=== PATIENT | female | born 1960 | race Caucasian/White ===

== ENCOUNTER 2018-03-30 15:39 | Emergency (ER) | payer OTHER ==
[2018-03-30 15:50] VITALS: RESP 16
[2018-03-30] MEDS ORDERED: OXYMETAZOLINE 0.05% NASL SPRAY 1 SPRAY BOTTLE ONE (15:58)
--- NOTE | 2018-03-30 16:08 | ED ---
General Adult HPI - General Chief complaint: ENT Stated complaint: Nosebleed Time Seen by Provider: 03/30/18 15:55 Source: patient, EMS, RN notes reviewed Mode of arrival: EMS Limitations: no limitations - History of Present Illness Initial comments: 57-year-old female no significant past medical history presents for evaluation of nosebleed. Patient has had nosebleeds over the past 4 days. These have resolved without treatment. Today she developed worsening right sided epistaxis with several large clots. Patient denies any trauma. She does have a chronic history of migraine headache and she takes aspirin-containing products for her chronic headaches. No other blood thinners noted. No rhinorrhea or URI symptoms. - Related Data Home Medications Medication Instructions Recorded Confirmed Baclofen [Lioresal] 20 mg PO HS 03/30/18 03/30/18 FLUoxetine HCL [PROzac] 20 mg PO DAILY 03/30/18 03/30/18 Levothyroxine Sodium [Synthroid] 125 mcg PO DAILY 03/30/18 03/30/18 Propranolol HCl [Inderal LA] 80 mg PO HS 03/30/18 03/30/18 Rizatriptan Benzoate [Maxalt [employer] E[employer]MENT REPAIRER] 10 mg PO DAILY PRN 03/30/18 03/30/18 Previous Rx's Medication Instructions Recorded Amoxic-Pot Clav 875-125Mg 1 tab PO Q12HR #10 tablet 03/30/18 [Augmentin 875-125] Allergies Allergy/AdvReac Type Severity Reaction Status Date / Time latex Allergy Rash/Hives Verified 03/30/18 16:19 Sulfa (Sulfonamide Allergy Unknown Verified 03/30/18 16:19 Antibiotics) Childhood Review of Systems ROS Statement: Those systems with pertinent positive or pertinent negative responses have been documented in the HPI. ROS Other: All systems not noted in ROS Statement are negative. Past Medical History Past Medical History: Thyroid Disorder History of Any Multi-Drug Resistant Organisms: None Reported Past Surgical History: Bariatric Surgery, Section, Cholecystectomy, Tonsillectomy Additional Past Surgical History / Comment(s): gastric bypass, sinus Past Psychological History: Depression Smoking Status: Current every day smoker Past Alcohol Use History: None Reported Past Drug Use History: None Reported General Exam Limitations: no limitations General appearance: alert, in no apparent distress Head exam: Present: atraumatic, normocephalic Eye exam: Present: normal appearance, PERRL ENT exam: Present: other (Epistaxis primarily from the right nare, she has some posterior oropharynx hemorrhage with no visualized clots.) Neck exam: Present: normal inspection. Absent: tenderness, meningismus Respiratory exam: Present: normal lung sounds bilaterally. Absent: respiratory distress, wheezes Cardiovascular Exam: Present: regular rate, normal rhythm GI/Abdominal exam: Present: soft. Absent: distended, tenderness Extremities exam: Present: normal inspection, normal capillary refill. Absent: pedal edema Neurological exam: Present: alert, oriented X3, CN II-XII intact. Absent: motor sensory deficit Psychiatric exam: Present: normal affect, normal mood Skin exam: Present: warm, dry, intact. Absent: cyanosis, diaphoretic, pallor Course Vital Signs 03/30/18 15:45 Temperature 98.7 F Pulse Rate 68 Respiratory 16 Rate Blood Pressure 156/97 O2 Sat by Pulse 97 Oximetry Medical Decision Making - Medical Decision Making Procedure note: Nasal packing: Nose is irrigated with Afrin nasal spray, nasal packing is applied with bacitracin ointment. Patient tolerates procedure well. Hemostasis is achieved. 57-year-old female presenting for nosebleed. She has had some nasal congestion. On exam her nasal turbinates are significantly swollen. No single bleeding vessel is seen on exam. Initial infiltration of Afrin nasal spray and nasal clamp is unsuccessful. Packing is applied. Hemostasis, she continues to bleed out of both nostrils. Rhino Rocket is placed on the right and Merocel packing is placed on the left. There is no posterior oropharyngeal bleeding on reevaluation. Patient will be prescribed antibiotics and will follow up with ENT. Disposition Clinical Impression: Epistaxis Disposition: HOME SELF-CARE Condition: Good Instructions: Nosebleed (ED) Prescriptions: Amoxic-Pot Clav 875-125Mg [Augmentin 875-125] 1 tab PO Q12HR #10 tablet Is patient prescribed a controlled substance at d/c from ED?: No Referrals: Clement Gomez DO [Primary Care Provider] - 1-2 days Greg Orellana MD [STAFF PHYSICIAN] - 1-2 days Time of Disposition: 16:30
[2018-03-30 17:33] VITALS: PULSE 64; TEMP 98.2
[2018-03-30 17:59] VITALS: BP 194/110
== END 2018-03-30 17:58 | disposition home or self-care (01) ==
LOC: EC 15:39
DX: R04.0 Epistaxis (principal); E07.9 Disorder of thyroid, unspecified; G89.29 Other chronic pain; F32.9 Major depressive disorder, single episode, unspecified; F17.200 Nicotine dependence, unspecified, uncomplicated; Z79.82 Long term (current) use of aspirin; Z79.899 Other long term (current) drug therapy; Z88.2 Allergy status to sulfonamides; Z91.040 Latex allergy status; Z98.890 Other specified postprocedural states
CPT/HCPCS: 30901; 99283

== ENCOUNTER → 2018-09-23 | Outpatient (CLI) | payer OTHER ==
--- NOTE | 2018-09-23 21:04 | MR ---
EXAMINATION TYPE: MR hip RT wo con DATE OF EXAM: 09/23/2018 COMPARISON: None HISTORY: Right hip pain with locking sensation for 6 months per patient. Standard multiplanar, multisequence MRI departmental protocol Multiplanar, multisequence images of the pelvis focus in right hip is acquired. FINDINGS: Bone marrow signal intensity about the pelvis including bilateral hips is felt maintained. No suspicious edema is seen. No linear T1 signal is noted. Femoral head spherical shape is maintained bilaterally. There are small to moderate size right slightly greater than left hip joint effusions. There is mild to moderate axial joint space loss in both hips. No significant spurring or subchondral cystic change s noted. No suspicious edema seen at level of the lesser greater trochanters bilaterally. Right labru m appears intact given limitations of nonarthrogram study. No suspicious groin adenopathy is seen. No suspicious groin hernia is present. Muscle bulk is symmetr ic and felt within normal limits. Uterus is felt slightly retroverted. Patient has very little intrapelvic fat making evaluation subopt imal. Bladder is felt within normal limits. No free fluid in pelvis is noted. No suspicious bowel dil atation is seen. Pubic symphysis is intact. IMPRESSION: Symmetric mild to moderate degenerative changes in both hips as detailed above. No evidence for avasc ular necrosis or radio occult fracture.
== END ==
LOC: RADMRIMAIN 13:26
PROVIDERS: ATTEND Family Medicine
DX: M16.0 Bilateral primary osteoarthritis of hip (principal)

== ENCOUNTER → 2018-10-25 | Outpatient (CLI) | payer OTHER ==
--- NOTE | 2018-10-25 22:50 | MR ---
EXAMINATION TYPE: MR lumbar spine wo con DATE OF EXAM: 10/25/2018 COMPARISON: NONE HISTORY: Low back pain into Right Leg Pain x6 months per patient. Low back pain per order. TECHNIQUE: Multiplanar, multisequence imaging of the lumbar spine is performed without IV contrast. FINDINGS: Sagittal images of the lumbar spine show vertebral body height to appear satisfactory. Ther e is grade 1 anterolisthesis of L4 on L5. Multilevel disc desiccation is present. There is mild disc space during L3-L4 and L4-L5 levels. Posterior disc herniation L3-L4 level effaces the anterior theca l sac on sagittal images. The conus medullaris ends inferior T12 level without abnormal signal. The bone marrow signal intensity is overall heterogeneous. Axial images show the T12-L1 and L1-L2 levels to appear within normal limits. Axial images at the L2-L3 level show mild facet degenerative changes and ligamentum flavum hypertroph y effacing posterior lateral thecal sac. There is mild broad disc bulge minimally effacing the anteri or thecal sac. Left-sided neural foramina shows mild inferior narrowing. Right sided neural foramen i s patent. Axial images at the L3-L4 level shows mild facet degenerative changes bilaterally. There is broad-bas ed right paracentral/foraminal disc protrusion effacing intrathecal sac as well as lateral recess and causing mild to moderate right-sided anterior inferior neural foraminal narrowing. Encroachment on c entral right L4 nerves suspected axial image 14. Left-sided neural foramen is patent. Axial images at L4-L5 level show spondylolisthesis with moderate facet degenerative changes bilateral ly. There is broad-based right foraminal disc protrusion causing asymmetric moderate right-sided infe rior neural foraminal narrowing encroaching on right L4 nerve sagittal image 12 and axial image 10. Axial images at the L5-S1 level shows moderate facet degenerative changes bilaterally. Spinal canal i s preserved. Bilateral neural foramina are patent. Slightly prominent fluid-filled bowel loops are seen in the visualized abdomen. IMPRESSION: Multilevel degenerative changes in lumbar spine as detailed above. Most prominent disc he rniation L3-L4 level appears to encroach on central right L4 nerve. Spondylolisthesis with eccentric disc herniation L4-L5 level encroaches on the exiting right L4 nerve also.
== END | disposition home or self-care (01) ==
LOC: RADMRIMAIN 18:45
PROVIDERS: ATTEND Family Medicine
DX: M51.26 Other intervertebral disc displacement, lumbar region (principal); M43.16 Spondylolisthesis, lumbar region; M47.816 Spondylosis without myelopathy or radiculopathy, lumbar region
CPT/HCPCS: 72148

== ENCOUNTER 2020-04-13 10:45 | Inpatient (IN) | payer OTHER ==
[2020-04-13] MEDS ORDERED: MORPHINE SULFATE 4 MG/ML SYRINGE IV STA (11:04)
[2020-04-13] MEDS ORDERED: PANTOPRAZOLE 40 MG/10 ML VIAL IVP STA (11:04)
[2020-04-13] MEDS ORDERED: SODIUM CHLORIDE 0.9% 500 ML 500 ML IV STA (11:04)
--- NOTE | 2020-04-13 11:09 | ED ---
General Adult HPI - General Chief complaint: Abdominal Pain Stated complaint: abd pain Time Seen by Provider: 04/13/20 10:56 Source: patient, RN notes reviewed, old records reviewed Mode of arrival: wheelchair Limitations: no limitations - History of Present Illness Initial comments: 59-year-old female presenting for evaluation of generalized abdominal pain. Pain began yesterday evening, crampy in nature. She's had nausea without significant vomiting. She states she did pass gas and had a small bowel movement this morning. Pain is generalized, severe. She reports abdominal distention. Chest previous history of cholecystectomy, hysterectomy. No fever or chills. No chest pain or dyspnea. - Related Data Home Medications Medication Instructions Recorded Confirmed Baclofen [Lioresal] 20 mg PO HS 03/30/18 03/30/18 FLUoxetine HCL [PROzac] 20 mg PO DAILY 03/30/18 03/30/18 Levothyroxine Sodium [Synthroid] 125 mcg PO DAILY 03/30/18 03/30/18 Propranolol HCl [Inderal LA] 80 mg PO HS 03/30/18 03/30/18 Rizatriptan Benzoate [Maxalt [employer]ACHINE [employer]TER] 10 mg PO DAILY PRN 03/30/18 03/30/18 Butalb/APAP/Caff 50-325-40Mg 1 tab PO Q4H PRN 04/13/20 04/13/20 [Fioricet 50-325-40] Chlorthalidone 50 mg PO DAILY 04/13/20 04/13/20 Cholecalciferol [Vitamin D3 (25 1,000 unit PO DAILY 04/13/20 04/13/20 Mcg = 1000 Iu)] Multivitamins, Thera [Multivitamin 1 tab PO DAILY 04/13/20 04/13/20 (formulary)] Allergies Allergy/AdvReac Type Severity Reaction Status Date / Time latex Allergy Rash/Hives Verified 04/13/20 12:08 Sulfa (Sulfonamide Allergy Unknown Verified 04/13/20 12:08 Antibiotics) Childhood Review of Systems ROS Statement: Those systems with pertinent positive or pertinent negative responses have been documented in the HPI. ROS Other: All systems not noted in ROS Statement are negative. Past Medical History Past Medical History: Thyroid Disorder History of Any Multi-Drug Resistant Organisms: None Reported Past Surgical History: Bariatric Surgery, Section, Cholecystectomy, Tonsillectomy Additional Past Surgical History / Comment(s): gastric bypass, sinus Past Psychological History: Depression Smoking Status: Current every day smoker Past Alcohol Use History: None Reported Past Drug Use History: None Reported General Exam Limitations: no limitations General appearance: alert, in distress Head exam: Present: atraumatic, normocephalic Eye exam: Present: normal appearance, PERRL ENT exam: Present: mucous membranes dry Neck exam: Present: normal inspection. Absent: tenderness, meningismus Respiratory exam: Present: normal lung sounds bilaterally. Absent: respiratory distress, wheezes Cardiovascular Exam: Present: regular rate, normal rhythm GI/Abdominal exam: Present: soft, distended, tenderness, guarding Extremities exam: Present: normal inspection, normal capillary refill Neurological exam: Present: alert, oriented X3, CN II-XII intact. Absent: motor sensory deficit Psychiatric exam: Present: normal affect, normal mood Skin exam: Present: warm, dry, intact. Absent: cyanosis, diaphoretic Course Vital Signs 04/13/20 10:50 Temperature 97.4 F L Pulse Rate 63 Respiratory 16 Rate Blood Pressure 100/75 O2 Sat by Pulse 99 Oximetry EKG Findings - EKG Comments: EKG Findings:: EKG: Normal sinus rhythm, no ST segment elevation inferior infarct, rate of 92, ND interval 152, QRS duration 94, QTC 487 Medical Decision Making - Medical Decision Making 59-year-old female with severe abdominal pain. Remote history of bariatric surgery, hysterectomy, cholecystectomy. Patient has a distended abdomen, diffusely tender to palpation, palpable mass in the right hemiabdomen. Vitals are stable. Laboratory testing performed, no leukocytosis, stable hemoglobin, normal lactic, normal electrolytes, CT performed showing intraperitoneal free air, thickened small bowel, case is discussed with general surgery on-call, Dr. Ojeda, patient will be taken to the operating room for urgent evaluation of intraperitoneal free air. - Lab Data Result diagrams: 04/13/20 11:00 04/13/20 11:00 Lab Results 04/13/20 04/13/20 04/13/20 Range/Units 11:00 11:00 11:00 WBC 6.3 (3.8-10.6) k/uL RBC 5.20 (3.80-5.40) m/uL Hgb 16.2 H (11.4-16.0) gm/dL Hct 50.4 H (34.0-46.0) % MCV 96.9 (80.0-100.0) fL MCH 31.1 (25.0-35.0) pg MCHC 32.0 (31.0-37.0) g/dL RDW 16.5 H (11.5-15.5) % Plt Count 289 (150-450) k/uL Neutrophils % 73 % Lymphocytes % 19 % Monocytes % 4 % Eosinophils % 3 % Basophils % 0 % Neutrophils # 4.6 (1.3-7.7) k/uL Lymphocytes # 1.2 (1.0-4.8) k/uL Monocytes # 0.3 (0-1.0) k/uL Eosinophils # 0.2 (0-0.7) k/uL Basophils # 0.0 (0-0.2) k/uL Anisocytosis Slight PT 10.0 (9.0-12.0) sec INR 1.0 (<1.2) APTT 21.2 L (22.0-30.0) sec Sodium 138 (137-145) mmol/L Potassium 3.6 (3.5-5.1) mmol/L Chloride 108 H (98-107) mmol/L Carbon Dioxide 25 (22-30) mmol/L Anion Gap 5 mmol/L BUN 17 (7-17) mg/dL Creatinine 0.53 (0.52-1.04) mg/dL Est GFR (CKD-EPI)AfAm >90 (>60 ml/min/1.73 sqM) Est GFR (CKD-EPI)NonAf >90 (>60 ml/min/1.73 sqM) Glucose 138 H (74-99) mg/dL Plasma Lactic Acid Jose Daniel (0.7-2.0) mmol/L Calcium 9.6 (8.4-10.2) mg/dL Total Bilirubin 0.3 (0.2-1.3) mg/dL AST 31 (14-36) U/L ALT 18 (4-34) U/L Alkaline Phosphatase 82 (38-126) U/L Total Protein 6.2 L (6.3-8.2) g/dL Albumin 3.8 (3.5-5.0) g/dL Amylase 45 (30-110) U/L Lipase 66 (23-300) U/L 04/13/20 Range/Units 11:00 WBC (3.8-10.6) k/uL RBC (3.80-5.40) m/uL Hgb (11.4-16.0) gm/dL Hct (34.0-46.0) % MCV (80.0-100.0) fL MCH (25.0-35.0) pg MCHC (31.0-37.0) g/dL RDW (11.5-15.5) % Plt Count (150-450) k/uL Neutrophils % % Lymphocytes % % Monocytes % % Eosinophils % % Basophils % % Neutrophils # (1.3-7.7) k/uL Lymphocytes # (1.0-4.8) k/uL Monocytes # (0-1.0) k/uL Eosinophils # (0-0.7) k/uL Basophils # (0-0.2) k/uL Anisocytosis PT (9.0-12.0) sec INR (<1.2) APTT (22.0-30.0) sec Sodium (137-145) mmol/L Potassium (3.5-5.1) mmol/L Chloride (98-107) mmol/L Carbon Dioxide (22-30) mmol/L Anion Gap mmol/L BUN (7-17) mg/dL Creatinine (0.52-1.04) mg/dL Est GFR (CKD-EPI)AfAm (>60 ml/min/1.73 sqM) Est GFR (CKD-EPI)NonAf (>60 ml/min/1.73 sqM) Glucose (74-99) mg/dL Plasma Lactic Acid Jose Daniel 1.1 (0.7-2.0) mmol/L Calcium (8.4-10.2) mg/dL Total Bilirubin (0.2-1.3) mg/dL AST (14-36) U/L ALT (4-34) U/L Alkaline Phosphatase (38-126) U/L Total Protein (6.3-8.2) g/dL Albumin (3.5-5.0) g/dL Amylase (30-110) U/L Lipase (23-300) U/L Critical Care Time Critical Care Time: Yes Total Critical Care Time: 35 Disposition Clinical Impression: Abdominal pain, Free intraperitoneal air Disposition: ADMITTED IP TO THIS HOSP Condition: Serious Is patient prescribed a controlled substance at d/c from ED?: No Referrals: Wyatt Lemus DO [Primary Care Provider] - 1-2 days Decision to Admit Reason: Admit from EC Decision Date: 04/13/20 Decision Time: 12:03
[2020-04-13 11:14] LABS: Anisocytosis Slight; Basophils % (A) 0 %; Eosinophils # (A) 0.2 k/uL (0-0.7); Eosinophils % (A) 3 %; HCT 50.4 % (34.0-46.0); HGB 16.2 gm/dL (11.4-16.0); Lymphocytes # (A) 1.2 k/uL (1.0-4.8); Lymphocytes % (A) 19 %; MCH 31.1 pg (25.0-35.0); MCV 96.9 fL (80.0-100.0); Mean Platelet Volume 7.4; Monocytes # (A) 0.3 k/uL (0-1.0); Monocytes % (A) 4 %; Neutrophils # (A) 4.6 k/uL (1.3-7.7); Neutrophils % (A) 73 %; Platelet Count 289 k/uL (150-450); RDW 16.5 % (11.5-15.5); WBC 6.3 k/uL (3.8-10.6)
[2020-04-13 11:22] LABS: ALT 18 U/L (4-34); AST 31 U/L (14-36); African American GFR (CKD) >90 (>60 ml/min/1.73 sqM); Albumin 3.8 g/dL (3.5-5.0); Alkaline Phosphatase 82 U/L (38-126); Amylase 45 U/L (30-110); Anion Gap 5 mmol/L; Blood Urea Nitrogen 17 mg/dL (7-17); Calcium 9.6 mg/dL (8.4-10.2); Carbon Dioxide 25 mmol/L (22-30); Chloride 108 mmol/L (98-107); Glucose 138 mg/dL (74-99); Non-African American GFR(CKD) >90 (>60 ml/min/1.73 sqM); Potassium 3.6 mmol/L (3.5-5.1); Sodium 138 mmol/L (137-145); Total Bilirubin 0.3 mg/dL (0.2-1.3); Total Protein 6.2 g/dL (6.3-8.2)
--- NOTE | 2020-04-13 11:27 | XR ---
EXAMINATION TYPE: XR KUB , 2 VIEWS DATE OF EXAM ORDERED: 04/13/2020 HISTORY: abdominal pain. COMPARISON: None. FINDINGS: The lung bases are clear. Within the abdomen, the abdominal gas pattern is normal. There is no evidence of obstruction or free air. Vascular calcifications are noted. IMPRESSION: NO ACUTE INTRA-ABDOMINAL ABNORMALITY.
[2020-04-13 11:34] LABS: Partial Thromboplastin Time 21.2 sec (22.0-30.0)
[2020-04-13] MEDS ORDERED: PIPERACILLIN-TAZOBACTAM 3.375 GM in SODIUM CHLORIDE 0.9% 100 ML IVPB STA (11:50)
[2020-04-13] MEDS ORDERED: MORPHINE SULFATE 4 MG/ML SYRINGE IVP STA (11:55)
[2020-04-13] MEDS ORDERED: NALOXONE 0.4 MG/ML 1 ML VIAL IV PRN (11:56)
[2020-04-13] MEDS ORDERED: MORPHINE SULFATE 4 MG/ML SYRINGE IVP PRN (11:57)
--- NOTE | 2020-04-13 11:58 | CT ---
EXAMINATION TYPE: CT abdomen pelvis w con DATE OF EXAM: 04/13/2020 REFERENCE: NONE HISTORY: ab pain/distention HISTORY: pain and distention REFERENCE: NONE CT DLP: 804.2 mGy Automated exposure control for dose reduction was used. TECHNIQUE: Helical acquisition through the abdomen and pelvis was obtained following the oral ingesti on of without Oral Contrast and following intravenous administration of 100 mL of Isovue 300. The leola a was reformatted in axial, coronal and sagittal projections. FINDINGS: There is mild dependent atelectasis in the dependent portions of the lungs. There is also small amount of airspace disease in the left lingula. There is no pleural or pericardial fluid. The heart is not enlarged. Within the abdomen, there is been previous gastric surgery. There are several droplets of free air wi thin the abdomen. There is a small amount of ascites. The gallbladder is been removed. The liver and spleen appear normal. Both adrenal glands appear unremarkable. Both kidneys demonstrate function and appear morphologically normal. There is dilatation of this common bile duct which measures up to 1.5 cm at the level of the head of the pancreas. The pancreas is otherwise unremarkable. There is no significant retroperitoneal, iliac or inguinal adenopathy. The bladder is unremarkable. The uterus and ovaries appear normal. There is no significant diverticulosis is no radiographic evidence of diverticulitis. I do not see co nvincing evidence of volvulus. The appendix is not visualized with certainty. There is diffuse thickening of the small bowel there is some mild dilatation of the small bowel. The the celiac and SMA arteries are patent. The CASSANDRA artery is not visualized with certainty. There is degenerative disc disease and mild hypertrophic spondylosis most marked at L3-4. There is fa cet arthropathy in the lower lumbar facets. IMPRESSION: 1. DIFFUSELY THICKENED SMALL BOWEL THROUGHOUT THE ABDOMEN. 2. SMALL DROPLETS OF FREE AIR WELL A SMALL AMOUNT OF ASCITES. 3. EVIDENCE OF MULTIPLE PREVIOUS SURGERIES INCLUDING SMALL BOWEL RESECTION AND GASTRIC SURGERY. 4. DEGENERATIVE CHANGES WITHIN THE LUMBAR SPINE AND DORSAL SPINE. THIS REPORT WAS PHONED TO DR. GARCIA IN THE ER AT THE TIME OF REPORTING.
[2020-04-13] MEDS ORDERED: SODIUM CHLORIDE 0.9% 1,000 ML IV ONE ×2 (15:06→19:00)
--- NOTE | 2020-04-13 15:40 | P.GSHP ---
History of Present Illness H&P Date: 04/13/20 CHIEF COMPLAINT: Abdominal pain HISTORY OF PRESENT ILLNESS: The patient is a 59-year-old female who presents acutely to the emergency room after developing acute onset abdominal pain 4 hours ago. She reports that she has a history of gastric bypass 15 years ago, 2004 and has not had any bariatric follow-up. She is an active tobacco abuser. She reports intermittent dysphagia to foods. She reports no passage of flatus today or bowel movement today. Her is at bedside giving additional history where she usually has a bowel movement daily however this is changed. He reports that she complained of abdominal pain during the car ride to the emergency room. At this time, patient reports severe abdominal pain where she is uncomfortable even with laying down. On further discussion, patient reports having several weeks of abdominal pain mostly epigastric for almost one month and had not sought any medical attention. PAST MEDICAL HISTORY: See list and reviewed PAST SURGICAL HISTORY: See list and reviewed. History of gastric bypass and cholecystectomy MEDICATIONS: See list and reviewed ALLERGIES: See list and reviewed SOCIAL HISTORY: See list and reviewed. Active tobacco abuse FAMILY HISTORY: See list and reviewed REVIEW OF ORGAN SYSTEMS: CONSTITUTIONAL: No fevers or chills. Intentional weight loss due to gastric bypass surgery over 15 years ago, 2004. EYES: Denies any trouble with vision. No glasses. HEENT: No difficulties with hearing. No nosebleeds. No difficulty swallowing. RESPIRATORY: Denies pneumonia. CARDIOVASCULAR: Denies any chest pain. GASTROINTESTINAL: Has food intolerance. Has change in bowel habits and gas bloat. GENITOURINARY: Denies any blood in urine or increased urinary frequency. NEUROLOGICAL: No seizure disorders or headaches. MUSCULOSKELETAL: Has back pain, stiffness or joint arthritis. SKIN: No current skin cancer. No rash. PSYCHIATRIC: Has depression. No suicidal ideation. ENDOCRINE: Has thyroid disorders. Denies any blood sugar glucose intolerance. HEME/LYMPHATIC: Denies any lumps and bumps around the neck. No recent deep venous thrombosis. ALLERGY/IMMUNOLOGY: No immunoglobulin therapy. No immune deficiencies. BREAST: Denies current breast lumps, pain or nipple discharge. PHYSICAL EXAM: VITALS: Reviewed CONSTITUTIONAL: Well developed and in acute distress. EYES: Conjuctivae without sclera icterus. Pupils are equally round and reactive to light. Extraocular movements grossly intact. HEAD, EARS, NOSE, THROAT: Dry buccal mucosa. Head is atraumatic, normocephalic. Hears conversational speech. No nasal drainage. NECK: Supple. No JV distention. No thyroidomegaly. RESPIRATORY: Non-labored respirations and equal bilateral excursions. No gross wheezes. CARDIOVASCULAR: Regular rate and rhythm. Extremities without moderate edema. Palpable 2+ radial pulses. ABDOMEN: Soft. Distended. Diffusely tender with peritonitis LYMPH: No neck lymphadenopathy. MUSCULOSKELETAL: No clubbing cyanosis or edema. Nail and fingers with good capillary refill. SKIN: Warm and well perfused and tanned. NEUROLOGIC: Cranial nerves II through XII grossly intact. Sensation upper and extremities intact. No focal or lateralizing signs. PSYCH: Appropriate affect. Alert and oriented to person, place and time. CLINCAL LABS: Reviewed. WBC normal 6300. Lactate normal 1.1 IMAGING: Independently reviewed demonstrating features of gastric bypass. Small bowel including the Angei limb with moderate edema. Moderate stool throughout the entire colon. RADIOLOGY: Report reviewed with intraperitoneal small foci of air and ascites. ASSESSMENT: 1. Abnormal computed tomography scan with intraperitoneal air 2. Abdominal pain with peritonitis, generalized 3. History of gastric bypass. PLAN: 1. Clinical exam consistent with peritonitis including with history of gastric bypass. Emergent exploratory laparotomy with small bowel resection and possible ostomy also prescribed for which patient is high risk secondary to her smoking. 2. Extensive tobacco cessation counseling performed over 3 minutes as smoking is contraindicated with history of gastric bypass for risk of ulcers or perforation 3. Recovery and intensive care unit including prolonged intubation also described. 4. All questions were addressed and answered to the patient and at bedside. 5. Inpatient hospitalization over 2 nights 6. Emergent critical and assessment performed with immediate communication with additional physicians including anesthesia, IV fluid boluses, EKG, surgical intervention described. CRITICAL CARE TIME: 33 minutes Past Medical History Past Medical History: Thyroid Disorder History of Any Multi-Drug Resistant Organisms: None Reported Past Surgical History: Bariatric Surgery, Section, Cholecystectomy, Tonsillectomy Additional Past Surgical History / Comment(s): gastric bypass, sinus Past Psychological History: Depression Smoking Status: Current every day smoker Past Alcohol Use History: None Reported Past Drug Use History: None Reported Medications and Allergies Home Medications Medication Instructions Recorded Confirmed Type Baclofen [Lioresal] 20 mg PO HS 03/30/18 04/13/20 History FLUoxetine HCL [PROzac] 20 mg PO DAILY 03/30/18 04/13/20 History Levothyroxine Sodium [Synthroid] 125 mcg PO DAILY 03/30/18 04/13/20 History Propranolol HCl [Inderal LA] 80 mg PO HS 03/30/18 04/13/20 History Rizatriptan Benzoate [Maxalt ENTRY LEVEL PROJECT COORDINATOR] 10 mg PO DAILY PRN 03/30/18 04/13/20 History Butalb/APAP/Caff 50-325-40Mg 1 tab PO Q4H PRN 04/13/20 04/13/20 History [Fioricet 50-325-40] Chlorthalidone 50 mg PO DAILY 04/13/20 04/13/20 History Cholecalciferol [Vitamin D3 (25 1,000 unit PO DAILY 04/13/20 04/13/20 History Mcg = 1000 Iu)] Multivitamins, Thera [Multivitamin 1 tab PO DAILY 04/13/20 04/13/20 History (formulary)] Allergies Allergy/AdvReac Type Severity Reaction Status Date / Time latex Allergy Rash/Hives Verified 04/13/20 12:08 Sulfa (Sulfonamide Allergy Unknown Verified 04/13/20 12:08 Antibiotics) Childhood Surgical - Exam Vital Signs Temp Pulse Resp BP Pulse Ox 97.4 F L 63 16 100/75 99 04/13/20 10:50 04/13/20 10:50 04/13/20 10:50 04/13/20 10:50 04/13/20 10:50 Results - Labs 04/13/20 11:00 04/13/20 11:00 Abnormal Lab Results - Last 24 Hours (Table) 04/13/20 04/13/20 04/13/20 Range/Units 11:00 11:00 11:00 Hgb 16.2 H (11.4-16.0) gm/dL Hct 50.4 H (34.0-46.0) % RDW 16.5 H (11.5-15.5) % APTT 21.2 L (22.0-30.0) sec Chloride 108 H (98-107) mmol/L Glucose 138 H (74-99) mg/dL Total Protein 6.2 L (6.3-8.2) g/dL Diabetes panel 04/13/20 Range/Units 11:00 Sodium 138 (137-145) mmol/L Potassium 3.6 (3.5-5.1) mmol/L Chloride 108 H (98-107) mmol/L Carbon Dioxide 25 (22-30) mmol/L BUN 17 (7-17) mg/dL Creatinine 0.53 (0.52-1.04) mg/dL Glucose 138 H (74-99) mg/dL Calcium 9.6 (8.4-10.2) mg/dL AST 31 (14-36) U/L ALT 18 (4-34) U/L Alkaline Phosphatase 82 (38-126) U/L Total Protein 6.2 L (6.3-8.2) g/dL Albumin 3.8 (3.5-5.0) g/dL Calcium panel 04/13/20 Range/Units 11:00 Calcium 9.6 (8.4-10.2) mg/dL Albumin 3.8 (3.5-5.0) g/dL Pituitary panel 04/13/20 Range/Units 11:00 Sodium 138 (137-145) mmol/L Potassium 3.6 (3.5-5.1) mmol/L Chloride 108 H (98-107) mmol/L Carbon Dioxide 25 (22-30) mmol/L BUN 17 (7-17) mg/dL Creatinine 0.53 (0.52-1.04) mg/dL Glucose 138 H (74-99) mg/dL Calcium 9.6 (8.4-10.2) mg/dL Adrenal panel 04/13/20 Range/Units 11:00 Sodium 138 (137-145) mmol/L Potassium 3.6 (3.5-5.1) mmol/L Chloride 108 H (98-107) mmol/L Carbon Dioxide 25 (22-30) mmol/L BUN 17 (7-17) mg/dL Creatinine 0.53 (0.52-1.04) mg/dL Glucose 138 H (74-99) mg/dL Calcium 9.6 (8.4-10.2) mg/dL Total Bilirubin 0.3 (0.2-1.3) mg/dL AST 31 (14-36) U/L ALT 18 (4-34) U/L Alkaline Phosphatase 82 (38-126) U/L Total Protein 6.2 L (6.3-8.2) g/dL Albumin 3.8 (3.5-5.0) g/dL Assessment and Plan (1) Peritonitis (acute) generalized Current Visit: Yes Status: Acute Code(s): K65.0 - GENERALIZED (ACUTE) PERITONITIS SNOMED Code(s): 93421180 (2) History of gastric bypass Current Visit: Yes Status: Acute Code(s): Z98.84 - BARIATRIC SURGERY STATUS SNOMED Code(s): 647461014 (3) Medical non-compliance Current Visit: Yes Status: Acute Code(s): Z91.19 - PATIENT'S NONCOMPLIANCE W OT MEDICAL TREATMENT AND REGIMEN SNOMED Code(s): 785762227 (4) Tobacco abuse Current Visit: Yes Status: Acute Code(s): Z72.0 - TOBACCO USE SNOMED Code( s): 946902879 (5) Tobacco abuse counseling Current Visit: Yes Status: Acute Code(s): Z71.6 - TOBACCO ABUSE COUNSELING SNOMED Code(s): 883484030 (6) Depressive disorder Current Visit: Yes Status: Acute Code(s): F32.9 - MAJOR DEPRESSIVE DISORDER, SINGLE EPISODE, UNSPECIFIED SNOMED Code(s): 84739063 (7) Hypothyroidism Current Visit: Yes Status: Acute Code(s): E03.9 - HYPOTHYROIDISM, UNSPECIFIED SNOMED Code(s): 45015728 (8) Abdominal pain Current Visit: Yes Status: Acute Code(s): R10.9 - UNSPECIFIED ABDOMINAL PAIN SNOMED Code(s): 09919099 (9) Free intraperitoneal air Current Visit: Yes Status: Acute Code(s): K66.8 - OTHER SPECIFIED DISORDERS OF PERITONEUM SNOMED Code(s): 46541285 (10) Dehydration Current Visit: Yes Status: Acute Code(s): E86.0 - DEHYDRATION SNOMED Code(s): 96124415
[2020-04-13] MEDS ORDERED: HEPARIN SODIUM,PORCINE 5,000 UNIT/ML 1 ML VIAL SQ STA (16:24)
[2020-04-13] MEDS: SODIUM CHLORIDE 0.9% 1,000 ML IV SCH (17:35)
[2020-04-13] MEDS ORDERED: ROCURONIUM BROMIDE 10 MG/ML 5 ML VIAL IV ONE (20:31)
[2020-04-13] MEDS ORDERED: SUCCINYLCHOLINE CHLORIDE 100 MG/5 ML SYR IV ONE (20:31)
[2020-04-13] MEDS ORDERED: SODIUM CHLORIDE 0.9% 50 ML with ceFAZolin 2,000 MG IV ONE ×2 (20:31)
[2020-04-13] MEDS ORDERED: fentaNYL (PF) 50 MCG/ML 2 ML AMP ONE (20:31)
[2020-04-13] MEDS ORDERED: PROPOFOL 10 MG/ML 20 ML VIAL IV ONE (20:31)
[2020-04-13] MEDS ORDERED: HYDROmorphone (PF) 1 MG/ML ONE (20:31)
[2020-04-13] MEDS ORDERED: PHENYLEPHRINE-0.9% NACL SYG 1 MG/10 ML SYRINGE ONE (20:31)
[2020-04-13] MEDS ORDERED: metroNIDAZOLE-NS PMX 500 MG in SALINE 1 100ML.BAG IVPB STA (21:42)
[2020-04-13] MEDS ORDERED: LACTATED RINGERS 500 ML IV ONE (21:55)
[2020-04-13] MEDS ORDERED: LACTATED RINGERS 1,000 ML IV ONE ×3 (21:56→22:37)
--- NOTE | 2020-04-13 22:06 | P.ANPRN ---
Procedure Note - Anesthesia - Invasive Line Right Central Line Time Out Performed: Yes (presurgical, emergent procedure) Date of Procedure: 04/13/20 Time of Procedure: 21:30 Location of Patient: PreOp Preparation: Sterile Prep, Sterile Dressing Ultrasound Used: Yes Purpose - Visualization and Identification of Vasculature: Yes Needle Guage: 18g angio Image Stored and Saved: Yes Narrative: Central line placement per sterile protocol utilized. Right IJ prepped. +local +angio +jwire +uneventful dilation and introduction right IJ TLC. Secured at 15cm. dressed.
[2020-04-13 23:43] LABS: Glucose,Whole Blood 130 mg/dL (75-99)
[2020-04-13] MEDS ORDERED: PROPOFOL 100 ML IV ONE (23:43)
--- NOTE | 2020-04-14 00:01 | P.OP ---
Date of Procedure: 04/13/20 Description of Procedure: SURGEON: NEVILLE CHAHAL MD PREOPERATIVE DIAGNOSES: 1. Pneumoperitoneum with peritonitis 2. Chronic constipation 3. History of gastric bypass 4. Chronic tobacco abuse 5. Hypertensive heart disease 6. Lack of general medical care, intentional 7. Medical noncompliance to bariatric care 8. Hypothyroidism 9. Depressive disorder 10. Hypotension present prior to surgery 11. Severe dehydration present prior to surgery POSTOPERATIVE DIAGNOSES: 1. Pneumoperitoneum with fecal peritonitis 2. Chronic constipation 3. History of gastric bypass 4. Chronic tobacco abuse 5. Hypertensive heart disease 6. Lack of general medical care, intentional 7. Medical noncompliance to bariatric care 8. Hypothyroidism 9. Depressive disorder 10. Perforated sigmoid colon due to ulceration from hard stool 11. Fecal peritonitis 12. Descending and sigmoid colon stool impaction 13. Appendicolith with impaction in appendix 14. Hypotension present prior to surgery 15. Severe dehydration present prior to surgery Procedure(s) Performed: 1. Exploratory laparotomy with sigmoid colectomy for perforated sigmoid colon due to stool ulceration 2. Descending colostomy creation for Flannery's procedure 3. Disimpaction of descending colon and sigmoid colon of concretions of large stool 4. Open appendectomy for appendicolith 5. Abdominal washout 6 L normal saline for fecal peritonitis 6. Placement of right lower pelvis round #19 MARIA EUGENIA drain 7. Application of incisional wound VAC system, 20 cm, PREVENA COMPLICATIONS: None. Anesthesia: GETA Estimated Blood Loss (ml): 75 Pathology: other (1. Sigmoid colon 2. Disimpacted colon contents 3. Aerobic anaerobic culture peritoneal fluid 4. Appendix with appendicolith) Condition: critical Disposition: ICU Operative Findings: 1. Full-thickness rupture along distal sigmoid colon with over 2 cm rupture along the right anterior lateral sigmoid colon/mesentery 2. Fecal peritonitis, 500 mL drained from the abdomen 3. Impacted descending colon sigmoid colon with over 5 cm large concrete stool, disimpaction of 1.5 feet of colon performed 4. No internal hernias from gastric bypass 5. Entire small bowel viable 6. Abdomen irrigated with 6 L normal saline until irrigant completely clear 7. Wound #19 MARIA EUGENIA drain in pelvis at the rectal stump tacked with 2-0 Prolene 8. Descending colostomy creation via left lower abdominal wall 9. Redundant descending and sigmoid colon identified 10. 1 cm appendicolith impacted along appendix with appendectomy performed INDICATIONS: The patient is a 59-year-old female who presented to the emergency room with acute onset abdominal pain. Additional history includes history of gastric bypass including change in bowel habits ongoing for over 1 month with constipation. Patient reports not seeking any general medical care for gastric bypass or current problems. Additional diagnostic studies were consistent with perforated viscus. Patient also had peritonitis exam. Emergent surgical intervention with exploratory laparotomy, possible ostomy, including benefits risks but not limited to bleeding, infection, need for further surgery, postoperative recovery in the intensive care unit, prolonged ventilation were described in detail to the patient and her significant other at bedside. All questions were answered and risks were reviewed with the patient. Informed consent was obtained. DESCRIPTION: Patient was brought into the operating room where she presented with pre-existing hypotension including tachycardia. After general induction, additional lines per anesthesia were placed. The abdomen had been prepped and draped in the standard sterile fashion. Kraus catheter was placed and nasogastric tube was avoided with history of gastric bypass. Ioban draping was also placed to minimize any contamination to the skin. After timeout protocol was performed, the abdomen was entered using #10 blade whereby an incision was made from the xiphoid to the pubis. The abdomen was inspected whereby the small bowel was unremarkable. Her gastric bypass was inspected without evidence of internal hernias along Brar's defect or jejunojejunostomy mesentery. The small bowel was viable. The entire colon was filled with firm stool. Moderate hard very large concretions of stool greater than 4 cm were palpated along the distal transverse, descending, and sigmoid colon. Separately, the liver surface was palpated and unremarkable. No peritoneal studding was identified. No diverticular disease was found along the colon. Next, self-retaining [place] retractor was placed with a bladder blade. The descending colon and sigmoid colon were mobilized along the medial and lateral attachments with care to avoid any injury to the ureters along the usual anatomical landmarks. Carefully the sigmoid colon was identified and mobilized. The descending and sigmoid colon was moderately redundant. Emphysematous changes were identified along the sigmoid colon consistent with nearby perforation. Localized 500 mL of gross fecal peritonitis was found with a large over 2 cm ulceration along the right anterior lateral mesenteric portion of the mid sigmoid colon consistent with rupture from persistent stool ulceration. A large 2.5 cm stool was found near the perforation site. Next with the severity of impaction involving the descending colon and sigmoid colon, the colon was dis-impacted of hard concrete stool some over 4-5 cm in size and milked through the perforation site. Aerobic and anaerobic cultures were obtained for specimen. Next, the abdomen was irrigated with 6 L normal saline until the irrigant was completely clear. The sigmoid colon was mobilized along the mesentery using Enseal where a window was made along the mesentery and the colon was divided such that the descending colon was prepared for maturation of a colostomy. Next, the rest of the colon was mobilized down to the rectum. The colon was divided proximally and distally along the sigmoid colon encompassing the perforation site using CovSvbtle en Endo JIM 60-mm purple anderson. The retained rectal stump was tacked using 2- 0 Prolene. The rest of the colon was inspected where a palpable 1 cm appendicolith was impacted along the appendix. An appendectomy was performed using after controlling the mesentery and divided on the base using 60 mm purple staple load. A round #19 Gage-Quintana drain was positioned at the rectal stump. Next, attention was brought to the delivering and creating of the descending colostomy. A point along the abdominal wall and rectus muscle was selected for the colostomy. Diomedes was used to elevate the skin and a #10 blade was taken across in tangential manner to create the skin defect of approximately quarter-size. The fat of the skin was mobilized using a small rich. The rectus muscle was identified and scored in cruciate fashion using electro- Bovie cautery. Next, using a muscle-splitting technique with a hemostat, the peritoneum was entered. The peritoneum was widened such that 2 fingerbreadths could easily pass for delivering and evaginating the descending portion of the colon through the skin. The abdominal cavity was copiously irrigated as described until completely clear. Round number #19 [place] drain was entered along the right lower abdomen and exited through the skin. The drain was placed along the pelvis as all irrigation fluid was accounted for. Next, the MARIA EUGENIA drain was tacked along the skin using a 2-0 nylon. The midline incision was closed using double-stranded 0 PDS. Next, the subcutaneous tissue was copiously irrigated with normal saline and hydrogen peroxide. About the umbilicus interrupted 3-0 Vicryl dermal sutures were placed as to avoid any anderson around the umbilicus. For the rest of the incision, stainless steel skin anderson were applied. The midline incision was covered using PREVENA wound VAC and attention was brought to maturation of the colostomy. The staple edge was divided and removed. Next quadrant sutures at 12 o'clock, 3 o'clock, 6 o'clock, and 9 o'clock position was made using serosa, mucosal and dermal bites using 2-0 Vicryl. Interrupted 3-0 Vicryl was placed in between all quadrants sutures to completely mature the ostomy. Hemostasis was checked. A Coloplast was then placed. At the end of the procedure, needle, sponge, and instrument count had been verified correct by registered nurse surgical services. The patient's family was updated on level of care. The patient was transferred to intensive care unit in critical condition
[2020-04-14 00:09] LABS: Allen Test Performed? Yes
[2020-04-14 00:16] LABS: ABG Base Excess -8.6 mmol/L; ABG HCO3 22 mmol/L (21-25); ABG PCO2 63 mmHg (35-45); ABG PH 7.17 (7.35-7.45); ABG PO2 130 mmHg (83-108)
[2020-04-14] MEDS: SODIUM CHLORIDE 0.9% 1,000 ML IV SCH ×3 (00:45→11:50)
[2020-04-14] MEDS: HEPARIN SODIUM,PORCINE 5,000 UNIT/ML 1 ML VIAL SQ SCH ×3 (00:46→19:59)
--- NOTE | 2020-04-14 00:46 | XR ---
EXAMINATION TYPE: XR chest 1V DATE OF EXAM: 04/14/2020 COMPARISON: NONE HISTORY: Short of breath. Intubated Respiratory failure TECHNIQUE: FINDINGS: The endotracheal tube is 4 cm from the lori. Right jugular catheter has tip in the superi or vena cava. There is some linear density at the left lung base. There is no heart failure. Heart si ze is normal. Bony thorax is intact. IMPRESSION: There is some mild infiltrate and atelectasis left lung base. No heart failure seen.
[2020-04-14] MEDS: PIPERACILLIN-TAZOBACTAM 3.375 GM in SODIUM CHLORIDE 0.9% 100 ML IVPB SCH ×4 (00:48→19:59)
[2020-04-14] MEDS ORDERED: SODIUM CHLORIDE 0.9% 1,000 ML IV ONE ×3 (01:16→04:33)
[2020-04-14 02:12] LABS: Appearance,Urine Cloudy (Clear); Bacteria,Urine Rare /hpf; Bilirubin,Urine Negative (Negative); Blood,Urine Moderate (Negative); Cellular Casts,Urine 8 /lpf (0); Color,Urine Dark Brown; Glucose,Urine (UA) Negative (Negative); Hyaline Casts,Urine 13 /lpf (0-2); Hyphae Yeast, Urine Rare /hpf; Ketones,Urine Trace (Negative); Leukocyte Esterase,Urine Negative (Negative); Mucus,Urine Occasional /hpf; Nitrite,Urine Negative (Negative); PH, Urine 5.5 (5.0-8.0); Protein,Urine 1+ (Negative); RBC,Urine >182 /hpf (0-5); Specific Gravity,Urine 1.045 (1.001-1.035); Squamous Epithelial Cell,Urine 1 /hpf (0-4); WBC,Urine 13 /hpf (0-5)
[2020-04-14] MEDS: NOREPINEPHRINE 32 MG in SODIUM CHLORIDE 0.9% 218 ML IV SCH (03:31)
[2020-04-14 04:51] LABS: Anisocytosis Slight; HGB 17.6 gm/dL (11.4-16.0); Hypochromasia Slight; MCH 31.1 pg (25.0-35.0); MCHC 31.6 g/dL (31.0-37.0); MCV 98.4 fL (80.0-100.0); Macrocytosis Slight; Mean Platelet Volume 7.6; Platelet Count 341 k/uL (150-450); RBC 5.65 m/uL (3.80-5.40); RDW 16.7 % (11.5-15.5); WBC 6.8 k/uL (3.8-10.6)
[2020-04-14 04:55] LABS: HCT 55.5 % (34.0-46.0)
[2020-04-14 05:01] LABS: Albumin 2.1 g/dL (3.5-5.0); Calcium 7.4 mg/dL (8.4-10.2); Magnesium 2.5 mg/dL (1.6-2.3); Total Bilirubin 0.3 mg/dL (0.2-1.3); Total Protein 4.1 g/dL (6.3-8.2)
[2020-04-14 05:09] LABS: ABG Base Excess -8.8 mmol/L; ABG HCO3 18 mmol/L (21-25); ABG Oxygen Saturation 96.4 % (94-97); ABG PCO2 36 mmHg (35-45); ABG PO2 93 mmHg (83-108); ABG TCO2 19 mmol/L (19-24); Allen Test Performed? Yes
[2020-04-14 05:14] LABS: Band Neutrophils % 78 %; Lymphocytes # (M) 0.68 k/uL (1.0-4.8); Neutrophils % (M) 12 %; Nucleated Red Blood Cells 0 /100 WBC (0-0); Total Cells Counted 200
[2020-04-14] MEDS: fentaNYL (PF) 1,000 MCG in SODIUM CHLORIDE 0.9% 80 ML IV SCH ×2 (05:14→12:43)
[2020-04-14 05:17] LABS: Anisocytosis (M) Present; Poikilocytosis (M) Present
[2020-04-14] MEDS: PROPOFOL 1,000 MG in EMPTY BAG 1 BAG IV SCH ×6 (05:26→21:53)
[2020-04-14] MEDS: metroNIDAZOLE-NS PMX 500 MG in SALINE 1 100ML.BAG IVPB SCH ×4 (05:46→23:42)
[2020-04-14 05:55] LABS: Glucose,Whole Blood 126 mg/dL (75-99)
[2020-04-14] MEDS ORDERED: LACTATED RINGERS 1,000 ML IV ONE (07:30)
--- NOTE | 2020-04-14 07:39 | XR ---
EXAMINATION TYPE: XR chest 1V portable DATE OF EXAM: 04/14/2020 CLINICAL HISTORY: Difficulty breathing progress study. TECHNIQUE: Single AP portable supine view of the chest is obtained. COMPARISON: Chest x-ray from earlier today. FINDINGS: Stable endotracheal tube and right internal jugular central venous catheter. Persistent le ft basilar opacity. Right lung remains clear. Cardiac silhouette size is stable and within normal jane its. Osseous structures are intact. IMPRESSION: Overall stable findings, persistent left basilar acute infiltrate and/or atelectasis an d probable small left pleural effusion.
[2020-04-14 08:43] LABS: ABG HCO3 18 mmol/L (21-25); ABG PCO2 39 mmHg (35-45); ABG PH 7.27 (7.35-7.45); ABG PO2 103 mmHg (83-108); ABG TCO2 19 mmol/L (19-24)
[2020-04-14] MEDS: PANTOPRAZOLE 40 MG/10 ML VIAL IV SCH (09:45)
[2020-04-14] MEDS: CHLORHEXIDINE GLUCONATE 15 ML CUP MUCOUS MEM SCH ×2 (09:46→19:59)
[2020-04-14] MEDS: IPRATROPIUM-ALBUTEROL 3 ML NEB INHALATION SCH ×3 (11:25→20:16)
[2020-04-14 11:39] LABS: Glucose,Whole Blood 101 mg/dL (75-99)
[2020-04-14] MEDS ORDERED: FUROSEMIDE 10 MG/ML 10 ML VIAL IV STA (11:46)
--- NOTE | 2020-04-14 13:35 | P.PN ---
<Daniela Cowart Chilango - Last Filed: 04/14/20 13:16> Subjective Progress Note Date: 04/14/20 CHIEF COMPLAINT: Abdominal pain HISTORY OF PRESENT ILLNESS: 59-year-old female who underwent exploratory laparotomy with sigmoid colectomy, descending colostomy creation, and appendectomy with Dr. Ojeda on April 13. Patient examined at the bedside with Dr. Ojeda. Patient remains in intensive care unit. She is on mechanical ventilation. Fio2 60%. Patient remains hypotensive at the time of examination. She is on levophed at 0.3 mcg/kg/min. She has received 6L in IV fluid bolus. She is tachycardic with a heart rate in the 120s. Temperature 101.2. Nursing reports minimal urine output. Creatinine increased from 0.53 to 0.85 PHYSICAL EXAM: VITAL SIGNS: Reviewed GENERAL: Well-developed in no acute distress-sedated on mechanical ventilation. HEENT: No sclera icterus. Extraocular movements grossly intact. Moist buccal mucosa. Head is atraumatic, normocephalic. No nasal drainage. NECK: Supple without lymphadenopathy. CHEST: Non-labored respirations and equal bilateral excursions-remains on ventilator. CARDIOVASCULAR: Tachycardic. Regular rate with regular rhythm. Palpable 2+ radial pulses. ABDOMEN: Soft. Nondistended. PREVENA wound vac noted. Ostomy to left side of abdomen. No stool or gas noted. Stoma pink. MARIA EUGENIA drain with serosanguineous drainage. MUSCULOSKELETAL: No clubbing or cyanosis. NEUROLOGIC: Sedated on mechanical ventilation PSYCH: Unable to assess secondary to mechanical ventilation SKIN: Well perfused. Good skin turgor. ASSESSMENT: 1. Abdominal pain secondary to ruptured sigmoid colon, fecal peritonitis, descending and sigmoid colon impaction, appendicolith with appendicitis PLAN: Dr. Ojeda examined patient at the bedside. Continue IV fluids as ordered. C ontinue levophed. Wean as tolerated to maintain MAP greater than 65. Check cortisol level. Consult cardiology for evaluation. Check troponin levels. Consult nephrology secondary to oliguria. NO NG/OG tube secondary to history of gastric bypass. Will consider TPN if patient unable to be extubated within the day or two. Continue antibiotics. Monitor labs. Further ICU and ventilator management per Dr. Villaseñor. Nurse practitioner note has been reviewed by physician. Signing provider agrees with the documented findings, assessment, and plan of care. Objective - Vital Signs Vital signs: Vital Signs Temp 101.2 F H 04/14/20 12:00 Pulse 125 H 04/14/20 13:00 Resp 21 04/14/20 13:00 BP 104/79 04/14/20 13:00 Pulse Ox 88 L 04/14/20 12:00 Intake & Output 04/13/20 04/14/20 04/14/20 18:59 06:59 18:59 Intake Total 7177.619 1907.296 Output Total 665 185 Balance 6512.619 1722.296 Weight 68.039 kg 67 kg Intake: IV 7050 1700 LR Bolus 1000 Sodium Chloride 0.9% 1, 400 700 000 ml @ 100 mls/hr IV . Q10H R[facility] Rx#:[id number] Sodium Chloride 0.9% 1, 3000 000 ml @ 999 mls/hr IV . Q1H1M ONE Rx#:[id number] Intake, IV Titration 127.619 207.296 Amount Norepinephrine 32 mg In 27.067 58.008 Sodium Chloride 0.9% 218 ml @ 0.05 MCG/KG/MIN 1. 595 mls/hr IV .Q24H REE Rx#:[id number] Propofol 1,000 mg In 100.552 58.893 Empty Bag 1 bag @ Titrate IV .Q0M REE Rx#: [id number] fentaNYL (PF) 1,000 mcg 90.395 In Sodium Chloride 0.9% 80 ml @ Per Protocol IV . Q0M REE Rx#:[id number] Output: Drainage 45 100 Right Lower Abdomen 45 100 Urine 545 85 Estimated Blood Loss 75 Other: Voiding Method Indwelling Catheter ABP, PAP, CO, CI - Last Documented Arterial Blood Pressure 106/75 - Labs CBC & Chem 7: 04/14/20 04:40 04/14/20 04:40 Labs: Abnormal Lab Results - Last 24 Hours (Table) 04/13/20 04/14/20 04/14/20 Range/Units 23:42 00:03 01:49 RBC (3.80-5.40) m/uL Hgb (11.4-16.0) gm/dL Hct (34.0-46.0) % RDW (11.5-15.5) % Lymphocytes # (Manual) (1.0-4.8) k/uL ABG pH 7.17 L* (7.35-7.45) ABG pCO2 63 H (35-45) mmHg ABG pO2 130 H (83-108) mmHg ABG HCO3 (21-25) mmol/L Chloride (98-107) mmol/L Carbon Dioxide (22-30) mmol/L BUN (7-17) mg/dL Glucose (74-99) mg/dL POC Glucose (mg/dL) 130 H (75-99) mg/dL Calcium (8.4-10.2) mg/dL Phosphorus (2.5-4.5) mg/dL Magnesium (1.6-2.3) mg/dL Troponin I (0.000-0.034) ng/mL Total Protein (6.3-8.2) g/dL Albumin (3.5-5.0) g/dL Urine Appearance Cloudy H (Clear) Ur Specific [place] 1.045 H (1.001-1.035) Urine Protein 1+ H (Negative) Urine Ketones Trace H (Negative) Urine Blood Moderate H (Negative) Urine RBC >182 H (0-5) /hpf Urine WBC 13 H (0-5) /hpf Urine Bacteria Rare H (None) /hpf Hyaline Casts 13 H (0-2) /lpf Urine Mucus Occasional H (None) /hpf 04/14/20 04/14/20 04/14/20 Range/Units 04:40 04:40 05:02 RBC 5.65 H (3.80-5.40) m/uL Hgb 17.6 H (11.4-16.0) gm/dL Hct 55.5 H (34.0-46.0) % RDW 16.7 H (11.5-15.5) % Lymphocytes # (Manual) 0.68 L (1.0-4.8) k/uL ABG pH 7.30 L (7.35-7.45) ABG pCO2 (35-45) mmHg ABG pO2 (83-108) mmHg ABG HCO3 18 L (21-25) mmol/L Chloride 117 H (98-107) mmol/L Carbon Dioxide 18 L (22-30) mmol/L BUN 21 H (7-17) mg/dL Glucose 137 H (74-99) mg/dL POC Glucose (mg/dL) (75-99) mg/dL Calcium 7.4 L (8.4-10.2) mg/dL Phosphorus 5.0 H (2.5-4.5) mg/dL Magnesium 2.5 H (1.6-2.3) mg/dL Troponin I (0.000-0.034) ng/mL Total Protein 4.1 L (6.3-8.2) g/dL Albumin 2.1 L (3.5-5.0) g/dL Urine Appearance (Clear) Ur Specific [place] (1.001-1.035) Urine Protein (Negative) Urine Ketones (Negative) Urine Blood (Negative) Urine RBC (0-5) /hpf Urine WBC (0-5) /hpf Urine Bacteria (None) /hpf Hyaline Casts (0-2) /lpf Urine Mucus (None) /hpf 04/14/20 04/14/20 04/14/20 Range/Units 05:54 08:41 10:17 RBC (3.80-5.40) m/uL Hgb (11.4-16.0) gm/dL Hct (34.0-46.0) % RDW (11.5-15.5) % Lymphocytes # (Manual) (1.0-4.8) k/uL ABG pH 7.27 L (7.35-7.45) ABG pCO2 (35-45) mmHg ABG pO2 (83-108) mmHg ABG HCO3 18 L (21-25) mmol/L Chloride (98-107) mmol/L Carbon Dioxide (22-30) mmol/L BUN (7-17) mg/dL Glucose (74-99) mg/dL POC Glucose (mg/dL) 126 H (75-99) mg/dL Calcium (8.4-10.2) mg/dL Phosphorus (2.5-4.5) mg/dL Magnesium (1.6-2.3) mg/dL Troponin I 0.108 H* (0.000-0.034) ng/mL Total Protein (6.3-8.2) g/dL Albumin (3.5-5.0) g/dL Urine Appearance (Clear) Ur Specific [place] (1.001-1.035) Urine Protein (Negative) Urine Ketones (Negative) Urine Blood (Negative) Urine RBC (0-5) /hpf Urine WBC (0-5) /hpf Urine Bacteria (None) /hpf Hyaline Casts (0-2) /lpf Urine Mucus (None) /hpf 04/14/20 Range/Units 11:37 RBC (3.80-5.40) m/uL Hgb (11.4-16.0) gm/dL Hct (34.0-46.0) % RDW (11.5-15.5) % Lymphocytes # (Manual) (1.0-4.8) k/uL ABG pH (7.35-7.45) ABG pCO2 (35-45) mmHg ABG pO2 (83-108) mmHg ABG HCO3 (21-25) mmol/L Chloride (98-107) mmol/L Carbon Dioxide (22-30) mmol/L BUN (7-17) mg/dL Glucose (74-99) mg/dL POC Glucose (mg/dL) 101 H (75-99) mg/dL Calcium (8.4-10.2) mg/dL Phosphorus (2.5-4.5) mg/dL Magnesium (1.6-2.3) mg/dL Troponin I (0.000-0.034) ng/mL Total Protein (6.3-8.2) g/dL Albumin (3.5-5.0) g/dL Urine Appearance (Clear) Ur Specific [place] (1.001-1.035) Urine Protein (Negative) Urine Ketones (Negative) Urine Blood (Negative) Urine RBC (0-5) /hpf Urine WBC (0-5) /hpf Urine Bacteria (None) /hpf Hyaline Casts (0-2) /lpf Urine Mucus (None) /hpf Microbiology - Last 24 Hours (Table) 04/13/20 23:00 Gram Stain - Preliminary Abdomen Wound Culture - Preliminary 04/13/20 23:00 Gram Stain - Preliminary Abdomen Wound Culture - Preliminary 04/13/20 23:54 Gram Stain - Preliminary Sputum Sputum Culture - Preliminary 04/13/20 23:00 Anaerobic Culture - Preliminary Abdomen 04/13/20 23:00 Anaerobic Culture - Preliminary Abdomen 04/14/20 01:49 Urine Culture - Preliminary Urine,Voided <Padmaja Ojeda - Last Filed: 06/26/20 02:55> Subjective Patient seen and evaluated with nurse practitioner. Additional findings include new oliguria as well as fevers. Hemoglobin continues to increase. Patient has history of moderate long-standing chronic tobacco abuse. Patient preoperatively had been hypotensive including tachycardic consistent with severe dehydration. Recommend consultation to nephrology for oliguria. Additionally, patient is profoundly tachycardic. Recommend check troponin levels for risk of myocardial event. Patient may have pre-existing history of cardiac disease secondary to her lack of general medical care. Additionally, patient has history of gastric bypass with iatrogenic malnutrition. We'll consider parenteral nutrition pending ventilatory status. Objective - Vital Signs Vital signs: Vital Signs Temp 98.1 F 04/25/20 00:00 Pulse 79 04/25/20 02:00 Resp 22 04/25/20 02:00 BP 95/74 04/24/20 20:00 Pulse Ox 96 04/25/20 02:00 Intake & Output 04/24/20 04/24/20 04/25/20 06:59 18:59 06:59 Intake Total 1300 2538.2 876 Output Total 1815 2300 1300 Balance -515 238.2 -424 Weight 79 kg Intake: IV 1300 1226 876 Ampicillin-Sulbactam 3 gm 200 100 100 In Sodium Chloride 0.9% 100 ml @ 200 mls/hr IVPB Q6HR REE Rx#:[id number] Fat Emulsion 20% 250 mL@ 126 126 20.833mls/hr Mvi, Adult No.4 with Vit 660 660 K 10 ml Trace (Conc-1Ml/ Dose) 1 ml Potassium Chloride 60 meq Potassium Phosphate 30 mmol Magnesium Sulfate gm 0.6 gm Calcium Gluconate 1 gm In Amino Acid 5%-D15w 1, 000 ml @ 55 mls/hr IV . [id number] REE Rx#:[id number] Mvi, Adult No.4 with Vit 385 K 10 ml Trace (Conc-1Ml/ Dose) 1 ml Potassium Chloride 60 meq Potassium Phosphate 30 mmol Magnesium Sulfate gm 0.6 gm Calcium Gluconate 1 gm In Amino Acid 5%-D15w 1, 000 ml @ 55 mls/hr IV . [id number] REE Rx#:[id number] Sodium Chloride 0.45% 1, 240 240 160 000 ml @ 20 mls/hr IV . Q24H REE Rx#:[id number] Sodium Chloride 0.9% 1,00 5 mL [id number] PMX 500 200 100 100 mg Intake, IV Titration 1062.2 Amount Mvi, Adult No.4 with Vit 1062.2 K 10 ml Trace (Conc-1Ml/ Dose) 1 ml Potassium Chloride 60 meq Potassium Phosphate 30 mmol Magnesium Sulfate gm 0.6 gm Calcium Gluconate 1 gm In Amino Acid 5%-D15w 1, 000 ml @ 55 mls/hr IV . [id number] [facility] Rx#:[id number] Oral 250 Output: Drainage 40 Right Lower Abdomen 40 Urine 1575 1450 1200 Stool 200 850 100 Other: Voiding Method Indwelling Catheter Indwelling Catheter Indwelling Catheter ABP, PAP, CO, CI - Last Documented Arterial Blood Pressure 89/47 - Labs CBC & Chem 7: 04/24/20 05:25 04/24/20 05:25 Labs: Abnormal Lab Results - Last 24 Hours (Table) 04/24/20 04/24/20 04/24/20 Range/Units 05:25 05:25 17:33 WBC 13.7 H (3.8-10.6) k/uL RBC 3.79 L (3.80-5.40) m/uL RDW 17.0 H (11.5-15.5) % Neutrophils # 11.6 H (1.3-7.7) k/uL Sodium 133 L (137-145) mmol/L Creatinine 0.34 L (0.52-1.04) mg/dL Glucose 114 H (74-99) mg/dL POC Glucose (mg/dL) 101 H (75-99) mg/dL Calcium 8.1 L (8.4-10.2) mg/dL Microbiology - Last 24 Hours (Table) 04/23/20 13:50 Blood Culture - Preliminary Blood No Growth after 24 hours 04/18/20 05:10 Blood Culture - Final Blood No Growth after 144 hours Assessment and Plan (1) Peritonitis (acute) generalized Current Visit: Yes Status: Acute Code(s): K65.0 - GENERALIZED (ACUTE) PERITONITIS SNOMED Code(s): 10455265 (2) History of gastric bypass Current Visit: Yes Status: Acute Code(s): Z98.84 - BARIATRIC SURGERY STATUS SNOMED Code(s): 724137715 (3) Medical non-compliance Current Visit: Yes Status: Acute Code(s): Z91.19 - PATIENT'S NONCOMPLIANCE W OTH MEDICAL TREATMENT AND REGIMEN SNOMED Code(s): 495271574 (4) Tobacco abuse Current Visit: Yes Status: Acute Code(s): Z72.0 - TOBACCO USE SNOMED Code(s): 822949030 (5) Tobacco abuse counseling Current Visit: Yes Status: Acute Code(s): Z71.6 - TOBACCO ABUSE COUNSELING SNOMED Code(s): 725110221 (6) Depressive disorder Current Visit: Yes Status: Acute Code(s): F32.9 - MAJOR DEPRESSIVE DISORDER, SINGLE EPISODE, UNSPECIFIED SNOMED Code(s): 25850991 (7) Hypothyroidism Current Visit: Yes Status: Acute Code(s): E03.9 - HYPOTHYROIDISM, UNSPECIFIED SNOMED Code(s): 22753637 (8) Abdominal pain Current Visit: Yes Status: Acute Code(s): R10.9 - UNSPECIFIED ABDOMINAL PAIN SNOMED Code(s): 68177424 (9) Free intraperitoneal air Current Visit: Yes Status: Acute Code(s): K66.8 - OTHER SPECIFIED DISORDERS OF PERITONEUM SNOMED Code(s): 20804777 (10) Dehydration Current Visit: Yes Status: Acute Code(s): E86.0 - DEHYDRATION SNOMED Code(s): 17654219
--- NOTE | 2020-04-14 13:49 | US ---
EXAMINATION TYPE: US renals and bladder DATE OF EXAM: 04/14/2020 COMPARISON: CT from yesterday CLINICAL HISTORY: anuric. EXAM MEASUREMENTS: Right Kidney: 9.6 x 5.2 x 5.4 cm Left Kidney: not visualized Limited exam due to patient being in ICU and not being able to cooperate for exam. Right Kidney: limited visualization of lower pole due to overlying bowel gas Left Kidney: not visualized due to bowel gas Bladder: not visualized. Markedly suboptimal study. Only upper to mid pole of right kidney visualized without gross hydronephr osis. Left kidney not identified on images saved appeared normal in size and CT one day earlier. Note is made of 2 to 3 mm nonobstructing calculus upper to midpole left kidney coronal image 62. Bladder is collapsed and thus suboptimally evaluated IMPRESSION: Suboptimal study. No gross right-sided hydronephrosis.
[2020-04-14] MEDS: FUROSEMIDE 100 MG in SODIUM CHLORIDE 0.9% 90 ML IV SCH ×2 (15:58→23:42)
[2020-04-14] MEDS: ACETAMINOPHEN IV (For NPO) 1,000 MG in EMPTY BAG 1 BAG IVPB PRN ×2 (16:02→22:25)
--- NOTE | 2020-04-14 17:57 | CONS ---
CONSULTATION CRITICAL CARE CONSULTATION: April 14, 2020 59-year-old female who apparently came to the emergency room on April 13 at 11:56. She is a 59-year-old female because of abdominal pain, that had been going on for about a day or so prior to admission. The pain was apparently crampy initially in nature. It was more generalized when she was in the emergency room. She did have nausea without vomiting. She apparently also had a small bowel movement the morning of her evaluation in the ER. She described her pain as being severe. She also had abdominal distention. She had no fever or chills. There was no chest pain or chest discomfort. Likewise, there was no shortness of breath or difficulty breathing. The patient was thought to have a large bowel obstruction. She underwent exploratory laparotomy, appendectomy, colectomy with colostomy. That surgery was done by Dr. Ojeda on the . Her postoperative diagnosis was ruptured sigmoid colon, fecal peritonitis, descending and sigmoid colon impaction, appendicolith with appendicitis. The procedures that she documented in her medical record include exploratory laparotomy with sigmoid colectomy, descending colostomy with Nelson's procedure, disimpaction of descending colon and sigmoid colon, open appendectomy, abdominal washout with 6 L of saline, placement of a right lower pelvic brown #19 Gage-Quintana drain and application of an incisional wound VAC system. Currently, the patient is on the mechanical ventilator. Today is postop day #1. She is on the volume assist-control mode rate of 26, tidal volume 350, FiO2 80%, PEEP of 5. Gases showed a pO2 of 93, pCO2 of 36 and a pH of 7.3. She is currently on Diprivan at 60 mcg/kg per minute, norepinephrine at 22 mcg/minute and fentanyl at 2.5 mcg/kg per hour. She has also had in saline at 100 mL an hour. She apparently has had no urine output all night. The PEEP was increased from 5 to 10 this morning by myself. We will repeat a blood gas in 1 hour. We are going to give her another L of LR. Also, her abdomen is distended. Her urine output is poor and her blood pressure is low so we were concerned about the abdominal compartment syndrome. In addition, with hypoxemia, there is certainly concern about early acute lung injury and developing ARDS. HOME MEDICATIONS: Include baclofen, Prozac, Synthroid, Inderal, Maxalt MSLT, Fioricet, chlorthalidone, cholecalciferol, multivitamins. ALLERGIES: Include LATEX AND SULFA ANTIBIOTICS. PAST MEDICAL HISTORY: Apparently positive for hypothyroidism. No other medical problems are listed. SURGICAL HISTORY: Includes bariatric surgery, , cholecystectomy, and tonsillectomy. SOCIAL HISTORY: Positive for ongoing tobacco use on a daily basis. Apparently no alcohol or illicit drug use. The rest of the history is not known. FAMILY HISTORY: Not documented. She is currently on the ventilator, so no family history could be obtained. REVIEW OF SYSTEMS: Could not be obtained. She is currently on the ventilator. From yesterday when she came into the emergency room, it appears that she had one day of abdominal discomfort which apparently progressed as well as nausea without vomiting. PHYSICAL EXAMINATION: VITAL SIGNS: Current vital signs are reviewed. Temperature is 100.1, heart rate 110, respiratory rate 26, blood pressure 100/76, mean 84 and saturations are in the mid to high 90s. Appears in no acute distress, currently sedated both on propofol and fentanyl. HEENT: Examination is grossly unremarkable. There is an orally placed endotracheal tube. NECK: Supple. Neck veins are flat. No adenopathy. CARDIOVASCULAR: Examination reveals tachycardia. Heart rate 110, S1, S2 normal. Heart sounds are distant. No distinct murmur. LUNGS: Scattered coarse rhonchi. No crackles. No wheezes. Breath sounds equal. ABDOMEN is distended. No bowel sounds are noted. EXTREMITIES are intact. No significant edema. SKIN: Without rash. NEUROLOGIC: Examination could not be adequately completed given the amount of sedation that she is currently on. LABS: Reviewed. White count 6.8, hemoglobin 17.6, hematocrit 55.5, platelet count 341,000. Blood gases have already been noted. The repeat blood gases on 10 of PEEP show pO2 of 103, pCO2 of 39, and pH is 7.27. The FiO2 was going to be dropped from 80-70 percent. Sodium 138, potassium 4, chloride 117, carbon dioxide 18, chloride 117, anion gap is 3, BUN and creatinine were 21 and 0.85. Calcium 7.4, phosphorus 5, magnesium 2.5, albumin 2.1. Urine is cloudy. Specific gravity 1.045, 1+ protein, trace ketones, moderate blood, greater than 182 RBCs, 13 WBCs, rare bacteria. Microbiology is currently pending or negative. The patient had a chest x-ray early this morning which showed a mild infiltrate and atelectasis at the left lung base. Her repeat chest x-ray this morning shows again some atelectasis or infiltrate at the left lung base. There also may be a small effusion on the left side. Medications are reviewed. Currently, she is on chlorhexidine, fentanyl, heparin, updrafts, metronidazole, morphine p.r.n., Narcan, norepinephrine, Protonix, Zosyn, propofol and saline IV. ASSESSMENT: 1. Postoperative day #1 status post exploratory laparotomy with sigmoid colectomy for perforated sigmoid colon, Nelson's procedure, disimpaction of descending colon, open appendectomy, abdominal washout for fecal peritonitis, placement of a Gage- Quintana drain, and application of an incisional wound VAC system. 2. History of hypothyroidism. 3. History of ongoing tobacco use with nicotine addiction. PLAN: Currently, the patient is maintained on the ventilator. The PEEP was increased from 5- 10 and FiO2 dropped down to 70%. We will check a urinary bladder pressure to see if the patient might have an abdominal compartment syndrome. We will scan the bladder for any residual urine. She does have a Kraus in place. We will give her another L of LR. Repeat an ABG. Additional recommendations and suggestions are forthcoming. Obviously we are concerned about early acute lung injury and/or ARDS given the fecal peritonitis. Additional recommendations and suggestions are forthcoming. Prognosis is guarded. MMODL / IJN: [id number] /
[2020-04-14 18:28] LABS: Glucose,Whole Blood 97 mg/dL (75-99)
--- NOTE | 2020-04-14 18:57 | CONS ---
CONSULTATION Mrs. Fernandez is a 59-year-old female with no prior documented history of coronary artery disease according to the records who presented yesterday to the emergency room with severe abdominal pain, was found to have free air and underwent surgery by Dr. Ojeda and was found to have a ruptured sigmoid colon and had a descending colostomy with creation of Nelson procedure and disimpaction of the descending colon. Cardiology consultation was requested for hypertension. No history could be obtained except the records. The patient had no recent admission, there is no documented history of coronary artery disease. Looking at her medication as an outpatient. She was on propranolol, chlorthalidone, which is suggestive that she has a history of hypertension. There is no indication that she is diabetic. No review of systems could be obtained. She has been maintained on norepinephrine, although the dose is down. She is in sinus tachycardia but no evidence of atrial fibrillation or ventricular tachycardia. PHYSICAL EXAMINATION: 59-year-old female, intubated, sedated. Blood pressure 105/80 with a heart rate in the 1 teens. T-max of a 100.1. HEAD: Normocephalic. EYES sclerae anicteric. NECK no bruit. LUNGS: Clear to auscultation anteriorly. HEART tachycardic, S1, S2. No S3. No rub or gallop appreciated. ABDOMEN dressing in place. Colostomy noted. EXTREMITIES: No edema. LAB DATA: Revealed hemoglobin of 17.6, white blood cells 6.8. Her BUN and creatinine 21 and 0.85. Potassium 4.0. Her pH 7.27 with pCO2 39, PO2 103. Her chest x-ray shows a questionable infiltrate on the left base versus small pleural effusion. Her EKG on presentation revealed a sinus mechanism, rate of 92, normal axis with evidence suggestive of an old inferior wall myocardial infarction with possible lateral extension. IMPRESSION: 1. Ruptured sigmoid. Status post surgery. 2. Postoperative hypotension. 3. Questionable prior myocardial infarction per EKG. 4. History of hypertension for medication. RECOMMENDATION: From the cardiac standpoint, the patient will continue on the present regimen with fluid resuscitation and the norepinephrine. I will obtain echocardiogram with Doppler and depending on those testing, further recommendations will be made. Once the blood pressure stabilizes, then I would recommend to re-initiate the beta dwight because of the fact that she was on a beta dwight in the past. Thank you for this consult. We will follow with you. LYNNODL / IJN: [id number] /
[2020-04-14 23:35] LABS: Glucose,Whole Blood 110 mg/dL (75-99)
[2020-04-15] MEDS: IPRATROPIUM-ALBUTEROL 3 ML NEB INHALATION SCH ×7 (00:03→23:15)
[2020-04-15] MEDS: PROPOFOL 1,000 MG in EMPTY BAG 1 BAG IV SCH ×5 (02:39→23:25)
[2020-04-15] MEDS: fentaNYL (PF) 1,000 MCG in SODIUM CHLORIDE 0.9% 80 ML IV SCH (02:39)
[2020-04-15] MEDS: NOREPINEPHRINE 32 MG in SODIUM CHLORIDE 0.9% 218 ML IV SCH (03:04)
[2020-04-15] MEDS: SODIUM CHLORIDE 0.9% 1,000 ML IV SCH (03:05)
[2020-04-15] MEDS: PIPERACILLIN-TAZOBACTAM 3.375 GM in SODIUM CHLORIDE 0.9% 100 ML IVPB SCH ×3 (03:07→19:24)
[2020-04-15 04:52] LABS: Calcium 6.9 mg/dL (8.4-10.2)
[2020-04-15 04:53] LABS: Anisocytosis Slight; HCT 49.1 % (34.0-46.0); HGB 15.3 gm/dL (11.4-16.0); Hypochromasia Slight; MCH 30.6 pg (25.0-35.0); MCHC 31.1 g/dL (31.0-37.0); MCV 98.2 fL (80.0-100.0); Macrocytosis Slight; Mean Platelet Volume 7.9; Platelet Count 266 k/uL (150-450); RDW 17.2 % (11.5-15.5)
[2020-04-15] MEDS: metroNIDAZOLE-NS PMX 500 MG in SALINE 1 100ML.BAG IVPB SCH ×4 (05:08→23:25)
[2020-04-15 05:24] LABS: ABG Base Excess -9.5 mmol/L; ABG HCO3 18 mmol/L (21-25); ABG PCO2 42 mmHg (35-45); ABG PH 7.24 (7.35-7.45); ABG PO2 98 mmHg (83-108); ABG TCO2 19 mmol/L (19-24); Allen Test Performed? Yes
[2020-04-15 06:26] LABS: Band Neutrophils % 61 %; Lymphocytes # (M) 0.52 k/uL (1.0-4.8); Metamyelocytes # (M) 0.39 k/uL (0); Metamyelocytes % 3 %; Monocytes # (M) 0.13 k/uL (0-1.0); Neutrophils % (M) 32 %; Nucleated Red Blood Cells 0 /100 WBC (0-0); Tear Drop Cells Present; Total Cells Counted 200
[2020-04-15 06:27] LABS: Large Platelets Present; Polychromasia Present
[2020-04-15 06:29] LABS: Toxic Vacuolation Present
[2020-04-15] MEDS: HEPARIN SODIUM,PORCINE 5,000 UNIT/ML 1 ML VIAL SQ SCH ×2 (08:07→19:24)
[2020-04-15] MEDS: PANTOPRAZOLE 40 MG/10 ML VIAL IV SCH (08:07)
[2020-04-15] MEDS: CHLORHEXIDINE GLUCONATE 15 ML CUP MUCOUS MEM SCH ×2 (08:07→19:24)
[2020-04-15] MEDS: FUROSEMIDE 100 MG in SODIUM CHLORIDE 0.9% 90 ML IV SCH ×2 (08:07→19:24)
--- NOTE | 2020-04-15 08:47 | XR ---
EXAMINATION TYPE: XR chest 1V portable DATE OF EXAM: 04/15/2020 COMPARISON: 04/14/2020 INDICATION: ICU management, difficulty breathing TECHNIQUE: Single frontal view of the chest is obtained. FINDINGS: The heart size is normal. The pulmonary vasculature is normal. Left lower lobe infiltrate is present. This may be worsening over the interval. Right central venous catheter is present with the tip in the distal superior vena cava region, unchan ged in position. Endotracheal tube tip is above the lori. IMPRESSION: 1. Left lower lobe infiltrate may be worsening. 2. Lines and catheters discussed above.
--- NOTE | 2020-04-15 09:33 | PN ---
PROGRESS NOTE Mrs. Fernandez is a 59-year-old female who presented with ruptured viscus, underwent surgical intervention by Dr. Ojeda. She remains intubated and sedated at this time. Hemodynamically, she is doing better. She is in sinus tachycardia. She is on a lower dose of norepinephrine. She underwent a sigmoid colectomy with descending colostomy and Nelson's procedure. She has no output from the colostomy but there is drainage from the MARIA EUGENIA drain. She has been maintained on IV Lasix drip. PHYSICAL EXAMINATION: Blood pressure 102/70 with a heart rate in the 110s to 120s, sinus.. LUNGS: Clear to auscultation anteriorly. HEART: Regular rate and rhythm, S1, S2. No S3 with systolic ejection murmur, heard at the base, no diastolic murmur. ABDOMEN: Soft. The dressing in place. Colostomy noted. EXTREMITIES: No edema. The renal ultrasound revealed no evidence of hydronephrosis. Her chest x-ray this morning revealed a small effusion on the left side. LAB DATA: Revealed a white blood cell of 13,000, hemoglobin 15.3, BUN and creatinine 35 and 1.5, potassium 4.0. IMPRESSION: 1. Ruptured viscus, status post surgical intervention will be Nelson's procedure. 2. Hypotension post surgery. 3. Acute tubular necrosis with acute kidney injury. 4. Sinus tachycardia related to the tachycardia to the hemodynamically status and the infectious process. RECOMMENDATION: From the cardiac standpoint, will review the results for echocardiogram. Consider medical regimen, continue supportive care. Depending on her progress, further recommendation will be made/ MMODL / IJN: [id number] /
[2020-04-15] MEDS: SODIUM CHLORIDE 0.45% 1,000 ML IV SCH ×2 (09:41→17:41)
--- NOTE | 2020-04-15 10:00 | ECHOF ---
Referral Reason:hypotension MEASUREMENTS -------- HEIGHT: 170.2 cm WEIGHT: 66.7 kg BP: 106/75 RVIDd: 2.7 cm (< 3.3) IVSd: 1.1 cm (0.6 - 1.1) LVIDd: 3.5 cm (3.9 - 5.3) LVPWd: 1.1 cm (0.6 - 1.1) IVSs: 1.5 cm LVIDs: 2.4 cm LVPWs: 1.5 cm LA Diam: 3.4 cm (2.7 - 3.8) Ao Diam: 2.8 cm (2.0 - 3.7) AV Cusp: 2.0 cm (1.5 - 2.6) MV EXCURSION: 14.924 mm (> 18.000) MV EF SLOPE: 129 mm/s (70 - 150) EPSS: 1.6 cm RAP: 5.00 mmHg RVSP: 27.07 mmHg FINDINGS -------- This was a technically difficult study with suboptimal views. The left ventricular size is normal. There is borderline concentric left ventricular hypertrophy. Overall left ventricular systolic function is normal with, an EF between 60 - 65 %. The right ventricle is normal in size. The left atrial size is normal. The right atrium was not well visualized. 5.0mg of Lumason was utilized for enhancement of images Interatrial and interventricular septum intact. The aortic valve was not well visualized. Mild mitral regurgitation is present. Mild tricuspid regurgitation present. Right ventricular systolic pressure is normal at < 35 mmHg. The pulmonic valve was not well visualized. The aortic root size is normal. IVC Not well visulized. There is no pericardial effusion. CONCLUSIONS -------- 1. This was a technically difficult study with suboptimal views. 2. The left ventricular size is normal. 3. There is borderline concentric left ventricular hypertrophy. 4. Overall left ventricular systolic function is normal with, an EF between 60 - 65 %. 5. The right ventricle is normal in size. 6. The left atrial size is normal. 7. The right atrium was not well visualized. 8. 5.0mg of Lumason was utilized for enhancement of images 9. Interatrial and interventricular septum intact. 10. The aortic valve was not well visualized. 11. Mild mitral regurgitation is present. 12. Mild tricuspid regurgitation present. 13. Right ventricular systolic pressure is normal at < 35 mmHg. 14. The pulmonic valve was not well visualized. 15. The aortic root size is normal. 16. IVC Not well visulized. 17. There is no pericardial effusion. ADVANCED REGISTERED NURSE: Gita Limon RDCS
--- NOTE | 2020-04-15 10:24 | PN ---
PROGRESS NOTE PULMONARY/CRITICAL CARE PROGRESS NOTE: DATE OF SERVICE: 04/15/2020 This is a 59-year-old female who was seen yesterday in consultation. She apparently came into the emergency room on April 13, 2020 at 11:56. She is a 59-year-old female who presented with abdominal pain. She is status postop day #2, status post exploratory laparotomy, sigmoid colectomy, descending colostomy with Nelson's procedure, disimpaction of the descending colon, and sigmoid colon, open appendectomy, abdominal washout with 6 L of saline, placement of a right lower pelvic #19 Gage- Quintana drain, and application of an incisional wound VAC system. Currently, the patient remains on the mechanical ventilator. She is on the volume assist-control mode rate of 26, tidal volume 350, FiO2 of 50%, PEEP of 10. Blood gases show pO2 of 98, pCO2 of 42 and a pH of 7.24. These blood gases are consistent with mild to moderate metabolic acidosis. She is getting Levophed at 3.3 mcg/minute, Lasix drip a 10 mg an hour, fentanyl at 1 mcg/kg per hour, Diprivan at 50 mcg/kg per minute and 0.45 at 100 mL an hour. She was on saline, is being converted to 0.45. Today, we are going to do a daily interruption of sedation and a potential spontaneous breathing trial Other than that, she has had an uneventful night. Current vital signs are reviewed, temperature is 99.8, heart rate 26, blood pressure 107/72 mean 83, saturations 97% on 50% 10 of PEEP. Appears in no acute distress. Currently sedated with fentanyl and Diprivan. HEENT: Examination is grossly unremarkable. There is an orally placed endotracheal tube. NECK: Supple, full range of motion. No adenopathy. Neck veins are flat. CARDIOVASCULAR: Examination reveals regular rhythm and rate. S1, S2 normal. Heart rate about 115. LUNGS: Reveal coarse bilateral rhonchi. Breath sounds equal. No crackles. No wheezes. ABDOMEN: Soft. No bowel sounds. EXTREMITIES: Intact. No cyanosis, clubbing, or edema. SKIN: Without rash. NEUROLOGIC: Examination could not be adequately assessed given her current level of sedation. LABS: Reviewed. White count 13,000, hemoglobin 15.3, hematocrit 49.1, platelet count 266,000. Blood gases are noted, PO2 of 98, pCO2 of 42, pH of 7.24. Consistent with metabolic acidosis. Sodium 140, potassium 4, chloride 116, CO2 is 17, anion gap 7. BUN and creatinine were 35 and 1.50. Putting everything together, she has hyperchloremic non-anion gap metabolic acidosis. Calcium is 6.9. Microbiology is reviewed. Everything thus far is negative. Chest x-ray shows primarily a left-sided infiltrate. The right lung was relatively clear. Central line looks fine, endotracheal tube is above the tracheal lori. There is either fluid or infiltrate or atelectasis in the left base. MEDICATIONS: Reviewed. She is on IV Tylenol, chlorhexidine, fentanyl, Lasix drip, subcu heparin, updrafts, Flagyl, morphine, Narcan, norepinephrine, Protonix, Zosyn, propofol and saline IV to be converted to 0.45 IV. ASSESSMENT: 1. Postoperative day #2, status post exploratory laparotomy with sigmoid colectomy for perforated sigmoid colon, Nelson's procedure, disimpaction of descending colon, open appendectomy, abdominal washout for fecal peritonitis, placement of a Gage- Quintana drain, and application of an incisional wound VAC system. 2. History of hypothyroidism. 3. History of ongoing tobacco use with nicotine addiction. PLAN: Currently, the patient is on the volume assist-control mode rate of 26. She is on 50%, 10 of PEEP. That is improvement from yesterday. She does have a mild metabolic acidosis. The patient remains on norepinephrine at 3.3 mcg/ minute. She is also getting fentanyl and Diprivan. We will do a daily interruption of sedation. Will change her saline IV to 0.45. The patient does have a non-anion gap hyperchloremic metabolic acidosis. Will hopefully do a spontaneous breathing trial depending on how she wakes up. Additional recommendations and suggestions are forthcoming. Prognosis is guarded. Critical care time 33 minutes. MMODL / IJN: [id number] /
--- NOTE | 2020-04-15 11:04 | P.PN ---
<Daniela Cowart Chilango - Last Filed: 04/15/20 10:58> Subjective Progress Note Date: 04/15/20 CHIEF COMPLAINT: Abdominal pain HISTORY OF PRESENT ILLNESS: 59-year-old female who underwent exploratory laparotomy with sigmoid colectomy, descending colostomy creation, and appendectomy with Dr. Ojeda on April 13, 2020. Patient examined at the bedside with Dr. Ojeda. Patient remains in intensive care unit. She is on mechanical ventilation. Fio2 50%. PEEP 10. She remains on Levophed. She has been started on a lasix drip with improvement in urine output. WBC 13.0. Hemoglobin 1 5.3. HR 120s. Temperature 99.8 PHYSICAL EXAM: VITAL SIGNS: Reviewed GENERAL: Well-developed in no acute distress-sedated on mechanical ventilation. HEENT: No sclera icterus. Extraocular movements grossly intact. Moist buccal mucosa. Head is atraumatic, normocephalic. No nasal drainage. NECK: Supple without lymphadenopathy. CHEST: Non-labored respirations and equal bilateral excursions-remains on ventilator. CARDIOVASCULAR: Tachycardic. Regular rate with regular rhythm. Palpable 2+ radial pulses. ABDOMEN: Soft. Nondistended. PREVENA wound vac noted. Ostomy to left side of abdomen. No stool or gas noted. Stoma pink. MARIA EUGENIA drain with serosanguineous drainage. MUSCULOSKELETAL: No clubbing or cyanosis. NEUROLOGIC: Sedated on mechanical ventilation PSYCH: Unable to assess secondary to mechanical ventilation SKIN: Well perfused. Good skin turgor. ASSESSMENT: 1. Abdominal pain secondary to ruptured sigmoid colon, fecal peritonitis, d escending and sigmoid colon impaction, appendicolith with appendicitis PLAN: Continue to wean pressors as tolerated NO NG/OG tube secondary to history of gastric bypass. Will consider TPN if patient unable to be extubated within a day or two. Continue antibiotics. Monitor labs. Further ICU and ventilator management per Dr. Villaseñor. Nurse practitioner note has been reviewed by physician. Signing provider agrees with the documented findings, assessment, and plan of care. Objective - Vital Signs Vital signs: Vital Signs Temp 99.8 F H 04/15/20 08:00 Pulse 128 H 04/15/20 10:00 Resp 23 04/15/20 10:00 BP 102/73 04/15/20 10:00 Pulse Ox 99 04/15/20 10:00 Intake & Output 04/14/20 04/15/20 04/15/20 18:59 06:59 18:59 Intake Total 2926.084 1947.753 538.391 Output Total 530 1880 775 Balance 2396.084 67.753 -236.609 Weight 66.2 kg Intake: IV 2500 1600 100 Acetaminophen 1000mg 100 100 LR Bolus 1000 Pipercillin/ Tazobactam 3 100 100 .375 g Sodium Chloride 0.9% 1, 1200 1300 100 000 ml @ 100 mls/hr IV . Q10H [facility] Rx#:[id number] metroNIDAZOLE-NS PMX 500 100 100 mg Intake, IV Titration 426.084 347.753 438.391 Amount Furosemide 100 mg In 77.333 84.167 Sodium Chloride 0.9% 90 ml @ 5 MG/HR 5 mls/hr IV .Q20H [facility] Rx#:[id number] Norepinephrine 32 mg In 75.763 64.593 6.449 Sodium Chloride 0.9% 218 ml @ 0.05 MCG/KG/MIN 1. 595 mls/hr IV .Q24H [facility] Rx#:[id number] Propofol 1,000 mg In 206.829 158.924 147.775 Empty Bag 1 bag @ Titrate IV .Q0M [facility] Rx#: [id number] Sodium Chloride 0.45% 1, 200 000 ml @ 100 mls/hr IV . Q10H [facility] Rx#:[id number] fentaNYL (PF) 1,000 mcg 143.492 46.903 In Sodium Chloride 0.9% 80 ml @ Per Protocol IV . Q0M [facility] Rx#:[id number] Output: Drainage 270 245 Right Lower Abdomen 270 245 Urine 260 1635 775 Other: Voiding Method Indwelling Catheter Indwelling Catheter Indwelling Catheter ABP, PAP, CO, CI - Last Documented Arterial Blood Pressure 118/75 - Labs CBC & Chem 7: 04/15/20 04:15 04/15/20 04:15 Labs: Abnormal Lab Results - Last 24 Hours (Table) 04/14/20 04/14/20 04/14/20 Range/Units 10:17 11:37 23:34 WBC (3.8-10.6) k/uL Hct (34.0-46.0) % RDW (11.5-15.5) % Neutrophils # (Manual) (1.3-7.7) k/uL Lymphocytes # (Manual) (1.0-4.8) k/uL Metamyelocytes # (Man) (0) k/uL ABG pH (7.35-7.45) ABG HCO3 (21-25) mmol/L Chloride (98-107) mmol/L Carbon Dioxide (22-30) mmol/L BUN (7-17) mg/dL Creatinine (0.52-1.04) mg/dL Glucose (74-99) mg/dL POC Glucose (mg/dL) 101 H 110 H (75-99) mg/dL Calcium (8.4-10.2) mg/dL Troponin I 0.108 H* (0.000-0.034) ng/mL 04/15/20 04/15/20 04/15/20 Range/Units 04:15 04:15 05:20 WBC 13.0 H (3.8-10.6) k/uL Hct 49.1 H (34.0-46.0) % RDW 17.2 H (11.5-15.5) % Neutrophils # (Manual) 12.00 H (1.3-7.7) k/uL Lymphocytes # (Manual) 0.52 L (1.0-4.8) k/uL Metamyelocytes # (Man) 0.39 H (0) k/uL ABG pH 7.24 L (7.35-7.45) ABG HCO3 18 L (21-25) mmol/L Chloride 116 H (98-107) mmol/L Carbon Dioxide 17 L (22-30) mmol/L BUN 35 H (7-17) mg/dL Creatinine 1.50 H (0.52-1.04) mg/dL Glucose 101 H (74-99) mg/dL POC Glucose (mg/dL) (75-99) mg/dL Calcium 6.9 L (8.4-10.2) mg/dL Troponin I (0.000-0.034) ng/mL Microbiology - Last 24 Hours (Table) 04/13/20 23:00 Gram Stain - Preliminary Abdomen Wound Culture - Preliminary 04/13/20 23:00 Gram Stain - Preliminary Abdomen Wound Culture - Preliminary 04/13/20 23:54 Gram Stain - Preliminary Sputum Sputum Culture - Preliminary 04/13/20 23:00 Anaerobic Culture - Preliminary Abdomen 04/13/20 23:00 Anaerobic Culture - Preliminary Abdomen 04/14/20 01:49 Urine Culture - Preliminary Urine,Voided <Padmaja Ojeda - Last Filed: 04/25/20 02:58> Subjective Patient seen and evaluated with nurse practitioner. Additional findings include persistent ventilatory status exacerbated by pre-existing history of chronic tobacco abuse. Nephrology including cardiology consultation requested for ol iguria including likely pre-existing cardiac disease. Ostomy viable however without stool or flatus as to be expected. Patient with leukocytosis consistent with peritonitis and sepsis from perforated colon. Will need antibiotic management from infectious disease team. Cultures of abscess obtained intraoperatively and pending. Objective - Vital Signs Vital signs: Vital Signs Temp 98.1 F 04/25/20 00:00 Pulse 79 04/25/20 02:00 Resp 22 04/25/20 02:00 BP 95/74 04/24/20 20:00 Pulse Ox 96 04/25/20 02:00 Intake & Output 04/24/20 04/24/20 04/25/20 06:59 18:59 06:59 Intake Total 1300 2538.2 876 Output Total 1815 2300 1300 Balance -515 238.2 -424 Weight 79 kg Intake: IV 1300 1226 876 Ampicillin-Sulbactam 3 gm 200 100 100 In Sodium Chloride 0.9% 100 ml @ 200 mls/hr IVPB Q6HR [facility] Rx#:[id number] Fat Emulsion 20% 250 mL@ 126 126 20.833mls/hr Mvi, Adult No.4 with Vit 660 660 K 10 ml Trace (Conc-1Ml/ Dose) 1 ml Potassium Chloride 60 meq Potassium Phosphate 30 mmol Magnesium Sulfate gm 0.6 gm Calcium Gluconate 1 gm In Amino Acid 5%-D15w 1, 000 ml @ 55 mls/hr IV . [id number] [facility] Rx#:[id number] Mvi, Adult No.4 with Vit 385 K 10 ml Trace (Conc-1Ml/ Dose) 1 ml Potassium Chloride 60 meq Potassium Phosphate 30 mmol Magnesium Sulfate gm 0.6 gm Calcium Gluconate 1 gm In Amino Acid 5%-D15w 1, 000 ml @ 55 mls/hr IV . [id number] [facility] Rx#:[id number] Sodium Chloride 0.45% 1, 240 240 160 000 ml @ 20 mls/hr IV . Q24H [facility] Rx#:[id number] Sodium Chloride 0.9% 1,00 5 mL metroNIDAZOLE-NS PMX 500 200 100 100 mg Intake, IV Titration 1062.2 Amount Mvi, Adult No.4 with Vit 1062.2 K 10 ml Trace (Conc-1Ml/ Dose) 1 ml Potassium Chloride 60 meq Potassium Phosphate 30 mmol Magnesium Sulfate gm 0.6 gm Calcium Gluconate 1 gm In Amino Acid 5%-D15w 1, 000 ml @ 55 mls/hr IV . [id number] [facility] Rx#:[id number] Oral 250 Output: Drainage 40 Right Lower Abdomen 40 Urine 1575 1450 1200 Stool 200 850 100 Other: Voiding Method Indwelling Catheter Indwelling Catheter Indwelling Catheter ABP, PAP, CO, CI - Last Documented Arterial Blood Pressure 89/47 - Labs CBC & Chem 7: 04/24/20 05:25 04/24/20 05:25 Labs: Abnormal Lab Results - Last 24 Hours (Table) 04/24/20 04/24/20 04/24/20 Range/Units 05:25 05:25 17:33 WBC 13.7 H (3.8-10.6) k/uL RBC 3.79 L (3.80-5.40) m/uL RDW 17.0 H (11.5-15.5) % Neutrophils # 11.6 H (1.3-7.7) k/uL Sodium 133 L (137-145) mmol/L Creatinine 0.34 L (0.52-1.04) mg/dL Glucose 114 H (74-99) mg/dL POC Glucose (mg/dL) 101 H (75-99) mg/dL Calcium 8.1 L (8.4-10.2) mg/dL Microbiology - Last 24 Hours (Table) 04/23/20 13:50 Blood Culture - Preliminary Blood No Growth after 24 hours 04/18/20 05:10 Blood Culture - Final Blood No Growth after 144 hours Assessment and Plan (1) Peritonitis (acute) generalized Current Visit: Yes Status: Acute Code(s): K65.0 - GENERALIZED (ACUTE) PERITONITIS SNOMED Code(s): 85351022 (2) History of gastric bypass Current Visit: Yes Status: Acute Code(s): Z98.84 - BARIATRIC SURGERY STATUS SNOMED Code(s): 818433067 (3) Medical non-compliance Current Visit: Yes Status: Acute Code(s): Z91.19 - PATIENT'S NONCOMPLIANCE W OTH MEDICAL TREATMENT AND REGIMEN SNOMED Code(s): 050449630 (4) Tobacco abuse Current Visit: Yes Status: Acute Code(s): Z72.0 - TOBACCO USE SNOMED Code(s): 499952122 (5) Tobacco abuse counseling Current Visit: Yes Status: Acute Code(s): Z71.6 - TOBACCO ABUSE COUNSELING SNOMED Code(s): 867976305 (6) Depressive disorder Current Visit: Yes Status: Acute Code(s): F32.9 - MAJOR DEPRESSIVE DISORDER, SINGLE EPISODE, UNSPECIFIED SNOMED Code(s): 55545931 (7) Hypothyroidism Current Visit: Yes Status: Acute Code(s): E03.9 - HYPOTHYROIDISM, UNSPECIFIED SNOMED Code(s): 84409850 (8) Abdominal pain Current Visit: Yes Status: Acute Code(s): R10.9 - UNSPECIFIED ABDOMINAL PAIN SNOMED Code(s): 79083726 (9) Free intraperitoneal air Current Visit: Yes Status: Acute Code(s): K66.8 - OTHER SPECIFIED DISORDERS OF PERITONEUM SNOMED Code(s): 73372523 (10) Dehydration Current Visit: Yes Status: Acute Code(s): E86.0 - DEHYDRATION SNOMED Code(s): 23705492
[2020-04-15 12:08] LABS: Glucose,Whole Blood 95 mg/dL (75-99)
[2020-04-15] MEDS: HYDROmorphone 1 MG/ML 1 ML SYRINGE IVP PRN (13:58)
--- NOTE | 2020-04-15 16:04 | CDI ---
Documentation Clarification Form Date: 04/15/2020 03:51:15 PM From: Stacie Carr RN, CCDS Admit Date: 04/13/2020 11:56:00 AM Patient Name: Brittney Fernandez Visit Number: [id number] ATTENTION: The Clinical Documentation Specialists (CDI) and [facility] Coding Staff appreciate your assistance in clarifying documentation. Please respond to the clarification below the line at the bottom and electronically sign. The CDI & [facility] Coding staff will review the response and follow-up if needed. Please note: Queries are made part of the Legal Health Record. If you have any questions, please contact the author of this message via ITS. Dr. Padmaja Ojeda Post-operative Hypotension is documented in the cardiology notes and surgical progress notes and requires further clarification. History/Risk Factors: Ruptured sigmoid colon, fecal peritonitis, descending and sigmoid colon impaction, appendicolith with appendicitis Clinical Indicators: 04/14 Surgery: "Patient remains hypotensive at the time of examination." 04/14 Cardiology Consult: "postoperative hypotension" 04/15 Cardiology progress note: "Hypotension post surgery." 04/14 [id number] Patients ABP: 91/62, 79/58, 89/51, 87/60 Treatment: 04/14 Levophed Gtt titrate for B/P 04/14 3L 0.9% NS IIVF Bolus In your professional opinion, can you please specify the etiology of the hypotension if known? Hypovolemic shock Septic Shock Drug Induced Hypotension (please identify drug) Postoperative Hypotension (please specify if this is expected or unexpected in the post-operative period) Other Condition, please specify Unable to determine (Last Revision: July 2017) Septic Shock due to peritonitis, the patient comorbidity not as a result of surgery KM 14:54 04/21/2020 [place]
--- NOTE | 2020-04-15 16:46 | CONS ---
CONSULTATION REASON FOR CONSULT: Acute kidney injury and low urine output. HISTORY OF PRESENT ILLNESS: The patient is a 59-year-old female who was admitted to the hospital on 04/13/2020 with complaints of abdominal pain. She was found to have free air in the abdomen with perforated viscus and was taken to OR on 04/13/2020 where patient had explorative laparotomy with sigmoid colectomy for perforated sigmoid colon and colostomy. She also had open appendectomy and abdominal washout. Patient has been on the vent. She had low urine output yesterday, which was her first postop day. Blood pressure had been low, patient is on Levophed. This morning it is actually being decreased. The patient was started on Lasix drip yesterday and her urine output picked up to about 3-400 mL/hour. Currently, she is on FiO2 at 50%. The patient remains on Levophed. She is also on IV antibiotics. Serum creatinine is 1.5 mg/dL today and yesterday it was 0.85 and on admission it was 0.53. PAST MEDICAL HISTORY: Hypertension, hypothyroidism, vitamin D deficiency. PAST SURGICAL HISTORY: Previous , cholecystectomy, gastric bypass surgery, tonsillectomy. SOCIAL HISTORY: Patient is a current daily smoker. No history of drug abuse or alcohol abuse. MEDICATIONS: At home prior to admission included Prozac, baclofen, Synthroid, Inderal, chlorthalidone, Fioricet, vitamin D, multivitamins. ALLERGIES: Include SULFA and LATEX. REVIEW OF SYSTEMS: As per HPI. Other systems negative. PHYSICAL EXAMINATION: Patient is currently sedated, she is on the vent. Blood pressure this morning was 107/73, heart rate 125 per minute, she is afebrile. Examination of the heart S1, S2. Rapid heart rate noted. Examination of the lungs, bilateral breath sounds are heard. Abdomen is soft. Examination of the lower extremities shows no significant edema. [employer] exam cannot be assessed. LABS: Show sodium of 140, potassium 4.0, chloride 116. CO2 is 17, BUN 35, serum creatinine 1.5, hemoglobin of 15.3 g/dL. UA shows WBCs 13, 1+ protein, trace moderate blood. ASSESSMENT: 1. Acute kidney injury secondary to hypotension initially oliguric ATN currently nonoliguric with improved urine output on Lasix drip. Chest x-ray does not show increased pulmonary vasculature and patient's urine output is currently at about 200-300 mL an hour. I will decrease the Lasix drip to 5 mg an hour and eventually discontinue it later on today and switch to IV push Lasix. Repeat chest x-ray in a.m. Continue to avoid nephrotoxic agents. 2. Acute abdomen, status post explorative laparotomy for perforated bowel with sigmoid colectomy and colostomy. 3. Hypoxic respiratory failure currently on the vent. Patient's sedation is being weaned down. 4. Hypotension secondary to sepsis from intraabdominal source, improving. Levophed is being weaned down. 5. Metabolic acidosis associated with renal failure, hypotension, and GI fluid loss. I will add IV bicarb if the acidosis worsens. Expect improvement in the metabolic acidosis with improving renal function. PLAN: Continue IV fluids and decrease Lasix drip to 5 mg an hour and discontinue the Lasix drip later on today. Repeat chest x-ray in a.m. Avoid nephrotoxic medications and wean down Levophed. Continue antibiotics. Thank you for this consultation. Will continue to follow the patient with you during her hospitalization. MMODL / IJN: [id number] /
[2020-04-15 18:33] LABS: Glucose,Whole Blood 100 mg/dL (75-99)
[2020-04-15] MEDS: ACETAMINOPHEN IV (For NPO) 1,000 MG in EMPTY BAG 1 BAG IVPB PRN (23:49)
[2020-04-16 00:11] LABS: Glucose,Whole Blood 102 mg/dL (75-99)
[2020-04-16] MEDS: IPRATROPIUM-ALBUTEROL 3 ML NEB INHALATION SCH ×6 (03:10→23:17)
[2020-04-16] MEDS: NOREPINEPHRINE 32 MG in SODIUM CHLORIDE 0.9% 218 ML IV SCH (04:36)
[2020-04-16] MEDS: PIPERACILLIN-TAZOBACTAM 3.375 GM in SODIUM CHLORIDE 0.9% 100 ML IVPB SCH ×3 (04:46→20:34)
[2020-04-16] MEDS: SODIUM CHLORIDE 0.45% 1,000 ML IV SCH ×2 (04:46→15:36)
[2020-04-16] MEDS: PROPOFOL 1,000 MG in EMPTY BAG 1 BAG IV SCH (04:46)
[2020-04-16 04:47] LABS: Anisocytosis Slight; HCT 39.8 % (34.0-46.0); Hypochromasia Slight; MCHC 35.1 g/dL (31.0-37.0); Macrocytosis Slight; Mean Platelet Volume 8.1; Platelet Count 201 k/uL (150-450); RDW 17.5 % (11.5-15.5)
[2020-04-16 05:09] LABS: Glucose,Whole Blood 109 mg/dL (75-99)
[2020-04-16] MEDS: metroNIDAZOLE-NS PMX 500 MG in SALINE 1 100ML.BAG IVPB SCH ×3 (05:10→17:38)
[2020-04-16 05:17] LABS: ABG Base Excess -3.9 mmol/L; ABG HCO3 22 mmol/L (21-25); ABG Oxygen Saturation 98.4 % (94-97); ABG PCO2 43 mmHg (35-45); ABG PH 7.32 (7.35-7.45); ABG PO2 137 mmHg (83-108); ABG TCO2 24 mmol/L (19-24); Allen Test Performed? Yes
[2020-04-16 05:17] LABS: Potassium 2.8 mmol/L (3.5-5.1)
[2020-04-16] MEDS ORDERED: Potassium Replacement Protocol 1 EACH MISC MISCELLANE PRN (05:37)
[2020-04-16] MEDS: POTASSIUM CHLORIDE 20 MEQ in WATER FOR INJECTION 1 100ML.BAG IVPB SCH ×8 (05:41→20:34)
[2020-04-16 06:26] LABS: WBC 12.3 k/uL (3.8-10.6)
[2020-04-16 06:29] LABS: Band Neutrophils % 9 %; Lymphocytes # (M) 0.98 k/uL (1.0-4.8); Metamyelocytes # (M) 0.12 k/uL (0); Metamyelocytes % 1 %; Monocytes # (M) 0.62 k/uL (0-1.0); Neutrophils % (M) 77 %; Nucleated Red Blood Cells 0 /100 WBC (0-0); Total Cells Counted 100
--- NOTE | 2020-04-16 07:50 | XR ---
EXAMINATION TYPE: XR chest 1V portable DATE OF EXAM: 04/16/2020 CLINICAL HISTORY: Difficulty breathing progress study. TECHNIQUE: Single AP portable semiupright view of the chest is obtained. COMPARISON: Chest x-ray from one day earlier and older studies FINDINGS: Stable endotracheal tube and right internal jugular central venous catheter. Improved left basilar opacity. Right lung remains clear. Cardiac silhouette size is stable and within normal limit s. Osseous structures are intact. IMPRESSION: Improving left basilar acute infiltrate and/or atelectasis.
[2020-04-16] MEDS: METOPROLOL TARTRATE 5 MG/5 ML VIAL IVP SCH ×2 (08:44→20:34)
[2020-04-16] MEDS: CHLORHEXIDINE GLUCONATE 15 ML CUP MUCOUS MEM SCH (08:49)
[2020-04-16] MEDS: ACETAMINOPHEN IV (For NPO) 1,000 MG in EMPTY BAG 1 BAG IVPB PRN ×2 (08:51→17:18)
[2020-04-16] MEDS: PANTOPRAZOLE 40 MG/10 ML VIAL IV SCH (09:06)
[2020-04-16] MEDS: HEPARIN SODIUM,PORCINE 5,000 UNIT/ML 1 ML VIAL SQ SCH ×2 (09:08→20:34)
--- NOTE | 2020-04-16 09:22 | PN ---
PROGRESS NOTE PULMONARY/CRITICAL CARE PROGRESS NOTE: DATE OF SERVICE: 04/16/2020 Critical care time 33 minutes. This is a 59-year-old female seen 2 days ago in consultation. She came to the emergency room on April 13, 2020 for abdominal pain. She is postop day #3, status post exploratory laparotomy, sigmoid colectomy, descending colostomy with Nelson's procedure, disimpaction of the descending colon, and sigmoid colon, open appendectomy, abdominal washout with 6 L of saline, placement of a right lower abdominal #19 Gage Quintana drain, and application of incisional wound VAC system. Currently, the patient remains on the mechanical ventilator. Her vent settings are the volume assist-control mode rate of 26, tidal volume 350, FiO2 of 50%, PEEP of 10. I have asked the nurses to drop the PEEP down from 10 to 5. Gases this morning show pO2 of 137, pCO2 of 43, pH of 7.32. She is getting 0.45 at 100, Diprivan is currently off for daily interruption of sedation. She is on a Lasix drip of 5 mg an hour. Today I am going to trial her on a spontaneous breathing trial at PSV 5, CPAP of 5. She should do well. Her chest x-ray looks stable. May be a small left-sided pleural effusion or atelectasis. Current vital signs are stable. Temperature is 99.9, heart rate of 100, respiratory rate is 26, blood pressure 125/86 mean 99, saturations are 99%. Appears in no acute distress. Looks comfortable. HEENT: Examination is grossly unremarkable. She has got an orally placed endotracheal tube and NG tube. NECK: Supple. Full range of motion. No adenopathy. Neck veins are flat. CARDIOVASCULAR: Examination reveals regular rhythm and rate. S1, S2 normal. No S3, S4, or murmur. LUNGS: Reveal mostly clear breath sounds. No wheezes, rhonchi, or crackles. ABDOMEN: Soft, bowel sounds are heard. EXTREMITIES: Intact. No cyanosis, clubbing, or edema. SKIN: Without rash. NEUROLOGIC: Examination could not be adequately assessed. LABS: Reviewed. White count 12.3, hemoglobin 14, hematocrit 39.8, platelet count 201,000. Sodium 140, potassium 2.8, chloride 111, CO2 is 21, anion gap is 8. BUN and creatinine were 30 and 1.42. Calcium 7. Microbiology is currently all negative. Chest x-ray has been done. Again, the chest x-ray looks relatively stable except for some minimal atelectasis or effusion at the left base. CURRENT MEDICATIONS: Reviewed. She is currently on Tylenol, chlorhexidine, Lasix drip, subcu heparin, Dilaudid IV, DuoNeb, Flagyl, Narcan, Zosyn, Protonix, potassium replacement, propofol and her 0.45 IV. ASSESSMENT: 1. Postoperative day #3, status post exploratory laparotomy with sigmoid colectomy for perforated sigmoid colon, Nelson's procedure, disimpaction of descending colon, open appendectomy, abdominal washout for fecal peritonitis, placement of a Gage- Quintana drain, and application of an incisional wound VAC system. 2. History of hypothyroidism. 3. History of ongoing tobacco use and nicotine addiction. 4. Failure to wean from mechanical ventilation. PLAN: The patient will get a daily interruption of sedation and spontaneous breathing trial today. Additional recommendations and suggestions are forthcoming. Prognosis is guarded. Diprivan is off. She is on a Lasix drip. Will start off at PSV 5, CPAP of 5. Additional recommendations and suggestions are forthcoming. MMODL / IJN: [id number] /
--- NOTE | 2020-04-16 09:23 | PN ---
PROGRESS NOTE Mrs. Fernandez is a 59-year-old female who presented with ruptured viscus and underwent sigmoid colectomy and descending colostomy with Nelson's procedure. She remains intubated. She is on sedation holiday and she is in sinus tachycardia. Her blood pressure is on the higher side. She is not following commands. She had not had any episode of hypotension. Her urine output has been stable. Her echocardiogram reveals preserved ventricular size and systolic function. There is no evidence of significant valvular disease. She continues to be at this time on heparin subcu, IV Lasix drip, in addition to her antibiotics. PHYSICAL EXAMINATION: Blood pressure running in the 120s to 150s with a heart rate in the 110s to 130s with a the T-max of 99.9. LUNGS: Clear to auscultation anteriorly. HEART: Tachycardic, S1, S2. No S3. No rub. ABDOMEN: Soft. Dressing in place. Colostomy bag noted. No output. EXTREMITIES: No edema. LAB DATA: Revealed a BUN and creatinine 38 and 1.42, potassium 2.8, hemoglobin of 14, white blood cell of 12.3. His pH 7.32, PO2 of 137. Chest x-ray shows no acute infiltrate. IMPRESSION: 1. Status post ruptured sigmoid and surgical intervention with colostomy and Nelson's procedure. 2. Sinus tachycardia, part of it is related to the surgery and the presenting event, but it could be some withdrawal from beta dwight. 3. Prior history of smoking. 4. Hypothyroidism. RECOMMENDATION: I will start the patient on IV metoprolol. Continue rest of medical regimen. Hopefully, she can be weaned and extubated and depending on her progress, further recommendation will be made. MMODL / IJN: [id number] /
[2020-04-16] MEDS: FUROSEMIDE 10 MG/ML 4 ML VIAL IV SCH (10:31)
--- NOTE | 2020-04-16 10:32 | P.PN ---
<SupaDaniela Chilango - Last Filed: 04/16/20 10:25> Subjective Progress Note Date: 04/16/20 CHIEF COMPLAINT: Abdominal pain HISTORY OF PRESENT ILLNESS: 59-year-old female who underwent exploratory laparotomy with sigmoid colectomy, descending colostomy creation, and appendectomy with Dr. Ojeda on April 13, 2020. Patient examined this morning in the ICU. She has been extubated. She is currently restless and appears confused. Not able to have a conversation with provider. Lasix drip has been discontinued. Urine output remains good. Levophed drip has also been weaned off. Ostomy with no stool output. WBC 12.3. Hemoglobin 14.0 PHYSICAL EXAM: VITAL SIGNS: Reviewed GENERAL: Well-developed in no acute distress HEENT: No sclera icterus. Extraocular movements grossly intact. Moist buccal mucosa. Head is atraumatic, normocephalic. No nasal drainage. NECK: Supple without lymphadenopathy. CHEST: Non-labored respirations and equal bilateral excursions CARDIOVASCULAR: Tachycardic. Regular rate with regular rhythm. Palpable 2+ radial pulses. ABDOMEN: Soft. Nondistended. PREVENA wound vac noted. Ostomy to left side of abdomen. No stool or gas noted. Stoma pink. MARIA EUGENIA drain with serosanguineous drainage. MUSCULOSKELETAL: No clubbing or cyanosis. NEUROLOGIC: Awake and alert. Restless. PSYCH: Unable to assess secondary to altered mental status SKIN: Well perfused. Good skin turgor. ASSESSMENT: 1. Abdominal pain secondary to ruptured sigmoid colon, fecal peritonitis, descending and sigmoid colon impaction, appendicolith with appendicitis PLAN: Orders placed to begin TPN today Monitor MARIA EUGENIA drain Await ostomy function Continue antibiotics. Monitor labs. Further ICU and ventilator management per Dr. Villaseñor. Nurse practitioner note has been reviewed by physician. Signing provider agrees with the documented findings, assessment, and plan of care. Objective - Vital Signs Vital signs: Vital Signs Temp 99.9 F H 04/16/20 06:00 Pulse 104 H 04/16/20 10:00 Resp 24 04/16/20 10:00 BP 131/89 04/16/20 10:00 Pulse Ox 100 04/16/20 10:00 Intake & Output 04/15/20 04/16/20 04/16/20 18:59 06:59 18:59 Intake Total 1255.180 9308.346 550 Output Total 2380 2435 1375 Balance -536.196 -497.654 -825 Weight 66.2 kg Intake: IV 400 1400 550 Pipercillin/ Tazobactam 3 100 100 150 .375 g Sodium Chloride 0.45% 1, 1200 400 000 ml @ 100 mls/hr IV . Q10H REE Rx#:[id number] Sodium Chloride 0.9% 1, 100 000 ml @ 100 mls/hr IV . Q10H REE Rx#:[id number] metroNIDAZOLE-NS PMX 500 200 100 mg Intake, IV Titration 1443.804 537.346 Amount Furosemide 100 mg In 184.167 Sodium Chloride 0.9% 90 ml @ 5 MG/HR 5 mls/hr IV .Q20H REE Rx#:[id number] Norepinephrine 32 mg In 7.794 Sodium Chloride 0.9% 218 ml @ 0.05 MCG/KG/MIN 1. 595 mls/hr IV .Q24H REE Rx#:[id number] Potassium Chloride 20 meq 50 In Water For Injection 1 100ml.bag @ 50 mls/hr IVPB Q2H REE Rx#: [id number] Propofol 1,000 mg In 183.391 287.346 Empty Bag 1 bag @ Titrate IV .Q0M REE Rx#: [id number] Sodium Chloride 0.45% 1, 1000 200 000 ml @ 100 mls/hr IV . Q10H REE Rx#:[id number] fentaNYL (PF) 1,000 mcg 68.452 In Sodium Chloride 0.9% 80 ml @ Per Protocol IV . Q0M REE Rx#:[id number] Output: Drainage 50 50 Right Lower Abdomen 50 50 Urine 2330 2385 1375 Other: Voiding Method Indwelling Catheter Indwelling Catheter ABP, PAP, CO, CI - Last Documented Arterial Blood Pressure 137/78 - Labs CBC & Chem 7: 04/16/20 04:30 04/16/20 04:30 Labs: Abnormal Lab Results - Last 24 Hours (Table) 04/15/20 04/16/20 04/16/20 Range/Units 18:31 00:10 04:30 WBC 12.3 H (3.8-10.6) k/uL RDW 17.5 H (11.5-15.5) % Neutrophils # (Manual) 10.50 H (1.3-7.7) k/uL Lymphocytes # (Manual) 0.98 L (1.0-4.8) k/uL Metamyelocytes # (Man) 0.12 H (0) k/uL ABG pH (7.35-7.45) ABG pO2 (83-108) mmHg ABG O2 Saturation (94-97) % Potassium (3.5-5.1) mmol/L Chloride (98-107) mmol/L Carbon Dioxide (22-30) mmol/L BUN (7-17) mg/dL Creatinine (0.52-1.04) mg/dL Glucose (74-99) mg/dL POC Glucose (mg/dL) 100 H 102 H (75-99) mg/dL Calcium (8.4-10.2) mg/dL Magnesium (1.6-2.3) mg/dL 04/16/20 04/16/20 04/16/20 Range/Units 04:30 04:30 05:08 WBC (3.8-10.6) k/uL RDW (11.5-15.5) % Neutrophils # (Manual) (1.3-7.7) k/uL Lymphocytes # (Manual) (1.0-4.8) k/uL Metamyelocytes # (Man) (0) k/uL ABG pH (7.35-7.45) ABG pO2 (83-108) mmHg ABG O2 Saturation (94-97) % Potassium 2.8 L (3.5-5.1) mmol/L Chloride 111 H (98-107) mmol/L Carbon Dioxide 21 L (22-30) mmol/L BUN 38 H (7-17) mg/dL Creatinine 1.42 H (0.52-1.04) mg/dL Glucose 107 H (74-99) mg/dL POC Glucose (mg/dL) 109 H (75-99) mg/dL Calcium 7.0 L (8.4-10.2) mg/dL Magnesium 2.5 H (1.6-2.3) mg/dL 04/16/20 Range/Units 05:14 WBC (3.8-10.6) k/uL RDW (11.5-15.5) % Neutrophils # (Manual) (1.3-7.7) k/uL Lymphocytes # (Manual) (1.0-4.8) k/uL Metamyelocytes # (Man) (0) k/uL ABG pH 7.32 L (7.35-7.45) ABG pO2 137 H (83-108) mmHg ABG O2 Saturation 98.4 H (94-97) % Potassium (3.5-5.1) mmol/L Chloride (98-107) mmol/L Carbon Dioxide (22-30) mmol/L BUN (7-17) mg/dL Creatinine (0.52-1.04) mg/dL Glucose (74-99) mg/dL POC Glucose (mg/dL) (75-99) mg/dL Calcium (8.4-10.2) mg/dL Magnesium (1.6-2.3) mg/dL Microbiology - Last 24 Hours (Table) 04/13/20 23:54 Gram Stain - Final Sputum Sputum Culture - Final 04/14/20 16:30 Blood Culture - Preliminary Blood No Growth after 24 hours 04/14/20 16:25 Blood Culture - Preliminary Blood No Growth after 24 hours 04/14/20 01:49 Urine Culture - Final Urine,Voided 04/13/20 23:00 Gram Stain - Preliminary Abdomen Wound Culture - Preliminary <Padmaja Ojeda N - Last Filed: 04/25/20 03:00> Subjective Patient seen and evaluated with nurse practitioner. Additional findings include neurological changes with altered mental status. May need neurology consultation for altered mental status. Otherwise, she has pre-existing history of iatrogenic malnutrition from gastric bypass, recommend obtaining full bariatric metabolic panel. Severe nutritional deficiencies including thiamine deficiency may increase risk for metabolic encephalopathy. In the interim, start parenteral nutrition. Monitor phosphate for risk of refeeding syndrome. Objective - Vital Signs Vital signs: Vital Signs Temp 98.1 F 04/25/20 00:00 Pulse 79 04/25/20 02:00 Resp 22 04/25/20 02:00 BP 95/74 04/24/20 20:00 Pulse Ox 96 04/25/20 02:00 Intake & Output 04/24/20 04/24/20 04/25/20 06:59 18:59 06:59 Intake Total 1300 2538.2 876 Output Total 1815 2300 1300 Balance -515 238.2 -424 Weight 79 kg Intake: IV 1300 1226 876 Ampicillin-Sulbactam 3 gm 200 100 100 In Sodium Chloride 0.9% 100 ml @ 200 mls/hr IVPB Q6HR REE Rx#:[id number] Fat Emulsion 20% 250 mL@ 126 126 20.833mls/hr Mvi, Adult No.4 with Vit 660 660 K 10 ml Trace (Conc-1Ml/ Dose) 1 ml Potassium Chloride 60 meq Potassium Phosphate 30 mmol Magnesium Sulfate gm 0.6 gm Calcium Gluconate 1 gm In Amino Acid 5%-D15w 1, 000 ml @ 55 mls/hr IV . [id number] REE Rx#:[id number] Mvi, Adult No.4 with Vit 385 K 10 ml Trace (Conc-1Ml/ Dose) 1 ml Potassium Chloride 60 meq Potassium Phosphate 30 mmol Magnesium Sulfate gm 0.6 gm Calcium Gluconate 1 gm In Amino Acid 5%-D15w 1, 000 ml @ 55 mls/hr IV . [id number] REE Rx#:[id number] Sodium Chloride 0.45% 1, 240 240 160 000 ml @ 20 mls/hr IV . Q24H REE Rx#:[id number] Sodium Chloride 0.9% 1,00 5 mL metroNIDAZOLE-NS PMX 500 200 100 100 mg Intake, IV Titration 1062.2 Amount Mvi, Adult No.4 with Vit 1062.2 K 10 ml Trace (Conc-1Ml/ Dose) 1 ml Potassium Chloride 60 meq Potassium Phosphate 30 mmol Magnesium Sulfate gm 0.6 gm Calcium Gluconate 1 gm In Amino Acid 5%-D15w 1, 000 ml @ 55 mls/hr IV . [id number] [facility] Rx#:[id number] Oral 250 Output: Drainage 40 Right Lower Abdomen 40 Urine 1575 1450 1200 Stool 200 850 100 Other: Voiding Method Indwelling Catheter Indwelling Catheter Indwelling Catheter ABP, PAP, CO, CI - Last Documented Arterial Blood Pressure 89/47 - Labs CBC & Chem 7: 04/24/20 05:25 04/24/20 05:25 Labs: Abnormal Lab Results - Last 24 Hours (Table) 04/24/20 04/24/20 04/24/20 Range/Units 05:25 05:25 17:33 WBC 13.7 H (3.8-10.6) k/uL RBC 3.79 L (3.80-5.40) m/uL RDW 17.0 H (11.5-15.5) % Neutrophils # 11.6 H (1.3-7.7) k/uL Sodium 133 L (137-145) mmol/L Creatinine 0.34 L (0.52-1.04) mg/dL Glucose 114 H (74-99) mg/dL POC Glucose (mg/dL) 101 H (75-99) mg/dL Calcium 8.1 L (8.4-10.2) mg/dL Microbiology - Last 24 Hours (Table) 04/23/20 13:50 Blood Culture - Preliminary Blood No Growth after 24 hours 04/18/20 05:10 Blood Culture - Final Blood No Growth after 144 hours Assessment and Plan (1) Peritonitis (acute) generalized Current Visit: Yes Status: Acute Code(s): K65.0 - GENERALIZED (ACUTE) PERITONITIS SNOMED Code(s): 12094835 (2) History of gastric bypass Current Visit: Yes Status: Acute Code(s): Z98.84 - BARIATRIC SURGERY STATUS SNOMED Code(s): 823115293 (3) Medical non-compliance Current Visit: Yes Status: Acute Code(s): Z91.19 - PATIENT'S NONCOMPLIANCE W OTH MEDICAL TREATMENT AND REGIMEN SNOMED Code(s): 858744976 (4) Tobacco abuse Current Visit: Yes Status: Acute Code(s): Z72.0 - TOBACCO USE SNOMED Code(s): 750258851 (5) Tobacco abuse counseling Current Visit: Yes Status: Acute Code(s): Z71.6 - TOBACCO ABUSE COUNSELING SNOMED Code(s): 857228457 (6) Depressive disorder Current Visit: Yes Status: Acute Code(s): F32.9 - MAJOR DEPRESSIVE DISORDER, SINGLE EPISODE, UNSPECIFIED SNOMED Code(s): 97364542 (7) Hypothyroidism Current Visit: Yes Status: Acute Code(s): E03.9 - HYPOTHYROIDISM, UNSPECIFIED SNOMED Code(s): 36238677 (8) Abdominal pain Current Visit: Yes Status: Acute Code(s): R10.9 - UNSPECIFIED ABDOMINAL PAIN SNOMED Code(s): 02112096 (9) Free intraperitoneal air Current Visit: Yes Status: Acute Code(s): K66.8 - OTHER SPECIFIED DISORDERS OF PERITONEUM SNOMED Code(s): 98076999 (10) Dehydration Current Visit: Yes Status: Acute Code(s): E86.0 - DEHYDRATION SNOMED Code(s): 00152796
[2020-04-16 10:41] LABS: Albumin 2.1 g/dL (3.5-5.0); Calcium 6.9 mg/dL (8.4-10.2); Phosphorus 3.2 mg/dL (2.5-4.5); Potassium 3.4 mmol/L (3.5-5.1); Total Bilirubin 0.3 mg/dL (0.2-1.3); Total Protein 4.3 g/dL (6.3-8.2)
[2020-04-16 11:16] LABS: Glucose,Whole Blood 141 mg/dL (75-99)
[2020-04-16 11:36] LABS: Ionized Calcium 4.4 mg/dL (4.5-5.3)
[2020-04-16 11:55] LABS: Potassium 3.1 mmol/L (3.5-5.1)
[2020-04-16] MEDS: FAT EMULSION 20% 250 ML IV SCH (11:56)
[2020-04-16] MEDS ORDERED: POTASSIUM ACETATE IV ONE ×7 (12:00)
[2020-04-16] MEDS ORDERED: [UNRECOGNIZED DRUG - OTHER] IV ONE ×7 (12:00)
[2020-04-16] MEDS ORDERED: POTASSIUM CHLORIDE IV ONE ×7 (12:00)
[2020-04-16] MEDS ORDERED: SODIUM ACETATE IV ONE ×7 (12:00)
--- NOTE | 2020-04-16 13:08 | PN ---
PROGRESS NOTE Patient is seen for followup for acute kidney injury. Patient was started on Lasix drip yesterday for oliguria. Her urine output picked up and she started to have urine output of 300-400 mL an hour. Patient did get extubated. However, she is confused. She was noted to be quite hypokalemic and the Lasix drip has been discontinued appropriately. Chest x-ray did not show increased pulmonary vasculature. This morning patient is comfortable. She is confused. She is off of Levophed. Blood pressure was 124/92, heart rate 103 per minute, she is afebrile. Examination of the heart S1, S2. Examination of the lungs, decreased breath sounds at bases, abdomen is soft, nontender. Examination of the lower extremities shows no significant edema. SAW OPERATOR exam shows patient is moving all 4 extremities, but she is confused. LABS: Show sodium 140, potassium 3.4, chloride 112, CO2 is 23. BUN 34, serum creatinine 1.39. ASSESSMENT: 1. Acute kidney injury secondary to hypotension, currently improving. 2. Oliguria associated with acute kidney injury, now resolved. 3. Hypokalemia secondary to diuretics, status post replacement. 4. Acute abdomen with perforated bowel, status post explorative laparotomy, sigmoid colectomy and colostomy. 5. Hypoxic acute respiratory failure, status post extubation. 6. Sepsis related to intraabdominal source and bowel perforation with fecal peritonitis. 7. Metabolic acidosis, now resolved. PLAN: Hold off on IV Lasix as urine output is maintained at 400 to 500 mL an hour. Continue to replace potassium aggressively. Repeat labs in a.m. and continue to avoid nephrotoxic medications. MMODL / IJN: [id number] /
--- NOTE | 2020-04-16 16:27 | P.CONS ---
History of Present Illness - Reason for Consult Consult date: 04/16/20 Perforated diverticulitis and antibiotic recommendation Requesting physician: Padmaja Ojeda - Chief Complaint Abdominal pain few days - History of Present Illness Patient is a 59 year female who presented to the ER at [facility] on 04/13/2020 with the chief complaint generalized abdominal pain and apparently the patient will be started the day before specific the hospital patient describing the pain to be more of a crampy in nature she did have nausea but no vomiting the patient has been passing gas and did have small bowel movement this morning with worsening symptoms the patient did present to the hospital, on route via the patient was afebrile subsequent to spike a fever of 101F and did spike a fever for the last 2 days, patient did have a normal white count initially however the white count was up to 13,000 yesterday and is down 12.3 today, patient did have severe abdominal pelvis completed on admission which was diffusely thickened small bowel throughout the abdomen small droplets of free air as well as small amount of ascites, patient was by surgery she was taken to the one she was noticed to have a rectosigmoid colon with fecal peritonitis, descending and sigmoid colon infection appendicolith with appendicitis the patient is status post excisional debridement sigmoid colectomy and descending colostomy creation this infection was sigmoid colon open appendectomy, patient has been in the ICU since surgery patient has been treated with the TPN and Zosyn, infectious disease was consulted last night for further management of antibiotic therapy, most information has been obtained from review the chart as the patient currently in restraints is pleasantly confused and is unable to provide reliable history Review of Systems Positive points has been mentioned in HPI complete review could not be obtained because of his underlying mental status Past Medical History Past Medical History: Thyroid Disorder History of Any Multi-Drug Resistant Organisms: None Reported Past Surgical History: Bariatric Surgery, Section, Cholecystectomy, Tonsillectomy Additional Past Surgical History / Comment(s): gastric bypass, sinus Past Psychological History: Depression Smoking Status: Current every day smoker Past Alcohol Use History: None Reported Past Drug Use History: None Reported Medications and Allergies Home Medications Medication Instructions Recorded Confirmed Type Baclofen [Lioresal] 20 mg PO HS 03/30/18 04/13/20 History FLUoxetine HCL [PROzac] 20 mg PO DAILY 03/30/18 04/13/20 History Levothyroxine Sodium [Synthroid] 125 mcg PO DAILY 03/30/18 04/13/20 History Propranolol HCl [Inderal LA] 80 mg PO HS 03/30/18 04/13/20 History Rizatriptan Benzoate [Maxalt [employer]GER] 10 mg PO DAILY PRN 03/30/18 04/13/20 History Butalb/APAP/Caff 50-325-40Mg 1 tab PO Q4H PRN 04/13/20 04/13/20 History [Fioricet 50-325-40] Chlorthalidone 50 mg PO DAILY 04/13/20 04/13/20 History Cholecalciferol [Vitamin D3 (25 1,000 unit PO DAILY 04/13/20 04/13/20 History Mcg = 1000 Iu)] Multivitamins, Thera [Multivitamin 1 tab PO DAILY 04/13/20 04/13/20 History (formulary)] Allergies Allergy/AdvReac Type Severity Reaction Status Date / Time latex Allergy Rash/Hives Verified 04/13/20 12:08 Sulfa (Sulfonamide Allergy Unknown Verified 04/13/20 12:08 Antibiotics) Childhood Physical Exam Vitals: Vital Signs Temp Pulse Resp BP Pulse Ox 04/16/20 12:00 102 H 25 H 100 04/16/20 11:44 103 H 04/16/20 11:35 106 H 04/16/20 11:00 103 H 25 H 124/92 100 04/16/20 10:00 104 H 24 131/89 100 04/16/20 09:00 98 24 04/16/20 08:15 124 H 04/16/20 08:00 120 H 24 96 04/16/20 07:54 123 H 04/16/20 07:00 117 H 18 98 04/16/20 06:00 99.9 F H 116 H 29 H 125/86 99 04/16/20 05:00 117 H 13 117/83 98 04/16/20 04:00 97.2 F L 117 H 25 H 120/81 98 04/16/20 03:26 117 H 04/16/20 03:10 118 H 04/16/20 03:00 118 H 11 L 120/81 98 04/16/20 02:00 121 H 14 111/81 98 04/16/20 01:00 123 H 28 H 99 04/16/20 00:06 126 H 27 H 115/80 98 04/16/20 00:00 100.4 F H 126 H 26 H 119/80 99 04/15/20 23:29 126 H 04/15/20 23:15 128 H 04/15/20 23:00 128 H 26 H 120/83 99 04/15/20 22:00 128 H 21 115/83 98 04/15/20 21:00 128 H 20 110/80 98 04/15/20 20:00 99 F 128 H 21 114/79 96 04/15/20 19:39 125 H 04/15/20 19:23 128 H 04/15/20 19:00 128 H 27 H 107/78 99 04/15/20 18:00 129 H 15 109/75 98 04/15/20 17:00 128 H 23 109/75 98 04/15/20 16:00 98.8 F 125 H 26 H 105/73 98 04/15/20 15:50 125 H 04/15/20 15:16 126 H 04/15/20 15:00 126 H 26 H 107/75 98 04/15/20 14:00 131 H 23 118/87 97 04/15/20 13:00 131 H 23 118/80 98 Intake and Output 04/15/20 04/16/20 04/16/20 22:59 06:59 14:59 Intake Total 8880.577 4057.680 855 Output Total 1625 1585 1825 Balance -195.910 -442.320 -970 Intake: IV 600 900 705 Pipercillin/ Tazobactam 3 100 25 .375 g Sodium Chloride 0.45% 1, 400 800 580 000 ml @ 100 mls/hr IV . Q10H [facility] Rx#:[id number] metroNIDAZOLE-NS PMX 500 100 100 100 mg Intake, IV Titration 829.090 242.680 150 Amount Furosemide 100 mg In 100 Sodium Chloride 0.9% 90 ml @ 5 MG/HR 5 mls/hr IV .Q20H [facility] Rx#:[id number] Potassium Chloride 20 meq 50 In Water For Injection 1 100ml.bag @ 50 mls/hr IVPB Q2H [facility] Rx#: [id number] Potassium Chloride 20 meq 150 In Water For Injection 1 100ml.bag @ 50 mls/hr IVPB Q2H [facility] Rx#: [id number] Propofol 1,000 mg In 129.090 192.680 Empty Bag 1 bag @ Titrate IV .Q0M [facility] Rx#: [id number] Sodium Chloride 0.45% 1, 600 000 ml @ 100 mls/hr IV . Q10H [facility] Rx#:[id number] Output: Drainage 50 Right Lower Abdomen 50 Urine 1625 1535 1825 Other: Voiding Method Indwelling Catheter Indwelling Catheter Indwelling Catheter Weight 66.2 kg ABP, PAP, CO, CI - Last 8 Hours Arterial Blood Pressure 129/87 Arterial Blood Pressure 146/77 Arterial Blood Pressure 137/78 Arterial Blood Pressure 138/85 Arterial Blood Pressure 137/86 Arterial Blood Pressure 155/88 Arterial Blood Pressure 130/82 Arterial Blood Pressure 131/83 GENERAL DESCRIPTION: An elderly female male lying in bed, no distress. No tachypnea or accessory muscle of respiration use. HEENT: Shows Pallor , no scleral icterus. Oral mucous membrane is dry. No pharyngeal erythema or thrush NECK: Trachea central, no thyromegaly. LUNGS: Unlabored breathing. Clear to auscultation anteriorly. No wheeze or crackle. HEART: S1, S2, regular rate and rhythm. No loud murmur ABDOMEN: Soft, mild epigastric tenderness , no guarding or rigidity, no organomegaly EXTREMITIES: No edema of feet. SKIN: No rash, no masses palpable. NEUROLOGICAL: The patient is awake, but pleasantly confused and unable to complete neuro-Exam Results CBC & Chem 7: 04/16/20 04:30 04/16/20 11:15 Labs: Abnormal Lab Results - Last 24 Hours (Table) 04/15/20 04/16/20 04/16/20 Range/Units 18:31 00:10 04:30 WBC 12.3 H (3.8-10.6) k/uL RDW 17.5 H (11.5-15.5) % Neutrophils # (Manual) 10.50 H (1.3-7.7) k/uL Lymphocytes # (Manual) 0.98 L (1.0-4.8) k/uL Metamyelocytes # (Man) 0.12 H (0) k/uL ABG pH (7.35-7.45) ABG pO2 (83-108) mmHg ABG O2 Saturation (94-97) % Potassium (3.5-5.1) mmol/L Chloride (98-107) mmol/L Carbon Dioxide (22-30) mmol/L BUN (7-17) mg/dL Creatinine (0.52-1.04) mg/dL Glucose (74-99) mg/dL POC Glucose (mg/dL) 100 H 102 H (75-99) mg/dL Calcium (8.4-10.2) mg/dL Ionized Calcium Margy (4.5-5.3) mg/dL Magnesium (1.6-2.3) mg/dL AST (14-36) U/L Total Protein (6.3-8.2) g/dL Albumin (3.5-5.0) g/dL 04/16/20 04/16/20 04/16/20 Range/Units 04:30 04:30 05:08 WBC (3.8-10.6) k/uL RDW (11.5-15.5) % Neutrophils # (Manual) (1.3-7.7) k/uL Lymphocytes # (Manual) (1.0-4.8) k/uL Metamyelocytes # (Man) (0) k/uL ABG pH (7.35-7.45) ABG pO2 (83-108) mmHg ABG O2 Saturation (94-97) % Potassium 2.8 L (3.5-5.1) mmol/L Chloride 111 H (98-107) mmol/L Carbon Dioxide 21 L (22-30) mmol/L BUN 38 H (7-17) mg/dL Creatinine 1.42 H (0.52-1.04) mg/dL Glucose 107 H (74-99) mg/dL POC Glucose (mg/dL) 109 H (75-99) mg/dL Calcium 7.0 L (8.4-10.2) mg/dL Ionized Calcium Margy (4.5-5.3) mg/dL Magnesium 2.5 H (1.6-2.3) mg/dL AST (14-36) U/L Total Protein (6.3-8.2) g/dL Albumin (3.5-5.0) g/dL 04/16/20 04/16/20 04/16/20 Range/Units 05:14 10:18 11:13 WBC (3.8-10.6) k/uL RDW (11.5-15.5) % Neutrophils # (Manual) (1.3-7.7) k/uL Lymphocytes # (Manual) (1.0-4.8) k/uL Metamyelocytes # (Man) (0) k/uL ABG pH 7.32 L (7.35-7.45) ABG pO2 137 H (83-108) mmHg ABG O2 Saturation 98.4 H (94-97) % Potassium 3.4 L (3.5-5.1) mmol/L Chloride 112 H (98-107) mmol/L Carbon Dioxide (22-30) mmol/L BUN 34 H (7-17) mg/dL Creatinine 1.39 H (0.52-1.04) mg/dL Glucose 134 H (74-99) mg/dL POC Glucose (mg/dL) 141 H (75-99) mg/dL Calcium 6.9 L (8.4-10.2) mg/dL Ionized Calcium Margy (4.5-5.3) mg/dL Magnesium (1.6-2.3) mg/dL AST 48 H (14-36) U/L Total Protein 4.3 L (6.3-8.2) g/dL Albumin 2.1 L (3.5-5.0) g/dL 04/16/20 Range/Units 11:15 WBC (3.8-10.6) k/uL RDW (11.5-15.5) % Neutrophils # (Manual) (1.3-7.7) k/uL Lymphocytes # (Manual) (1.0-4.8) k/uL Metamyelocytes # (Man) (0) k/uL ABG pH (7.35-7.45) ABG pO2 (83-108) mmHg ABG O2 Saturation (94-97) % Potassium 3.1 L (3.5-5.1) mmol/L Chloride (98-107) mmol/L Carbon Dioxide (22-30) mmol/L BUN (7-17) mg/dL Creatinine (0.52-1.04) mg/dL Glucose (74-99) mg/dL POC Glucose (mg/dL) (75-99) mg/dL Calcium (8.4-10.2) mg/dL Ionized Calcium Margy 4.4 L (4.5-5.3) mg/dL Magnesium (1.6-2.3) mg/dL AST (14-36) U/L Total Protein (6.3-8.2) g/dL Albumin (3.5-5.0) g/dL Microbiology - Last 24 Hours (Table) 04/13/20 23:54 Gram Stain - Final Sputum Sputum Culture - Final 04/14/20 16:30 Blood Culture - Preliminary Blood No Growth after 24 hours 04/14/20 16:25 Blood Culture - Preliminary Blood No Growth after 24 hours 04/14/20 01:49 Urine Culture - Final Urine,Voided 04/13/20 23:00 Gram Stain - Preliminary Abdomen Wound Culture - Preliminary Assessment and Plan Assessment: 1-patient presented to hospital with sepsis in this patient who did her abdominal pain and fever tachycardia and elevated white count source is abdominal and has been noticed to have a sigmoid perforation status post sigmoid colectomy as well as appendectomy, her abdominal cultures has been negative, will need to cover for enteric gram-negative both aerobes and anaerobes (1) Sepsis Current Visit: Yes Status: Acute Code(s): A41.9 - SEPSIS, UNSPECIFIED ORGANISM SNOMED Code(s): 71258990 (2) Perforated sigmoid colon Current Visit: Yes Status: Acute Code(s): K63.1 - PERFORATION OF INTESTINE (NONTRAUMATIC) SNOMED Code(s): 613713796 Plan: 1- patient with continued on Zosyn 3.375 g every 8 hours while waiting for condition stabilized 2- Gentle IV fluid and supportive care We will follow on clinical condition and cultures to further adjust medication if needed Thank you for this consultation will follow this patient with you Time with Patient: Greater than 30
--- NOTE | 2020-04-16 17:01 | P.CNNES ---
History of Present Illness Consult date: 04/16/20 Requesting physician: Padmaja Ojeda Reason for Consult: Mental status change History of Present Illness: Patient is a 59-year-old female, who came to the ER on 04/13/2020 with generalized abdominal pain. Patient was diagnosed with perforated bowel, with fecal peritonitis. He underwent laparotomy on the same day. Patient was placed on mechanical ventilation. Patient was on sedation since then, and was not foll owing 2 months. This morning patient was extubated. Patient was still noted not to follow commands. This prompted neurology consultation. According to the nursing report, patient does move extremities well. Only one time when she called by her name, patient said "Haan". One time she said "what". Patient took a nap short while ago and now she just woke up and is much improved as per examination below. Patient's diagnosis is in the hospital included acute kidney injury secondary to hypotension. Patient also had acute abdomen with perforated bowel, status post explorative laparotomy, sigmoid colectomy and colostomy. Hypoxic acute respiratory failure, status post extubation. Also had sepsis related to intra- abdominal source and bowel perforation with fecal peritonitis. Her most recent chest x-ray showed improving left basilar acute infiltrate and/or atelectasis. 2-D echo showed EF 60-65%. Borderline concentric LVH. Right ventricle is normal in size. Left atrial size is normal. Interatrial and interventricular septum intact. Mild mitral regurgitation. CT of abdomen and pelvis from 04/13/2020 showed diffusely thickened small bowel throughout the abdomen. Small droplets of free air as well as small amount of ascites. Evidence of multiple previous surgeries including small bowel resection and gastric surgery. Degenerative changes within the lumbar spine and dorsal spine. Patient's blood test shows normal CBC with mildly elevated WBCs 12.3. Sodium is normal 140, potassium 3.1, BUN 34, creatinine 1.39. [place] virus PCR negative. Review of Systems ROS unobtainable: due to mental status Past Medical History Past Medical History: Thyroid Disorder History of Any Multi-Drug Resistant Organisms: None Reported Past Surgical History: Bariatric Surgery, Section, Cholecystectomy, Tonsillectomy Additional Past Surgical History / Comment(s): gastric bypass, sinus Past Psychological History: Depression Smoking Status: Current every day smoker Past Alcohol Use History: None Reported Past Drug Use History: None Reported Medications and Allergies Home Medications Medication Instructions Recorded Confirmed Type Baclofen [Lioresal] 20 mg PO HS 03/30/18 04/13/20 History FLUoxetine HCL [PROzac] 20 mg PO DAILY 03/30/18 04/13/20 History Levothyroxine Sodium [Synthroid] 125 mcg PO DAILY 03/30/18 04/13/20 History Propranolol HCl [Inderal LA] 80 mg PO HS 03/30/18 04/13/20 History Rizatriptan Benzoate [Maxalt [employer]] 10 mg PO DAILY PRN 03/30/18 04/13/20 History Butalb/APAP/Caff 50-325-40Mg 1 tab PO Q4H PRN 04/13/20 04/13/20 History [Fioricet 50-325-40] Chlorthalidone 50 mg PO DAILY 04/13/20 04/13/20 History Cholecalciferol [Vitamin D3 (25 1,000 unit PO DAILY 04/13/20 04/13/20 History Mcg = 1000 Iu)] Multivitamins, Thera [Multivitamin 1 tab PO DAILY 04/13/20 04/13/20 History (formulary)] Allergies Allergy/AdvReac Type Severity Reaction Status Date / Time latex Allergy Rash/Hives Verified 04/13/20 12:08 Sulfa (Sulfonamide Allergy Unknown Verified 04/13/20 12:08 Antibiotics) Childhood Physical Examination - Vital Signs Vital Signs: Vital Signs Temp Pulse Resp BP Pulse Ox 04/16/20 15:00 92 14 98 04/16/20 14:00 103 H 25 H 99 04/16/20 13:00 100 15 97 04/16/20 12:00 97.6 F 102 H 15 100 04/16/20 11:44 103 H 04/16/20 11:35 106 H 04/16/20 11:00 103 H 25 H 124/92 100 04/16/20 10:00 104 H 24 131/89 100 04/16/20 09:00 98 24 04/16/20 08:15 124 H 04/16/20 08:00 120 H 24 96 04/16/20 07:54 123 H 04/16/20 07:00 117 H 18 98 04/16/20 06:00 99.9 F H 116 H 29 H 125/86 99 04/16/20 05:00 117 H 13 117/83 98 04/16/20 04:00 97.2 F L 117 H 25 H 120/81 98 04/16/20 03:26 117 H 04/16/20 03:10 118 H 04/16/20 03:00 118 H 11 L 120/81 98 04/16/20 02:00 121 H 14 111/81 98 04/16/20 01:00 123 H 28 H 99 04/16/20 00:06 126 H 27 H 115/80 98 04/16/20 00:00 100.4 F H 126 H 26 H 119/80 99 04/15/20 23:29 126 H 04/15/20 23:15 128 H 04/15/20 23:00 128 H 26 H 120/83 99 04/15/20 22:00 128 H 21 115/83 98 04/15/20 21:00 128 H 20 110/80 98 04/15/20 20:00 99 F 128 H 21 114/79 96 04/15/20 19:39 125 H 04/15/20 19:23 128 H 04/15/20 19:00 128 H 27 H 107/78 99 04/15/20 18:00 129 H 15 109/75 98 04/15/20 17:00 128 H 23 109/75 98 04/15/20 16:00 98.8 F 125 H 26 H 105/73 98 04/15/20 15:50 125 H Intake and Output 04/16/20 04/16/20 04/16/20 06:59 14:59 22:59 Intake Total 4757.923 2391 176 Output Total 1585 2175 125 Balance -442.125 -018 51 Intake: IV 900 955 125 Pipercillin/ Tazobactam 3 75 25 .375 g Sodium Chloride 0.45% 1, 800 780 100 000 ml @ 100 mls/hr IV . Q10H [facility] Rx#:[id number] metroNIDAZOLE-NS PMX 500 100 100 mg Intake, IV Titration 242.680 352 51 Amount Fat Emulsion 20% 250 ml @ 42 21 20.833 mls/hr IV DAILY@ 1200 R[facility] Rx#:[id number] Potassium Chloride 20 meq 50 In Water For Injection 1 100ml.bag @ 50 mls/hr IVPB Q2H [facility] Rx#: [id number] Potassium Chloride 20 meq 250 In Water For Injection 1 100ml.bag @ 50 mls/hr IVPB Q2H [facility] Rx#: [id number] Propofol 1,000 mg In 192.680 Empty Bag 1 bag @ Titrate IV .Q0M [facility] Rx#: [id number] Sodium Acetate 30 meq 60 30 Potassium Chloride 20 meq Potassium Acetate 20 meq Calcium Gluconate 1 gm Mvi, Adult No.4 with Vit K 10 ml Trace (Conc-1Ml/ Dose) 1 ml In Amino Acid 5%-D15w 1,000 ml @ 30 mls /hr IV .Q24H [facility] Rx#: [id number] Output: Drainage 50 Right Lower Abdomen 50 Urine 1535 2175 125 Other: Voiding Method Indwelling Catheter Indwelling Catheter Weight 66.2 kg ABP, PAP, CO, CI - Last 8 Hours Arterial Blood Pressure 113/62 Arterial Blood Pressure 136/73 Arterial Blood Pressure 123/73 Arterial Blood Pressure 129/87 Arterial Blood Pressure 146/77 Arterial Blood Pressure 137/78 Arterial Blood Pressure 138/85 Arterial Blood Pressure 137/86 On examination patient is an elderly female, who appears encephalopathic. Patient is off sedation. Patient while being examined, started to respond much better. Patient was able to follow some commands, speak some words. Her pupils are round and reacting. Visual carlson could not be tested. Face appears symmetric. Oculocephalics appears present. Patient did not protrude her tongue. Palate and shoulder shrug could not be tested. Hearing could not be tested. Patient does follow some commands. Patient moves her arms and legs equally to noxious stimuli. Patient wiggle her toes and feet on command. Sensations appears equal to painful stimuli. Cerebellar functions could not be tested. Tone is equal bilaterally. Reflexes are 1+ and plantars are upgoing bilaterally. No obvious bruit, S1 and S2 audible. No peripheral edema. Results - Laboratory Findings CBC and BMP: 04/16/20 04:30 04/16/20 11:15 Abnormal Lab Findings: Abnormal Labs 04/13/20 04/13/20 04/13/20 11:00 11:00 11:00 WBC RBC Hgb 16.2 H Hct 50.4 H RDW 16.5 H Neutrophils # (Manual) Lymphocytes # (Manual) Metamyelocytes # (Man) APTT 21.2 L ABG pH ABG pCO2 ABG pO2 ABG HCO3 ABG O2 Saturation Potassium Chloride 108 H Carbon Dioxide BUN Creatinine Glucose 138 H POC Glucose (mg/dL) Calcium Ionized Calcium Margy Phosphorus Magnesium AST Troponin I Total Protein 6.2 L Albumin Triglycerides Urine Appearance Ur Specific [place] Urine Protein Urine Ketones Urine Blood Urine RBC Urine WBC Urine Bacteria Hyaline Casts Urine Mucus 04/13/20 04/14/20 04/14/20 23:42 00:03 01:49 WBC RBC Hgb Hct RDW Neutrophils # (Manual) Lymphocytes # (Manual) Metamyelocytes # (Man) APTT ABG pH 7.17 L* ABG pCO2 63 H ABG pO2 130 H ABG HCO3 ABG O2 Saturation Potassium Chloride Carbon Dioxide BUN Creatinine Glucose POC Glucose (mg/dL) 130 H Calcium Ionized Calcium Margy Phosphorus Magnesium AST Troponin I Total Protein Albumin Triglycerides Urine Appearance Cloudy H Ur Specific [place] 1.045 H Urine Protein 1+ H Urine Ketones Trace H Urine Blood Moderate H Urine RBC >182 H Urine WBC 13 H Urine Bacteria Rare H Hyaline Casts 13 H Urine Mucus Occasional H 04/14/20 04/14/20 04/14/20 04:40 04:40 05:02 WBC RBC 5.65 H Hgb 17.6 H Hct 55.5 H RDW 16.7 H Neutrophils # (Manual) Lymphocytes # (Manual) 0.68 L Metamyelocytes # (Man) APTT ABG pH 7.30 L ABG pCO2 ABG pO2 ABG HCO3 18 L ABG O2 Saturation Potassium Chloride 117 H Carbon Dioxide 18 L BUN 21 H Creatinine Glucose 137 H POC Glucose (mg/dL) Calcium 7.4 L Ionized Calcium Margy Phosphorus 5.0 H Magnesium 2.5 H AST Troponin I Total Protein 4.1 L Albumin 2.1 L Triglycerides Urine Appearance Ur Specific [place] Urine Protein Urine Ketones Urine Blood Urine RBC Urine WBC Urine Bacteria Hyaline Casts Urine Mucus 04/14/20 04/14/20 04/14/20 05:54 08:41 10:17 WBC RBC Hgb Hct RDW Neutrophils # (Manual) Lymphocytes # (Manual) Metamyelocytes # (Man) APTT ABG pH 7.27 L ABG pCO2 ABG pO2 ABG HCO3 18 L ABG O2 Saturation Potassium Chloride Carbon Dioxide BUN Creatinine Glucose POC Glucose (mg/dL) 126 H Calcium Ionized Calcium Margy Phosphorus Magnesium AST Troponin I 0.108 H* Total Protein Albumin Triglycerides Urine Appearance Ur Specific [place] Urine Protein Urine Ketones Urine Blood Urine RBC Urine WBC Urine Bacteria Hyaline Casts Urine Mucus 04/14/20 04/14/20 04/15/20 11:37 23:34 04:15 WBC 13.0 H RBC Hgb Hct 49.1 H RDW 17.2 H Neutrophils # (Manual) 12.00 H Lymphocytes # (Manual) 0.52 L Metamyelocytes # (Man) 0.39 H APTT ABG pH ABG pCO2 ABG pO2 ABG HCO3 ABG O2 Saturation Potassium Chloride Carbon Dioxide BUN Creatinine Glucose POC Glucose (mg/dL) 101 H 110 H Calcium Ionized Calcium Margy Phosphorus Magnesium AST Troponin I Total Protein Albumin Triglycerides Urine Appearance Ur Specific [place] Urine Protein Urine Ketones Urine Blood Urine RBC Urine WBC Urine Bacteria Hyaline Casts Urine Mucus 04/15/20 04/15/20 04/15/20 04:15 05:20 18:31 WBC RBC Hgb Hct RDW Neutrophils # (Manual) Lymphocytes # (Manual) Metamyelocytes # (Man) APTT ABG pH 7.24 L ABG pCO2 ABG pO2 ABG HCO3 18 L ABG O2 Saturation Potassium Chloride 116 H Carbon Dioxide 17 L BUN 35 H Creatinine 1.50 H Glucose 101 H POC Glucose (mg/dL) 100 H Calcium 6.9 L Ionized Calcium Margy Phosphorus Magnesium AST Troponin I Total Protein Albumin Triglycerides Urine Appearance Ur Specific [place] Urine Protein Urine Ketones Urine Blood Urine RBC Urine WBC Urine Bacteria Hyaline Casts Urine Mucus 04/16/20 04/16/20 04/16/20 00:10 04:30 04:30 WBC 12.3 H RBC Hgb Hct RDW 17.5 H Neutrophils # (Manual) 10.50 H Lymphocytes # (Manual) 0.98 L Metamyelocytes # (Man) 0.12 H APTT ABG pH ABG pCO2 ABG pO2 ABG HCO3 ABG O2 Saturation Potassium 2.8 L Chloride 111 H Carbon Dioxide 21 L BUN 38 H Creatinine 1.42 H Glucose 107 H POC Glucose (mg/dL) 102 H Calcium 7.0 L Ionized Calcium Margy Phosphorus Magnesium AST Troponin I Total Protein Albumin Triglycerides Urine Appearance Ur Specific [place] Urine Protein Urine Ketones Urine Blood Urine RBC Urine WBC Urine Bacteria Hyaline Casts Urine Mucus 04/16/20 04/16/20 04/16/20 04:30 05:08 05:14 WBC RBC Hgb Hct RDW Neutrophils # (Manual) Lymphocytes # (Manual) Metamyelocytes # (Man) APTT ABG pH 7.32 L ABG pCO2 ABG pO2 137 H ABG HCO3 ABG O2 Saturation 98.4 H Potassium Chloride Carbon Dioxide BUN Creatinine Glucose POC Glucose (mg/dL) 109 H Calcium Ionized Calcium Margy Phosphorus Magnesium 2.5 H AST Troponin I Total Protein Albumin Triglycerides Urine Appearance Ur Specific [place] Urine Protein Urine Ketones Urine Blood Urine RBC Urine WBC Urine Bacteria Hyaline Casts Urine Mucus 04/16/20 04/16/20 04/16/20 10:18 11:13 11:15 WBC RBC Hgb Hct RDW Neutrophils # (Manual) Lymphocytes # (Manual) Metamyelocytes # (Man) APTT ABG pH ABG pCO2 ABG pO2 ABG HCO3 ABG O2 Saturation Potassium 3.4 L 3.1 L Chloride 112 H Carbon Dioxide BUN 34 H Creatinine 1.39 H Glucose 134 H POC Glucose (mg/dL) 141 H Calcium 6.9 L Ionized Calcium Margy 4.4 L Phosphorus Magnesium AST 48 H Troponin I Total Protein 4.3 L Albumin 2.1 L Triglycerides 740 H Urine Appearance Ur Specific [place] Urine Protein Urine Ketones Urine Blood Urine RBC Urine WBC Urine Bacteria Hyaline Casts Urine Mucus Assessment and Plan Assessment: * Altered mental status, likely related to toxic metabolic encephalopathy. Etiology multifactorial, as mentioned below. Patient has started to show clinical response and clinical improvement. * Acute kidney injury, secondary to hypotension, improving. * Acute abdomen with perforated bowel, status post exploratory laparotomy, sigmoid colectomy and colostomy. * Status post hypoxic acute respiratory failure, status post extubation. * Sepsis related to intra-abdominal source and bowel perforation with fecal peritonitis. Plan: * Patient is showing signs of definite clinical improvement. * Hopefully her mentation will further improve hour by hour, day by day. * We will follow clinically. * Your medical management.
[2020-04-16 18:15] LABS: Glucose,Whole Blood 133 mg/dL (75-99)
[2020-04-16] MEDS: HYDROmorphone 1 MG/ML 1 ML SYRINGE IVP PRN (20:34)
[2020-04-16] MEDS ORDERED: POTASSIUM CHLORIDE 20 MEQ in WATER FOR INJECTION 1 100ML.BAG IVPB ONE (23:30)
[2020-04-16 23:54] LABS: Glucose,Whole Blood 130 mg/dL (75-99)
[2020-04-17] MEDS ORDERED: POTASSIUM CHLORIDE 20 MEQ in WATER FOR INJECTION 1 100ML.BAG IVPB ONE ×3 (00:30→12:00)
[2020-04-17] MEDS: metroNIDAZOLE-NS PMX 500 MG in SALINE 1 100ML.BAG IVPB SCH ×5 (00:56→23:46)
[2020-04-17] MEDS: IPRATROPIUM-ALBUTEROL 3 ML NEB INHALATION SCH ×2 (03:27→07:31)
[2020-04-17] MEDS: PIPERACILLIN-TAZOBACTAM 3.375 GM in SODIUM CHLORIDE 0.9% 100 ML IVPB SCH ×3 (03:37→19:57)
[2020-04-17] MEDS: HYDROmorphone 1 MG/ML 1 ML SYRINGE IVP PRN ×4 (03:37→23:43)
[2020-04-17] MEDS: SODIUM CHLORIDE 0.45% 1,000 ML IV SCH ×2 (03:45→13:39)
[2020-04-17 05:06] LABS: African American GFR (CKD) >90 (>60 ml/min/1.73 sqM); Anion Gap 1 mmol/L; Blood Urea Nitrogen 22 mg/dL (7-17); Calcium 7.5 mg/dL (8.4-10.2); Carbon Dioxide 27 mmol/L (22-30); Chloride 112 mmol/L (98-107); Glucose 116 mg/dL (74-99); Magnesium 2.4 mg/dL (1.6-2.3); Non-African American GFR(CKD) >90 (>60 ml/min/1.73 sqM); Sodium 140 mmol/L (137-145)
[2020-04-17 05:16] LABS: Potassium 2.4 mmol/L (3.5-5.1)
[2020-04-17 05:17] LABS: Phosphorus 0.7 mg/dL (2.5-4.5)
[2020-04-17] MEDS ORDERED: Phosphorus Replacement Protoco 1 EACH MISC MISCELLANE PRN (05:20)
[2020-04-17] MEDS: POTASSIUM CHLORIDE 20 MEQ in WATER FOR INJECTION 1 100ML.BAG IVPB SCH ×6 (05:26→22:46)
[2020-04-17 05:30] LABS: Glucose,Whole Blood 117 mg/dL (75-99)
[2020-04-17] MEDS: POTASSIUM PHOSPHATE 10 MMOL in SODIUM CHLORIDE 0.9% 100 ML IV SCH ×4 (06:03→23:47)
--- NOTE | 2020-04-17 08:17 | XR ---
EXAMINATION TYPE: XR chest 1V portable DATE OF EXAM: 04/17/2020 Comparison: 04/16/2020 Clinical History: 59 year-old female line placement Findings: Right IJ CVC tip at the cavoatrial junction. ET tube removed in the interval. Heart border line in si ze. New interstitial densities bilaterally. Continued patchy retrocardiac and left basilar opacity. N ew curvilinear edges projecting along the periphery of the bilateral upper lungs, suspect some type o f summation artifact. Close follow-up recommended. Impression: 1. New curvilinear edge projecting along the periphery of the bilateral upper lungs. Suspect some typ e of summation artifact. Short interval follow-up and close clinical surveillance recommended to excl ude the less likely possibility of small bilateral pneumothoraces. 2. New interstitial densities. Correlate for fluid overload state and Bj pulmonary vascular congest ion. 3. Continued retrocardiac and left basilar airspace disease.
[2020-04-17] MEDS: FUROSEMIDE 10 MG/ML 4 ML VIAL IV SCH (08:22)
[2020-04-17] MEDS ORDERED: HALOPERIDOL LACTATE 5 MG/ML 1 ML VIAL IVP PRN ×2 (08:46→08:47)
[2020-04-17] MEDS ORDERED: SPIRONOLACTONE 25 MG TAB PO SCH (09:00)
[2020-04-17] MEDS: METOPROLOL TARTRATE 5 MG/5 ML VIAL IVP SCH ×2 (09:27→20:04)
[2020-04-17] MEDS: PANTOPRAZOLE 40 MG/10 ML VIAL IV SCH (09:29)
[2020-04-17] MEDS: HEPARIN SODIUM,PORCINE 5,000 UNIT/ML 1 ML VIAL SQ SCH ×2 (09:30→20:04)
[2020-04-17 09:36] LABS: Anisocytosis Slight; Basophils % (A) 0 %; Eosinophils # (A) 0.1 k/uL (0-0.7); Eosinophils % (A) 1 %; HCT 34.3 % (34.0-46.0); HGB 11.2 gm/dL (11.4-16.0); Lymphocytes # (A) 0.7 k/uL (1.0-4.8); Lymphocytes % (A) 9 %; MCH 31.2 pg (25.0-35.0); MCHC 32.8 g/dL (31.0-37.0); MCV 95.1 fL (80.0-100.0); Mean Platelet Volume 8.1; Monocytes # (A) 0.2 k/uL (0-1.0); Monocytes % (A) 2 %; Neutrophils # (A) 6.8 k/uL (1.3-7.7); Neutrophils % (A) 87 %; Platelet Count 178 k/uL (150-450); WBC 7.8 k/uL (3.8-10.6)
[2020-04-17] MEDS: SPIRONOLACTONE 25 MG TAB PO SCH (09:36)
--- NOTE | 2020-04-17 09:52 | PN ---
PROGRESS NOTE Mrs. Fernandez is a 59-year-old female who presents with a ruptured viscus, underwent surgery by Dr. Ojeda. She has respiratory failure, extubated yesterday. She is awake, but confused. Hemodynamically, she is on no vasopressor. Her heart rate is stable. She has continued to be in sinus mechanism. She underwent an echocardiogram that showed a preserved systolic function with mild mitral and tricuspid regurgitation. She continues to be at this time on Lasix 40 mg IV daily, potassium and spironolactone 25 mg daily. PHYSICAL EXAMINATION: Blood pressure 126/80 with a heart rate in the 80s to low 100s. LUNGS: Clear to auscultation anteriorly. HEART: Regular rate and rhythm. S1, S2. No S3. No rub. ABDOMEN: Soft. Dressing in place. No output from the colostomy. EXTREMITIES: No edema. She is awake, but confused. LAB DATA: Revealed potassium 2.4. BUN and creatinine 22 and 0.6. IMPRESSION: 1. Status post abdominal surgery with Nelson's procedure for ruptured viscus. 2. Metabolic encephalopathy. 3. Sinus tachycardia, improving. 4. Prior history of smoking. 5. Hypothyroidism. RECOMMENDATION: Will continue the patient on the IV metoprolol at this time. When she is able to take oral, that will be switched to oral. Otherwise, will see her on as-needed basis. Please feel free to call us for any question. MMODL / IJN: [id number] /
[2020-04-17 09:58] LABS: Ionized Calcium 4.9 mg/dL (4.5-5.3)
[2020-04-17 10:17] LABS: ALT 31 U/L (4-34); AST 81 U/L (14-36); African American GFR (CKD) >90 (>60 ml/min/1.73 sqM); Alkaline Phosphatase 64 U/L (38-126); Anion Gap 2 mmol/L; Blood Urea Nitrogen 20 mg/dL (7-17); Calcium 7.5 mg/dL (8.4-10.2); Carbon Dioxide 28 mmol/L (22-30); Chloride 113 mmol/L (98-107); Glucose 106 mg/dL (74-99); Non-African American GFR(CKD) >90 (>60 ml/min/1.73 sqM); Potassium 3.2 mmol/L (3.5-5.1); Sodium 143 mmol/L (137-145); Total Bilirubin 0.5 mg/dL (0.2-1.3); Total Protein 4.1 g/dL (6.3-8.2)
--- NOTE | 2020-04-17 10:46 | PN ---
PROGRESS NOTE PULMONARY/CRITICAL CARE PROGRESS NOTE: DATE OF SERVICE: 04/17/2020 This is a 59-year-old female seen 3 days ago in consultation. She came to the emergency room on April 13, 2020 for abdominal pain. She is postop day #4, status post exploratory laparotomy, sigmoid colectomy, descending colostomy with Nelson's procedure, disimpaction of the descending colon, open appendectomy, abdominal washout, and placement of a right lower abdominal Gage-Quintana drain and incisional wound VAC system. Overall, the patient is doing reasonably well. She still is a bit confused and disoriented. Her mental status since she was extubated yesterday has improved a bit. She was seen by Neurology yesterday. Currently, she is on 3 L. She is getting half-normal saline at 100 mL an hour. She is getting TPN at 30 mL an hour and lipids. I told the nurse she could try a bit of Haldol on her. She did get some Dilaudid yesterday and fell asleep after the Dilaudid. Again, she is only oriented to person. The nurse who has her commonality says that overall, her mental status has improved since yesterday. Current vital signs are reviewed, temperature is 97.5, heart rate 97, respiratory rate 22, blood pressure 115/80 mean 91, saturations are 95% on 3 L. Appears in no acute distress. HEENT: Examination is grossly unremarkable. Nasal O2 is in place. NECK: Supple, full range of motion. No adenopathy or thyromegaly. Neck veins are flat. CARDIOVASCULAR: Examination reveals regular rhythm and rate. Heart rate 85 beats per minute. S1, S2 normal. LUNGS: Relatively clear. A few scattered rhonchi. No wheezes. ABDOMEN: Soft. No bowel sounds. EXTREMITIES are intact. No edema. SKIN: Without rash. NEUROLOGIC: Neurologic examination it is interesting and that she does move all 4 extremities. She is a bit confused and disoriented. She does answer some basic questions like to we know what her name is and she is sort of knows what year it is. Could not really answer me as regards to where she was or who the president was. Debby, her nurse states that her overall mental status still has improved. LABS: Reviewed. White count 148, lab set of labs are reviewed. Sodium 140, potassium 2.4, chloride is 112, CO2 is 27, anion gap is 1. BUN and creatinine were 22 and 0.6. Her phosphorus is 0.7, albumin is 2.0. Microbiology is all negative including wound Gram stain and culture. Urine and blood cultures. Chest x-ray is reviewed. Neurology consult appreciated. Current medications are reviewed. ASSESSMENT: 1. Postoperative day #4, status post exploratory laparotomy with sigmoid colectomy for perforated sigmoid colon, Nelson's procedure, disimpaction of descending colon, open appendectomy, abdominal washout for fecal peritonitis, placement of a Gage- Quintana drain, and application of incisional wound VAC system. 2. History of hypothyroidism. 3. History of ongoing tobacco use and nicotine addiction. 4. Status post extubation. 5. Mental status changes, likely related to encephalopathy. PLAN: I did tell the nurse to go careful on the Dilaudid. We do not want her to end up back on the mechanical ventilator. If we can help it. In addition, we did use some Haldol 2 to 4 mg IV push. Additional recommendations and suggestions are forthcoming. Labs, medications, and other data is all reviewed. No additional recommendations are made. Prognosis is guarded. . MMODL / IJN: [id number] /
--- NOTE | 2020-04-17 11:25 | P.PN ---
<SupaSusyDaniela A - Last Filed: 04/17/20 11:14> Subjective Progress Note Date: 04/17/20 CHIEF COMPLAINT: Abdominal pain HISTORY OF PRESENT ILLNESS: 59-year-old female who underwent exploratory laparotomy with sigmoid colectomy, descending colostomy creation, and appendectomy with Dr. Ojeda on April 13, 2020. Patient examined this morning in the ICU. Patients mental status appears to be slightly improved from yesterday. TPN infusing. Ostomy without stool output. Kraus with good urine output. WBC 7.8. Hemoglobin 11.2. Potassium 3.2. PHYSICAL EXAM: VITAL SIGNS: Reviewed GENERAL: Well-developed in no acute distress HEENT: No sclera icterus. Extraocular movements grossly intact. Moist buccal mucosa. Head is atraumatic, normocephalic. No nasal drainage. NECK: Supple without lymphadenopathy. CHEST: Non-labored respirations and equal bilateral excursions CARDIOVASCULAR: Tachycardic. Regular rate with regular rhythm. Palpable 2+ radial pulses. ABDOMEN: Soft. Nondistended. PREVENA wound vac noted. Ostomy to left side of abdomen. No stool or gas noted. Stoma pink. MARIA EUGENIA drain with serous drainage. MUSCULOSKELETAL: No clubbing or cyanosis. NEUROLOGIC: Awake and alert. Restless. PSYCH: Unable to assess secondary to altered mental status SKIN: Well perfused. Good skin turgor. ASSESSMENT: 1. Abdominal pain secondary to ruptured sigmoid colon, fecal peritonitis, descending and sigmoid colon impaction, appendicolith with appendicitis PLAN: Continue TPN RN to perform swallow study. If patient passes, may begin clear liquid diet. Bariatric dietitian on consult Monitor MARIA EUGENIA drain Await ostomy function Continue antibiotics. Monitor labs Neurology on consult. Appreciate recommendations. Obtain full set of bariatric labs to rule out nutritional deficiency as etiology of altered mental status Further ICU management per Dr. Villaseñor. Nurse practitioner note has been reviewed by physician. Signing provider agrees with the documented findings, assessment, and plan of care. Objective - Vital Signs Vital signs: Vital Signs Temp 97.9 F 04/17/20 09:00 Pulse 99 04/17/20 09:00 Resp 24 04/17/20 09:00 BP 115/80 04/17/20 08:00 Pulse Ox 94 L 04/17/20 09:00 Intake & Output 04/16/20 04/17/20 04/17/20 18:59 06:59 18:59 Intake Total 2135 1501 610 Output Total 2750 1290 550 Balance -615 211 60 Weight 66.2 kg Intake: IV 1580 1400 400 Acetaminophen 1000mg 100 Pipercillin/ Tazobactam 3 100 100 .375 g Sodium Chloride 0.45% 1, 1180 1200 400 000 ml @ 100 mls/hr IV . Q10H [facility] Rx#:[id number] metroNIDAZOLE-NS PMX 500 200 100 mg Intake, IV Titration 555 101 210 Amount Fat Emulsion 20% 250 ml @ 105 21 20.833 mls/hr IV DAILY@ 1200 [facility] Rx#:[id number] Potassium Chloride 20 meq 150 In Water For Injection 1 100ml.bag @ 50 mls/hr IVPB ONCE ONE Rx#: [id number] Potassium Chloride 20 meq 300 50 In Water For Injection 1 100ml.bag @ 50 mls/hr IVPB Q2H [facility] Rx#: [id number] Sodium Acetate 30 meq 150 30 60 Potassium Chloride 20 meq Potassium Acetate 20 meq Calcium Gluconate 1 gm Mvi, Adult No.4 with Vit K 10 ml Trace (Conc-1Ml/ Dose) 1 ml In Amino Acid 5%-D15w 1,000 ml @ 30 mls /hr IV .Q24H ONE Rx#: [id number] Output: Drainage 30 25 Right Lower Abdomen 30 25 Urine 2750 1260 525 Other: Voiding Method Indwelling Catheter Indwelling Catheter ABP, PAP, CO, CI - Last Documented Arterial Blood Pressure 125/119 - Labs CBC & Chem 7: 04/17/20 09:10 04/17/20 09:10 Labs: Abnormal Lab Results - Last 24 Hours (Table) 04/16/20 04/16/20 04/16/20 Range/Units 10:18 11:13 11:15 RBC (3.80-5.40) m/uL Hgb (11.4-16.0) gm/dL RDW (11.5-15.5) % Lymphocytes # (1.0-4.8) k/uL Potassium 3.1 L (3.5-5.1) mmol/L Chloride (98-107) mmol/L BUN (7-17) mg/dL Creatinine (0.52-1.04) mg/dL Glucose (74-99) mg/dL POC Glucose (mg/dL) 141 H (75-99) mg/dL Calcium (8.4-10.2) mg/dL Ionized Calcium Margy 4.4 L (4.5-5.3) mg/dL Phosphorus (2.5-4.5) mg/dL Magnesium (1.6-2.3) mg/dL AST (14-36) U/L Total Protein (6.3-8.2) g/dL Albumin (3.5-5.0) g/dL Triglycerides 740 H (<150) mg/dL 04/16/20 04/16/20 04/16/20 Range/Units 16:43 18:13 23:52 RBC (3.80-5.40) m/uL Hgb (11.4-16.0) gm/dL RDW (11.5-15.5) % Lymphocytes # (1.0-4.8) k/uL Potassium 2.9 L (3.5-5.1) mmol/L Chloride (98-107) mmol/L BUN (7-17) mg/dL Creatinine (0.52-1.04) mg/dL Glucose (74-99) mg/dL POC Glucose (mg/dL) 133 H 130 H (75-99) mg/dL Calcium (8.4-10.2) mg/dL Ionized Calcium Margy (4.5-5.3) mg/dL Phosphorus (2.5-4.5) mg/dL Magnesium (1.6-2.3) mg/dL AST (14-36) U/L Total Protein (6.3-8.2) g/dL Albumin (3.5-5.0) g/dL Triglycerides (<150) mg/dL 04/17/20 04/17/20 04/17/20 Range/Units 04:40 05:29 09:10 RBC (3.80-5.40) m/uL Hgb (11.4-16.0) gm/dL RDW (11.5-15.5) % Lymphocytes # (1.0-4.8) k/uL Potassium 2.4 L* 3.2 L (3.5-5.1) mmol/L Chloride 112 H 113 H (98-107) mmol/L BUN 22 H 20 H (7-17) mg/dL Creatinine 0.51 L (0.52-1.04) mg/dL Glucose 116 H 106 H (74-99) mg/dL POC Glucose (mg/dL) 117 H (75-99) mg/dL Calcium 7.5 L 7.5 L (8.4-10.2) mg/dL Ionized Calcium Margy (4.5-5.3) mg/dL Phosphorus 0.7 L* (2.5-4.5) mg/dL Magnesium 2.4 H (1.6-2.3) mg/dL AST 81 H (14-36) U/L Total Protein 4.1 L (6.3-8.2) g/dL Albumin 2.0 L 2.0 L (3.5-5.0) g/dL Triglycerides (<150) mg/dL 04/17/20 Range/Units 09:10 RBC 3.60 L (3.80-5.40) m/uL Hgb 11.2 L (11.4-16.0) gm/dL RDW 17.0 H (11.5-15.5) % Lymphocytes # 0.7 L (1.0-4.8) k/uL Potassium (3.5-5.1) mmol/L Chloride (98-107) mmol/L BUN (7-17) mg/dL Creatinine (0.52-1.04) mg/dL Glucose (74-99) mg/dL POC Glucose (mg/dL) (75-99) mg/dL Calcium (8.4-10.2) mg/dL Ionized Calcium Margy (4.5-5.3) mg/dL Phosphorus (2.5-4.5) mg/dL Magnesium (1.6-2.3) mg/dL AST (14-36) U/L Total Protein (6.3-8.2) g/dL Albumin (3.5-5.0) g/dL Triglycerides (<150) mg/dL Microbiology - Last 24 Hours (Table) 04/14/20 16:30 Blood Culture - Preliminary Blood No Growth after 48 hours 04/14/20 16:25 Blood Culture - Preliminary Blood No Growth after 48 hours 04/13/20 23:00 Gram Stain - Final Abdomen Wound Culture - Final 04/13/20 23:00 Gram Stain - Final Abdomen Wound Culture - Final 04/13/20 23:54 Gram Stain - Final Sputum Sputum Culture - Final <Rusty,Padmaja N - Last Filed: 04/25/20 03:03> Subjective Patient seen and evaluated with nurse practitioner. Additional findings include need for enteral nutrition. Agree with swallow study with direction of nutrition with bariatric dietitian consult. Objective - Vital Signs Vital signs: Vital Signs Temp 98.1 F 04/25/20 00:00 Pulse 79 04/25/20 02:00 Resp 22 04/25/20 02:00 BP 95/74 04/24/20 20:00 Pulse Ox 96 04/25/20 02:00 Intake & Output 04/24/20 04/24/20 04/25/20 06:59 18:59 06:59 Intake Total 1300 2538.2 876 Output Total 1815 2300 1300 Balance -515 238.2 -424 Weight 79 kg Intake: IV 1300 1226 876 Ampicillin-Sulbactam 3 gm 200 100 100 In Sodium Chloride 0.9% 100 ml @ 200 mls/hr IVPB Q6HR [facility] Rx#:[id number] Fat Emulsion 20% 250 mL@ 126 126 20.833mls/hr Mvi, Adult No.4 with Vit 660 660 K 10 ml Trace (Conc-1Ml/ Dose) 1 ml Potassium Chloride 60 meq Potassium Phosphate 30 mmol Magnesium Sulfate gm 0.6 gm Calcium Gluconate 1 gm In Amino Acid 5%-D15w 1, 000 ml @ 55 mls/hr IV . [id number] [facility] Rx#:[id number] Mvi, Adult No.4 with Vit 385 K 10 ml Trace (Conc-1Ml/ Dose) 1 ml Potassium Chloride 60 meq Potassium Phosphate 30 mmol Magnesium Sulfate gm 0.6 gm Calcium Gluconate 1 gm In Amino Acid 5%-D15w 1, 000 ml @ 55 mls/hr IV . [id number] [facility] Rx#:[id number] Sodium Chloride 0.45% 1, 240 240 160 000 ml @ 20 mls/hr IV . Q24H [facility] Rx#:[id number] Sodium Chloride 0.9% 1,00 5 mL metroNIDAZOLE-NS PMX 500 200 100 100 mg Intake, IV Titration 1062.2 Amount Mvi, Adult No.4 with Vit 1062.2 K 10 ml Trace (Conc-1Ml/ Dose) 1 ml Potassium Chloride 60 meq Potassium Phosphate 30 mmol Magnesium Sulfate gm 0.6 gm Calcium Gluconate 1 gm In Amino Acid 5%-D15w 1, 000 ml @ 55 mls/hr IV . [id number] [facility] Rx#:[id number] Oral 250 Output: Drainage 40 Right Lower Abdomen 40 Urine 1575 1450 1200 Stool 200 850 100 Other: Voiding Method Indwelling Catheter Indwelling Catheter Indwelling Catheter ABP, PAP, CO, CI - Last Documented Arterial Blood Pressure 89/47 - Labs CBC & Chem 7: 04/24/20 05:25 04/24/20 05:25 Labs: Abnormal Lab Results - Last 24 Hours (Table) 04/24/20 04/24/20 04/24/20 Range/Units 05:25 05:25 17:33 WBC 13.7 H (3.8-10.6) k/uL RBC 3.79 L (3.80-5.40) m/uL RDW 17.0 H (11.5-15.5) % Neutrophils # 11.6 H (1.3-7.7) k/uL Sodium 133 L (137-145) mmol/L Creatinine 0.34 L (0.52-1.04) mg/dL Glucose 114 H (74-99) mg/dL POC Glucose (mg/dL) 101 H (75-99) mg/dL Calcium 8.1 L (8.4-10.2) mg/dL Microbiology - Last 24 Hours (Table) 04/23/20 13:50 Blood Culture - Preliminary Blood No Growth after 24 hours 04/18/20 05:10 Blood Culture - Final Blood No Growth after 144 hours Assessment and Plan (1) Peritonitis (acute) generalized Current Visit: Yes Status: Acute Code(s): K65.0 - GENERALIZED (ACUTE) PERITONITIS SNOMED Code(s): 70137105 (2) History of gastric bypass Current Visit: Yes Status: Acute Code(s): Z98.84 - BARIATRIC SURGERY STATUS SNOMED Code(s): 837438170 (3) Medical non-compliance Current Visit: Yes Status: Acute Code(s): Z91.19 - PATIENT'S NONCOMPLIANCE W OTH MEDICAL TREATMENT AND REGIMEN SNOMED Code(s): 948372968 (4) Tobacco abuse Current Visit: Yes Status: Acute Code(s): Z72.0 - TOBACCO USE SNOMED Code(s): 206308822 (5) Tobacco abuse counseling Current Visit: Yes Status: Acute Code(s): Z71.6 - TOBACCO ABUSE COUNSELING SNOMED Code(s): 670667876 (6) Depressive disorder Current Visit: Yes Status: Acute Code(s): F32.9 - MAJOR DEPRESSIVE DISORDER, SINGLE EPISODE, UNSPECIFIED SNOMED Code(s): 87986736 (7) Hypothyroidism Current Visit: Yes Status: Acute Code(s): E03.9 - HYPOTHYROIDISM, UNSPECIFIED SNOMED Code(s): 02955279 (8) Abdominal pain Current Visit: Yes Status: Acute Code(s): R10.9 - UNSPECIFIED ABDOMINAL PAIN SNOMED Code(s): 39537707 (9) Free intraperitoneal air Current Visit: Yes Status: Acute Code(s): K66.8 - OTHER SPECIFIED DISORDERS OF PERITONEUM SNOMED Code(s): 90050353 (10) Dehydration Current Visit: Yes Status: Acute Code(s): E86.0 - DEHYDRATION SNOMED Code(s): 35198968
[2020-04-17 11:53] LABS: Glucose,Whole Blood 121 mg/dL (75-99)
[2020-04-17] MEDS ORDERED: 1: MVI, ADULT NO.4 WITH VIT K 10 ML, TRACE (CONC-1ML/DOSE) 1 ML, SODIUM ACETATE 30 MEQ, IV SCH ×15 (12:00)
--- NOTE | 2020-04-17 12:17 | P.PN ---
Progress Note - Text Progress Note Date: 04/17/20 Spoke to Jeremy, significant other. Son to come in to see mother. Rehab and home healthcare described. Family wants [facility] in [place]. Recommend bariatric assessment with bariatric labs and dietitian.
--- NOTE | 2020-04-17 12:18 | PN ---
PROGRESS NOTE Patient is seen for followup for acute kidney injury. Renal function has improved. The patient was on Lasix drip which was discontinued. Her creatinine is 0.5 mg/dL. She remains severely hypokalemic. Phosphorus was low as well at 0.7, which is being replaced. Patient remains confused, although mentation is somewhat improved. PHYSICAL EXAMINATION: On examination today, blood pressure was 115/80, heart rate 97 per minute, she is afebrile. Examination of the heart S1, S2. Examination of the lungs, decreased breath sounds at bases. Abdomen is soft, nontender. Examination of the lower extremities shows no significant edema. BUSINESS MANAGEMENT MANAGER exam shows patient is moving all 4 extremities, although she is confused. LABS: Show sodium 143, potassium 3.2, chloride 113, BUN 20, creatinine 0.5, phosphorus was 0.7. ASSESSMENT: 1. Acute kidney injury, ATN currently resolved. 2. Hypokalemia secondary to diuresis, being replaced. Magnesium is not low. Continue to replace aggressively. 3. Hypophosphatemia being replaced. 4. Status post explorative laparotomy for acute abdomen and perforated bowel, status post sigmoid colectomy and colostomy. PLAN: Hold off on the Lasix. Continue IV fluids. Replace potassium and phosphorus. MMODL / IJN: [id number] /
[2020-04-17 13:16] LABS: T4, Free (Free Thyroxine) 0.57 ng/dL (0.78-2.19)
[2020-04-17] MEDS: MVI, ADULT NO.4 WITH VIT K 10 ML, TRACE (CONC-1ML/DOSE) 1 ML, SODIUM ACETATE 30 MEQ, PO... IV SCH ×8 (17:23)
[2020-04-17 17:56] LABS: Glucose,Whole Blood 124 mg/dL (75-99)
[2020-04-17 20:08] LABS: Ferritin 180.3 ng/mL (10.0-291.0)
[2020-04-17 20:14] LABS: % Iron Saturation 2.99 (12.00-45.00)
--- NOTE | 2020-04-17 20:17 | P.PN ---
Subjective Progress Note Date: 04/17/20 Patient was seen for a follow-up. Patient apparently was showing clinical improvement this morning, with some response in talking few words. Patient however was in pain. She was given 0.5 mg Dilaudid at 8:30 PM last night, then there are 0.5 mg Dilaudid at 3:30 AM and then 11 AM this morning also. She also received 4 mg of Haldol for restlessness and/any agitation at 9:45 AM. Patient subsequently became more groggy, less responsive. At present patient is just moaning, speaks "OK", or "all right". Patient continues to be encephalopathic. Objective - Vital Signs Vital signs: Vital Signs Temp 99.7 F H 04/17/20 18:00 Pulse 107 H 04/17/20 18:00 Resp 25 H 04/17/20 18:00 BP 145/90 04/17/20 18:00 Pulse Ox 95 04/17/20 18:00 Intake & Output 04/17/20 04/17/20 04/18/20 06:59 18:59 06:59 Intake Total 1501 2430 Output Total 1290 1870 Balance 211 560 Weight 66.2 kg Intake: IV 1400 1400 Pipercillin/ Tazobactam 3 100 100 .375 g Sodium Chloride 0.45% 1, 1200 1200 000 ml @ 100 mls/hr IV . Q10H [facility] Rx#:[id number] metroNIDAZOLE-NS PMX 500 100 100 mg Intake, IV Titration 101 1030 Amount Fat Emulsion 20% 250 ml @ 21 20.833 mls/hr IV DAILY@ 1200 [facility] Rx#:[id number] Potassium Chloride 20 meq 500 In Water For Injection 1 100ml.bag @ 50 mls/hr IVPB ONCE ONE Rx#: [id number] Potassium Chloride 20 meq 50 In Water For Injection 1 100ml.bag @ 50 mls/hr IVPB Q2H [facility] Rx#: [id number] Potassium Phosphate 10 200 mmol In Sodium Chloride 0 .9% 100 ml @ 50 mls/hr IV Q2H [facility] Rx#:[id number] Sodium Acetate 30 meq 30 330 Potassium Chloride 20 meq Potassium Acetate 20 meq Calcium Gluconate 1 gm Mvi, Adult No.4 with Vit K 10 ml Trace (Conc-1Ml/ Dose) 1 ml In Amino Acid 5%-D15w 1,000 ml @ 30 mls /hr IV .Q24H [facility] Rx#: [id number] Output: Drainage 30 125 Right Lower Abdomen 30 125 Urine 1260 1745 Other: Voiding Method Indwelling Catheter Indwelling Catheter ABP, PAP, CO, CI - Last Documented Arterial Blood Pressure 147/93 - Exam Patient is encephalopathic, moaning and groaning, sometimes is okay. Exam limited. Not on any constant sedation. - Labs CBC & Chem 7: 04/17/20 09:10 04/17/20 15:01 Labs: Abnormal Lab Results - Last 24 Hours (Table) 04/16/20 04/17/20 04/17/20 Range/Units 23:52 04:40 05:29 RBC (3.80-5.40) m/uL Hgb (11.4-16.0) gm/dL RDW (11.5-15.5) % Lymphocytes # (1.0-4.8) k/uL Potassium 2.4 L* (3.5-5.1) mmol/L Chloride 112 H (98-107) mmol/L BUN 22 H (7-17) mg/dL Creatinine (0.52-1.04) mg/dL Glucose 116 H (74-99) mg/dL POC Glucose (mg/dL) 130 H 117 H (75-99) mg/dL Calcium 7.5 L (8.4-10.2) mg/dL Phosphorus 0.7 L* (2.5-4.5) mg/dL Magnesium 2.4 H (1.6-2.3) mg/dL AST (14-36) U/L Total Protein (6.3-8.2) g/dL Albumin 2.0 L (3.5-5.0) g/dL Vitamin D 25-Hydroxy (30.0-100.0) ng/mL TSH (0.465-4.680) mIU/L Free T4 (0.78-2.19) ng/dL 04/17/20 04/17/20 04/17/20 Range/Units 09:10 09:10 11:39 RBC 3.60 L (3.80-5.40) m/uL Hgb 11.2 L (11.4-16.0) gm/dL RDW 17.0 H (11.5-15.5) % Lymphocytes # 0.7 L (1.0-4.8) k/uL Potassium 3.2 L (3.5-5.1) mmol/L Chloride 113 H (98-107) mmol/L BUN 20 H (7-17) mg/dL Creatinine 0.51 L (0.52-1.04) mg/dL Glucose 106 H (74-99) mg/dL POC Glucose (mg/dL) (75-99) mg/dL Calcium 7.5 L (8.4-10.2) mg/dL Phosphorus (2.5-4.5) mg/dL Magnesium (1.6-2.3) mg/dL AST 81 H (14-36) U/L Total Protein 4.1 L (6.3-8.2) g/dL Albumin 2.0 L (3.5-5.0) g/dL Vitamin D 25-Hydroxy 24.6 L (30.0-100.0) ng/mL TSH 6.860 H (0.465-4.680) mIU/L Free T4 0.57 L (0.78-2.19) ng/dL 04/17/20 04/17/20 04/17/20 Range/Units 11:51 15:01 17:55 RBC (3.80-5.40) m/uL Hgb (11.4-16.0) gm/dL RDW (11.5-15.5) % Lymphocytes # (1.0-4.8) k/uL Potassium 3.3 L (3.5-5.1) mmol/L Chloride (98-107) mmol/L BUN (7-17) mg/dL Creatinine (0.52-1.04) mg/dL Glucose (74-99) mg/dL POC Glucose (mg/dL) 121 H 124 H (75-99) mg/dL Calcium (8.4-10.2) mg/dL Phosphorus (2.5-4.5) mg/dL Magnesium (1.6-2.3) mg/dL AST (14-36) U/L Total Protein (6.3-8.2) g/dL Albumin (3.5-5.0) g/dL Vitamin D 25-Hydroxy (30.0-100.0) ng/mL TSH (0.465-4.680) mIU/L Free T4 (0.78-2.19) ng/dL Microbiology - Last 24 Hours (Table) 04/14/20 16:30 Blood Culture - Preliminary Blood No Growth after 72 hours 04/14/20 16:25 Blood Culture - Preliminary Blood No Growth after 72 hours 04/13/20 23:00 Anaerobic Culture - Preliminary Abdomen Anaerobic Gm Negative Bacilli Anaerobic Gm Negative Bacilli#2 Clostridium species 04/13/20 23:00 Anaerobic Culture - Preliminary Abdomen Anaerobic Gm Negative Bacilli Clostridium species Assessment and Plan Assessment: * Altered mental status, likely related to toxic metabolic encephalopathy. Etiology multifactorial, as mentioned below. Patient still receiving Dilaudid, and Haldol, which may be contributing to persistent encephalopathy. * Acute kidney injury, secondary to hypotension, improving. * Acute abdomen with perforated bowel, status post exploratory laparotomy, sigmoid colectomy and colostomy. * Status post hypoxic acute respiratory failure, status post extubation. * Sepsis related to intra-abdominal source and bowel perforation with fecal peritonitis. Plan: * Avoid sedatives, hypnotics. * We will follow clinically. * B12 is normal 1457, folate 9.0, TSH is elevated 6.86, with low free T4 0.57. Patient may have to be started on thyroid replacement. * Your medical management.
[2020-04-17 20:19] LABS: Hemoglobin A1C 6.7 % (4.0-6.0)
[2020-04-17 22:09] LABS: Phosphorus 1.2 mg/dL (2.5-4.5); Potassium 3.3 mmol/L (3.5-5.1)
[2020-04-17] MEDS: ACETAMINOPHEN IV (For NPO) 1,000 MG in EMPTY BAG 1 BAG IVPB PRN (22:54)
--- NOTE | 2020-04-17 23:20 | PN ---
PROGRESS NOTE DATE OF SERVICE: 04/17/2020 REASON FOR FOLLOWUP: Secondary peritonitis from perforated sigmoid diverticulitis. INTERVAL HISTORY: The patient did have a low-grade fever of 99.7 this evening. The patient has been afebrile since then. The patient remains pleasantly confused, though slightly more awake per the RN this afternoon. The patient is unable to provide any history. No vomiting or any diarrhea has been reported. PHYSICAL EXAMINATION: Blood pressure 135/94 with a pulse of 107, temperature 98.8. She is 97% on 4 L nasal cannula. General description is a middle-aged female lying in bed in no distress. RESPIRATORY SYSTEM: Unlabored breathing. Clear to auscultation anteriorly. HEART: S1, S2. Regular rate and rhythm. ABDOMEN: Soft. Mildly distended. No guarding or rigidity. LABS: Hemoglobin is 11.2, white count 7.8. BUN is 20, creatinine 0.51. Abdominal culture has been positive for anaerobe Gram-negative bacilli and clostridium species. DIAGNOSTIC IMPRESSION AND PLAN: Patient with secondary peritonitis from perforated sigmoid diverticulitis. Abdominal culture positive for anaerobes and clostridium species. She is currently covered with Zosyn. White count has normalized. To continue while waiting for the culture to finalize and monitor her clinical course closely. MMODL / IJN: [id number] /
[2020-04-18] LABS: Glucose,Whole Blood 135 mg/dL (75-99)
[2020-04-18] MEDS: POTASSIUM CHLORIDE 20 MEQ in WATER FOR INJECTION 1 100ML.BAG IVPB SCH ×3 (00:53→20:11)
[2020-04-18] MEDS: SODIUM CHLORIDE 0.45% 1,000 ML IV SCH ×3 (00:55→18:26)
[2020-04-18] MEDS: POTASSIUM PHOSPHATE 10 MMOL in SODIUM CHLORIDE 0.9% 100 ML IV SCH ×2 (02:33→04:34)
[2020-04-18] MEDS: PIPERACILLIN-TAZOBACTAM 3.375 GM in SODIUM CHLORIDE 0.9% 100 ML IVPB SCH ×3 (04:32→20:10)
[2020-04-18] MEDS: metroNIDAZOLE-NS PMX 500 MG in SALINE 1 100ML.BAG IVPB SCH ×3 (05:22→17:44)
[2020-04-18 05:37] LABS: Anisocytosis Slight; Basophils % (A) 0 %; Eosinophils # (A) 0.1 k/uL (0-0.7); Eosinophils % (A) 1 %; HCT 40.1 % (34.0-46.0); HGB 12.9 gm/dL (11.4-16.0); Lymphocytes % (A) 10 %; MCHC 32.1 g/dL (31.0-37.0); MCV 96.6 fL (80.0-100.0); Macrocytosis Slight; Mean Platelet Volume 8.2; Monocytes # (A) 0.3 k/uL (0-1.0); Monocytes % (A) 3 %; Neutrophils # (A) 7.9 k/uL (1.3-7.7); Neutrophils % (A) 82 %; Platelet Count 205 k/uL (150-450); RBC 4.15 m/uL (3.80-5.40); WBC 9.6 k/uL (3.8-10.6)
[2020-04-18 05:42] LABS: Ionized Calcium 4.9 mg/dL (4.5-5.3)
[2020-04-18 05:56] LABS: Magnesium 2.1 mg/dL (1.6-2.3)
[2020-04-18 06:24] LABS: ALT 30 U/L (4-34); AST 62 U/L (14-36); African American GFR (CKD) >90 (>60 ml/min/1.73 sqM); Albumin 2.4 g/dL (3.5-5.0); Alkaline Phosphatase 102 U/L (38-126); Anion Gap 4 mmol/L; Blood Urea Nitrogen 16 mg/dL (7-17); Calcium 7.9 mg/dL (8.4-10.2); Carbon Dioxide 25 mmol/L (22-30); Chloride 113 mmol/L (98-107); Glucose 164 mg/dL (74-99); Non-African American GFR(CKD) >90 (>60 ml/min/1.73 sqM); Potassium 3.9 mmol/L (3.5-5.1); Sodium 142 mmol/L (137-145); Total Bilirubin 0.7 mg/dL (0.2-1.3); Total Protein 4.8 g/dL (6.3-8.2); Triglycerides 279 mg/dL (<150)
[2020-04-18 06:35] LABS: Glucose,Whole Blood 184 mg/dL (75-99)
[2020-04-18 06:37] LABS: ABG Base Excess 2.4 mmol/L; ABG HCO3 25 mmol/L (21-25); ABG Oxygen Saturation 88.6 % (94-97); ABG PCO2 32 mmHg (35-45); ABG PH 7.51 (7.35-7.45); ABG TCO2 26 mmol/L (19-24); Allen Test Performed? Yes
[2020-04-18] MEDS: FUROSEMIDE 10 MG/ML 4 ML VIAL IV SCH (07:52)
[2020-04-18] MEDS ORDERED: POTASSIUM CHLORIDE 10 MEQ in WATER FOR INJECTION 1 100ML.BAG IVPB SCH (08:15)
[2020-04-18] MEDS: SPIRONOLACTONE 25 MG TAB PO SCH (08:18)
--- NOTE | 2020-04-18 08:21 | XR ---
EXAMINATION TYPE: XR chest 1V portable DATE OF EXAM: 04/18/2020 HISTORY: Line placement COMPARISON: 04/17/2020 TECHNIQUE: Single view of the chest is submitted. FINDINGS: Demonstrated are scattered senescent parenchymal change. Increasing perihilar and basilar infiltrates with pulmonary venous congestion. Bilateral peripheral e dge lines persist and may reflect artifact or summation. Central venous line IJ approach is unchanged . The heart is stable. Hilar and mediastinal structures are within normal limits. Degenerative changes are seen of the dorsal spine. IMPRESSION: 1. Increasing perihilar and basilar infiltrates with pulmonary venous congestion. Bilateral peripher al edge lines persist and may reflect artifact or summation. Central venous line IJ approach is uncha nged.
[2020-04-18] MEDS: HEPARIN SODIUM,PORCINE 5,000 UNIT/ML 1 ML VIAL SQ SCH ×2 (08:24→20:11)
[2020-04-18] MEDS: LEVOTHYROXINE IVP 100 MCG/5 ML VIAL IV SCH (08:24)
[2020-04-18] MEDS: PANTOPRAZOLE 40 MG/10 ML VIAL IV SCH (08:24)
[2020-04-18] MEDS: METOPROLOL TARTRATE 5 MG/5 ML VIAL IVP SCH ×2 (08:24→20:11)
[2020-04-18] MEDS ORDERED: POTASSIUM CHLORIDE 20 MEQ in WATER FOR INJECTION 1 100ML.BAG IVPB STA (08:27)
[2020-04-18] MEDS: HYDROmorphone 1 MG/ML 1 ML SYRINGE IVP PRN ×2 (08:33→13:43)
[2020-04-18] MEDS: SODIUM FERRIC GLUCONAT-SUCROSE 125 MG in SODIUM CHLORIDE 0.9% 100 ML IVPB SCH (08:46)
[2020-04-18] MEDS ORDERED: LEVOTHYROXINE IVP 100 MCG/5 ML VIAL IV SCH (09:00)
--- NOTE | 2020-04-18 10:24 | PN ---
PROGRESS NOTE PULMONARY/CRITICAL CARE PROGRESS NOTE: DATE OF SERVICE: 04/18/2020 Critical care time 31 minutes. This is a 59-year-old female seen 4 days ago in consultation. She came to the emergency room on April 13, 2020 for abdominal pain. She is postop day #5, status post exploratory laparotomy with sigmoid colectomy for perforated sigmoid colon, Nelson's procedure, disimpaction of the descending colon, open appendectomy, abdominal washout for fecal peritonitis, placement of a Gage-Quintana drain, and application of an incisional wound VAC system. All in all, the patient was doing relatively well until sometime early this morning were her saturations started to drop and she appeared to develop some respiratory difficulty. She had blood gases done on 15 L high flow. PO2 of 52, pCO2 of 32, pH of 7.51. These blood gases are consistent with a combined respiratory and metabolic alkalosis. She was placed on BiPAP 10, 5 and 100%. Saturations are now 100% and the FiO2 could be titrated. She is getting half-normal saline at 100 mL an hour. I asked the nurses to pivel that. She is also getting TPN at 30 mL an hour. She is on Zosyn and Flagyl with antibiotics. The plan is to give her some additional diuretic. Will give her Lasix 40 IV push. Will turn down the IV fluids. Will titrate down the FiO2. In addition, the chest x- ray shows diffuse chest x-ray infiltrates which could be consistent with acute lung injury/early ARDS, cardiogenic pulmonary edema and/or pneumonia. She is on antibiotics as mentioned. Current vital signs are reviewed, temperature is 97.1 heart rate 124, respiratory rate 25, blood pressure 143/105 mean 117, central venous pressure is 21, and saturations are 92%. Currently on BiPAP 10, 5 and 100%. Appears in no acute distress. Seems to be tolerating the BiPAP relatively well. HEENT: Examination is grossly unremarkable. BiPAP mask in place. NECK: Supple, full range of motion. No adenopathy or thyromegaly. Neck veins are flat. CARDIOVASCULAR: Examination reveals tachycardia. S1, S2 normal. Heart rate about 115 beats per minute. LUNGS: Reveal diffuse coarse rhonchi. There are some crackles. Breath sounds equal. ABDOMEN: Soft. No bowel sounds. EXTREMITIES: Intact. No significant edema. SKIN: Without rash. NEUROLOGIC: Examination is brief but nonfocal. LABS: Reviewed. White count 9.6, hemoglobin 12.9, hematocrit 40.1, platelet count 205,000. Blood gases as mentioned. PO2 is 52, pCO2 is 32, pH of 7.51. Sodium 142, potassium 3.9 chloride is 113, CO2 is 25, anion gap is 4. BUN and creatinine were 16 and 0.34. Calcium 7.9, triglycerides 279. Albumin 2.4. Microbiology is showing abdominal cultures showing anaerobic gram-negative bacilli, 2 different species, and Clostridium species and also on 04/13, abdominal culture showing anaerobic gram-negative bacilli and Clostridium species. Blood and urine are both negative. Her chest x-ray from this morning compared to yesterday's chest x-ray shows increasing pulmonary venous congestion consistent probably with CHF. MEDICATIONS: Reviewed. She is currently on Tylenol, TPN, lipids, Haldol p.r.n., subcu heparin, Dilaudid, insulin, levothyroxine, metoprolol, Flagyl, Narcan, Protonix, phosphorus replacement, Zosyn, potassium replacement, and Aldactone. ASSESSMENT: 1. Postoperative day #5, status post exploratory laparotomy with sigmoid colectomy for perforated sigmoid colon, Enlson's procedure, disimpaction of descending colon, open appendectomy, abdominal washout for fecal peritonitis, placement of a Gage- Quintana drain, and application of an incisional wound VAC system. 2. Worsening oxygenation, which may be multifactorial in part related to bibasilar pneumonia, early acute lung injury/ARDS and just plain fluid overload (cardiogenic pulmonary edema). 3. History of hypothyroidism. 4. History of ongoing tobacco use and nicotine addiction. 5. Status post successful extubation. 6. Mental status changes, likely related to septic encephalopathy. 7. Successful extubation on April 16. PLAN: Currently, the patient's oxygenation is obviously of concern. Based on her Is and Os, it appears that she is way ahead on fluid maybe 8 L or so. We will give her some additional diuretic. The IV fluids were turned off. The patient's CVP was elevated. Will titrate the FiO2. The patient remains on TPN. She is on Zosyn and Flagyl with antibiotics. Culture data is reviewed. Infectious Disease is on the case. Overall prognosis remains very guarded. Will continue to follow. MMODL / IJN: [id number] /
[2020-04-18] MEDS ORDERED: THIAMINE 100 MG in SODIUM CHLORIDE 0.9% 50 ML IVPB SCH (10:30)
[2020-04-18] MEDS: THIAMINE 100 MG/ML 2 ML VIAL IVP SCH ×2 (11:18→20:11)
[2020-04-18 12:12] LABS: Glucose,Whole Blood 151 mg/dL (75-99)
--- NOTE | 2020-04-18 12:13 | P.PN ---
Subjective Progress Note Date: 04/18/20 04/18/2020: Patient continues to be encephalopathic, moaning, groaning. However she is following commands as per examination. Patient has received 4 mg of Haldol last night, as she became agitated, was pulling of lines, restless tachypneic. She has received 0.5 mg of Dilaudid at 8:30 AM today. Patient's oxygen saturation has been dropping, and on ABG, her saturation was 52%, pH 7.51 and pCO2 32. Patient also started on BiPAP. 04/17/2020: Patient was seen for a follow-up. Patient apparently was showing clinical improvement this morning, with some response in talking few words. Patient however was in pain. She was given 0.5 mg Dilaudid at 8:30 PM last night, then there are 0.5 mg Dilaudid at 3:30 AM and then 11 AM this morning also. She also received 4 mg of Haldol for restlessness and/any agitation at 9:45 AM. Patient subsequently became more groggy, less responsive. At present patient is just moaning, speaks "OK", or "all right". Patient continues to be encephalopathic. Objective - Vital Signs Vital signs: Vital Signs Temp 97.4 F L 04/18/20 08:00 Pulse 87 04/18/20 10:00 Resp 16 04/18/20 10:00 BP 98/82 04/18/20 10:00 Pulse Ox 100 04/18/20 10:00 Intake & Output 04/17/20 04/18/20 04/18/20 18:59 06:59 18:59 Intake Total 2430 1300 340 Output Total 1870 1485 520 Balance 560 -185 -180 Weight 66.2 kg Intake: IV 1400 1300 340 Acetaminophen 1000mg 100 Pipercillin/ Tazobactam 3 100 100 .375 g Potassium Chloride 20 meq 100 In Water For Injection 1 100ml.bag @ 50 mls/hr IVPB Q2H REE Rx#: [id number] Sodium Chloride 0.45% 1, 1200 1100 140 000 ml @ 20 mls/hr IV . Q24H REE Rx#:[id number] Sodium Ferric Gluconat- 100 Sucrose 125 mg In Sodium Chloride 0.9% 100 ml @ 100 mls/hr IVPB DAILY REE Rx#:[id number] metroNIDAZOLE-NS PMX 500 100 mg Intake, IV Titration 1030 Amount Potassium Chloride 20 meq 500 In Water For Injection 1 100ml.bag @ 50 mls/hr IVPB ONCE ONE Rx#: [id number] Potassium Phosphate 10 200 mmol In Sodium Chloride 0 .9% 100 ml @ 50 mls/hr IV Q2H REE Rx#:[id number] Sodium Acetate 30 meq 330 Potassium Chloride 20 meq Potassium Acetate 20 meq Calcium Gluconate 1 gm Mvi, Adult No.4 with Vit K 10 ml Trace (Conc-1Ml/ Dose) 1 ml In Amino Acid 5%-D15w 1,000 ml @ 30 mls /hr IV .Q24H ONE Rx#: [id number] Output: Drainage 125 50 50 Right Lower Abdomen 125 50 50 Urine 1745 1435 470 Other: Voiding Method Indwelling Catheter Indwelling Catheter Indwelling Catheter ABP, PAP, CO, CI - Last Documented Arterial Blood Pressure 124/102 - Exam Patient is encephalopathic, moaning and groaning, sometimes is okay. 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 Patient wiggles her feet and toes very normally. No focality. Patient has BiPAP on. - Labs CBC & Chem 7: 04/18/20 05:10 04/18/20 05:10 Labs: Abnormal Lab Results - Last 24 Hours (Table) 04/17/20 04/17/20 04/17/20 Range/Units 11:39 11:39 15:01 RDW (11.5-15.5) % Neutrophils # (1.3-7.7) k/uL ABG pH (7.35-7.45) ABG pCO2 (35-45) mmHg ABG pO2 (83-108) mmHg ABG Total CO2 (19-24) mmol/L ABG O2 Saturation (94-97) % Potassium 3.3 L (3.5-5.1) mmol/L Chloride (98-107) mmol/L Creatinine (0.52-1.04) mg/dL Glucose (74-99) mg/dL POC Glucose (mg/dL) (75-99) mg/dL Hemoglobin A1c 6.7 H (4.0-6.0) % Calcium (8.4-10.2) mg/dL Phosphorus (2.5-4.5) mg/dL Iron 7 L (50-170) ug/dL % Saturation 2.99 L (12.00-45.00) AST (14-36) U/L Total Protein (6.3-8.2) g/dL Albumin (3.5-5.0) g/dL Triglycerides (<150) mg/dL Vitamin B12 1457.0 H (200.0-944.0) pg/mL Vitamin D 25-Hydroxy 24.6 L (30.0-100.0) ng/mL TSH 6.860 H (0.465-4.680) mIU/L Free T4 0.57 L (0.78-2.19) ng/dL 04/17/20 04/17/20 04/17/20 Range/Units 17:55 21:38 23:58 RDW (11.5-15.5) % Neutrophils # (1.3-7.7) k/uL ABG pH (7.35-7.45) ABG pCO2 (35-45) mmHg ABG pO2 (83-108) mmHg ABG Total CO2 (19-24) mmol/L ABG O2 Saturation (94-97) % Potassium 3.3 L (3.5-5.1) mmol/L Chloride (98-107) mmol/L Creatinine (0.52-1.04) mg/dL Glucose (74-99) mg/dL POC Glucose (mg/dL) 124 H 135 H (75-99) mg/dL Hemoglobin A1c (4.0-6.0) % Calcium (8.4-10.2) mg/dL Phosphorus 1.2 L (2.5-4.5) mg/dL Iron (50-170) ug/dL % Saturation (12.00-45.00) AST (14-36) U/L Total Protein (6.3-8.2) g/dL Albumin (3.5-5.0) g/dL Triglycerides (<150) mg/dL Vitamin B12 (200.0-944.0) pg/mL Vitamin D 25-Hydroxy (30.0-100.0) ng/mL TSH (0.465-4.680) mIU/L Free T4 (0.78-2.19) ng/dL 04/18/20 04/18/20 04/18/20 Range/Units 05:10 05:10 06:34 RDW 17.0 H (11.5-15.5) % Neutrophils # 7.9 H (1.3-7.7) k/uL ABG pH (7.35-7.45) ABG pCO2 (35-45) mmHg ABG pO2 (83-108) mmHg ABG Total CO2 (19-24) mmol/L ABG O2 Saturation (94-97) % Potassium (3.5-5.1) mmol/L Chloride 113 H (98-107) mmol/L Creatinine 0.34 L (0.52-1.04) mg/dL Glucose 164 H (74-99) mg/dL POC Glucose (mg/dL) 184 H (75-99) mg/dL Hemoglobin A1c (4.0-6.0) % Calcium 7.9 L (8.4-10.2) mg/dL Phosphorus (2.5-4.5) mg/dL Iron (50-170) ug/dL % Saturation (12.00-45.00) AST 62 H (14-36) U/L Total Protein 4.8 L (6.3-8.2) g/dL Albumin 2.4 L (3.5-5.0) g/dL Triglycerides 279 H (<150) mg/dL Vitamin B12 (200.0-944.0) pg/mL Vitamin D 25-Hydroxy (30.0-100.0) ng/mL TSH (0.465-4.680) mIU/L Free T4 (0.78-2.19) ng/dL 04/18/20 Range/Units 06:35 RDW (11.5-15.5) % Neutrophils # (1.3-7.7) k/uL ABG pH 7.51 H (7.35-7.45) ABG pCO2 32 L (35-45) mmHg ABG pO2 52 L* (83-108) mmHg ABG Total CO2 26 H (19-24) mmol/L ABG O2 Saturation 88.6 L (94-97) % Potassium (3.5-5.1) mmol/L Chloride (98-107) mmol/L Creatinine (0.52-1.04) mg/dL Glucose (74-99) mg/dL POC Glucose (mg/dL) (75-99) mg/dL Hemoglobin A1c (4.0-6.0) % Calcium (8.4-10.2) mg/dL Phosphorus (2.5-4.5) mg/dL Iron (50-170) ug/dL % Saturation (12.00-45.00) AST (14-36) U/L Total Protein (6.3-8.2) g/dL Albumin (3.5-5.0) g/dL Triglycerides (<150) mg/dL Vitamin B12 (200.0-944.0) pg/mL Vitamin D 25-Hydroxy (30.0-100.0) ng/mL TSH (0.465-4.680) mIU/L Free T4 (0.78-2.19) ng/dL Microbiology - Last 24 Hours (Table) 04/14/20 16:30 Blood Culture - Preliminary Blood No Growth after 72 hours 04/14/20 16:25 Blood Culture - Preliminary Blood No Growth after 72 hours 04/13/20 23:00 Anaerobic Culture - Preliminary Abdomen Anaerobic Gm Negative Bacilli Anaerobic Gm Negative Bacilli#2 Clostridium species 04/13/20 23:00 Anaerobic Culture - Preliminary Abdomen Anaerobic Gm Negative Bacilli Clostridium species Assessment and Plan Assessment: * Altered mental status, likely related to toxic metabolic encephalopathy. Etiology multifactorial, as mentioned below. Patient still receiving Dilaudid, and Haldol, which may be contributing to persistent encephalopathy. * Acute kidney injury, secondary to hypotension, improving. * Acute abdomen with perforated bowel, status post exploratory laparotomy, sigmoid colectomy and colostomy. * Status post hypoxic acute respiratory failure, status post extubation. Patient still hypoxic at times, with O2 saturation 52% on ABG. * Sepsis related to intra-abdominal source and bowel perforation with fecal peritonitis. Plan: * Avoid sedatives, hypnotics. * B12 is normal 1457, folate 9.0, TSH is elevated 6.86, with low free T4 0.57. Patient started on Synthroid. * Patient's mentation appears intact, as she follows commands very normally. * Your medical management. * Neurology coverage not available on the weekend.
[2020-04-18 13:05] LABS: Zinc, Serum 29 ug/dL (60-130)
[2020-04-18] MEDS: INSULIN ASPART (NovoLOG) 100 UNIT/ML VIAL SQ SCH ×2 (13:24→18:03)
--- NOTE | 2020-04-18 13:58 | P.PN ---
<SupaDaniela Chilango - Last Filed: 04/18/20 13:48> Subjective Progress Note Date: 04/18/20 CHIEF COMPLAINT: Abdominal pain HISTORY OF PRESENT ILLNESS: 59-year-old female who underwent exploratory laparotomy with sigmoid colectomy, descending colostomy creation, and appendectomy with Dr. Ojeda on April 13, 2020. Patient examined this morning in the ICU. Patient with increased oxygen demands overnight. She is currently on Bipap with Fio2 of 100%. WBC 9.6. Hemoglobin 12.9 PHYSICAL EXAM: VITAL SIGNS: Reviewed GENERAL: Well-developed in no acute distress HEENT: No sclera icterus. Extraocular movements grossly intact. Moist buccal mucosa. Head is atraumatic, normocephalic. No nasal drainage. NECK: Supple without lymphadenopathy. CHEST: Non-labored respirations and equal bilateral excursions CARDIOVASCULAR: Tachycardic. Regular rate with regular rhythm. Palpable 2+ radial pulses. ABDOMEN: Soft. Nondistended. PREVENA wound vac noted. Ostomy to left side of abdomen. No stool or gas noted. Stoma pink. MARIA EUGENIA drain with serous drainage. MUSCULOSKELETAL: No clubbing or cyanosis. NEUROLOGIC: Slightly more lethargic compared to yesterday. PSYCH: Unable to assess secondary to altered mental status SKIN: Well perfused. Good skin turgor. ASSESSMENT: 1. Abdominal pain secondary to ruptured sigmoid colon, fecal peritonitis, descending and sigmoid colon impaction, appendicolith with appendicitis PLAN: Continue TPN Monitor MARIA EUGENIA drain Continue antibiotics. Monitor labs Neurology on consult. Appreciate recommendations. Thiamine level pending. Dr. Ojeda recommends beginning thiamine supplemen tation now to see if mental status improves Patient started on IV synthroid Further ICU management per Dr. Villaseñor. Nurse practitioner note has been reviewed by physician. Signing provider agrees with the documented findings, assessment, and plan of care. Objective - Vital Signs Vital signs: Vital Signs Temp 97.4 F L 04/18/20 08:00 Pulse 121 H 04/18/20 13:00 Resp 41 H 04/18/20 13:00 BP 119/95 04/18/20 13:00 Pulse Ox 96 04/18/20 13:00 Intake & Output 04/17/20 04/18/20 04/18/20 18:59 06:59 18:59 Intake Total 2430 1300 380 Output Total 1870 1485 1420 Balance 560 -185 -1040 Weight 66.2 kg Intake: IV 1400 1300 380 Acetaminophen 1000mg 100 Pipercillin/ Tazobactam 3 100 100 .375 g Potassium Chloride 20 meq 100 In Water For Injection 1 100ml.bag @ 50 mls/hr IVPB Q2H [facility] Rx#: [id number] Sodium Chloride 0.45% 1, 1200 1100 180 000 ml @ 20 mls/hr IV . Q24H [facility] Rx#:[id number] Sodium Ferric Gluconat- 100 Sucrose 125 mg In Sodium Chloride 0.9% 100 ml @ 100 mls/hr IVPB DAILY [facility] Rx#:[id number] metroNIDAZOLE-NS PMX 500 100 mg Intake, IV Titration 1030 Amount Potassium Chloride 20 meq 500 In Water For Injection 1 100ml.bag @ 50 mls/hr IVPB ONCE [facility] Rx#: [id number] Potassium Phosphate 10 200 mmol In Sodium Chloride 0 .9% 100 ml @ 50 mls/hr IV Q2H [facility] Rx#:[id number] Sodium Acetate 30 meq 330 Potassium Chloride 20 meq Potassium Acetate 20 meq Calcium Gluconate 1 gm Mvi, Adult No.4 with Vit K 10 ml Trace (Conc-1Ml/ Dose) 1 ml In Amino Acid 5%-D15w 1,000 ml @ 30 mls /hr IV .Q24H [facility] Rx#: [id number] Output: Drainage 125 50 50 Right Lower Abdomen 125 50 50 Urine 1745 1435 1370 Other: Voiding Method Indwelling Catheter Indwelling Catheter Indwelling Catheter ABP, PAP, CO, CI - Last Documented Arterial Blood Pressure 124/102 - Labs CBC & Chem 7: 04/18/20 05:10 04/18/20 05:10 Labs: Abnormal Lab Results - Last 24 Hours (Table) 04/17/20 04/17/20 04/17/20 Range/Units 11:39 11:39 11:39 RDW (11.5-15.5) % Neutrophils # (1.3-7.7) k/uL ABG pH (7.35-7.45) ABG pCO2 (35-45) mmHg ABG pO2 (83-108) mmHg ABG Total CO2 (19-24) mmol/L ABG O2 Saturation (94-97) % Potassium (3.5-5.1) mmol/L Chloride (98-107) mmol/L Creatinine (0.52-1.04) mg/dL Glucose (74-99) mg/dL POC Glucose (mg/dL) (75-99) mg/dL Hemoglobin A1c 6.7 H (4.0-6.0) % Calcium (8.4-10.2) mg/dL Phosphorus (2.5-4.5) mg/dL Iron 7 L (50-170) ug/dL % Saturation 2.99 L (12.00-45.00) AST (14-36) U/L Total Protein (6.3-8.2) g/dL Albumin (3.5-5.0) g/dL Triglycerides (<150) mg/dL Vitamin B12 1457.0 H (200.0-944.0) pg/mL Vitamin D 25-Hydroxy 24.6 L (30.0-100.0) ng/mL Zinc 29 L (60-130) ug/dL 04/17/20 04/17/20 04/17/20 Range/Units 15:01 17:55 21:38 RDW (11.5-15.5) % Neutrophils # (1.3-7.7) k/uL ABG pH (7.35-7.45) ABG pCO2 (35-45) mmHg ABG pO2 (83-108) mmHg ABG Total CO2 (19-24) mmol/L ABG O2 Saturation (94-97) % Potassium 3.3 L 3.3 L (3.5-5.1) mmol/L Chloride (98-107) mmol/L Creatinine (0.52-1.04) mg/dL Glucose (74-99) mg/dL POC Glucose (mg/dL) 124 H (75-99) mg/dL Hemoglobin A1c (4.0-6.0) % Calcium (8.4-10.2) mg/dL Phosphorus 1.2 L (2.5-4.5) mg/dL Iron (50-170) ug/dL % Saturation (12.00-45.00) AST (14-36) U/L Total Protein (6.3-8.2) g/dL Albumin (3.5-5.0) g/dL Triglycerides (<150) mg/dL Vitamin B12 (200.0-944.0) pg/mL Vitamin D 25-Hydroxy (30.0-100.0) ng/mL Zinc (60-130) ug/dL 04/17/20 04/18/20 04/18/20 Range/Units 23:58 05:10 05:10 RDW 17.0 H (11.5-15.5) % Neutrophils # 7.9 H (1.3-7.7) k/uL ABG pH (7.35-7.45) ABG pCO2 (35-45) mmHg ABG pO2 (83-108) mmHg ABG Total CO2 (19-24) mmol/L ABG O2 Saturation (94-97) % Potassium (3.5-5.1) mmol/L Chloride 113 H (98-107) mmol/L Creatinine 0.34 L (0.52-1.04) mg/dL Glucose 164 H (74-99) mg/dL POC Glucose (mg/dL) 135 H (75-99) mg/dL Hemoglobin A1c (4.0-6.0) % Calcium 7.9 L (8.4-10.2) mg/dL Phosphorus (2.5-4.5) mg/dL Iron (50-170) ug/dL % Saturation (12.00-45.00) AST 62 H (14-36) U/L Total Protein 4.8 L (6.3-8.2) g/dL Albumin 2.4 L (3.5-5.0) g/dL Triglycerides 279 H (<150) mg/dL Vitamin B12 (200.0-944.0) pg/mL Vitamin D 25-Hydroxy (30.0-100.0) ng/mL Zinc (60-130) ug/dL 04/18/20 04/18/20 04/18/20 Range/Units 06:34 06:35 12:10 RDW (11.5-15.5) % Neutrophils # (1.3-7.7) k/uL ABG pH 7.51 H (7.35-7.45) ABG pCO2 32 L (35-45) mmHg ABG pO2 52 L* (83-108) mmHg ABG Total CO2 26 H (19-24) mmol/L ABG O2 Saturation 88.6 L (94-97) % Potassium (3.5-5.1) mmol/L Chloride (98-107) mmol/L Creatinine (0.52-1.04) mg/dL Glucose (74-99) mg/dL POC Glucose (mg/dL) 184 H 151 H (75-99) mg/dL Hemoglobin A1c (4.0-6.0) % Calcium (8.4-10.2) mg/dL Phosphorus (2.5-4.5) mg/dL Iron (50-170) ug/dL % Saturation (12.00-45.00) AST (14-36) U/L Total Protein (6.3-8.2) g/dL Albumin (3.5-5.0) g/dL Triglycerides (<150) mg/dL Vitamin B12 (200.0-944.0) pg/mL Vitamin D 25-Hydroxy (30.0-100.0) ng/mL Zinc (60-130) ug/dL Microbiology - Last 24 Hours (Table) 04/14/20 16:30 Blood Culture - Preliminary Blood No Growth after 72 hours 04/14/20 16:25 Blood Culture - Preliminary Blood No Growth after 72 hours 04/13/20 23:00 Anaerobic Culture - Preliminary Abdomen Anaerobic Gm Negative Bacilli Anaerobic Gm Negative Bacilli#2 Clostridium species 04/13/20 23:00 Anaerobic Culture - Preliminary Abdomen Anaerobic Gm Negative Bacilli Clostridium species <Padmaja Ojeda - Last Filed: 04/25/20 03:05> Subjective Patient seen and evaluated with above. Additional recommendations include I have started patient on IV Synthroid as TSH level moderately elevated. Additionally, thiamine supplementation advised due to history of iatrogenic malnutrition with risk of thiamine deficiency. Neurology consultation appreciated for guidance of encephalopathy. Otherwise, patient still critical with face mask for BiPAP and oxygenation. Continue ICU care. Objective - Vital Signs Vital signs: Vital Signs Temp 98.1 F 04/25/20 00:00 Pulse 79 04/25/20 02:00 Resp 22 04/25/20 02:00 BP 95/74 04/24/20 20:00 Pulse Ox 96 04/25/20 02:00 Intake & Output 04/24/20 04/24/20 04/25/20 06:59 18:59 06:59 Intake Total 1300 2538.2 876 Output Total 1815 2300 1300 Balance -515 238.2 -424 Weight 79 kg Intake: IV 1300 1226 876 Ampicillin-Sulbactam 3 gm 200 100 100 In Sodium Chloride 0.9% 100 ml @ 200 mls/hr IVPB Q6HR [facility] Rx#:[id number] Fat Emulsion 20% 250 mL@ 126 126 20.833mls/hr Mvi, Adult No.4 with Vit 660 660 K 10 ml Trace (Conc-1Ml/ Dose) 1 ml Potassium Chloride 60 meq Potassium Phosphate 30 mmol Magnesium Sulfate gm 0.6 gm Calcium Gluconate 1 gm In Amino Acid 5%-D15w 1, 000 ml @ 55 mls/hr IV . [id number] [facility] Rx#:[id number] Mvi, Adult No.4 with Vit 385 K 10 ml Trace (Conc-1Ml/ Dose) 1 ml Potassium Chloride 60 meq Potassium Phosphate 30 mmol Magnesium Sulfate gm 0.6 gm Calcium Gluconate 1 gm In Amino Acid 5%-D15w 1, 000 ml @ 55 mls/hr IV . [id number] [facility] Rx#:[id number] Sodium Chloride 0.45% 1, 240 240 160 000 ml @ 20 mls/hr IV . Q24H [facility] Rx#:[id number] Sodium Chloride 0.9% 1,00 5 mL metroNIDAZOLE-NS PMX 500 200 100 100 mg Intake, IV Titration 1062.2 Amount Mvi, Adult No.4 with Vit 1062.2 K 10 ml Trace (Conc-1Ml/ Dose) 1 ml Potassium Chloride 60 meq Potassium Phosphate 30 mmol Magnesium Sulfate gm 0.6 gm Calcium Gluconate 1 gm In Amino Acid 5%-D15w 1, 000 ml @ 55 mls/hr IV . [id number] [facility] Rx#:[id number] Oral 250 Output: Drainage 40 Right Lower Abdomen 40 Urine 1575 1450 1200 Stool 200 850 100 Other: Voiding Method Indwelling Catheter Indwelling Catheter Indwelling Catheter ABP, PAP, CO, CI - Last Documented Arterial Blood Pressure 89/47 - Labs CBC & Chem 7: 04/24/20 05:25 04/24/20 05:25 Labs: Abnormal Lab Results - Last 24 Hours (Table) 04/24/20 04/24/20 04/24/20 Range/Units 05:25 05:25 17:33 WBC 13.7 H (3.8-10.6) k/uL RBC 3.79 L (3.80-5.40) m/uL RDW 17.0 H (11.5-15.5) % Neutrophils # 11.6 H (1.3-7.7) k/uL Sodium 133 L (137-145) mmol/L Creatinine 0.34 L (0.52-1.04) mg/dL Glucose 114 H (74-99) mg/dL POC Glucose (mg/dL) 101 H (75-99) mg/dL Calcium 8.1 L (8.4-10.2) mg/dL Microbiology - Last 24 Hours (Table) 04/23/20 13:50 Blood Culture - Preliminary Blood No Growth after 24 hours 04/18/20 05:10 Blood Culture - Final Blood No Growth after 144 hours Assessment and Plan (1) Peritonitis (acute) generalized Current Visit: Yes Status: Acute Code(s): K65.0 - GENERALIZED (ACUTE) PERITONITIS SNOMED Code(s): 07033653 (2) History of gastric bypass Current Visit: Yes Status: Acute Code(s): Z98.84 - BARIATRIC SURGERY STATUS SNOMED Code(s): 185127367 (3) Medical non-compliance Current Visit: Yes Status: Acute Code(s): Z91.19 - PATIENT'S NONCOMPLIANCE W OTH MEDICAL TREATMENT AND REGIMEN SNOMED Code(s): 033355204 (4) Tobacco abuse Current Visit: Yes Status: Acute Code(s): Z72.0 - TOBACCO USE SNOMED Code(s): 789920895 (5) Tobacco abuse counseling Current Visit: Yes Status: Acute Code(s): Z71.6 - TOBACCO ABUSE COUNSELING SNOMED Code(s): 290408683 (6) Depressive disorder Current Visit: Yes Status: Acute Code(s): F32.9 - MAJOR DEPRESSIVE DISORDER, SINGLE EPISODE, UNSPECIFIED SNOMED Code(s): 39826042 (7) Hypothyroidism Current Visit: Yes Status: Acute Code(s): E03.9 - HYPOTHYROIDISM, UNSPECIFIED SNOMED Code(s): 36534262 (8) Abdominal pain Current Visit: Yes Status: Acute Code(s): R10.9 - UNSPECIFIED ABDOMINAL PAIN SNOMED Code(s): 51479855 (9) Free intraperitoneal air Current Visit: Yes Status: Acute Code(s): K66.8 - OTHER SPECIFIED DISORDERS OF PERITONEUM SNOMED Code(s): 71999085 (10) Dehydration Current Visit: Yes Status: Acute Code(s): E86.0 - DEHYDRATION SNOMED Code(s): 52770889
[2020-04-18] MEDS: FAT EMULSION 20% 250 ML IV SCH (14:47)
[2020-04-18] MEDS ORDERED: FUROSEMIDE 10 MG/ML 4 ML VIAL IV SCH (16:00)
[2020-04-18 16:44] LABS: ABG Base Excess 7.3 mmol/L; ABG HCO3 29 mmol/L (21-25); ABG PCO2 32 mmHg (35-45); ABG TCO2 30 mmol/L (19-24); Allen Test Performed? Yes
[2020-04-18 16:47] LABS: ABG PH 7.57 (7.35-7.45); ABG PO2 53 mmHg (83-108)
--- NOTE | 2020-04-18 16:47 | PN ---
PROGRESS NOTE Patient is seen for followup for acute kidney injury and hypokalemia. Patient's potassium has improved and staying at 3.9. However, she developed worsening shortness of breath and received a dose of IV Lasix this morning. She has good urine output at about 50 to 150 mL/hour. The patient was placed on BiPAP this morning. PHYSICAL EXAMINATION: On examination, blood pressure is 142/110, heart rate 120 per minute. She is afebrile. EXAMINATION OF THE HEART: S1 and S2. EXAMINATION OF LUNGS: Bilateral breath sounds are heard. Decreased breath sounds at the bases. ABDOMEN: Soft. Examination of lower extremities shows no significant edema. 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 LABS: Labs show sodium of 142, potassium 3.9, chloride 113. CO2 is 25, BUN 16, creatinine 0.34. ASSESSMENT: 1. Acute kidney injury associated with hypotension, hypoperfusion, currently resolved. 2. Hypokalemia from diuretics, now resolved. 3. Acute abdomen, status post explorative laparotomy, bowel resection, sigmoid colectomy and colostomy. 4. Altered mentation, not significantly improved. 5. Volume overload, with chest x-ray from today showing increased pulmonary vascular congestion. PLAN: Maintain IV Lasix at 40 mg q.12 hours. I will give the second dose in 8 hours, as patient is currently on BiPAP and hypoxic. Monitor potassium closely and repeat labs in a.m. MMADÁN / ANGELA: [id number] /
[2020-04-18 17:03] LABS: Glucose,Whole Blood 169 mg/dL (75-99)
[2020-04-18] MEDS ORDERED: PROPOFOL 100 ML IV ONE (17:14)
[2020-04-18] MEDS ORDERED: PROPOFOL 10 MG/ML 20 ML VIAL IV ONE (17:20)
[2020-04-18] MEDS ORDERED: SUCCINYLCHOLINE CHLORIDE VIAL 200 MG/10 ML VIAL IV ONE (17:20)
[2020-04-18] MEDS: PROPOFOL 1,000 MG in EMPTY BAG 1 BAG IV SCH ×2 (17:45→20:52)
--- NOTE | 2020-04-18 17:46 | XR ---
EXAMINATION TYPE: XR chest 1V portable DATE OF EXAM: 04/18/2020 Comparison: 04/18/2020 Clinical History: 59-year-old female intubation/tube placement Findings: ET tube is satisfactory. NG tube tip just below the GE junction level. The tube can be further advanc ed so that the sidehole into the stomach. Advancement by approximately 8 cm and reassessed at follow- up. Partially visualized skin anderson along the epigastrium. Right IJ CVC tip lower SVC. Heart upper limits of normal in size. Perihilar and confluent airspace opacity greatest in the mid and lower lung s, slightly increased from prior. Small left effusion difficult to exclude. Impression: 1. Satisfactory ET tube. 2. Advance the NG tube further by approximately 8 cm so that the side hole enters the stomach. 3. Increasing perihilar and confluent airspace disease greatest in the mid and lower lungs.
[2020-04-18] MEDS ORDERED: SODIUM CHLORIDE 0.9% 1,000 ML IV ONE (17:50)
[2020-04-18] MEDS: MVI, ADULT NO.4 WITH VIT K 10 ML, TRACE (CONC-1ML/DOSE) 1 ML, SODIUM ACETATE 30 MEQ, PO... IV SCH ×8 (18:02)
[2020-04-18] MEDS: MVI, ADULT NO.4 WITH VIT K 10 ML, TRACE (CONC-1ML/DOSE) 1 ML, POTASSIUM CHLORIDE 60 MEQ... IV SCH ×5 (18:26)
[2020-04-18 18:37] LABS: ABG Base Excess 6.2 mmol/L; ABG HCO3 29 mmol/L (21-25); ABG Oxygen Saturation 98.6 % (94-97); ABG PCO2 37 mmHg (35-45); ABG PH 7.51 (7.35-7.45); ABG PO2 131 mmHg (83-108); ABG TCO2 30 mmol/L (19-24); Allen Test Performed? Yes
[2020-04-18] MEDS ORDERED: CHLORHEXIDINE GLUCONATE 15 ML CUP MUCOUS MEM ONE (18:40)
[2020-04-18] MEDS ORDERED: CISATRACURIUM 2 MG/ML 5 ML VIAL IV ONE (18:51)
[2020-04-18] MEDS ORDERED: CISATRACURIUM 200 MG in SODIUM CHLORIDE 0.9% 180 ML IV SCH (19:00)
[2020-04-18] MEDS: ARTIFICIAL TEARS-HYPROMELLOSE DROPS 15 ML BTL BOTH EYES SCH ×2 (21:35→23:50)
[2020-04-18] MEDS: CHLORHEXIDINE GLUCONATE 15 ML CUP MUCOUS MEM SCH (22:17)
--- NOTE | 2020-04-18 22:50 | PN ---
PROGRESS NOTE DATE OF SERVICE: 04/18/2020 REASON FOR FOLLOWUP: Ruptured sigmoid diverticulitis and abdominal abscess. INTERVAL HISTORY: Patient was seen on rounds early this afternoon. The patient has been afebrile. The patient is still moaning, hemodynamically stable. No vomiting or any diarrhea or any other changes reported by the nursing staff. PHYSICAL EXAMINATION: Blood pressure is 119/77 with a pulse of 93, temperature of 98.4. She is 95% on ventilator. General description is a middle-aged female lying in bed in no distress. RESPIRATORY SYSTEM: Unlabored breathing with decreased breath sounds at the base. No wheeze. HEART: S1, S2. Regular rate and rhythm. ABDOMEN: Soft. Mild tenderness. No guarding or rigidity. LABS: Hemoglobin is 12.9, white count 9.6, BUN of 16, creatinine 0.34. DIAGNOSTIC IMPRESSION AND PLAN: Patient with abdominal abscess from ruptured sigmoid diverticulitis in this patient who did have significant abdominal surgery. Abdominal culture has been Clostridium in addition to multiple other anaerobes. Patient is covered with Zosyn, to which the patient has clinically responded. Her white count normalized and fever responded. We will continue Zosyn and monitor her clinical course closely. Continue with supportive care. MMODL / IJN: [id number] /
[2020-04-19 00:23] LABS: Glucose,Whole Blood 172 mg/dL (75-99)
[2020-04-19] MEDS: INSULIN ASPART (NovoLOG) 100 UNIT/ML VIAL SQ SCH ×4 (00:25→17:17)
[2020-04-19] MEDS: metroNIDAZOLE-NS PMX 500 MG in SALINE 1 100ML.BAG IVPB SCH ×4 (00:27→17:17)
[2020-04-19] MEDS ORDERED: PROPOFOL 100 ML IV ONE (01:59)
[2020-04-19] MEDS: PROPOFOL 1,000 MG in EMPTY BAG 1 BAG IV SCH ×6 (02:17→23:52)
[2020-04-19] MEDS: PIPERACILLIN-TAZOBACTAM 3.375 GM in SODIUM CHLORIDE 0.9% 100 ML IVPB SCH ×3 (03:55→20:05)
[2020-04-19] MEDS: ARTIFICIAL TEARS-HYPROMELLOSE DROPS 15 ML BTL BOTH EYES SCH ×4 (03:59→15:58)
[2020-04-19 04:20] LABS: Anisocytosis Slight; HCT 36.7 % (34.0-46.0); HGB 11.5 gm/dL (11.4-16.0); Hypochromasia Slight; MCH 30.5 pg (25.0-35.0); MCHC 31.4 g/dL (31.0-37.0); Macrocytosis Slight; Mean Platelet Volume 8.5; Platelet Count 174 k/uL (150-450); RBC 3.79 m/uL (3.80-5.40); RDW 16.9 % (11.5-15.5); WBC 8.5 k/uL (3.8-10.6)
[2020-04-19 04:28] LABS: Magnesium 2.1 mg/dL (1.6-2.3); Phosphorus 2.9 mg/dL (2.5-4.5)
[2020-04-19 04:44] LABS: ABG Base Excess 7.3 mmol/L; ABG HCO3 32 mmol/L (21-25); ABG Oxygen Saturation 95.9 % (94-97); ABG PCO2 49 mmHg (35-45); ABG PH 7.42 (7.35-7.45); ABG PO2 84 mmHg (83-108); ABG TCO2 33 mmol/L (19-24)
[2020-04-19 04:59] LABS: Band Neutrophils % 2 %; Lymphocytes # (M) 2.38 k/uL (1.0-4.8); Neutrophils % (M) 63 %; Nucleated Red Blood Cells 0 /100 WBC (0-0); Total Cells Counted 100
[2020-04-19 05:01] LABS: Large Platelets Present; Reactive Lymphocytes Present
[2020-04-19 05:02] LABS: Polychromasia Present; Target Cells Present
[2020-04-19 05:08] LABS: Allen Test Performed? no
--- NOTE | 2020-04-19 05:51 | XR ---
EXAMINATION TYPE: XR chest 1V portable DATE OF EXAM: 04/19/2020 HISTORY: Tube placement. REFERENCE: Previous study dated 04/18/2020. FINDINGS: The patient is ET tube and right internal jugular catheter remain in place, unchanged in ap pearance. The patient is NG tube is been advanced and its tip is well within the stomach. There is continuing bibasilar lateral airspace disease. Overall aeration has improved bilaterally. He art size is upper limits of normal. There is blunting of both CP angles. I could not exclude small ef fusions. IMPRESSION: IMPROVED AERATION, BOTH LUNGS.
[2020-04-19 06:18] LABS: Glucose,Whole Blood 120 mg/dL (75-99)
[2020-04-19 06:50] LABS: ALT 27 U/L (4-34); AST 39 U/L (14-36); African American GFR (CKD) >90 (>60 ml/min/1.73 sqM); Albumin 2.1 g/dL (3.5-5.0); Alkaline Phosphatase 82 U/L (38-126); Anion Gap 2 mmol/L; Blood Urea Nitrogen 23 mg/dL (7-17); Calcium 7.6 mg/dL (8.4-10.2); Carbon Dioxide 29 mmol/L (22-30); Chloride 113 mmol/L (98-107); Glucose 127 mg/dL (74-99); Non-African American GFR(CKD) >90 (>60 ml/min/1.73 sqM); Potassium 3.9 mmol/L (3.5-5.1); Sodium 144 mmol/L (137-145); Total Bilirubin 0.2 mg/dL (0.2-1.3); Total Protein 4.4 g/dL (6.3-8.2)
[2020-04-19] MEDS ORDERED: POTASSIUM CHLORIDE 20 MEQ in WATER FOR INJECTION 1 100ML.BAG IVPB STA ×2 (07:24→18:02)
[2020-04-19] MEDS: NOREPINEPHRINE 8 MG in SODIUM CHLORIDE 0.9% 250 ML IV SCH ×2 (07:52→20:21)
[2020-04-19] MEDS: LEVOTHYROXINE IVP 100 MCG/5 ML VIAL IV SCH (07:57)
[2020-04-19] MEDS: FUROSEMIDE 10 MG/ML 4 ML VIAL IV SCH ×3 (07:57→23:16)
[2020-04-19] MEDS: CHLORHEXIDINE GLUCONATE 15 ML CUP MUCOUS MEM SCH ×2 (07:57→20:05)
[2020-04-19] MEDS: METOPROLOL TARTRATE 5 MG/5 ML VIAL IVP SCH (07:58)
[2020-04-19] MEDS: HEPARIN SODIUM,PORCINE 5,000 UNIT/ML 1 ML VIAL SQ SCH ×2 (07:58→20:05)
[2020-04-19] MEDS: SPIRONOLACTONE 25 MG TAB PO SCH (07:59)
[2020-04-19] MEDS: PANTOPRAZOLE 40 MG/10 ML VIAL IV SCH (07:59)
[2020-04-19] MEDS: THIAMINE 100 MG/ML 2 ML VIAL IVP SCH ×2 (07:59→20:05)
[2020-04-19] MEDS: SODIUM FERRIC GLUCONAT-SUCROSE 125 MG in SODIUM CHLORIDE 0.9% 100 ML IVPB SCH (08:20)
--- NOTE | 2020-04-19 10:09 | CT ---
EXAMINATION TYPE: CT brain wo con DATE OF EXAM: 04/19/2020 COMPARISON: NONE HISTORY: neuro deficit CT DLP: 1040.4 mGycm Automated exposure control for dose reduction was used. FINDINGS: Central structures are midline. There is no evidence hydrocephalus. No acute focal lesion, mass effec t or midline shift is seen. I do not see evidence of intracranial blood. Visualized portions of the paranasal sinuses and mastoids are clear. The bony calvarium is intact. IMPRESSION: NO ACUTE INTRACRANIAL ABNORMALITY.
[2020-04-19 11:06] LABS: Creatine Kinase MB 9.9 ng/mL (0.0-2.4)
[2020-04-19 11:17] LABS: Troponin I 0.28 ng/mL (0.000-0.034)
[2020-04-19] MEDS: FAT EMULSION 20% 250 ML IV SCH (11:31)
[2020-04-19 11:40] LABS: Glucose,Whole Blood 127 mg/dL (75-99)
--- NOTE | 2020-04-19 11:44 | PN ---
PROGRESS NOTE PULMONARY/CRITICAL PROGRESS NOTE: DATE OF SERVICE: April 19, 2020 Critical care time: 34 minutes. INTERVAL HISTORY: This is a 59-year-old female seen 5 days ago in consultation. She is postop day 6, status post exploratory laparotomy with sigmoid colectomy for perforated sigmoid colon, Nelson's procedure, disimpaction of descending colon, open appendectomy, abdominal washout for fecal peritonitis with 6 L of saline, placement of a Gage-Quintana drain, and application of incisional wound VAC system. The patient was initially intubated. She was extubated on April 16. Unfortunately, yesterday, because of increasing respiratory rate and respiratory insufficiency and demise, she needed to be reintubated on the . Currently, she is on the volume assist-control mode rate of 20, tidal volume 350, FiO2 70% to be dropped to 60%, PEEP of 5 to be increased to 10. Blood gases show pO2 of 84, pCO2 of 49, and pH 7.42. She is getting half-normal saline at 20 mL an hour. TPN at 30 mL an hour, propofol 40 mcg/kg per minute and Nimbex at 2 mcg/kg per minute. I told the nurses to turn the Nimbex off. We are going to do an EEG and CT scan of the head. It will be done without contrast. We are going to discontinue the Nimbex as mentioned. After the initial extubation, on the , the patient's mental status was poor and we had Neurology evaluate the patient. At that time they did not recommend any EEG or CT scan. We are going to go ahead and do one now. PHYSICAL EXAMINATION: VITAL SIGNS: Current vital signs are reviewed. Temperature is 98.9. Heart rate 98, respiratory rate 20. Blood pressure 96/60, saturations 99%. GENERAL: Appears in no acute distress HEENT: Examination is grossly unremarkable. There is an orally placed NG tube and endotracheal tube. NECK: Supple full range of motion. No adenopathy. Neck veins are flat. CARDIOVASCULAR: Examination reveals regular rhythm rate. Heart rate 90 beats per minute. S1, S2 normal. LUNGS: Reveal diffuse coarse rhonchi. Breath sounds equal. No crackles or wheezes. ABDOMEN: Soft. No bowel sounds. EXTREMITIES are intact. Minimal to no edema. SKIN: Without rash. NEUROLOGIC: Examination could not be adequately assessed given the fact she is on propofol and Nimbex. LABS: Reviewed. White count 8.5, hemoglobin 11.5, hematocrit 36.7, platelet count 174,000, blood gases have been noted thus far. Sodium 144, potassium 3.9, chloride 113, CO2 29, anion gap 2, BUN and creatinine were 23 and 0.41. Phosphorus is 2.9, calcium 7.6, albumin 2.1. Microbiology is reviewed. Everything on the was from the abdominal cultures. She had clostridium perfringens as well as 2 different anaerobic gram-negative bacilli. A chest x-ray today shows improved aeration of both lungs. She has bibasilar airspace disease. This could represent fluid, atelectasis or pneumonia. A brain CT was done but the results are currently pending. MEDICATIONS: Reviewed. They all seem appropriate. ID is on and managing the patient's antibiotics. ASSESSMENT: 1. Postoperative day #6, status post exploratory laparotomy with sigmoid colectomy for perforated sigmoid colon, Nelson's procedure, disimpaction of descending colon, open appendectomy, abdominal washout for fecal peritonitis, placement of a Gage- Quintana drain, and application of an incisional wound VAC system. 2. Worsening oxygenation, which may be multifactorial in part related to bibasilar pneumonia, early acute lung injury/ARDS and just plain fluid overload (cardiogenic pulmonary edema). 3. Successful extubation on April 16 with need for re-intubation because of impending respiratory failure, on April 18. 4. History of hypothyroidism. 5. History of ongoing tobacco use and nicotine addiction. 6. Mental status changes, likely related to septic encephalopathy. PLAN: The patient will go ahead and have a CT scan of the brain and EEG today. We will get her off the Nimbex. Additional recommendations and suggestions forthcoming. Overall prognosis remains very guarded. Critical care time: 34 minutes. MMODL / IJN: [id number] /
--- NOTE | 2020-04-19 14:06 | P.PN ---
Subjective Progress Note Date: 04/19/20 Principal diagnosis: Colonic perforation Patient was intubated because of tachypnea and hypoxia. Remains on ventilator. Some EKG changes and changes on her echo as well. White blood cell count 8.5, hemoglobin 11.5. TPN was increased further. Small amount of liquid stool thr ough ostomy. Objective - Vital Signs Vital signs: Vital Signs Temp 97.8 F 04/19/20 08:00 Pulse 101 H 04/19/20 11:00 Resp 26 H 04/19/20 11:00 BP 78/55 04/18/20 18:00 Pulse Ox 96 04/19/20 11:00 Intake & Output 04/18/20 04/19/20 04/19/20 18:59 06:59 18:59 Intake Total 1998.937 977.785 836.022 Output Total 3440 800 985 Balance -1441.063 177.785 -148.978 Weight 66.2 kg Intake: IV 1989 800 550 Mvi, Adult No.4 with Vit 270 360 150 K 10 ml Trace (Conc-1Ml/ Dose) 1 ml Potassium Chloride 60 meq Potassium Phosphate 20 mmol In Amino Acid 5%-D15w+Lytes* E* 1,000 ml @ 30 mls/hr IV .Q24H [facility] Rx#: [id number] Pipercillin/ Tazobactam 3 100 .375 g Potassium Chloride 20 meq 200 100 In Water For Injection 1 100ml.bag @ 50 mls/hr IVPB Q2H [facility] Rx#: [id number] Potassium Chloride 20 meq 100 In Water For Injection 1 100ml.bag @ 50 mls/hr IVPB Q2H [facility] Rx#: [id number] Sodium Chloride 0.45% 1, 320 240 100 000 ml @ 20 mls/hr IV . Q24H [facility] Rx#:[id number] Sodium Chloride 0.9% 1, 1000 000 ml @ 999 mls/hr IV . Q1H1M ONE Rx#:[id number] Sodium Ferric Gluconat- 100 100 Sucrose 125 mg In Sodium Chloride 0.9% 100 ml @ 100 mls/hr IVPB DAILY [facility] Rx#:[id number] metroNIDAZOLE-NS PMX 500 100 100 mg Intake, IV Titration 8.937 177.785 286.022 Amount Cisatracurium 200 mg In 121.676 Sodium Chloride 0.9% 180 ml @ 2 MCG/KG/MIN 7.944 mls/hr IV .Q24H [facility] Rx#: [id number] Propofol 1,000 mg In 8.937 177.785 164.346 Empty Bag 1 bag @ Titrate IV .Q0M [facility] Rx#: [id number] Output: Drainage 120 60 Right Lower Abdomen 120 60 Urine 3320 740 985 Other: Voiding Method Indwelling Catheter Indwelling Catheter ABP, PAP, CO, CI - Last Documented Arterial Blood Pressure 107/73 - Exam Abdomen: Soft, nondistended, dressing intact, ostomy pink with small amount of liquid stool - Labs CBC & Chem 7: 04/19/20 04:05 04/19/20 04:05 Labs: Abnormal Lab Results - Last 24 Hours (Table) 04/18/20 04/18/20 04/18/20 Range/Units 16:42 17:01 18:32 RBC (3.80-5.40) m/uL RDW (11.5-15.5) % ABG pH 7.57 H* 7.51 H (7.35-7.45) ABG pCO2 32 L (35-45) mmHg ABG pO2 53 L* 131 H (83-108) mmHg ABG HCO3 29 H 29 H (21-25) mmol/L ABG Total CO2 30 H 30 H (19-24) mmol/L ABG O2 Saturation 90.0 L 98.6 H (94-97) % Chloride (98-107) mmol/L BUN (7-17) mg/dL Creatinine (0.52-1.04) mg/dL Glucose (74-99) mg/dL POC Glucose (mg/dL) 169 H (75-99) mg/dL Calcium (8.4-10.2) mg/dL AST (14-36) U/L CK-MB (CK-2) (0.0-2.4) ng/mL Troponin I (0.000-0.034) ng/mL Total Protein (6.3-8.2) g/dL Albumin (3.5-5.0) g/dL 04/19/20 04/19/20 04/19/20 Range/Units 00:21 04:05 04:05 RBC 3.79 L (3.80-5.40) m/uL RDW 16.9 H (11.5-15.5) % ABG pH (7.35-7.45) ABG pCO2 (35-45) mmHg ABG pO2 (83-108) mmHg ABG HCO3 (21-25) mmol/L ABG Total CO2 (19-24) mmol/L ABG O2 Saturation (94-97) % Chloride 113 H (98-107) mmol/L BUN 23 H (7-17) mg/dL Creatinine 0.41 L (0.52-1.04) mg/dL Glucose 127 H (74-99) mg/dL POC Glucose (mg/dL) 172 H (75-99) mg/dL Calcium 7.6 L (8.4-10.2) mg/dL AST 39 H (14-36) U/L CK-MB (CK-2) (0.0-2.4) ng/mL Troponin I (0.000-0.034) ng/mL Total Protein 4.4 L (6.3-8.2) g/dL Albumin 2.1 L (3.5-5.0) g/dL 04/19/20 04/19/20 04/19/20 Range/Units 04:40 06:16 10:23 RBC (3.80-5.40) m/uL RDW (11.5-15.5) % ABG pH (7.35-7.45) ABG pCO2 49 H (35-45) mmHg ABG pO2 (83-108) mmHg ABG HCO3 32 H (21-25) mmol/L ABG Total CO2 33 H (19-24) mmol/L ABG O2 Saturation (94-97) % Chloride (98-107) mmol/L BUN (7-17) mg/dL Creatinine (0.52-1.04) mg/dL Glucose (74-99) mg/dL POC Glucose (mg/dL) 120 H (75-99) mg/dL Calcium (8.4-10.2) mg/dL AST (14-36) U/L CK-MB (CK-2) 9.9 H (0.0-2.4) ng/mL Troponin I 0.280 H* (0.000-0.034) ng/mL Total Protein (6.3-8.2) g/dL Albumin (3.5-5.0) g/dL 04/19/20 Range/Units 11:38 RBC (3.80-5.40) m/uL RDW (11.5-15.5) % ABG pH (7.35-7.45) ABG pCO2 (35-45) mmHg ABG pO2 (83-108) mmHg ABG HCO3 (21-25) mmol/L ABG Total CO2 (19-24) mmol/L ABG O2 Saturation (94-97) % Chloride (98-107) mmol/L BUN (7-17) mg/dL Creatinine (0.52-1.04) mg/dL Glucose (74-99) mg/dL POC Glucose (mg/dL) 127 H (75-99) mg/dL Calcium (8.4-10.2) mg/dL AST (14-36) U/L CK-MB (CK-2) (0.0-2.4) ng/mL Troponin I (0.000-0.034) ng/mL Total Protein (6.3-8.2) g/dL Albumin (3.5-5.0) g/dL Microbiology - Last 24 Hours (Table) 04/18/20 18:00 Gram Stain - Preliminary Sputum Sputum Culture - Preliminary 04/18/20 05:10 Blood Culture - Preliminary Blood No Growth after 24 hours 04/14/20 16:30 Blood Culture - Preliminary Blood No Growth after 96 hours 04/14/20 16:25 Blood Culture - Preliminary Blood No Growth after 96 hours 04/13/20 23:00 Anaerobic Culture - Final Abdomen Anaerobic Gm Negative Bacilli Clostridium perfringens 04/13/20 23:00 Anaerobic Culture - Final Abdomen Anaerobic Gm Negative Bacilli Anaerobic Gm Negative Bacilli#2 Clostridium perfringens Assessment and Plan (1) Perforated sigmoid colon Narrative/Plan: Patient with respiratory failure requiring ventilatory support. Small amount of pressors currently. Continue weaning pressors as able. Continue cardiac workup. Continue TPN. Monitor bowel function. Hopefully we'll be able to initiate some tube feeds shortly. Current Visit: Yes Status: Acute Code(s): K63.1 - PERFORATION OF INTESTINE (NONTRAUMATIC) SNOMED Code(s): 354026906
--- NOTE | 2020-04-19 14:34 | PN ---
PROGRESS NOTE Patient is seen for followup for acute kidney injury. She was Reintubated yesterday for worsening fluid overload. Patient did get about 2 doses of IV Lasix and diuresed quite a bit. However, she continued to remain hypoxic and mentation was declining. Therefore, patient was intubated. She is currently sedated. She is on the vent. She has had good urine output. PHYSICAL EXAMINATION: Blood pressure was 107/70, heart rate 84 per minute, she is afebrile. Examination of the heart S1, S2. Examination of the lungs, bilateral breath sounds are heard. Abdomen is soft, nontender. Examination of lower extremities shows trace edema bilaterally. SALESPERSON SHOES exam cannot be performed. LAB: Show sodium of 144, potassium 3.9, chloride 113, BUN 23, serum creatinine 0.41. ASSESSMENT: 1. Acute kidney injury, acute tubular necrosis, secondary to hypotension/hypoperfusion, currently improved. 2. Acute abdomen on admission status post explorative laparotomy, bowel resection and colostomy. 3. Volume overload, currently maintained on IV Lasix which we will continue. 4. Hypoxic respiratory failure. Chest x-ray showing pulmonary vascular congestion and small pleural effusions at the time of intubation yesterday. Chest x-ray from today is improved. 5. Iron deficiency, maintained on IV iron. 6. Altered mentation status, status post brain CT with no acute findings. PLAN: Continue with IV Lasix. Monitor potassium closely and replace aggressively. The patient is about positive 8 L since admission. MMODL / IJN: [id number] /
--- NOTE | 2020-04-19 15:00 | ECHOF ---
Referral Reason:ekg changes/troponin leak MEASUREMENTS -------- HEIGHT: 165.1 cm WEIGHT: 68.0 kg BP: IVSd: 1.1 cm (0.6 - 1.1) LVIDd: 3.2 cm (3.9 - 5.3) LVPWd: 1.1 cm (0.6 - 1.1) IVSs: 0.9 cm LVIDs: 2.8 cm LVPWs: 1.1 cm LAESV Index (A-L): 19.08 ml/m Ao Diam: 3.1 cm (2.0 - 3.7) AV Cusp: 2.2 cm (1.5 - 2.6) LA Diam: 2.0 cm (2.7 - 3.8) MV EXCURSION: 17.701 mm (> 18.000) MV EF SLOPE: 183 mm/s (70 - 150) EPSS: 0.5 cm MV E Reji: 0.63 m/s MV DecT: 207 ms MV A Reji: 0.57 m/s MV E/A Ratio: 1.09 RAP: 5.00 mmHg RVSP: 39.77 mmHg FINDINGS -------- Sinus rhythm. This was a technically good study. The left ventricular size is normal. Left ventricular wall thickness is normal. Overall left vent ricular systolic function is moderate-severely impaired with, an EF between 30 - 35 %. Apical anter ior LV wall motion is hypokinetic. Apical lateral LV wall motion is hypokinetic. Apical inferio r LV wall motion is hypokinetic. Apical septum LV wall motion is hypokinetic. . The findings a re consistent with apical ballooning syndrome The right ventricle is normal in size. The left atrial size is normal. Normal LA size by volume 22+/-6 ml/m2. The right atrial size is normal. The aortic valve is trileaflet and appears structurally normal. The mitral valve is normal. Mild mitral regurgitation is present. The tricuspid valve appears structurally normal. Moderate tricuspid regurgitation present. There is mild pulmonary hypertension. The right ventricular systolic pressure, as measured by Doppler, is 39.77mmHg. There is no pulmonic regurgitation present. The aortic root size is normal. Normal inferior vena cava with normal inspiratory collapse consistent with estimated right atrial pre ssure of 5 mmHg. There is no pericardial effusion. CONCLUSIONS -------- 1. Sinus rhythm. 2. This was a technically good study. 3. The left ventricular size is normal. 4. Left ventricular wall thickness is normal. 5. Overall left ventricular systolic function is moderate-severely impaired with, an EF between 30 - 35 %. 6. Apical anterior LV wall motion is hypokinetic. 7. Apical lateral LV wall motion is hypokinetic. 8. Apical inferior LV wall motion is hypokinetic. 9. Apical septum LV wall motion is hypokinetic. 10. . 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 The right ventricle is normal in size. 12. The left atrial size is normal. 13. Normal LA size by volume 22+/-6 ml/m2. 14. The right atrial size is normal. 15. The aortic valve is trileaflet and appears structurally normal. 16. The mitral valve is normal. 17. Mild mitral regurgitation is present. 18. The tricuspid valve appears structurally normal. 19. Moderate tricuspid regurgitation present. 20. There is mild pulmonary hypertension. 21. The right ventricular systolic pressure, as measured by Doppler, is 39.77mmHg. 22. There is no pulmonic regurgitation present. 23. The aortic root size is normal. 24. Normal inferior vena cava with normal inspiratory collapse consistent with estimated right atrial pressure of 5 mmHg. 25. There is no pericardial effusion. LICENSE DISTRIBUTOR: Rachele Benitez RDCS
--- NOTE | 2020-04-19 15:34 | P.CRDCN ---
History of Present Illness Consult date: 04/19/20 History of present illness: This is a 59-year-old female who has been here for many days. Patient had expiratory laparotomy for abdominal pain and was found to have ruptured sigmoid colon. Patient had a colectomy. Patient was extubated about couple of days ago. At the time. Her mental status was not the best. However, patient progressively got into respiratory failure requiring reintubation. Her EKG showed some T-wave inversions. Troponins were mildly elevated. We'll we're asked to re-evaluate the patient. An echocardiogram done today showed evidence of severe hypokinesis of the apical segments of the anterior lateral and also inferior suggestive of apical ballooning syndrome. We're waiting for further troponin value evaluation. Patient is been hypotensive. Not a candidate for beta dwight and SHAUN inhibitor hours at this time. Patient is receiving diuretics. I will treat her with digoxin at this time. Her prognosis is poor. EEG and CT scans are being planned Review of Systems As per the chart Past Medical History Past Medical History: Thyroid Disorder History of Any Multi-Drug Resistant Organisms: None Reported Past Surgical History: Bariatric Surgery, Section, Cholecystectomy, Tonsillectomy Additional Past Surgical History / Comment(s): gastric bypass, sinus Past Psychological History: Depression Smoking Status: Current every day smoker Past Alcohol Use History: None Reported Past Drug Use History: None Reported Medications and Allergies Home Medications Medication Instructions Recorded Confirmed Type Baclofen [Lioresal] 20 mg PO HS 03/30/18 04/13/20 History FLUoxetine HCL [PROzac] 20 mg PO DAILY 03/30/18 04/13/20 History Levothyroxine Sodium [Synthroid] 125 mcg PO DAILY 03/30/18 04/13/20 History Propranolol HCl [Inderal LA] 80 mg PO HS 03/30/18 04/13/20 History Rizatriptan Benzoate [Maxalt LEARNING COACH] 10 mg PO DAILY PRN 03/30/18 04/13/20 History Butalb/APAP/Caff 50-325-40Mg 1 tab PO Q4H PRN 04/13/20 04/13/20 History [Fioricet 50-325-40] Chlorthalidone 50 mg PO DAILY 04/13/20 04/13/20 History Cholecalciferol [Vitamin D3 (25 1,000 unit PO DAILY 04/13/20 04/13/20 History Mcg = 1000 Iu)] Multivitamins, Thera [Multivitamin 1 tab PO DAILY 04/13/20 04/13/20 History (formulary)] Allergies Allergy/AdvReac Type Severity Reaction Status Date / Time latex Allergy Rash/Hives Verified 04/13/20 12:08 Sulfa (Sulfonamide Allergy Unknown Verified 04/13/20 12:08 Antibiotics) Childhood Physical Exam Vitals: Vital Signs Temp Pulse Resp BP Pulse Ox 04/19/20 13:30 96 27 H 95 04/19/20 13:00 80 25 H 93 L 04/19/20 12:30 82 23 93 L 04/19/20 12:00 98.2 F 92 24 93 L 04/19/20 11:30 96 27 H 94 L 04/19/20 11:00 101 H 26 H 96 04/19/20 10:30 84 20 98 04/19/20 09:30 92 20 98 04/19/20 09:00 80 20 100 04/19/20 08:30 79 20 99 04/19/20 08:00 97.8 F 96 20 99 04/19/20 07:30 98 20 99 04/19/20 07:00 97 20 99 04/19/20 06:30 101 H 20 99 04/19/20 06:00 101 H 20 95 04/19/20 05:30 99 20 98 04/19/20 05:00 96 20 99 04/19/20 04:30 97 20 98 04/19/20 04:00 98.9 F 96 20 98 04/19/20 03:30 92 20 99 04/19/20 03:00 99 23 100 04/19/20 02:30 98 18 99 04/19/20 02:00 98 20 99 04/19/20 01:30 92 20 04/19/20 01:00 89 20 95 04/19/20 00:30 91 20 04/19/20 00:00 98.4 F 88 20 100 04/18/20 23:36 89 20 99 04/18/20 23:30 90 20 99 04/18/20 23:00 91 20 99 04/18/20 22:30 92 20 96 04/18/20 22:00 100 16 92 L 04/18/20 21:30 99 20 94 L 04/18/20 21:00 95 20 94 L 04/18/20 20:30 93 20 94 L 04/18/20 20:00 98.4 F 114 H 20 95 04/18/20 19:30 112 H 20 96 04/18/20 18:30 101 H 22 100 04/18/20 18:00 105 H 24 78/55 99 04/18/20 17:30 73 35 H 83/62 98 04/18/20 17:00 121 H 34 H 131/106 95 04/18/20 16:30 123 H 36 H 135/111 91 L 04/18/20 16:00 98.7 F 124 H 42 H 134/107 90 L 04/18/20 15:30 126 H 39 H 130/107 89 L Intake and Output 04/19/20 04/19/20 04/19/20 06:59 14:59 22:59 Intake Total 530.783 836.022 Output Total 450 985 Balance 80.783 -148.978 Intake: IV 400 550 Mvi, Adult No.4 with Vit 240 150 K 10 ml Trace (Conc-1Ml/ Dose) 1 ml Potassium Chloride 60 meq Potassium Phosphate 20 mmol In Amino Acid 5%-D15w+Lytes* E* 1,000 ml @ 30 mls/hr IV .Q24H [facility] Rx#: [id number] Potassium Chloride 20 meq 100 In Water For Injection 1 100ml.bag @ 50 mls/hr IVPB Q2H [facility] Rx#: [id number] Sodium Chloride 0.45% 1, 160 100 000 ml @ 20 mls/hr IV . Q24H [facility] Rx#:[id number] Sodium Ferric Gluconat- 100 Sucrose 125 mg In Sodium Chloride 0.9% 100 ml @ 100 mls/hr IVPB DAILY [facility] Rx#:[id number] metroNIDAZOLE-NS PMX 500 100 mg Intake, IV Titration 130.783 286.022 Amount Cisatracurium 200 mg In 121.676 Sodium Chloride 0.9% 180 ml @ 2 MCG/KG/MIN 7.944 mls/hr IV .Q24H [facility] Rx#: [id number] Propofol 1,000 mg In 130.783 164.346 Empty Bag 1 bag @ Titrate IV .Q0M [facility] Rx#: [id number] Output: Drainage 60 Right Lower Abdomen 60 Urine 390 985 Other: Voiding Method Indwelling Catheter Weight 66.2 kg ABP, PAP, CO, CI - Last 8 Hours Arterial Blood Pressure 100/63 Arterial Blood Pressure 95/57 Arterial Blood Pressure 93/57 Arterial Blood Pressure 94/59 Arterial Blood Pressure 92/61 Arterial Blood Pressure 107/73 Arterial Blood Pressure 107/70 Arterial Blood Pressure 89/53 Arterial Blood Pressure 81/49 Arterial Blood Pressure 85/56 Arterial Blood Pressure 104/63 Arterial Blood Pressure 96/60 GENERAL EXAM: Patient is intubated and sedated HEENT: Normocephalic. Normal reaction of pupils, equal size, normal range of ex traocular motion. No erythema or exudates in the throat. NECK: No masses, no nuchal rigidity. CHEST: No chest wall deformity. LUNGS: Equal air entry with no crackles or wheeze. HEART: S1 and S2 normal with no audible mumurs or gallops. Regular rhythm, femorals equal on both sides.. ABDOMEN: Postsurgical SKIN: No rashes CENTRAL NERVOUS SYSTEM: She is sedated Results 04/19/20 04:05 04/19/20 04:05 Cardiac Enzymes 04/19/20 04/19/20 Range/Units 04:05 10:23 AST 39 H (14-36) U/L CK-MB (CK-2) 9.9 H (0.0-2.4) ng/mL Troponin I 0.280 H* (0.000-0.034) ng/mL CBC 04/19/20 Range/Units 04:05 WBC 8.5 (3.8-10.6) k/uL RBC 3.79 L (3.80-5.40) m/uL Hgb 11.5 (11.4-16.0) gm/dL Hct 36.7 (34.0-46.0) % Plt Count 174 (150-450) k/uL Comprehensive Metabolic Panel 04/18/20 04/19/20 Range/Units 15:14 04:05 Sodium 144 (137-145) mmol/L Potassium 3.6 3.9 (3.5-5.1) mmol/L Chloride 113 H (98-107) mmol/L Carbon Dioxide 29 (22-30) mmol/L BUN 23 H (7-17) mg/dL Creatinine 0.41 L (0.52-1.04) mg/dL Glucose 127 H (74-99) mg/dL Calcium 7.6 L (8.4-10.2) mg/dL AST 39 H (14-36) U/L ALT 27 (4-34) U/L Alkaline Phosphatase 82 (38-126) U/L Total Protein 4.4 L (6.3-8.2) g/dL Albumin 2.1 L (3.5-5.0) g/dL Current Medications Generic Name Dose Route Start Last Admin Trade Name Freq PRN Reason Stop Dose Admin Artificial Tears 2 drops 04/18/20 20:00 04/19/20 11:40 Artificial Tear Drops BOTH EYES 2 drops Q4HR REE Administration Chlorhexidine Gluconate 15 ml 04/18/20 21:00 04/19/20 07:57 Peridex MUCOUS MEM 15 ml BID REE Administration Furosemide 40 mg 04/16/20 09:00 04/19/20 07:57 Lasix IV 40 mg DAILY REE Administration Haloperidol Lactate 2 mg 04/17/20 08:46 04/17/20 09:44 Haldol IVP 2 mg Q8HR PRN Administration Agitation or Acute Psychosis Haloperidol Lactate 4 mg 04/17/20 08:47 04/18/20 01:26 Haldol IVP 4 mg Q8HR PRN Administration Agitation or Acute Psychosis Heparin Sodium (Porcine) 5,000 unit 04/13/20 21:00 04/19/20 07:58 Heparin SQ 5,000 unit Q12HR REE Administration Hydromorphone HCl 1 mg 04/15/20 12:51 04/18/20 13:43 Dilaudid IVP 1 mg Q6HR PRN Administration MODERATE TO SEVERE Pain Piperacillin Sod/Tazobactam 100 mls @ 25 mls/hr 04/13/20 20:00 04/19/20 11:39 Sod 3.375 gm/ Sodium Chloride IVPB 25 mls/hr Q8H REE Administration Metronidazole 500 mg/ IV 100 mls @ 100 mls/hr 04/14/20 06:00 04/19/20 11:39 Solution IVPB 100 mls/hr Q6HR REE Administration Acetaminophen 1,000 mg/ IV 100 mls @ 400 mls/hr 04/14/20 14:40 04/17/20 22:54 Solution IVPB 400 mls/hr Q6HR PRN Administration Fever and/ or Pain Sodium Chloride 1,000 mls @ 20 mls/hr 04/15/20 08:45 04/18/20 18:26 Saline 0.45% IV Not Given .Q24H REE Ferric Sodium Gluconate 125 mg 110 mls @ 100 mls/hr 04/18/20 09:00 04/19/20 08:20 / Sodium Chloride IVPB 04/20/20 10:05 100 mls/hr DAILY REE Administration Parenteral Vitamin Supplement 1,047.6667 mls @ 30 mls/hr 04/18/20 17:00 04/18/20 18:26 10 ml/ Chromium/Copper/ IV 04/19/20 17:59 30 mls/hr Manganese/Seleni/Zn 1 ml/ .Q24H REE Administration Potassium Chloride 60 meq/ Potassium Phosphate 20 mmol/ Amino Ac/Electrol/Dextrose/ Calcium Cisatracurium Besylate 200 mg/ 200 mls @ 7.944 mls/hr 04/18/20 19:00 04/19/20 10:30 Sodium Chloride IV 0 mcg/kg/min .Q24H REE 0 mls/hr Titration Protocol 2 MCG/KG/MIN Norepinephrine Bitartrate 8 mg 258 mls @ 6.405 mls/hr 04/18/20 20:30 04/19/20 07:52 / Sodium Chloride IV Not Given .Q24H [facility] Protocol 0.05 MCG/KG/MIN Parenteral Vitamin Supplement 1,036 mls @ 55 mls/hr 04/19/20 18:00 10 ml/ Chromium/Copper/ IV Manganese/Seleni/Zn 1 ml/ .[id number] [facility] Potassium Chloride 40 meq/ Potassium Phosphate 15 mmol/ Amino Ac/Electrol/Dextrose/ Calcium Propofol 1,000 mg/ IV Solution 100 mls @ 0 mls/hr 04/19/20 11:00 IV .Q0M [facility] Protocol Titrate Insulin Aspart 0 unit 04/18/20 12:00 04/19/20 11:38 Novolog SQ Not Given Q6H [facility] Protocol Levothyroxine Sodium 100 mcg 04/18/20 09:00 04/19/20 07:57 Synthroid Ivp IV 100 mcg DAILY REE Administration Metoprolol Tartrate 5 mg 04/16/20 09:00 04/19/20 07:58 Lopressor IVP 5 mg BID REE Administration Miscellaneous Information 1 each 04/16/20 05:37 Potassium Per Protocol MISCELLANE DAILY PRN Per Protocol Protocol Miscellaneous Information 1 each 04/17/20 05:20 Phosphorus Per Protocol MISCELLANE DAILY PRN Per Protocol Protocol Naloxone HCl 0.2 mg 04/13/20 11:56 Narcan IV Q2M PRN Opioid Reversal Pantoprazole Sodium 40 mg 04/14/20 09:00 04/19/20 07:59 Protonix IV 40 mg DAILY REE Administration Spironolactone 50 mg 04/17/20 09:00 04/19/20 07:59 Aldactone PO 50 mg DAILY REE Administration Thiamine HCl 100 mg 04/18/20 11:00 04/19/20 07:59 Vitamin B-1 IVP 100 mg Q12HR REE Administration Intake and Output 04/19/20 04/19/20 04/19/20 06:59 14:59 22:59 Intake Total 530.783 836.022 Output Total 450 985 Balance 80.783 -148.978 Intake: IV 400 550 Mvi, Adult No.4 with Vit 240 150 K 10 ml Trace (Conc-1Ml/ Dose) 1 ml Potassium Chloride 60 meq Potassium Phosphate 20 mmol In Amino Acid 5%-D15w+Lytes* E* 1,000 ml @ 30 mls/hr IV .Q24H [facility] Rx#: [id number] Potassium Chloride 20 meq 100 In Water For Injection 1 100ml.bag @ 50 mls/hr IVPB Q2H [facility] Rx#: [id number] Sodium Chloride 0.45% 1, 160 100 000 ml @ 20 mls/hr IV . Q24H [facility] Rx#:[id number] Sodium Ferric Gluconat- 100 Sucrose 125 mg In Sodium Chloride 0.9% 100 ml @ 100 mls/hr IVPB DAILY [facility] Rx#:[id number] metroNIDAZOLE-NS PMX 500 100 mg Intake, IV Titration 130.783 286.022 Amount Cisatracurium 200 mg In 121.676 Sodium Chloride 0.9% 180 ml @ 2 MCG/KG/MIN 7.944 mls/hr IV .Q24H [facility] Rx#: [id number] Propofol 1,000 mg In 130.783 164.346 Empty Bag 1 bag @ Titrate IV .Q0M [facility] Rx#: [id number] Output: Drainage 60 Right Lower Abdomen 60 Urine 390 985 Other: Voiding Method Indwelling Catheter Weight 66.2 kg Patient Weight 04/20/20 06:59 Weight 66.2 kg 04/19/20 04:05 04/19/20 04:05 EKG Interpretations (text) Showed sinus rhythm with T-wave inversion in the anterior leads Assessment and Plan (1) Apical ballooning syndrome Current Visit: Yes Status: Acute Code(s): I51.81 - TAKOTSUBO SYNDROME SNOMED Code(s): 286975425 (2) Perforated sigmoid colon Current Visit: Yes Status: Acute Code(s): K63.1 - PERFORATION OF INTESTINE (NONTRAUMATIC) SNOMED Code(s): 221210332 (3) Status post colectomy Current Visit: Yes Status: Acute Code(s): Z90.49 - ACQUIRED ABSENCE OF OTHER SPECIFIED PARTS OF DIGESTIVE TRACT SNOMED Code(s): 695905550 (4) History of gastric bypass Current Visit: Yes Status: Acute Code(s): Z98.84 - BARIATRIC SURGERY STATUS SNOMED Code(s): 725187205 (5) Hypothyroidism Current Visit: Yes Status: Acute Code(s): E03.9 - HYPOTHYROIDISM, UNSPECIFIED SNOMED Code(s): 84563539 (6) Congestive heart failure Current Visit: Yes Status: Acute Code(s): I50.9 - HEART FAILURE, UNSPECIFIED SNOMED Code(s): 94797176 Plan: As patient is hypotensive, I'm not initiating beta dwight or SHAUN inhibitor at this time. We'll treat her with digoxin. If the blood pressure stabilizes, we'll start her on beta dwight and also SHAUN inhibitor . Continue the diuretics. Prognosis is poor
[2020-04-19] MEDS ORDERED: DIGOXIN 250 MCG/ML 2 ML AMP IVP ONE (15:43)
[2020-04-19] MEDS: SODIUM CHLORIDE 0.45% 1,000 ML IV SCH (15:58)
[2020-04-19 17:11] LABS: Glucose,Whole Blood 143 mg/dL (75-99)
[2020-04-19] MEDS: CARVEDILOL 1.563 MG TAB PO SCH (17:19)
[2020-04-19] MEDS: MVI, ADULT NO.4 WITH VIT K 10 ML, TRACE (CONC-1ML/DOSE) 1 ML, POTASSIUM CHLORIDE 60 MEQ... IV SCH ×5 (17:43)
[2020-04-19] MEDS ORDERED: MVI, ADULT NO.4 WITH VIT K 10 ML, TRACE (CONC-1ML/DOSE) 1 ML, POTASSIUM CHLORIDE 40 MEQ... IV SCH ×5 (18:00)
--- NOTE | 2020-04-19 18:26 | PN ---
PROGRESS NOTE DATE OF SERVICE: 04/19/2020 REASON FOR FOLLOWUP: Secondary peritonitis from perforated sigmoid diverticulitis. INTERVAL HISTORY: Patient did go into respiratory distress last night and ended up getting intubated. The patient did require pressor support for a short time last night. However, is off the pressor support. The patient's FiO2 is currently 50%. She did have some frothy secretion yesterday at the time of intubation. None since then and no other changes have been reported by the nursing staff. PHYSICAL EXAMINATION: Blood pressure 100/63 with a pulse of 93, temperature 98.2. She is 95% on 50% FiO2. General description is an elderly female intubated on the vent. Respiratory system: Unlabored breathing. Clear to auscultation anteriorly. HEART: S1, S2. Regular rate and rhythm. ABDOMEN: Soft, no guarding, no rigidity. LABS: Hemoglobin is 11.5, white count 8.5, creatinine 0.41. DIAGNOSTIC IMPRESSION AND PLAN: Patient with abdominal abscess from perforated sigmoid diverticulitis status post laparotomy, repair of such. Culture positive for multiple pathogen. Patient is currently covered with Zosyn to continue and monitor clinical course closely. Continue supportive care. MMODL / IJN: [id number] /
[2020-04-19] MEDS: HYDROmorphone 1 MG/ML 1 ML SYRINGE IVP PRN (20:08)
[2020-04-19] MEDS ORDERED: DIGOXIN 250 MCG/ML 2 ML AMP IVP SCH (22:00)
[2020-04-20 01:44] LABS: Glucose,Whole Blood 160 mg/dL (75-99)
[2020-04-20] MEDS: INSULIN ASPART (NovoLOG) 100 UNIT/ML VIAL SQ SCH ×5 (01:47→23:59)
[2020-04-20] MEDS: PIPERACILLIN-TAZOBACTAM 3.375 GM in SODIUM CHLORIDE 0.9% 100 ML IVPB SCH ×3 (03:00→21:01)
[2020-04-20] MEDS: PROPOFOL 1,000 MG in EMPTY BAG 1 BAG IV SCH ×3 (04:08→19:10)
[2020-04-20 04:36] LABS: ALT 25 U/L (4-34); AST 33 U/L (14-36); African American GFR (CKD) >90 (>60 ml/min/1.73 sqM); Albumin 2.2 g/dL (3.5-5.0); Alkaline Phosphatase 84 U/L (38-126); Anion Gap 3 mmol/L; Blood Urea Nitrogen 29 mg/dL (7-17); Calcium 8.1 mg/dL (8.4-10.2); Carbon Dioxide 33 mmol/L (22-30); Chloride 111 mmol/L (98-107); Glucose 146 mg/dL (74-99); Non-African American GFR(CKD) >90 (>60 ml/min/1.73 sqM); Phosphorus 3.2 mg/dL (2.5-4.5); Potassium 3.9 mmol/L (3.5-5.1); Sodium 147 mmol/L (137-145); Total Bilirubin 0.4 mg/dL (0.2-1.3); Total Protein 4.7 g/dL (6.3-8.2)
[2020-04-20 04:37] LABS: Anisocytosis Slight; HCT 39.7 % (34.0-46.0); HGB 12.8 gm/dL (11.4-16.0); Hypochromasia Slight; MCH 31.6 pg (25.0-35.0); MCHC 32.2 g/dL (31.0-37.0); MCV 98.3 fL (80.0-100.0); Macrocytosis Slight; Mean Platelet Volume 9.5; Platelet Count 233 k/uL (150-450); RBC 4.04 m/uL (3.80-5.40); RDW 16.8 % (11.5-15.5)
[2020-04-20 04:58] LABS: ABG Base Excess 11.8 mmol/L; ABG HCO3 35 mmol/L (21-25); ABG Oxygen Saturation 95.9 % (94-97); ABG PCO2 45 mmHg (35-45); ABG PO2 79 mmHg (83-108); ABG TCO2 36 mmol/L (19-24); Allen Test Performed? Yes
[2020-04-20] MEDS ORDERED: POTASSIUM CHLORIDE 20 MEQ in WATER FOR INJECTION 1 100ML.BAG IVPB STA (04:59)
[2020-04-20 05:06] LABS: Large Platelets Present; Metamyelocytes # (M) 0.11 k/uL (0); Metamyelocytes % 1 %; Monocytes # (M) 0.86 k/uL (0-1.0); Myelocytes # (M) 0.11 k/uL (0); Myelocytes % 1 %; Neutrophils # (M) 8.53 k/uL (1.3-7.7); Neutrophils % (M) 79 %; Nucleated Red Blood Cells 2 /100 WBC (0-0); Total Cells Counted 200; WBC 10.8 k/uL (3.8-10.6)
--- NOTE | 2020-04-20 05:58 | XR ---
EXAMINATION TYPE: XR chest 1V portable DATE OF EXAM: 04/20/2020 HISTORY: Tube placement. REFERENCE: Previous study dated 04/19/2020. FINDINGS: The patient remains intubated. ET tube is in good position. The NG tube is pulled back and the last sidehole is at the GE junction. This should likely be advanced.. There is bibasilar airspace disease. This is improved slightly. There are small, bilateral effusions. The heart is not enlarged. IMPRESSION: 1. IMPROVED AERATION, BOTH LUNGS. 2. THE LAST SIDEHOLE OF THE ET TUBE IS AT THE LEVEL OF THE GE JUNCTION AND SHOULD LIKELY BE ADVANCED SLIGHTLY.
[2020-04-20 05:59] LABS: Glucose,Whole Blood 137 mg/dL (75-99)
[2020-04-20] MEDS: metroNIDAZOLE-NS PMX 500 MG in SALINE 1 100ML.BAG IVPB SCH ×4 (06:35→19:20)
[2020-04-20] MEDS: CARVEDILOL 1.563 MG TAB PO SCH ×2 (08:45→19:10)
[2020-04-20] MEDS: SODIUM FERRIC GLUCONAT-SUCROSE 125 MG in SODIUM CHLORIDE 0.9% 100 ML IVPB SCH (09:30)
[2020-04-20] MEDS: THIAMINE 100 MG/ML 2 ML VIAL IVP SCH ×2 (09:31→20:53)
[2020-04-20] MEDS: HEPARIN SODIUM,PORCINE 5,000 UNIT/ML 1 ML VIAL SQ SCH ×2 (09:31→20:53)
[2020-04-20] MEDS: FUROSEMIDE 10 MG/ML 4 ML VIAL IV SCH ×2 (09:32→20:53)
[2020-04-20] MEDS: LEVOTHYROXINE IVP 100 MCG/5 ML VIAL IV SCH (09:32)
[2020-04-20] MEDS: DIGOXIN 250 MCG/ML 2 ML AMP IVP SCH (09:33)
[2020-04-20] MEDS: CHLORHEXIDINE GLUCONATE 15 ML CUP MUCOUS MEM SCH ×2 (09:33→20:53)
[2020-04-20] MEDS: PANTOPRAZOLE 40 MG/10 ML VIAL IV SCH (09:33)
[2020-04-20] MEDS: SPIRONOLACTONE 25 MG TAB PO SCH (09:33)
--- NOTE | 2020-04-20 09:56 | P.PN ---
Subjective Progress Note Date: 04/20/20 Principal diagnosis: Colonic perforation Patient remains on the ventilator. Low-dose Levophed still present. White blood cell count 10.8. Urine output was low overnight but improved at this time. Going to have a EEG today. Ostomy remains pink without significant output. Objective - Vital Signs Vital signs: Vital Signs Temp 98.4 F 04/20/20 04:00 Pulse 87 04/20/20 07:00 Resp 20 04/20/20 07:00 BP 78/55 04/18/20 18:00 Pulse Ox 100 04/20/20 07:00 Intake & Output 04/19/20 04/20/20 04/20/20 18:59 06:59 18:59 Intake Total 7312.977 2853.627 264.693 Output Total 1785 2560 35 Balance -269.032 -1248.373 229.693 Weight 66.2 kg 77.6 kg Intake: IV 1175 335 100 Mvi, Adult No.4 with Vit 535 55 K 10 ml Trace (Conc-1Ml/ Dose) 1 ml Potassium Chloride 60 meq Potassium Phosphate 20 mmol In Amino Acid 5%-D15w+Lytes* E* 1,000 ml @ 30 mls/hr IV .Q24H [facility] Rx#: [id number] Pipercillin/ Tazobactam 3 200 .375 g Potassium Chloride 20 meq 100 In Water For Injection 1 100ml.bag @ 50 mls/hr IVPB Q2H [facility] Rx#: [id number] Sodium Chloride 0.45% 1, 240 80 000 ml @ 20 mls/hr IV . Q24H [facility] Rx#:[id number] Sodium Ferric Gluconat- 100 Sucrose 125 mg In Sodium Chloride 0.9% 100 ml @ 100 mls/hr IVPB DAILY [facility] Rx#:[id number] metroNIDAZOLE-NS PMX 500 200 100 mg Intake, IV Titration 340.968 976.627 164.693 Amount Cisatracurium 200 mg In 121.676 Sodium Chloride 0.9% 180 ml @ 2 MCG/KG/MIN 7.944 mls/hr IV .Q24H [facility] Rx#: [id number] Mvi, Adult No.4 with Vit 440 55 K 10 ml Trace (Conc-1Ml/ Dose) 1 ml Potassium Chloride 40 meq Potassium Phosphate 15 mmol In Amino Acid 5%-D15w+Lytes* E* 1,000 ml @ 55 mls/hr IV .[id number] [facility] Rx#: [id number] Norepinephrine 8 mg In 91.891 Sodium Chloride 0.9% 250 ml @ 0.05 MCG/KG/MIN 6. 405 mls/hr IV .Q24H [facility] Rx#:[id number] Potassium Chloride 20 meq 100 In Water For Injection 1 100ml.bag @ 50 mls/hr IVPB ONCE [facility] Rx#: [id number] Propofol 1,000 mg In 164.346 Empty Bag 1 bag @ Titrate IV .Q0M [facility] Rx#: [id number] Propofol 1,000 mg In 54.946 184.736 109.693 Empty Bag 1 bag @ Titrate IV .Q0M [facility] Rx#: [id number] Sodium Chloride 0.45% 1, 160 000 ml @ 20 mls/hr IV . Q24H [facility] Rx#:[id number] Output: Drainage 100 130 Right Lower Abdomen 100 130 Urine 1685 2430 35 Other: Voiding Method Indwelling Catheter Indwelling Catheter ABP, PAP, CO, CI - Last Documented Arterial Blood Pressure 103/65 - Exam Abdomen: Soft, mild distention, no appreciable tenderness currently, dressing in place, ostomy pink with mucousy output - Labs CBC & Chem 7: 04/20/20 04:11 04/20/20 04:11 Labs: Abnormal Lab Results - Last 24 Hours (Table) 04/19/20 04/19/20 04/19/20 Range/Units 10:23 11:38 17:10 WBC (3.8-10.6) k/uL RDW (11.5-15.5) % Neutrophils # (Manual) (1.3-7.7) k/uL Metamyelocytes # (Man) (0) k/uL Myelocytes # (Manual) (0) k/uL Nucleated RBCs (0-0) /100 WBC ABG pH (7.35-7.45) ABG pO2 (83-108) mmHg ABG HCO3 (21-25) mmol/L ABG Total CO2 (19-24) mmol/L Sodium (137-145) mmol/L Chloride (98-107) mmol/L Carbon Dioxide (22-30) mmol/L BUN (7-17) mg/dL Creatinine (0.52-1.04) mg/dL Glucose (74-99) mg/dL POC Glucose (mg/dL) 127 H 143 H (75-99) mg/dL Calcium (8.4-10.2) mg/dL CK-MB (CK-2) 9.9 H (0.0-2.4) ng/mL Troponin I 0.280 H* (0.000-0.034) ng/mL Total Protein (6.3-8.2) g/dL Albumin (3.5-5.0) g/dL 04/19/20 04/20/20 04/20/20 Range/Units 17:10 01:42 04:11 WBC (3.8-10.6) k/uL RDW (11.5-15.5) % Neutrophils # (Manual) (1.3-7.7) k/uL Metamyelocytes # (Man) (0) k/uL Myelocytes # (Manual) (0) k/uL Nucleated RBCs (0-0) /100 WBC ABG pH (7.35-7.45) ABG pO2 (83-108) mmHg ABG HCO3 (21-25) mmol/L ABG Total CO2 (19-24) mmol/L Sodium 147 H (137-145) mmol/L Chloride 111 H (98-107) mmol/L Carbon Dioxide 33 H (22-30) mmol/L BUN 29 H (7-17) mg/dL Creatinine 0.44 L (0.52-1.04) mg/dL Glucose 146 H (74-99) mg/dL POC Glucose (mg/dL) 160 H (75-99) mg/dL Calcium 8.1 L (8.4-10.2) mg/dL CK-MB (CK-2) (0.0-2.4) ng/mL Troponin I 0.204 H* (0.000-0.034) ng/mL Total Protein 4.7 L (6.3-8.2) g/dL Albumin 2.2 L (3.5-5.0) g/dL 04/20/20 04/20/20 04/20/20 Range/Units 04:11 04:52 05:58 WBC 10.8 H (3.8-10.6) k/uL RDW 16.8 H (11.5-15.5) % Neutrophils # (Manual) 8.53 H (1.3-7.7) k/uL Metamyelocytes # (Man) 0.11 H (0) k/uL Myelocytes # (Manual) 0.11 H (0) k/uL Nucleated RBCs 2 H (0-0) /100 WBC ABG pH 7.50 H (7.35-7.45) ABG pO2 79 L (83-108) mmHg ABG HCO3 35 H (21-25) mmol/L ABG Total CO2 36 H (19-24) mmol/L Sodium (137-145) mmol/L Chloride (98-107) mmol/L Carbon Dioxide (22-30) mmol/L BUN (7-17) mg/dL Creatinine (0.52-1.04) mg/dL Glucose (74-99) mg/dL POC Glucose (mg/dL) 137 H (75-99) mg/dL Calcium (8.4-10.2) mg/dL CK-MB (CK-2) (0.0-2.4) ng/mL Troponin I (0.000-0.034) ng/mL Total Protein (6.3-8.2) g/dL Albumin (3.5-5.0) g/dL Microbiology - Last 24 Hours (Table) 04/18/20 05:10 Blood Culture - Preliminary Blood No Growth after 48 hours 04/14/20 16:30 Blood Culture - Preliminary Blood No Growth after 120 hours 04/14/20 16:25 Blood Culture - Preliminary Blood No Growth after 120 hours 04/18/20 18:00 Gram Stain - Preliminary Sputum Sputum Culture - Preliminary Assessment and Plan (1) Perforated sigmoid colon Narrative/Plan: Continue TPN and nothing by mouth. Continue weaning pressors as able. Continue neurologic workup. Possible tracheostomy and PEG tube placement this week. Current Visit: Yes Status: Acute Code(s): K63.1 - PERFORATION OF INTESTINE (NONTRAUMATIC) SNOMED Code(s): 825571808
[2020-04-20 11:15] LABS: Glucose,Whole Blood 128 mg/dL (75-99)
--- NOTE | 2020-04-20 11:41 | P.PN ---
Subjective Progress Note Date: 04/20/20 This is 59-year-old female who has undergone surgery for ruptured sigmoid colon and had colectomy. Patient has been having his present difficulties and has been intubated 2. Recent EKGs and Cardec enzymes were abnormal and echo Cardigan showed findings consistent with apical ballooning syndrome with her low ejection fraction. Patient has been hypotensive. We have initiated Lanoxin. Yesterday. Her blood pressure is better and she is urinating better. We'll going to start patient on Coreg. If blood pressure remains stable we'll make add SHAUN inhibitor later on. Meanwhile rest of the medication and treatment to be continued. Patient is going to have EEG for assessment of the brain function. Further recommendation depending upon the clinical course Objective - Vital Signs Vital signs: Vital Signs Temp 99.1 F 04/20/20 08:00 Pulse 90 04/20/20 11:00 Resp 23 04/20/20 11:00 BP 122/90 04/20/20 11:00 Pulse Ox 98 04/20/20 11:00 Intake & Output 04/19/20 04/20/20 04/20/20 18:59 06:59 18:59 Intake Total 9276.189 8784.627 664.693 Output Total 1785 2560 260 Balance -269.032 -1248.373 404.693 Weight 66.2 kg 77.6 kg Intake: IV 1175 335 500 Mvi, Adult No.4 with Vit 535 55 220 K 10 ml Trace (Conc-1Ml/ Dose) 1 ml Potassium Chloride 60 meq Potassium Phosphate 20 mmol In Amino Acid 5%-D15w+Lytes* E* 1,000 ml @ 30 mls/hr IV .Q24H [facility] Rx#: [id number] Pipercillin/ Tazobactam 3 200 .375 g Potassium Chloride 20 meq 100 In Water For Injection 1 100ml.bag @ 50 mls/hr IVPB Q2H [facility] Rx#: [id number] Sodium Chloride 0.45% 1, 240 80 40 000 ml @ 20 mls/hr IV . Q24H [facility] Rx#:[id number] Sodium Chloride 0.9% 1,00 40 mL Sodium Ferric Gluconat- 100 100 Sucrose 125 mg In Sodium Chloride 0.9% 100 ml @ 100 mls/hr IVPB DAILY [facility] Rx#:[id number] metroNIDAZOLE-NS PMX 500 200 100 mg Intake, IV Titration 340.968 976.627 164.693 Amount Cisatracurium 200 mg In 121.676 Sodium Chloride 0.9% 180 ml @ 2 MCG/KG/MIN 7.944 mls/hr IV .Q24H [facility] Rx#: [id number] Mvi, Adult No.4 with Vit 440 55 K 10 ml Trace (Conc-1Ml/ Dose) 1 ml Potassium Chloride 40 meq Potassium Phosphate 15 mmol In Amino Acid 5%-D15w+Lytes* E* 1,000 ml @ 55 mls/hr IV .[id number] [facility] Rx#: [id number] Norepinephrine 8 mg In 91.891 Sodium Chloride 0.9% 250 ml @ 0.05 MCG/KG/MIN 6. 405 mls/hr IV .Q24H [facility] Rx#:[id number] Potassium Chloride 20 meq 100 In Water For Injection 1 100ml.bag @ 50 mls/hr IVPB ONCE STA Rx#: [id number] Propofol 1,000 mg In 164.346 Empty Bag 1 bag @ Titrate IV .Q0M [facility] Rx#: [id number] Propofol 1,000 mg In 54.946 184.736 109.693 Empty Bag 1 bag @ Titrate IV .Q0M [facility] Rx#: [id number] Sodium Chloride 0.45% 1, 160 000 ml @ 20 mls/hr IV . Q24H [facility] Rx#:[id number] Output: Drainage 100 130 Right Lower Abdomen 100 130 Urine 1685 2430 260 Other: Voiding Method Indwelling Catheter Indwelling Catheter ABP, PAP, CO, CI - Last Documented Arterial Blood Pressure 142/87 - Exam GENERAL EXAM: Patient is sedated and intubated HEENT: Normocephalic. NECK: No masses, no nuchal rigidity. CHEST: No chest wall deformity. LUNGS: Diminished breath sounds HEART: S1 and S2 normal with no audible mumurs or gallops. Regular rhythm, femorals equal on both sides.. ABDOMEN: No hepatosplenomegaly, normal bowel sounds, no guarding or rigidity. SKIN: No rashes CENTRAL NERVOUS SYSTEM: Patient is sedated - Labs CBC & Chem 7: 04/20/20 04:11 04/20/20 04:11 Labs: Abnormal Lab Results - Last 24 Hours (Table) 04/19/20 04/19/20 04/19/20 Range/Units 11:38 17:10 17:10 WBC (3.8-10.6) k/uL RDW (11.5-15.5) % Neutrophils # (Manual) (1.3-7.7) k/uL Metamyelocytes # (Man) (0) k/uL Myelocytes # (Manual) (0) k/uL Nucleated RBCs (0-0) /100 WBC ABG pH (7.35-7.45) ABG pO2 (83-108) mmHg ABG HCO3 (21-25) mmol/L ABG Total CO2 (19-24) mmol/L Sodium (137-145) mmol/L Chloride (98-107) mmol/L Carbon Dioxide (22-30) mmol/L BUN (7-17) mg/dL Creatinine (0.52-1.04) mg/dL Glucose (74-99) mg/dL POC Glucose (mg/dL) 127 H 143 H (75-99) mg/dL Calcium (8.4-10.2) mg/dL Troponin I 0.204 H* (0.000-0.034) ng/mL Total Protein (6.3-8.2) g/dL Albumin (3.5-5.0) g/dL 04/20/20 04/20/20 04/20/20 Range/Units 01:42 04:11 04:11 WBC 10.8 H (3.8-10.6) k/uL RDW 16.8 H (11.5-15.5) % Neutrophils # (Manual) 8.53 H (1.3-7.7) k/uL Metamyelocytes # (Man) 0.11 H (0) k/uL Myelocytes # (Manual) 0.11 H (0) k/uL Nucleated RBCs 2 H (0-0) /100 WBC ABG pH (7.35-7.45) ABG pO2 (83-108) mmHg ABG HCO3 (21-25) mmol/L ABG Total CO2 (19-24) mmol/L Sodium 147 H (137-145) mmol/L Chloride 111 H (98-107) mmol/L Carbon Dioxide 33 H (22-30) mmol/L BUN 29 H (7-17) mg/dL Creatinine 0.44 L (0.52-1.04) mg/dL Glucose 146 H (74-99) mg/dL POC Glucose (mg/dL) 160 H (75-99) mg/dL Calcium 8.1 L (8.4-10.2) mg/dL Troponin I (0.000-0.034) ng/mL Total Protein 4.7 L (6.3-8.2) g/dL Albumin 2.2 L (3.5-5.0) g/dL 04/20/20 04/20/20 04/20/20 Range/Units 04:52 05:58 11:14 WBC (3.8-10.6) k/uL RDW (11.5-15.5) % Neutrophils # (Manual) (1.3-7.7) k/uL Metamyelocytes # (Man) (0) k/uL Myelocytes # (Manual) (0) k/uL Nucleated RBCs (0-0) /100 WBC ABG pH 7.50 H (7.35-7.45) ABG pO2 79 L (83-108) mmHg ABG HCO3 35 H (21-25) mmol/L ABG Total CO2 36 H (19-24) mmol/L Sodium (137-145) mmol/L Chloride (98-107) mmol/L Carbon Dioxide (22-30) mmol/L BUN (7-17) mg/dL Creatinine (0.52-1.04) mg/dL Glucose (74-99) mg/dL POC Glucose (mg/dL) 137 H 128 H (75-99) mg/dL Calcium (8.4-10.2) mg/dL Troponin I (0.000-0.034) ng/mL Total Protein (6.3-8.2) g/dL Albumin (3.5-5.0) g/dL Microbiology - Last 24 Hours (Table) 04/18/20 05:10 Blood Culture - Preliminary Blood No Growth after 48 hours 04/14/20 16:30 Blood Culture - Preliminary Blood No Growth after 120 hours 04/14/20 16:25 Blood Culture - Preliminary Blood No Growth after 120 hours 04/18/20 18:00 Gram Stain - Preliminary Sputum Sputum Culture - Preliminary Assessment and Plan (1) Apical ballooning syndrome Current Visit: Yes Status: Acute Code(s): I51.81 - TAKOTSUBO SYNDROME SNOMED Code(s): 864917254 (2) Perforated sigmoid colon Current Visit: Yes Status: Acute Code(s): K63.1 - PERFORATION OF INTESTINE (NONTRAUMATIC) SNOMED Code(s): 482316745 (3) Status post colectomy Current Visit: Yes Status: Acute Code(s): Z90.49 - ACQUIRED ABSENCE OF OTHER SPECIFIED PARTS OF DIGESTIVE TRACT SNOMED Code(s): 288554295 (4) History of gastric bypass Current Visit: Yes Status: Acute Code(s): Z98.84 - BARIATRIC SURGERY STATUS SNOMED Code(s): 271997671 (5) Hypothyroidism Current Visit: Yes Status: Acute Code(s): E03.9 - HYPOTHYROIDISM, UNSPECIFIED SNOMED Code(s): 09256319 (6) Congestive heart failure Current Visit: Yes Status: Acute Code(s): I50.9 - HEART FAILURE, UNSPECIFIED SNOMED Code(s): 25301720 Plan: Continue current medical therapy. Add beta dwight. We'll also add SHAUN inhibitor as tolerated. Prognosis still guarded
--- NOTE | 2020-04-20 11:45 | PN ---
PROGRESS NOTE The patient is seen for followup for acute kidney injury. Her renal function has improved significantly. The patient developed volume overload and was reintubated. She is currently maintained on IV Lasix at 40 mg Q 12 hours. The patient's ejection fraction on repeat echocardiogram was significantly lower as compared to the echocardiogram done on April 14. The EF on April 14 was about 60-65 percent and now it was at 30-35 percent. The patient remains on the vent. PHYSICAL EXAMINATION: Patient is sedated. Blood pressure 103/65, heart rate 87 per minute. She is afebrile. Examination of the heart S1, S2. Examination of the lungs, bilateral breath sounds are heard. ABDOMEN: Soft, distended. Exam of lower extremities shows edema 1+ bilaterally. COMMUNICATION STUDIES PROFESSOR exam cannot be assessed. LABS: Show sodium 147, potassium 3.9, chloride 111, CO2 is 33, BUN 29, creatinine 0.4. ASSESSMENT: 1. Acute kidney injury secondary to sepsis, hypotension, initially currently resolved. 2. Volume overload, maintained on IV Lasix, diuresing well. 3. Hypernatremia associated with free water deficit. I will add free water down the feeding tube and increase it. 4. Hypoxic respiratory failure secondary to congestive heart failure. The patient was reintubated 2 days ago. 5. Acute abdomen, status post explorative laparotomy, sigmoid resection and colostomy for perforated bowel. 6. Altered mentation with no acute findings on CT scan. PLAN: Continue with IV Lasix. Increase free water down the feeding tube. Repeat labs in a.m. MMODL / IJN: [id number] /
--- NOTE | 2020-04-20 11:53 | PN ---
PROGRESS NOTE DATE OF SERVICE: April 20, 2020. This is a 59-year-old female seen 6 days ago in consultation. She is postop day #7 status post exploratory laparotomy with sigmoid colectomy for perforated sigmoid colon, Nelson's procedure, disimpaction of descending colon, open active appendectomy, abdominal washout for fecal peritonitis with 6 L of saline, placement of a Gage- Quintana drain, and application of an incisional wound VAC system. The surgery was done by Dr. Ojeda. The patient was initially intubated and extubated successfully on April 16. Unfortunately, because of increasing respiratory rate and respiratory insufficiency and mental status changes, she needed to be reintubated on April 18. Currently, she remains on the ventilator. She is on the volume assist-control mode rate of 20, tidal volume 350, FiO2 of 50%, PEEP of 10. Blood gases show pO2 of 79, a pCO2 of 45 and a pH 7.5. Yesterday, she was on FiO2 of 80% with a PEEP of 5. She is currently on norepinephrine at 6.2 mcg/minute TPN at 55 mL an hour, propofol at 30 mcg/kg per minute and saline at 10 mL an hour. Her ejection fraction is significantly reduced now and down to about 30-[address] Waldrop saw the patient yesterday and thought it was related to apical ballooning. A CT of the brain was negative. EEG will be done today. She is currently on Flagyl and Zosyn. PHYSICAL EXAMINATION: VITAL SIGNS: Current vital signs are reviewed. Temperature is 99.1, heart rate 90, respiratory rate 23, blood pressure 122/90 mean 100. Saturations are 98%. CVP is 9, FiO2 50%. Appears in no acute distress. HEENT: Examination is grossly unremarkable. There is an orally placed endotracheal tube and NG tube. NECK: Supple. Full range of motion. No adenopathy. Neck veins are flat. CARDIOVASCULAR: Examination reveals regular rhythm and rate. Heart rate about 80 beats per minute. S1, S2 normal. LUNGS: Reveal scattered rhonchi. Breath sounds equal. No wheezes or crackles. ABDOMEN: Soft. Bowel sounds are not noted. EXTREMITIES are intact. Minimal edema. SKIN: Without rash. NEUROLOGIC: Examination is difficult to assess given the fact she is sedated with propofol. LAB DATA: Reviewed. White count 10.8, hemoglobin 12.8, hematocrit 39.7, platelet count 233,000, blood gases as mentioned show PO2 79, pCO2 45, pH 7.50. These blood gases consistent with a metabolic alkalosis. Sodium 147, potassium 3.9, chloride 111, CO2 33 anion gap is 3. BUN and creatinine were 29 and 0.44. Glucose is 137. Troponin was 0.204. Albumin 2.2. Microbiology from the shows evidence of anaerobic gram-negative bacilli, 2 different species, as well as Clostridium perfringens from the abdominal wound cultures. She remains on Flagyl and Zosyn. Chest x-ray shows increased and improved aeration bilaterally. Current medications are reviewed. ASSESSMENT: 1. Postoperative day #7 status post exploratory laparotomy with sigmoid colectomy for perforated sigmoid colon, Nelson's procedure, disimpaction of descending colon, open appendectomy, abdominal washout for fecal peritonitis, placement of a Gage- Quintana drain, and application of an incisional wound VAC system. 2. Worsening oxygenation, likely related to a number of factors including acute lung injury/ARDS, cardiogenic pulmonary edema, and possible bibasilar pneumonia. This is improved on increasing PEEP level which allowed successful decrease of the FiO2. 3. Successful extubation on April 16 with need for re-intubation because of impending respiratory failure, on 04/18/2020. 4. History of hypothyroidism. 5. History of ongoing tobacco use and nicotine addiction. 6. Mental status changes, likely related to septic encephalopathy. 7. CT scan of the brain which was negative. 8. Significant reduction in ejection fraction, thought to be related to apical ballooning. PLAN: The patient is remained remains on norepinephrine at 6.2 mcg/kg per minute. The patient is on TPN at 55 mL an hour, propofol at 30 mcg/kg per minute. I did ask the nurses to do a daily interruption of sedation. In addition, an EEG will be done today. She remains on Flagyl and Zosyn. Vent settings are appropriate. We will continue to follow. Prognosis is guarded. Critical care time: 32 minutes. RENETTA / RAFATN: [id number] /
[2020-04-20 12:11] LABS: Glucose,Whole Blood 134 mg/dL (75-99)
[2020-04-20] MEDS: MVI, ADULT NO.4 WITH VIT K 10 ML, TRACE (CONC-1ML/DOSE) 1 ML, POTASSIUM CHLORIDE 60 MEQ... IV SCH ×7 (13:03)
[2020-04-20] MEDS: NOREPINEPHRINE 8 MG in SODIUM CHLORIDE 0.9% 250 ML IV SCH (13:57)
[2020-04-20] MEDS: HYDROmorphone 1 MG/ML 1 ML SYRINGE IVP PRN (15:36)
[2020-04-20 19:08] LABS: Glucose,Whole Blood 127 mg/dL (75-99)
[2020-04-20] MEDS: SODIUM CHLORIDE 0.45% 1,000 ML IV SCH (19:10)
--- NOTE | 2020-04-20 19:53 | PN ---
PROGRESS NOTE DATE OF SERVICE: 04/20/2020 REASON FOR FOLLOW UP: Secondary peritonitis from perforated sigmoid diverticulitis. INTERVAL HISTORY: Patient is currently afebrile. The patient remains to be hemodynamically stable, remains to be intubated on the vent. FiO2 is currently stable. No significant purulent secretion through the ET or drainage is reported by nursing staff. PHYSICAL EXAMINATION: Blood pressure 152/90 with a pulse of 90. Temperature 98. She is 97% on 50% FiO2. General description is a middle-aged female lying in bed in no distress. Respiratory system: Unlabored breathing, coarse breath sounds and wheeze bilaterally. Heart S1, S2. Regular rate. ABDOMEN: Soft, no tenderness. LAB: Hemoglobin 12, white count 10.8, creatinine 0.44. Abdominal cultures with question of anaerobes. DIAGNOSTIC IMPRESSION AND PLAN: Patient with abdominal abscess from a perforated sigmoid diverticulitis status post laparotomy and operative repair of the same, culture predominate with anaerobes. The patient is covered with Zosyn. White count normal. No fever. We will monitor patient closely. Continue supportive care. MMODL / IJN: [id number] /
[2020-04-20 23:52] LABS: Glucose,Whole Blood 157 mg/dL (75-99)
[2020-04-20] MEDS: AMPICILLIN-SULBACTAM 3 GM in SODIUM CHLORIDE 0.9% 100 ML IVPB SCH (23:59)
[2020-04-21] MEDS: NOREPINEPHRINE 8 MG in SODIUM CHLORIDE 0.9% 250 ML IV SCH ×2 (00:30→19:53)
[2020-04-21] MEDS: PROPOFOL 1,000 MG in EMPTY BAG 1 BAG IV SCH ×6 (03:51→22:30)
[2020-04-21 04:23] LABS: Anisocytosis Slight; HCT 36.5 % (34.0-46.0); HGB 11.8 gm/dL (11.4-16.0); Hypochromasia Slight; MCH 31.5 pg (25.0-35.0); MCHC 32.2 g/dL (31.0-37.0); MCV 97.7 fL (80.0-100.0); Macrocytosis Slight; Mean Platelet Volume 9.9; Platelet Count 247 k/uL (150-450); RBC 3.74 m/uL (3.80-5.40); RDW 16.9 % (11.5-15.5); WBC 11.1 k/uL (3.8-10.6)
[2020-04-21 04:25] LABS: ALT 19 U/L (4-34); AST 33 U/L (14-36); African American GFR (CKD) >90 (>60 ml/min/1.73 sqM); Albumin 2.3 g/dL (3.5-5.0); Alkaline Phosphatase 79 U/L (38-126); Anion Gap 2 mmol/L; Blood Urea Nitrogen 29 mg/dL (7-17); Calcium 8.1 mg/dL (8.4-10.2); Carbon Dioxide 32 mmol/L (22-30); Chloride 108 mmol/L (98-107); Glucose 133 mg/dL (74-99); Magnesium 2.1 mg/dL (1.6-2.3); Non-African American GFR(CKD) >90 (>60 ml/min/1.73 sqM); Phosphorus 3.8 mg/dL (2.5-4.5); Sodium 142 mmol/L (137-145); Total Bilirubin 0.4 mg/dL (0.2-1.3); Total Protein 4.8 g/dL (6.3-8.2)
[2020-04-21 05:04] LABS: ABG HCO3 34 mmol/L (21-25); ABG Oxygen Saturation 97.7 % (94-97); ABG PCO2 43 mmHg (35-45); ABG PH 7.51 (7.35-7.45); ABG PO2 100 mmHg (83-108); ABG TCO2 35 mmol/L (19-24); Allen Test Performed? Yes
[2020-04-21 05:07] LABS: Band Neutrophils % 6 %; Eosinophils # (M) 0.33 k/uL (0-0.7); Lymphocytes # (M) 1.44 k/uL (1.0-4.8); Metamyelocytes # (M) 0.33 k/uL (0); Metamyelocytes % 3 %; Monocytes # (M) 0.67 k/uL (0-1.0); Neutrophils % (M) 69 %; Nucleated Red Blood Cells 0 /100 WBC (0-0); Reactive Lymphocytes Present; Total Cells Counted 100
[2020-04-21 05:50] LABS: Glucose,Whole Blood 134 mg/dL (75-99)
[2020-04-21] MEDS: INSULIN ASPART (NovoLOG) 100 UNIT/ML VIAL SQ SCH ×3 (05:52→19:27)
[2020-04-21] MEDS: AMPICILLIN-SULBACTAM 3 GM in SODIUM CHLORIDE 0.9% 100 ML IVPB SCH ×4 (05:53→23:12)
[2020-04-21] MEDS: metroNIDAZOLE-NS PMX 500 MG in SALINE 1 100ML.BAG IVPB SCH ×5 (06:30→23:11)
[2020-04-21 07:12] LABS: ABG PO2 52 mmHg (83-108)
[2020-04-21 07:18] LABS: Vitamin A 16 ug/dL (38-106)
[2020-04-21 07:59] LABS: Vit B1(Thiamine) 50 ug/L (38-122)
[2020-04-21] MEDS: MVI, ADULT NO.4 WITH VIT K 10 ML, TRACE (CONC-1ML/DOSE) 1 ML, POTASSIUM CHLORIDE 60 MEQ... IV SCH ×7 (08:42)
[2020-04-21] MEDS: CHLORHEXIDINE GLUCONATE 15 ML CUP MUCOUS MEM SCH ×2 (08:42→21:11)
[2020-04-21] MEDS: HEPARIN SODIUM,PORCINE 5,000 UNIT/ML 1 ML VIAL SQ SCH ×2 (08:43→21:11)
[2020-04-21] MEDS: DIGOXIN 250 MCG/ML 2 ML AMP IVP SCH (08:43)
--- NOTE | 2020-04-21 08:43 | P.PN ---
Subjective Patient is seen in follow-up for acute kidney injury. GFR is back to baseline. Sodium level is better today. Currently intubated on 50% FiO2. Urine output about 100 mL an hour. Receiving TPN. Also on Levophed. Vital signs are stable. General: The patient appeared well nourished and normally developed. HEENT: Head exam is unremarkable. Neck is without jugular venous distension. Intubated. LUNGS: Breath sounds decreased. HEART: Rate and Rhythm are regular. ABDOMEN: Soft. EXTREMITITES: 1+ edema. Objective - Vital Signs Vital signs: Vital Signs Temp 98 F 04/21/20 08:00 Pulse 81 04/21/20 08:00 Resp 18 04/21/20 08:00 BP 99/71 04/21/20 08:00 Pulse Ox 100 04/21/20 08:00 Intake & Output 04/20/20 04/21/20 04/21/20 18:59 06:59 18:59 Intake Total 6318.637 3592.861 150 Output Total 1515 1415 170 Balance 61.398 227.861 -20 Weight 77.6 kg 80 kg Intake: IV 1225 1345 150 Mvi, Adult No.4 with Vit 440 K 10 ml Trace (Conc-1Ml/ Dose) 1 ml Potassium Chloride 60 meq Potassium Phosphate 20 mmol In Amino Acid 5%-D15w+Lytes* E* 1,000 ml @ 30 mls/hr IV .Q24H REE Rx#: [id number] Mvi, Adult No.4 with Vit 165 605 110 K 10 ml Trace (Conc-1Ml/ Dose) 1 ml Potassium Chloride 60 meq Potassium Phosphate 30 mmol Magnesium Sulfate gm 0.6 gm Calcium Gluconate 1 gm In Amino Acid 5%-D15w 1, 000 ml @ 55 mls/hr IV . [id number] REE Rx#:[id number] Pipercillin/ Tazobactam 3 100 200 .375 g Sodium Chloride 0.45% 1, 110 190 40 000 ml @ 20 mls/hr IV . Q24H REE Rx#:[id number] Sodium Chloride 0.9% 1,00 110 50 mL Sodium Ferric Gluconat- 100 Sucrose 125 mg In Sodium Chloride 0.9% 100 ml @ 100 mls/hr IVPB DAILY REE Rx#:[id number] metroNIDAZOLE-NS PMX 500 200 300 mg Intake, IV Titration 351.398 297.861 Amount Mvi, Adult No.4 with Vit 55 K 10 ml Trace (Conc-1Ml/ Dose) 1 ml Potassium Chloride 40 meq Potassium Phosphate 15 mmol In Amino Acid 5%-D15w+Lytes* E* 1,000 ml @ 55 mls/hr IV .[id number] REE Rx#: [id number] Norepinephrine 8 mg In 105.042 125.41 Sodium Chloride 0.9% 250 ml @ 0.05 MCG/KG/MIN 6. 405 mls/hr IV .Q24H REE Rx#:[id number] Propofol 1,000 mg In 191.356 172.451 Empty Bag 1 bag @ Titrate IV .Q0M REE Rx#: [id number] Output: Urine 1515 1395 170 Stool 20 Other: Voiding Method Indwelling Catheter Indwelling Catheter ABP, PAP, CO, CI - Last Documented Arterial Blood Pressure 118/73 - Labs CBC & Chem 7: 04/21/20 03:55 04/21/20 03:55 Labs: Abnormal Lab Results - Last 24 Hours (Table) 04/17/20 04/18/20 04/20/20 Range/Units 11:39 06:35 11:14 WBC (3.8-10.6) k/uL RBC (3.80-5.40) m/uL RDW (11.5-15.5) % Neutrophils # (Manual) (1.3-7.7) k/uL Metamyelocytes # (Man) (0) k/uL ABG pH (7.35-7.45) ABG pO2 52 L* (83-108) mmHg ABG HCO3 (21-25) mmol/L ABG Total CO2 (19-24) mmol/L ABG O2 Saturation (94-97) % Chloride (98-107) mmol/L Carbon Dioxide (22-30) mmol/L BUN (7-17) mg/dL Creatinine (0.52-1.04) mg/dL Glucose (74-99) mg/dL POC Glucose (mg/dL) 128 H (75-99) mg/dL Calcium (8.4-10.2) mg/dL Total Protein (6.3-8.2) g/dL Albumin (3.5-5.0) g/dL Vitamin A 16 L (38-106) ug/dL 04/20/20 04/20/20 04/20/20 Range/Units 12:09 19:06 23:51 WBC (3.8-10.6) k/uL RBC (3.80-5.40) m/uL RDW (11.5-15.5) % Neutrophils # (Manual) (1.3-7.7) k/uL Metamyelocytes # (Man) (0) k/uL ABG pH (7.35-7.45) ABG pO2 (83-108) mmHg ABG HCO3 (21-25) mmol/L ABG Total CO2 (19-24) mmol/L ABG O2 Saturation (94-97) % Chloride (98-107) mmol/L Carbon Dioxide (22-30) mmol/L BUN (7-17) mg/dL Creatinine (0.52-1.04) mg/dL Glucose (74-99) mg/dL POC Glucose (mg/dL) 134 H 127 H 157 H (75-99) mg/dL Calcium (8.4-10.2) mg/dL Total Protein (6.3-8.2) g/dL Albumin (3.5-5.0) g/dL Vitamin A (38-106) ug/dL 04/21/20 04/21/20 04/21/20 Range/Units 03:55 03:55 05:04 WBC 11.1 H (3.8-10.6) k/uL RBC 3.74 L (3.80-5.40) m/uL RDW 16.9 H (11.5-15.5) % Neutrophils # (Manual) 8.30 H (1.3-7.7) k/uL Metamyelocytes # (Man) 0.33 H (0) k/uL ABG pH 7.51 H (7.35-7.45) ABG pO2 (83-108) mmHg ABG HCO3 34 H (21-25) mmol/L ABG Total CO2 35 H (19-24) mmol/L ABG O2 Saturation 97.7 H (94-97) % Chloride 108 H (98-107) mmol/L Carbon Dioxide 32 H (22-30) mmol/L BUN 29 H (7-17) mg/dL Creatinine 0.42 L (0.52-1.04) mg/dL Glucose 133 H (74-99) mg/dL POC Glucose (mg/dL) (75-99) mg/dL Calcium 8.1 L (8.4-10.2) mg/dL Total Protein 4.8 L (6.3-8.2) g/dL Albumin 2.3 L (3.5-5.0) g/dL Vitamin A (38-106) ug/dL 04/21/20 Range/Units 05:49 WBC (3.8-10.6) k/uL RBC (3.80-5.40) m/uL RDW (11.5-15.5) % Neutrophils # (Manual) (1.3-7.7) k/uL Metamyelocytes # (Man) (0) k/uL ABG pH (7.35-7.45) ABG pO2 (83-108) mmHg ABG HCO3 (21-25) mmol/L ABG Total CO2 (19-24) mmol/L ABG O2 Saturation (94-97) % Chloride (98-107) mmol/L Carbon Dioxide (22-30) mmol/L BUN (7-17) mg/dL Creatinine (0.52-1.04) mg/dL Glucose (74-99) mg/dL POC Glucose (mg/dL) 134 H (75-99) mg/dL Calcium (8.4-10.2) mg/dL Total Protein (6.3-8.2) g/dL Albumin (3.5-5.0) g/dL Vitamin A (38-106) ug/dL Microbiology - Last 24 Hours (Table) 04/18/20 05:10 Blood Culture - Preliminary Blood No Growth after 72 hours 04/14/20 16:30 Blood Culture - Final Blood No Growth after 144 hours 04/14/20 16:25 Blood Culture - Final Blood No Growth after 144 hours 04/18/20 18:00 Gram Stain - Preliminary Sputum Sputum Culture - Preliminary Assessment and Plan Plan: Assessment: 1. Acute kidney injury mostly prerenal secondary to hypotension. Resolved. 2. 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 Cardiology fol lowing. 3. Volume overload. Improved with IV diuresis. 4. Sigmoid diverticulitis status post exploratory laparotomy with subsequent abdominal abscess. Infectious disease following. 5. Hypernatremia secondary to lack of oral water intake with increased free water losses from sepsis. Better. Plan: Follow-up chest x-ray. Wean vasopressors and FiO2. Continue to monitor renal function and urine output. May need to resume Lasix depending on volume status.
--- NOTE | 2020-04-21 08:52 | XR ---
EXAMINATION TYPE: XR chest 1V portable DATE OF EXAM: 04/21/2020 COMPARISON: 04/20/2020 INDICATION: Tube placement TECHNIQUE: Single frontal view of the chest is obtained. FINDINGS: The heart size is normal. The pulmonary vasculature is normal. Mild left lower lobe infiltrate appears to be present, unchanged from comparison. There is blunting t he right costophrenic angle. Small right pleural effusion has developed. Previous right basilar atele ctasis may be resolved. Endotracheal tube tip is above the lori. Nasogastric tube transverses the thorax. Right central galidno ous catheter tip is in the superior vena cava region. IMPRESSION: 1. Mild stable left lower lobe infiltrate. 2. Developing small right pleural effusion
[2020-04-21] MEDS: SPIRONOLACTONE 25 MG TAB PO SCH (09:16)
[2020-04-21] MEDS: PANTOPRAZOLE 40 MG/10 ML VIAL IV SCH (09:16)
[2020-04-21] MEDS: THIAMINE 100 MG/ML 2 ML VIAL IVP SCH ×2 (09:16→21:11)
[2020-04-21] MEDS: LEVOTHYROXINE IVP 100 MCG/5 ML VIAL IV SCH (09:16)
--- NOTE | 2020-04-21 09:41 | CDI ---
Documentation Clarification Form Date: 04/21/2020 09:17:01 AM From: Stacie Carr RN, CCDS Admit Date: 04/13/2020 11:56:00 AM Patient Name: Brittney Fernandez Visit Number: [id number] ATTENTION: The Clinical Documentation Specialists (CDI) and [facility] Coding Staff appreciate your assistance in clarifying documentation. Please respond to the clarification below the line at the bottom and electronically sign. The CDI & [facility] Coding staff will review the response and follow-up if needed. Please note: Queries are made part of the Legal Health Record. If you have any questions, please contact the author of this message via ITS. Dr. Nghia Waldrop CHF is documented in the Cardiology Consult and Progress Notes and requires further specificity. Current History/Risk Factors: JOSEPHINE, Sepsis, Hypotension, Hypernatremia, perforated bowel w resection, ALI and ARDS, no documented previous cardiac HX found Clinical Indicators: 04/19& 04/20 Cardiology Consult and progress note: Apical ballooning syndrome, Congestive heart failure." 04/20 Nephrology Progress Note: "Hypoxic respiratory failure secondary to congestive heart failure." 04/21 0830 VS/Pulse OX: Temp 98, HR 83, RR 18 B/P 99/71, AB/P 91/78 (patient maintained on Levophed), Spo2 100% on 40% FIO2 MV BNP: not checked this admission 04/19 Echocardiogram Results: EF 30-35%, apical ballooning syndrome, Hypokinesis Apical lateral, apical inferior, apical septum LV Wall, 04/21 Chest X Ray: Mild stable left lower lobe infiltrate.2.Developing small right pleural effusion Treatment: Aldactone 50mg PO QD 04/14-04/15 Lasix Gtt @ 5mg/hr 04/16-04/19 Lasix 40 mg IVP QD 04/19-04/20 Lasix 40 mg IVP Q 12 Coreg 1.563 mg PO BID Dig 125 mcg IVP QD Levophed Gtt- titrate for B/P In your professional opinion, can you please clarify the acuity and type of CHF if known? Systolic Heart Failure: Acute Chronic Acute on Chronic Systolic & Diastolic Heart Failure: Acute Chronic Acute on Chronic Heart Failure Unable to Determine Other, please specify (Last Revision: January 2018) Acute systolic heart failure MTDD
--- NOTE | 2020-04-21 09:52 | CDI ---
Documentation Clarification Form Date: 04/15/2020 03:51:00 PM From: Stacie Carr RN, CCDS Admit Date: 04/13/2020 11:56:00 AM Patient Name: Brittney Fernandez Visit Number: [id number] ATTENTION: The Clinical Documentation Specialists (CDI) and [facility] Coding Staff appreciate your assistance in clarifying documentation. Please respond to the clarification below the line at the bottom and electronically sign. The CDI & [facility] Coding staff will review the response and follow-up if needed. Please note: Queries are made part of the Legal Health Record. If you have any questions, please contact the author of this message via ITS. Dr. Doreen Garcia Post-operative Hypotension is documented in the cardiology notes and surgical progress notes and requires further clarification as the patient continues on vasopressors several days after surgical procedure. History/Risk Factors: Ruptured sigmoid colon, fecal peritonitis, descending and sigmoid colon impaction, appendicolith with appendicitis Clinical Indicators: 04/14 Surgery: "Patient remains hypotensive at the time of examination." 04/14 Cardiology Consult: "postoperative hypotension" 04/15 Cardiology progress note: "Hypotension post surgery." 04/14 [id number] Patients ABP: 91/62, 79/58, 89/51, 87/60 04/19 Nephrology Progress note: "Acute kidney injury, acute tubular necrosis, secondary to hypotension/hypoperfusion, currently improved. 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 Hypovolemic shock Septic Shock Cardiogenic Shock Drug Induced Hypotension (please identify drug) Postoperative Hypotension (please specify if this is expected or unexpected in the post-operative period) Other Condition, please specify Unable to determine (Last Revision: July 2017) Septic Shock [facility]
--- NOTE | 2020-04-21 10:09 | CDI ---
Documentation Clarification Form Date: 04/21/2020 09:54:21 AM From: Stacie Carr RN, CCDS Admit Date: 04/13/2020 11:56:00 AM Patient Name: Brittney Fernandez Visit Number: [id number] ATTENTION: The Clinical Documentation Specialists (CDI) and [facility] Coding Staff appreciate your assistance in clarifying documentation. Please respond to the clarification below the line at the bottom and electronically sign. The CDI & [facility] Coding staff will review the response and follow-up if needed. Please note: Queries are made part of the Legal Health Record. If you have any questions, please contact the author of this message via ITS. Dr. Padmaja Ojeda Please render your opinion on the clinical significance of the patients hemoglobin/hematocrit levels as they have been steadily declining. History/Risk Factors: Sepsis, JOSEPHINE with ATN, ALI/ARDS, perforated sigmoid diverticulitis with sigmoid resection and colostomy Clinical indicators: 04/13-04/21 HGB: 16.2/17.6/15.3/14.4/11.2/12.9/11.5/12./.8 04/13-04/21 HCT: 50.4/55.5/49.1/39.8/34.3/12.9/11.5/12.8/.8 04/19 Nephrology Progress Note: "Iron deficiency, maintained on IV iron." 04/13 OR Rep: EBL 75 cc Treatment: 04/18 Ferric Sodium gluconate 125mg IVPB x 3 bags In order to capture the severity of condition, please clarify if the labs/clinical indicators signify: Acute blood loss anemia Acute on chronic blood loss anemia Iron deficiency anemia Nutritional anemia Anemia of chronic disease Unable to determine Other, please specify (Last Form Revision: December 2019) Labs consistent with pre-existing iron deficiency anemia with patient's history of gastric bypass, pre-existing comorbidity of the patient KM 04/21/20 14:56 DILSHADD
[2020-04-21] MEDS: CARVEDILOL 1.563 MG TAB PO SCH (10:35)
--- NOTE | 2020-04-21 10:40 | CDI ---
Documentation Clarification Form Date: 04/21/2020 10:12:13 AM From: Stacie Carr RN, CCDS Admit Date: 04/13/2020 11:56:00 AM Patient Name: Brittney Fernandez Visit Number: [id number] ATTENTION: The Clinical Documentation Specialists (CDI) and [facility] Coding Staff appreciate your assistance in clarifying documentation. Please respond to the clarification below the line at the bottom and electronically sign. The CDI & [facility] Coding staff will review the response and follow-up if needed. Please note: Queries are made part of the Legal Health Record. If you have any questions, please contact the author of this message via ITS. Dr. Padmaja Ojeda Patient has been noted to be NPO since admission and has been maintained on TPN since 04/16. Please provide clinical significance. History/Risk Factors: Sigmoid colon perf s/p sigmoid resection with colostomy with peritonitis, Sepsis, Hypotension, Acute hypoxic respiratory failure with extubation and re- intubation, JOSEPHINE with ATN Clinical Indicators: 04/14 Surgical Progress Note: "Will consider TPN if patient unable to be extubated within the day or two." 04/16 Surgery Progress Note: "Orders placed to begin TPN today." 04/20 Surgical Progress Note: "Continue TPN and nothing by mouth." 04/17 Labs: Vitamin A 16, Vitamin B-12 1457.0, Vitamin D 25 Hydroxy 24.6, TSH 6.86, Free T4 .57, Phos 1.2, Mag 2.4, % iron saturation 2.99, total protein 4.1, Albumin 2 Current BMI: 27.6 Insufficient energy intake: Patient remains NPO on mechanical ventilation with TPN and Lipids infusing Weight Loss: gastric bypass 15 yrs ago 04/01 Nephrology progress Note: Fluid accumulation:"Exam of lower extremities shows edema 1+ bilaterally." 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 Mild Protein-Calorie Malnutrition Moderate Protein-Calorie Malnutrition Severe Protein-Calorie Malnutrition Other condition, please specify Unable to determine (Last Revision: April 2019) Severe Protein-Calorie Malnutrition 04/21/20 14:58 MTDD
[2020-04-21 11:50] LABS: Glucose,Whole Blood 131 mg/dL (75-99)
--- NOTE | 2020-04-21 13:46 | PN ---
PROGRESS NOTE Brittney is a 59-year-old lady who is admitted to hospital with perforated bowel and underwent surgery for the same. We have been involved in her care secondary to apical ballooning syndrome. Her echocardiogram shows poor LV function. At the time of my evaluation this morning, she is intubated on vent. On exam, heart rate is 80 beats per minute. Blood pressure is 96/69. Respiratory rate is 18. Chest exam reveals good air entry bilaterally. Heart exam reveals first and second heart sounds. No gallop. Abdomen: Soft. Exam of extremities did not reveal any edema. Peripheral pulses are felt. Labs show a hemoglobin of 11.8, platelet count is 247. Potassium is 4. Creatinine is 0.4. The patient is currently on Coreg, digoxin, and Aldactone 50 mg daily. An echocardiogram on this admission revealed an ejection fraction of 30-35 percent. The patient is not on SHAUN inhibitors secondary to hypotension. ASSESSMENT: 1. Apical ballooning syndrome, perforated bowel with peritonitis status post surgery. 2. History of gastric bypass. 3. Acute onset systolic heart failure. PLAN: I am going to decrease the dose of Aldactone to 25 mg daily. If the blood pressure improves, start her on a small dose of lisinopril. MMODL / IJN: [id number] /
--- NOTE | 2020-04-21 13:51 | P.PN ---
<SupaDaniela Kee - Last Filed: 04/21/20 13:51> Subjective Progress Note Date: 04/21/20 CHIEF COMPLAINT: Abdominal pain HISTORY OF PRESENT ILLNESS: 59-year-old female who underwent exploratory laparotomy with sigmoid colectomy, descending colostomy creation, and appendectomy with Dr. Ojeda on April 13, 2020. Patient was reintubated on 04/18/2020. She remains on mechanical ventilation. Fio2 40%. TPN infusing. WBC 11.1. Hemoglobin 11.8. PHYSICAL EXAM: VITAL SIGNS: Reviewed GENERAL: Well-developed in no acute distress HEENT: No sclera icterus. Extraocular movements grossly intact. Moist buccal mucosa. Head is atraumatic, normocephalic. No nasal drainage. NECK: Supple without lymphadenopathy. CHEST: Non-labored respirations and equal bilateral excursions CARDIOVASCULAR: Tachycardic. Regular rate with regular rhythm. Palpable 2+ radial pulses. ABDOMEN: Soft. Nondistended. Dressing clean dry intact. Ostomy to left side of abdomen. Stoma pink. MARIA EUGENIA drain with serous drainage. MUSCULOSKELETAL: No clubbing or cyanosis. NEUROLOGIC: Sedated on mechanical ventilation PSYCH: Sedated on mechanical ventilation SKIN: Well perfused. Good skin turgor. ASSESSMENT: 1. Abdominal pain secondary to ruptured sigmoid colon, fecal peritonitis, descending and sigmoid colon impaction, appendicolith with appendicitis PLAN: Continue TPN Monitor MARIA EUGENIA drain Continue antibiotics. Monitor labs Neurology following. Appreciate recommendations and input Further ICU management per pulmonary Nurse practitioner note has been reviewed by physician. Signing provider agrees with the documented findings, assessment, and plan of care. Objective - Vital Signs Vital signs: Vital Signs Temp 98 F 04/21/20 08:00 Pulse 80 04/21/20 10:00 Resp 18 04/21/20 10:00 BP 99/71 04/21/20 08:30 Pulse Ox 97 04/21/20 10:00 Intake & Output 04/20/20 04/21/20 04/21/20 18:59 06:59 18:59 Intake Total 8313.148 8584.861 1571.249 Output Total 1515 1415 420 Balance 61.398 929.836 2116.249 Weight 77.6 kg 80 kg Intake: IV 1225 1345 300 Mvi, Adult No.4 with Vit 440 K 10 ml Trace (Conc-1Ml/ Dose) 1 ml Potassium Chloride 60 meq Potassium Phosphate 20 mmol In Amino Acid 5%-D15w+Lytes* E* 1,000 ml @ 30 mls/hr IV .Q24H [facility] Rx#: [id number] Mvi, Adult No.4 with Vit 165 605 220 K 10 ml Trace (Conc-1Ml/ Dose) 1 ml Potassium Chloride 60 meq Potassium Phosphate 30 mmol Magnesium Sulfate gm 0.6 gm Calcium Gluconate 1 gm In Amino Acid 5%-D15w 1, 000 ml @ 55 mls/hr IV . [id number] [facility] Rx#:[id number] Pipercillin/ Tazobactam 3 100 200 .375 g Sodium Chloride 0.45% 1, 110 190 80 000 ml @ 20 mls/hr IV . Q24H [facility] Rx#:[id number] Sodium Chloride 0.9% 1,00 110 50 mL Sodium Ferric Gluconat- 100 Sucrose 125 mg In Sodium Chloride 0.9% 100 ml @ 100 mls/hr IVPB DAILY [facility] Rx#:[id number] metroNIDAZOLE-NS PMX 500 200 300 mg Intake, IV Titration 351.398 671.818 1693.249 Amount Mvi, Adult No.4 with Vit 55 K 10 ml Trace (Conc-1Ml/ Dose) 1 ml Potassium Chloride 40 meq Potassium Phosphate 15 mmol In Amino Acid 5%-D15w+Lytes* E* 1,000 ml @ 55 mls/hr IV .[id number] [facility] Rx#: [id number] Mvi, Adult No.4 with Vit 1062.2 K 10 ml Trace (Conc-1Ml/ Dose) 1 ml Potassium Chloride 60 meq Potassium Phosphate 30 mmol Magnesium Sulfate gm 0.6 gm Calcium Gluconate 1 gm In Amino Acid 5%-D15w 1, 000 ml @ 55 mls/hr IV . [id number] [facility] Rx#:[id number] Norepinephrine 8 mg In 105.042 125.41 112.728 Sodium Chloride 0.9% 250 ml @ 0.05 MCG/KG/MIN 6. 405 mls/hr IV .Q24H [facility] Rx#:[id number] Propofol 1,000 mg In 191.356 172.451 96.321 Empty Bag 1 bag @ Titrate IV .Q0M [facility] Rx#: [id number] Output: Urine 1515 1395 420 Stool 20 Other: Voiding Method Indwelling Catheter Indwelling Catheter Indwelling Catheter ABP, PAP, CO, CI - Last Documented Arterial Blood Pressure 96/69 - Labs CBC & Chem 7: 04/21/20 03:55 04/21/20 03:55 Labs: Abnormal Lab Results - Last 24 Hours (Table) 04/17/20 04/18/20 04/20/20 Range/Units 11:39 06:35 11:14 WBC (3.8-10.6) k/uL RBC (3.80-5.40) m/uL RDW (11.5-15.5) % Neutrophils # (Manual) (1.3-7.7) k/uL Metamyelocytes # (Man) (0) k/uL ABG pH (7.35-7.45) ABG pO2 52 L* (83-108) mmHg ABG HCO3 (21-25) mmol/L ABG Total CO2 (19-24) mmol/L ABG O2 Saturation (94-97) % Chloride (98-107) mmol/L Carbon Dioxide (22-30) mmol/L BUN (7-17) mg/dL Creatinine (0.52-1.04) mg/dL Glucose (74-99) mg/dL POC Glucose (mg/dL) 128 H (75-99) mg/dL Calcium (8.4-10.2) mg/dL Total Protein (6.3-8.2) g/dL Albumin (3.5-5.0) g/dL Vitamin A 16 L (38-106) ug/dL 04/20/20 04/20/20 04/20/20 Range/Units 12:09 19:06 23:51 WBC (3.8-10.6) k/uL RBC (3.80-5.40) m/uL RDW (11.5-15.5) % Neutrophils # (Manual) (1.3-7.7) k/uL Metamyelocytes # (Man) (0) k/uL ABG pH (7.35-7.45) ABG pO2 (83-108) mmHg ABG HCO3 (21-25) mmol/L ABG Total CO2 (19-24) mmol/L ABG O2 Saturation (94-97) % Chloride (98-107) mmol/L Carbon Dioxide (22-30) mmol/L BUN (7-17) mg/dL Creatinine (0.52-1.04) mg/dL Glucose (74-99) mg/dL POC Glucose (mg/dL) 134 H 127 H 157 H (75-99) mg/dL Calcium (8.4-10.2) mg/dL Total Protein (6.3-8.2) g/dL Albumin (3.5-5.0) g/dL Vitamin A (38-106) ug/dL 04/21/20 04/21/20 04/21/20 Range/Units 03:55 03:55 05:04 WBC 11.1 H (3.8-10.6) k/uL RBC 3.74 L (3.80-5.40) m/uL RDW 16.9 H (11.5-15.5) % Neutrophils # (Manual) 8.30 H (1.3-7.7) k/uL Metamyelocytes # (Man) 0.33 H (0) k/uL ABG pH 7.51 H (7.35-7.45) ABG pO2 (83-108) mmHg ABG HCO3 34 H (21-25) mmol/L ABG Total CO2 35 H (19-24) mmol/L ABG O2 Saturation 97.7 H (94-97) % Chloride 108 H (98-107) mmol/L Carbon Dioxide 32 H (22-30) mmol/L BUN 29 H (7-17) mg/dL Creatinine 0.42 L (0.52-1.04) mg/dL Glucose 133 H (74-99) mg/dL POC Glucose (mg/dL) (75-99) mg/dL Calcium 8.1 L (8.4-10.2) mg/dL Total Protein 4.8 L (6.3-8.2) g/dL Albumin 2.3 L (3.5-5.0) g/dL Vitamin A (38-106) ug/dL 04/21/20 Range/Units 05:49 WBC (3.8-10.6) k/uL RBC (3.80-5.40) m/uL RDW (11.5-15.5) % Neutrophils # (Manual) (1.3-7.7) k/uL Metamyelocytes # (Man) (0) k/uL ABG pH (7.35-7.45) ABG pO2 (83-108) mmHg ABG HCO3 (21-25) mmol/L ABG Total CO2 (19-24) mmol/L ABG O2 Saturation (94-97) % Chloride (98-107) mmol/L Carbon Dioxide (22-30) mmol/L BUN (7-17) mg/dL Creatinine (0.52-1.04) mg/dL Glucose (74-99) mg/dL POC Glucose (mg/dL) 134 H (75-99) mg/dL Calcium (8.4-10.2) mg/dL Total Protein (6.3-8.2) g/dL Albumin (3.5-5.0) g/dL Vitamin A (38-106) ug/dL Microbiology - Last 24 Hours (Table) 04/18/20 05:10 Blood Culture - Preliminary Blood No Growth after 72 hours 04/14/20 16:30 Blood Culture - Final Blood No Growth after 144 hours 04/14/20 16:25 Blood Culture - Final Blood No Growth after 144 hours 04/18/20 18:00 Gram Stain - Preliminary Sputum Sputum Culture - Preliminary <Padmaja Ojeda N - Last Filed: 04/25/20 03:07> Subjective Patient seen and evaluated nurse practitioner. Additional recommendations include continue parenteral nutrition. No plans for feeding tube as patient w ill likely awaken and tolerate oral feeds. Will need tailored dietary plan from bariatric dietary consult. JPs are serous. Will need ostomy nurse care. Persistent tachycardia being followed by cardiology with elevated troponins noted. Objective - Vital Signs Vital signs: Vital Signs Temp 98.1 F 04/25/20 00:00 Pulse 79 04/25/20 02:00 Resp 22 04/25/20 02:00 BP 95/74 04/24/20 20:00 Pulse Ox 96 04/25/20 02:00 Intake & Output 04/24/20 04/24/20 04/25/20 06:59 18:59 06:59 Intake Total 1300 2538.2 876 Output Total 1815 2300 1300 Balance -515 238.2 -424 Weight 79 kg Intake: IV 1300 1226 876 Ampicillin-Sulbactam 3 gm 200 100 100 In Sodium Chloride 0.9% 100 ml @ 200 mls/hr IVPB Q6HR [facility] Rx#:[id number] Fat Emulsion 20% 250 mL@ 126 126 20.833mls/hr Mvi, Adult No.4 with Vit 660 660 K 10 ml Trace (Conc-1Ml/ Dose) 1 ml Potassium Chloride 60 meq Potassium Phosphate 30 mmol Magnesium Sulfate gm 0.6 gm Calcium Gluconate 1 gm In Amino Acid 5%-D15w 1, 000 ml @ 55 mls/hr IV . [id number] [facility] Rx#:[id number] Mvi, Adult No.4 with Vit 385 K 10 ml Trace (Conc-1Ml/ Dose) 1 ml Potassium Chloride 60 meq Potassium Phosphate 30 mmol Magnesium Sulfate gm 0.6 gm Calcium Gluconate 1 gm In Amino Acid 5%-D15w 1, 000 ml @ 55 mls/hr IV . [id number] [facility] Rx#:[id number] Sodium Chloride 0.45% 1, 240 240 160 000 ml @ 20 mls/hr IV . Q24H [facility] Rx#:[id number] Sodium Chloride 0.9% 1,00 5 mL metroNIDAZOLE-NS PMX 500 200 100 100 mg Intake, IV Titration 1062.2 Amount Mvi, Adult No.4 with Vit 1062.2 K 10 ml Trace (Conc-1Ml/ Dose) 1 ml Potassium Chloride 60 meq Potassium Phosphate 30 mmol Magnesium Sulfate gm 0.6 gm Calcium Gluconate 1 gm In Amino Acid 5%-D15w 1, 000 ml @ 55 mls/hr IV . [id number] [facility] Rx#:[id number] Oral 250 Output: Drainage 40 Right Lower Abdomen 40 Urine 1575 1450 1200 Stool 200 850 100 Other: Voiding Method Indwelling Catheter Indwelling Catheter Indwelling Catheter ABP, PAP, CO, CI - Last Documented Arterial Blood Pressure 89/47 - Labs CBC & Chem 7: 04/24/20 05:25 04/24/20 05:25 Labs: Abnormal Lab Results - Last 24 Hours (Table) 04/24/20 04/24/20 04/24/20 Range/Units 05:25 05:25 17:33 WBC 13.7 H (3.8-10.6) k/uL RBC 3.79 L (3.80-5.40) m/uL RDW 17.0 H (11.5-15.5) % Neutrophils # 11.6 H (1.3-7.7) k/uL Sodium 133 L (137-145) mmol/L Creatinine 0.34 L (0.52-1.04) mg/dL Glucose 114 H (74-99) mg/dL POC Glucose (mg/dL) 101 H (75-99) mg/dL Calcium 8.1 L (8.4-10.2) mg/dL Microbiology - Last 24 Hours (Table) 04/23/20 13:50 Blood Culture - Preliminary Blood No Growth after 24 hours 04/18/20 05:10 Blood Culture - Final Blood No Growth after 144 hours Assessment and Plan (1) Peritonitis (acute) generalized Current Visit: Yes Status: Acute Code(s): K65.0 - GENERALIZED (ACUTE) PERITONITIS SNOMED Code(s): 56197079 (2) History of gastric bypass Current Visit: Yes Status: Acute Code(s): Z98.84 - BARIATRIC SURGERY STATUS SNOMED Code(s): 277393840 (3) Medical non-compliance Current Visit: Yes Status: Acute Code(s): Z91.19 - PATIENT'S NONCOMPLIANCE W OTH MEDICAL TREATMENT AND REGIMEN SNOMED Code(s): 983952845 (4) Tobacco abuse Current Visit: Yes Status: Acute Code(s): Z72.0 - TOBACCO USE SNOMED Code(s): 368244545 (5) Tobacco abuse counseling Current Visit: Yes Status: Acute Code(s): Z71.6 - TOBACCO ABUSE COUNSELING SNOMED Code(s): 217976738 (6) Depressive disorder Current Visit: Yes Status: Acute Code(s): F32.9 - MAJOR DEPRESSIVE DISORDER, SINGLE EPISODE, UNSPECIFIED SNOMED Code(s): 17840323 (7) Hypothyroidism Current Visit: Yes Status: Acute Code(s): E03.9 - HYPOTHYROIDISM, UNSPECIFIED SNOMED Code(s): 37972715 (8) Abdominal pain Current Visit: Yes Status: Acute Code(s): R10.9 - UNSPECIFIED ABDOMINAL PAIN SNOMED Code(s): 91193183 (9) Free intraperitoneal air Current Visit: Yes Status: Acute Code(s): K66.8 - OTHER SPECIFIED DISORDERS OF PERITONEUM SNOMED Code(s): 26366816 (10) Dehydration Current Visit: Yes Status: Acute Code(s): E86.0 - DEHYDRATION SNOMED Code(s): 38361617
--- NOTE | 2020-04-21 14:19 | P.PN ---
Subjective Progress Note Date: 04/21/20 On today's evaluation of 04/21/2020, I'm seeing this patient for a follow-up in the intensive care unit. The patient remains intubated on a mechanical ventilator. The patient is currently sedated and the patient is receiving propofol at a dose of 50 mcg/kg per minute. The patient is on IV fluids at 0.45 saline at the rate of 20 mL an hour. The patient is on TPN for nutritional support running at 55 mL an hour and the patient is on norepinephrine infusion at 8.8 micrograms per minutes. In terms of vent support, the patient remains on a mechanical ventilator. She is an assist-control mode with a rate of 20 with a tidal volume of 350 and FiO2 of 50% with a PEEP of 10. Earlier blood gases showed a pH of 7.5 with a pCO2 of 43 and pO2 of 100. Necessity ventilator changes were done. Noted the patient is post perforated sigmoid colon and the patient is postop day #8. She had to be reintubated on 04/18/2020 acute hypoxic respiratory failure and development of bilateral pulmonary infiltrates. The intra-abdominal cultures are showing anaerobic gram-negative bacillus 2 and Clostridium perfringens. Antibiotic coverage remains IV Unasyn and Flagyl for now. The patient on TPN for nutritional support. The chest x-ray from today shows mild stable left lower lobe pulmonary infiltrate. There is also small right sided pleural effusion. There is blunting of the right costophrenic angle. Small right-sided pleural effusion developed. ET tube is in a good location for now. Objective - Vital Signs Vital signs: Vital Signs Temp 98.2 F 04/21/20 12:00 Pulse 81 04/21/20 14:00 Resp 19 04/21/20 14:00 BP 121/84 04/21/20 14:00 Pulse Ox 98 04/21/20 14:00 Intake & Output 04/20/20 04/21/20 04/21/20 18:59 06:59 18:59 Intake Total 7221.450 3415.861 2455.654 Output Total 1515 1415 865 Balance 61.398 323.577 9438.654 Weight 77.6 kg 80 kg Intake: IV 1225 1345 1100 Mvi, Adult No.4 with Vit 440 K 10 ml Trace (Conc-1Ml/ Dose) 1 ml Potassium Chloride 60 meq Potassium Phosphate 20 mmol In Amino Acid 5%-D15w+Lytes* E* 1,000 ml @ 30 mls/hr IV .Q24H [facility] Rx#: [id number] Mvi, Adult No.4 with Vit 165 605 440 K 10 ml Trace (Conc-1Ml/ Dose) 1 ml Potassium Chloride 60 meq Potassium Phosphate 30 mmol Magnesium Sulfate gm 0.6 gm Calcium Gluconate 1 gm In Amino Acid 5%-D15w 1, 000 ml @ 55 mls/hr IV . [id number] [facility] Rx#:[id number] Pipercillin/ Tazobactam 3 100 200 .375 g Sodium Chloride 0.45% 1, 110 190 160 000 ml @ 20 mls/hr IV . Q24H [facility] Rx#:[id number] Sodium Chloride 0.9% 1,00 110 50 mL Sodium Ferric Gluconat- 100 Sucrose 125 mg In Sodium Chloride 0.9% 100 ml @ 100 mls/hr IVPB DAILY [facility] Rx#:[id number] metroNIDAZOLE-NS PMX 500 200 300 500 mg Intake, IV Titration 351.398 240.649 6223.654 Amount Mvi, Adult No.4 with Vit 55 K 10 ml Trace (Conc-1Ml/ Dose) 1 ml Potassium Chloride 40 meq Potassium Phosphate 15 mmol In Amino Acid 5%-D15w+Lytes* E* 1,000 ml @ 55 mls/hr IV .[id number] [facility] Rx#: [id number] Mvi, Adult No.4 with Vit 1062.2 K 10 ml Trace (Conc-1Ml/ Dose) 1 ml Potassium Chloride 60 meq Potassium Phosphate 30 mmol Magnesium Sulfate gm 0.6 gm Calcium Gluconate 1 gm In Amino Acid 5%-D15w 1, 000 ml @ 55 mls/hr IV . [id number] [facility] Rx#:[id number] Norepinephrine 8 mg In 105.042 125.41 112.728 Sodium Chloride 0.9% 250 ml @ 0.05 MCG/KG/MIN 6. 405 mls/hr IV .Q24H [facility] Rx#:[id number] Propofol 1,000 mg In 191.356 172.451 180.726 Empty Bag 1 bag @ Titrate IV .Q0M [facility] Rx#: [id number] Output: Urine 1515 1395 865 Stool 20 Other: Voiding Method Indwelling Catheter Indwelling Catheter Indwelling Catheter ABP, PAP, CO, CI - Last Documented Arterial Blood Pressure 80/63 - Exam GENERAL: Well-developed in no acute distress, intubated on mechanical ventilated and the patient was sedated for now. Orogastric and orotracheal tube are both in place. HEENT: No sclera icterus. Extraocular movements grossly intact. Moist buccal mucosa. Head is atraumatic, normocephalic. No nasal drainage. NECK: Supple without lymphadenopathy. CHEST: Non-labored respirations and equal bilateral excursions CARDIOVASCULAR: Tachycardic. Regular rate with regular rhythm. Palpable 2+ radial pulses. ABDOMEN: Soft. Nondistended. PREVENA wound vac noted. Ostomy to left side of abdomen. No stool or gas noted. Stoma pink. MARIA EUGENIA drain with serous drainage. MUSCULOSKELETAL: No clubbing or cyanosis. NEUROLOGIC: Slightly more lethargic compared to yesterday. PSYCH: Unable to assess secondary to altered mental status SKIN: Well perfused. Good skin turgor. - Labs CBC & Chem 7: 04/21/20 03:55 04/21/20 03:55 Labs: Abnormal Lab Results - Last 24 Hours (Table) 04/17/20 04/18/20 04/20/20 Range/Units 11:39 06:35 19:06 WBC (3.8-10.6) k/uL RBC (3.80-5.40) m/uL RDW (11.5-15.5) % Neutrophils # (Manual) (1.3-7.7) k/uL Metamyelocytes # (Man) (0) k/uL ABG pH (7.35-7.45) ABG pO2 52 L* (83-108) mmHg ABG HCO3 (21-25) mmol/L ABG Total CO2 (19-24) mmol/L ABG O2 Saturation (94-97) % Chloride (98-107) mmol/L Carbon Dioxide (22-30) mmol/L BUN (7-17) mg/dL Creatinine (0.52-1.04) mg/dL Glucose (74-99) mg/dL POC Glucose (mg/dL) 127 H (75-99) mg/dL Calcium (8.4-10.2) mg/dL Total Protein (6.3-8.2) g/dL Albumin (3.5-5.0) g/dL Vitamin A 16 L (38-106) ug/dL 04/20/20 04/21/20 04/21/20 Range/Units 23:51 03:55 03:55 WBC 11.1 H (3.8-10.6) k/uL RBC 3.74 L (3.80-5.40) m/uL RDW 16.9 H (11.5-15.5) % Neutrophils # (Manual) 8.30 H (1.3-7.7) k/uL Metamyelocytes # (Man) 0.33 H (0) k/uL ABG pH (7.35-7.45) ABG pO2 (83-108) mmHg ABG HCO3 (21-25) mmol/L ABG Total CO2 (19-24) mmol/L ABG O2 Saturation (94-97) % Chloride 108 H (98-107) mmol/L Carbon Dioxide 32 H (22-30) mmol/L BUN 29 H (7-17) mg/dL Creatinine 0.42 L (0.52-1.04) mg/dL Glucose 133 H (74-99) mg/dL POC Glucose (mg/dL) 157 H (75-99) mg/dL Calcium 8.1 L (8.4-10.2) mg/dL Total Protein 4.8 L (6.3-8.2) g/dL Albumin 2.3 L (3.5-5.0) g/dL Vitamin A (38-106) ug/dL 04/21/20 04/21/20 04/21/20 Range/Units 05:04 05:49 11:48 WBC (3.8-10.6) k/uL RBC (3.80-5.40) m/uL RDW (11.5-15.5) % Neutrophils # (Manual) (1.3-7.7) k/uL Metamyelocytes # (Man) (0) k/uL ABG pH 7.51 H (7.35-7.45) ABG pO2 (83-108) mmHg ABG HCO3 34 H (21-25) mmol/L ABG Total CO2 35 H (19-24) mmol/L ABG O2 Saturation 97.7 H (94-97) % Chloride (98-107) mmol/L Carbon Dioxide (22-30) mmol/L BUN (7-17) mg/dL Creatinine (0.52-1.04) mg/dL Glucose (74-99) mg/dL POC Glucose (mg/dL) 134 H 131 H (75-99) mg/dL Calcium (8.4-10.2) mg/dL Total Protein (6.3-8.2) g/dL Albumin (3.5-5.0) g/dL Vitamin A (38-106) ug/dL Microbiology - Last 24 Hours (Table) 04/18/20 18:00 Gram Stain - Final Sputum Sputum Culture - Final 04/18/20 05:10 Blood Culture - Preliminary Blood No Growth after 72 hours 04/14/20 16:30 Blood Culture - Final Blood No Growth after 144 hours 04/14/20 16:25 Blood Culture - Final Blood No Growth after 144 hours Assessment and Plan Plan: 1 ruptured sigmoid colon with fecal peritonitis, along with descending and sigmoid colon impaction and appendicolith and appendicitis. The patient underwent expose a laparotomy with sigmoid colectomy and descending colostomy creation and appendectomy. Surgery was done on 04/13/2020. 2 acute hypoxic respiratory failure and the patient had to be reintubated on 04/18/2024 hypoxic respiratory failure and development of breath and pulmonary infiltrates. Consider an early acute lung injury/ARDS. Pulmonary infiltrate is improving and the patient's saturations improved with improvement in airway pressures. Chest x-ray and the vent settings were all noted. 3 sepsis with secondary hypotension secondary to above. The patient is still requiring pressors in addition to broad-spectrum antibiotics. Into abdominal culture are all anaerobes including anaerobic gram-negative bacillus and Clostridium perfringens. 4 Hypothyroidism 5 history of smoking 6 which is moderate impairment of LV function addition to segmental wall motion abnormalities and some apical ballooning syndrome. Moderate tricuspid regurgitation and mild pulmonary hypertension was also noted. There is apical lateral LV wall motion hypokinesis. Plan Drop-down the PEEP down to 8 and later on down to 6 with an FiO2 of 40% Sedation holiday Check weaning parameters May need another 24 hours on a mechanical ventilator to improve the hemodynamics prior to being considered for extubation Wean off pressors and the patient is running at 8 g per minute of norepinephrine infusion for now Continue the TPN for nutritional support Continued IV Unasyn and Flagyl Discontinue the Lasix for now IV fluids of half-normal saline at rate of 20 mL an hour Heparin subcu for DVT prophylaxis We'll continue to follow make further recommendations based on overall progress. Condition is critical at this point in time. This evaluation was done more than 30 minutes. Time with Patient: Greater than 30
--- NOTE | 2020-04-21 15:59 | EEG ---
ELECTROENCEPHALOGRAM REPORT DATE OF PROCEDURE: 04/20/2020 ELECTROENCEPHALOGRAM (EEG) REPORT: TECHNIQUE: A routine 18-channel EEG was performed with video using the 10/20 international electrode placement system. HISTORY: Intraperitoneal free air, mental status change. Patient brought to the ER with abdominal pain. The patient had obstruction and underwent laparoscopy. CURRENT MEDICATIONS: Aldactone, propofol, Protonix, norepinephrine and Narcan. STUDY DURATION: 30 minutes. FINDINGS: BACKGROUND: The background activity consisted of unsustained 5-6 hertz waveforms. ACTIVATION: Hyperventilation: Not performed. Photic stimulation: Mild symmetric driving seen. Sleep: Drowsy. ABNORMALITIES: Diffuse synchronous and asynchronous 3-6 hertz slow-wave activity was seen, more frontally predominant. Please note that a mild excess of beta frequency activity was noted. This is not epileptiform in nature and may in part be due to medication effect. IMPRESSION: Abnormal EEG. The diffuse synchronous and asynchronous theta delta range slowing mentioned above is not epileptiform in nature. In combination with the slow background, these findings indicate moderate diffuse cerebral dysfunction which may in part be due to medication effect. No seizures were recorded. No epileptiform activity was present. MMODL / IJN: [id number] /
--- NOTE | 2020-04-21 17:31 | P.PN ---
Progress Note - Text Progress Note Date: 04/21/20 Patient seen and evaluated. Ostomy with flatus including stool and pink and viable. Discussed with intensive his intent of extubation in 24 hours. Patient has orogastric tube for which oral feedings and medications may be used. Discussion of elevated white blood cell count secondary to pharmacy discontinuing antibiotic per protocol and not resumed for 48 hours. Overall patient's condition is guarded due to underlying severe tobacco abuse history, respiratory disorder, cardiac disease for which at some point she will need a heart catheterization. Additionally, patient has medical history of noncompliance and general lack of medical care per choice. Will discontinue wound VAC with placement of Optifoam when seen by ostomy nurse
[2020-04-21 17:51] LABS: Glucose,Whole Blood 112 mg/dL (75-99)
--- NOTE | 2020-04-21 18:05 | PN ---
PROGRESS NOTE DATE OF SERVICE: 04/21/2020 REASON FOR FOLLOWUP: Abdominal abscess from perforated sigmoid diverticulitis. INTERVAL HISTORY: Patient is currently afebrile, has been breathing. The patient is hemodynamically stable. FiO2 is currently at 40%, not on any pressor support. The patient is slightly more awake and follows. No other change reported by nursing staff. PHYSICAL EXAMINATION: Blood pressure /81 with a pulse of 83, temperature 99.4. She is 98% on 40% FiO2. General description is a middle-aged female intubated on the vent. RESPIRATORY SYSTEM: Unlabored breathing with decreased breath sounds at the base. No wheeze. HEART: S1, S2. Regular rate and rhythm. ABDOMEN: Soft. No tenderness. LABS: Hemoglobin 11.8, white count 11.1, BUN of 29, creatinine 0.42. DIAGNOSTIC IMPRESSION AND PLAN: Patient with abdominal abscess from a perforated status post laparotomy and diverting colostomy. Abdominal culture positive predominantly with anaerobes and patient is covered with Unasyn 3 grams q.6 hours; to continue. Will monitor clinical course closely. MMODL / IJN: [id number] /
[2020-04-21] MEDS: SODIUM CHLORIDE 0.45% 1,000 ML IV SCH (18:47)
[2020-04-22 00:55] LABS: Glucose,Whole Blood 128 mg/dL (75-99)
[2020-04-22] MEDS: INSULIN ASPART (NovoLOG) 100 UNIT/ML VIAL SQ SCH ×5 (02:05→23:30)
[2020-04-22] MEDS: PROPOFOL 1,000 MG in EMPTY BAG 1 BAG IV SCH ×2 (04:00→07:00)
[2020-04-22 04:42] LABS: African American GFR (CKD) >90 (>60 ml/min/1.73 sqM); Albumin 2.1 g/dL (3.5-5.0); Anion Gap 1 mmol/L; Blood Urea Nitrogen 22 mg/dL (7-17); Calcium 8.2 mg/dL (8.4-10.2); Carbon Dioxide 29 mmol/L (22-30); Chloride 110 mmol/L (98-107); Glucose 129 mg/dL (74-99); Magnesium 2.1 mg/dL (1.6-2.3); Non-African American GFR(CKD) >90 (>60 ml/min/1.73 sqM); Phosphorus 3.2 mg/dL (2.5-4.5); Sodium 140 mmol/L (137-145)
[2020-04-22] MEDS: MVI, ADULT NO.4 WITH VIT K 10 ML, TRACE (CONC-1ML/DOSE) 1 ML, POTASSIUM CHLORIDE 60 MEQ... IV SCH ×14 (05:04→21:18)
[2020-04-22] MEDS: AMPICILLIN-SULBACTAM 3 GM in SODIUM CHLORIDE 0.9% 100 ML IVPB SCH ×4 (05:16→23:20)
[2020-04-22] MEDS: metroNIDAZOLE-NS PMX 500 MG in SALINE 1 100ML.BAG IVPB SCH ×4 (05:16→23:21)
[2020-04-22 05:20] LABS: ABG HCO3 30 mmol/L (21-25); ABG Oxygen Saturation 97.5 % (94-97); ABG PCO2 40 mmHg (35-45); ABG PH 7.48 (7.35-7.45); ABG PO2 106 mmHg (83-108); ABG TCO2 31 mmol/L (19-24)
[2020-04-22 05:24] LABS: Allen Test Performed? no
[2020-04-22 07:04] LABS: Glucose,Whole Blood 124 mg/dL (75-99)
--- NOTE | 2020-04-22 08:02 | XR ---
EXAMINATION TYPE: XR chest 1V portable DATE OF EXAM: 04/22/2020 COMPARISON: 04/21/2020 HISTORY: SOB, Follow Up FINDINGS: Indwelling tubes and catheters are unchanged. No change in left basilar opacity. Small bilateral pleural effusions suspected. Stable appearance of the cardio-mediastinal structures at this time. Pleural effusion unchanged. IMPRESSION: 1. Stable portable chest. Clinical correlation and follow up until resolution is recommended.
--- NOTE | 2020-04-22 08:22 | P.PN ---
Subjective Patient is seen in follow-up for acute kidney injury. GFR is back to baseline. Sodium level is normal. Currently intubated on 40% FiO2. Nonoliguric. Receiving TPN. Also on Levophed. Vital signs are stable. On Levophed. General: The patient appeared well nourished and normally developed. HEENT: Head exam is unremarkable. Neck is without jugular venous distension. Intubated. LUNGS: Breath sounds decreased. HEART: Rate and Rhythm are regular. ABDOMEN: Soft. EXTREMITITES: Trace edema. Objective - Vital Signs Vital signs: Vital Signs Temp 99.6 F 04/22/20 04:00 Pulse 74 04/22/20 07:00 Resp 17 04/22/20 07:00 BP 103/64 04/22/20 07:00 Pulse Ox 100 04/22/20 07:00 Intake & Output 04/21/20 04/22/20 04/22/20 18:59 06:59 18:59 Intake Total 3540.137 2505.114 134.58 Output Total 1530 830 150 Balance 2010.137 1675.114 -15.42 Weight 79.9 kg Intake: IV 1975 1025 75 Mvi, Adult No.4 with Vit 715 605 55 K 10 ml Trace (Conc-1Ml/ Dose) 1 ml Potassium Chloride 60 meq Potassium Phosphate 30 mmol Magnesium Sulfate gm 0.6 gm Calcium Gluconate 1 gm In Amino Acid 5%-D15w 1, 000 ml @ 55 mls/hr IV . [id number] REE Rx#:[id number] Sodium Chloride 0.45% 1, 260 220 20 000 ml @ 20 mls/hr IV . Q24H REE Rx#:[id number] metroNIDAZOLE-NS PMX 500 1000 200 mg Intake, IV Titration 1621.232 3429.114 59.58 Amount Ampicillin-Sulbactam 3 gm 200 In Sodium Chloride 0.9% 100 ml @ 200 mls/hr IVPB Q6HR REE Rx#:[id number] Mvi, Adult No.4 with Vit 1062.2 1062.2 K 10 ml Trace (Conc-1Ml/ Dose) 1 ml Potassium Chloride 60 meq Potassium Phosphate 30 mmol Magnesium Sulfate gm 0.6 gm Calcium Gluconate 1 gm In Amino Acid 5%-D15w 1, 000 ml @ 55 mls/hr IV . [id number] REE Rx#:[id number] Norepinephrine 8 mg In 222.211 30.530 Sodium Chloride 0.9% 250 ml @ 0.05 MCG/KG/MIN 6. 405 mls/hr IV .Q24H REE Rx#:[id number] Propofol 1,000 mg In 280.726 187.384 59.58 Empty Bag 1 bag @ Titrate IV .Q0M REE Rx#: [id number] Output: Drainage 90 Right Lower Abdomen 90 Urine 1440 830 150 Other: Voiding Method Indwelling Catheter Indwelling Catheter ABP, PAP, CO, CI - Last Documented Arterial Blood Pressure 129/77 - Labs CBC & Chem 7: 04/21/20 03:55 04/22/20 04:20 Labs: Abnormal Lab Results - Last 24 Hours (Table) 04/21/20 04/21/20 04/22/20 Range/Units 11:48 17:50 00:53 ABG pH (7.35-7.45) ABG HCO3 (21-25) mmol/L ABG Total CO2 (19-24) mmol/L ABG O2 Saturation (94-97) % Chloride (98-107) mmol/L BUN (7-17) mg/dL Creatinine (0.52-1.04) mg/dL Glucose (74-99) mg/dL POC Glucose (mg/dL) 131 H 112 H 128 H (75-99) mg/dL Calcium (8.4-10.2) mg/dL Albumin (3.5-5.0) g/dL 04/22/20 04/22/20 04/22/20 Range/Units 04:20 05:17 07:02 ABG pH 7.48 H (7.35-7.45) ABG HCO3 30 H (21-25) mmol/L ABG Total CO2 31 H (19-24) mmol/L ABG O2 Saturation 97.5 H (94-97) % Chloride 110 H (98-107) mmol/L BUN 22 H (7-17) mg/dL Creatinine 0.37 L (0.52-1.04) mg/dL Glucose 129 H (74-99) mg/dL POC Glucose (mg/dL) 124 H (75-99) mg/dL Calcium 8.2 L (8.4-10.2) mg/dL Albumin 2.1 L (3.5-5.0) g/dL Microbiology - Last 24 Hours (Table) 04/18/20 05:10 Blood Culture - Preliminary Blood No Growth after 96 hours 04/18/20 18:00 Gram Stain - Final Sputum Sputum Culture - Final Assessment and Plan Plan: Assessment: 1. Acute kidney injury mostly prerenal secondary to hypotension. Resolved. 2. 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 Cardiology following. 3. Volume overload. Improved with IV diuresis. 4. Sigmoid diverticulitis status post exploratory laparotomy with subsequent abdominal abscess. Infectious disease following. 5. Hypernatremia secondary to lack of oral water intake with increased free water losses from sepsis. Resolved. Plan: Wean vasopressors and FiO2. May need to resume Lasix depending on volume status. I will sign off. Please call with any questions or concerns.
[2020-04-22] MEDS: SPIRONOLACTONE 25 MG TAB PO SCH (09:03)
[2020-04-22] MEDS: PANTOPRAZOLE 40 MG/10 ML VIAL IV SCH (09:03)
[2020-04-22] MEDS: DIGOXIN 250 MCG/ML 2 ML AMP IVP SCH (09:03)
[2020-04-22] MEDS: LISINOPRIL 5 MG TAB PO SCH (09:03)
[2020-04-22] MEDS: HEPARIN SODIUM,PORCINE 5,000 UNIT/ML 1 ML VIAL SQ SCH ×2 (09:04→20:35)
[2020-04-22] MEDS: CHLORHEXIDINE GLUCONATE 15 ML CUP MUCOUS MEM SCH (09:04)
[2020-04-22] MEDS: THIAMINE 100 MG/ML 2 ML VIAL IVP SCH ×2 (09:04→20:35)
[2020-04-22] MEDS: LEVOTHYROXINE IVP 100 MCG/5 ML VIAL IV SCH (09:04)
[2020-04-22 09:10] LABS: ABG Base Excess 5.3 mmol/L; ABG HCO3 28 mmol/L (21-25); ABG Oxygen Saturation 96.8 % (94-97); ABG PCO2 36 mmHg (35-45); ABG PH 7.51 (7.35-7.45); ABG PO2 87 mmHg (83-108); ABG TCO2 30 mmol/L (19-24)
[2020-04-22 09:11] LABS: Allen Test Performed? no
--- NOTE | 2020-04-22 10:32 | P.PN ---
<SupaSusyDaniela A - Last Filed: 04/22/20 10:30> Subjective Progress Note Date: 04/22/20 CHIEF COMPLAINT: Abdominal pain HISTORY OF PRESENT ILLNESS: 59-year-old female who underwent exploratory laparotomy with sigmoid colectomy, descending colostomy creation, and appendectomy with Dr. Ojeda on April 13, 2020. Patient remains on mechanical ventilation. Sedation has been stopped. Patient is awake and tracking provider in the room. Vital signs stable. She is afebrile. PHYSICAL EXAM: VITAL SIGNS: Reviewed GENERAL: Well-developed in no acute distress HEENT: No sclera icterus. Extraocular movements grossly intact. Moist buccal mucosa. Head is atraumatic, normocephalic. No nasal drainage. NECK: Supple without lymphadenopathy. CHEST: Non-labored respirations and equal bilateral excursions CARDIOVASCULAR: Regular rate with regular rhythm. Palpable 2+ radial pulses. ABDOMEN: Soft. Nondistended. Dressing clean dry intact. Ostomy to left side of abdomen. Stoma pink. MARIA EUGENIA drain with serous drainage. MUSCULOSKELETAL: No clubbing or cyanosis. NEUROLOGIC: Awake on mechanical ventilation PSYCH: Awake on mechanical ventilation SKIN: Well perfused. Good skin turgor. ASSESSMENT: 1. Abdominal pain secondary to ruptured sigmoid colon, fecal peritonitis, descending and sigmoid colon impaction, appendicolith with appendicitis PLAN: Continue TPN Monitor MARIA EUGENIA drain Continue antibiotics. Monitor labs PREVENA wound vac discontinued at bedside. Ostomy resource RN, Razia Hernandez, at bedside to change ostomy appliance. Neurology following. Appreciate recommendations and input Further ICU management per pulmonary Nurse practitioner note has been reviewed by physician. Signing provider agrees with the documented findings, assessment, and plan of care. Objective - Vital Signs Vital signs: Vital Signs Temp 99.6 F 04/22/20 04:00 Pulse 77 04/22/20 08:00 Resp 20 04/22/20 08:00 BP 103/64 04/22/20 07:00 Pulse Ox 100 04/22/20 08:00 Intake & Output 04/21/20 04/22/20 04/22/20 18:59 06:59 18:59 Intake Total 3540.137 2505.114 156.095 Output Total 1530 830 150 Balance 2010.137 1675.114 6.095 Weight 79.9 kg Intake: IV 1975 1025 75 Mvi, Adult No.4 with Vit 715 605 55 K 10 ml Trace (Conc-1Ml/ Dose) 1 ml Potassium Chloride 60 meq Potassium Phosphate 30 mmol Magnesium Sulfate gm 0.6 gm Calcium Gluconate 1 gm In Amino Acid 5%-D15w 1, 000 ml @ 55 mls/hr IV . [id number] REE Rx#:[id number] Sodium Chloride 0.45% 1, 260 220 20 000 ml @ 20 mls/hr IV . Q24H REE Rx#:[id number] metroNIDAZOLE-NS PMX 500 1000 200 mg Intake, IV Titration 4209.941 5357.114 81.095 Amount Ampicillin-Sulbactam 3 gm 200 In Sodium Chloride 0.9% 100 ml @ 200 mls/hr IVPB Q6HR REE Rx#:[id number] Mvi, Adult No.4 with Vit 1062.2 1062.2 K 10 ml Trace (Conc-1Ml/ Dose) 1 ml Potassium Chloride 60 meq Potassium Phosphate 30 mmol Magnesium Sulfate gm 0.6 gm Calcium Gluconate 1 gm In Amino Acid 5%-D15w 1, 000 ml @ 55 mls/hr IV . [id number] REE Rx#:[id number] Norepinephrine 8 mg In 222.211 30.530 Sodium Chloride 0.9% 250 ml @ 0.05 MCG/KG/MIN 6. 405 mls/hr IV .Q24H REE Rx#:[id number] Propofol 1,000 mg In 280.726 187.384 81.095 Empty Bag 1 bag @ Titrate IV .Q0M REE Rx#: [id number] Output: Drainage 90 Right Lower Abdomen 90 Urine 1440 830 150 Other: Voiding Method Indwelling Catheter Indwelling Catheter ABP, PAP, CO, CI - Last Documented Arterial Blood Pressure 111/60 - Labs CBC & Chem 7: 04/21/20 03:55 04/22/20 04:20 Labs: Abnormal Lab Results - Last 24 Hours (Table) 04/21/20 04/21/20 04/22/20 Range/Units 11:48 17:50 00:53 ABG pH (7.35-7.45) ABG HCO3 (21-25) mmol/L ABG Total CO2 (19-24) mmol/L ABG O2 Saturation (94-97) % Chloride (98-107) mmol/L BUN (7-17) mg/dL Creatinine (0.52-1.04) mg/dL Glucose (74-99) mg/dL POC Glucose (mg/dL) 131 H 112 H 128 H (75-99) mg/dL Calcium (8.4-10.2) mg/dL Albumin (3.5-5.0) g/dL 04/22/20 04/22/20 04/22/20 Range/Units 04:20 05:17 07:02 ABG pH 7.48 H (7.35-7.45) ABG HCO3 30 H (21-25) mmol/L ABG Total CO2 31 H (19-24) mmol/L ABG O2 Saturation 97.5 H (94-97) % Chloride 110 H (98-107) mmol/L BUN 22 H (7-17) mg/dL Creatinine 0.37 L (0.52-1.04) mg/dL Glucose 129 H (74-99) mg/dL POC Glucose (mg/dL) 124 H (75-99) mg/dL Calcium 8.2 L (8.4-10.2) mg/dL Albumin 2.1 L (3.5-5.0) g/dL 04/22/20 Range/Units 09:04 ABG pH 7.51 H (7.35-7.45) ABG HCO3 28 H (21-25) mmol/L ABG Total CO2 30 H (19-24) mmol/L ABG O2 Saturation (94-97) % Chloride (98-107) mmol/L BUN (7-17) mg/dL Creatinine (0.52-1.04) mg/dL Glucose (74-99) mg/dL POC Glucose (mg/dL) (75-99) mg/dL Calcium (8.4-10.2) mg/dL Albumin (3.5-5.0) g/dL Microbiology - Last 24 Hours (Table) 04/18/20 05:10 Blood Culture - Preliminary Blood No Growth after 96 hours 04/18/20 18:00 Gram Stain - Final Sputum Sputum Culture - Final <Padmaja Ojeda - Last Filed: 04/25/20 03:09> Subjective Patient seen and evaluated with nurse practitioner. Additional recommendations include resolution of oliguria as she is making moderate urine with Lasix drip. Additionally, patients on a beta dwight. Neurological status is slowly improving. In the interim, continue with TPN. Objective - Vital Signs Vital signs: Vital Signs Temp 98.1 F 04/25/20 00:00 Pulse 79 04/25/20 02:00 Resp 22 04/25/20 02:00 BP 95/74 04/24/20 20:00 Pulse Ox 96 04/25/20 02:00 Intake & Output 04/24/20 04/24/20 04/25/20 06:59 18:59 06:59 Intake Total 1300 2538.2 876 Output Total 1815 2300 1300 Balance -515 238.2 -424 Weight 79 kg Intake: IV 1300 1226 876 Ampicillin-Sulbactam 3 gm 200 100 100 In Sodium Chloride 0.9% 100 ml @ 200 mls/hr IVPB Q6HR REE Rx#:[id number] Fat Emulsion 20% 250 mL@ 126 126 20.833mls/hr Mvi, Adult No.4 with Vit 660 660 K 10 ml Trace (Conc-1Ml/ Dose) 1 ml Potassium Chloride 60 meq Potassium Phosphate 30 mmol Magnesium Sulfate gm 0.6 gm Calcium Gluconate 1 gm In Amino Acid 5%-D15w 1, 000 ml @ 55 mls/hr IV . [id number] REE Rx#:[id number] Mvi, Adult No.4 with Vit 385 K 10 ml Trace (Conc-1Ml/ Dose) 1 ml Potassium Chloride 60 meq Potassium Phosphate 30 mmol Magnesium Sulfate gm 0.6 gm Calcium Gluconate 1 gm In Amino Acid 5%-D15w 1, 000 ml @ 55 mls/hr IV . [id number] REE Rx#:[id number] Sodium Chloride 0.45% 1, 240 240 160 000 ml @ 20 mls/hr IV . Q24H REE Rx#:[id number] Sodium Chloride 0.9% 1,00 5 mL metroNIDAZOLE-NS PMX 500 200 100 100 mg Intake, IV Titration 1062.2 Amount Mvi, Adult No.4 with Vit 1062.2 K 10 ml Trace (Conc-1Ml/ Dose) 1 ml Potassium Chloride 60 meq Potassium Phosphate 30 mmol Magnesium Sulfate gm 0.6 gm Calcium Gluconate 1 gm In Amino Acid 5%-D15w 1, 000 ml @ 55 mls/hr IV . [id number] REE Rx#:[id number] Oral 250 Output: Drainage 40 Right Lower Abdomen 40 Urine 1575 1450 1200 Stool 200 850 100 Other: Voiding Method Indwelling Catheter Indwelling Catheter Indwelling Catheter ABP, PAP, CO, CI - Last Documented Arterial Blood Pressure 89/47 - Labs CBC & Chem 7: 04/24/20 05:25 04/24/20 05:25 Labs: Abnormal Lab Results - Last 24 Hours (Table) 04/24/20 04/24/20 04/24/20 Range/Units 05:25 05:25 17:33 WBC 13.7 H (3.8-10.6) k/uL RBC 3.79 L (3.80-5.40) m/uL RDW 17.0 H (11.5-15.5) % Neutrophils # 11.6 H (1.3-7.7) k/uL Sodium 133 L (137-145) mmol/L Creatinine 0.34 L (0.52-1.04) mg/dL Glucose 114 H (74-99) mg/dL POC Glucose (mg/dL) 101 H (75-99) mg/dL Calcium 8.1 L (8.4-10.2) mg/dL Microbiology - Last 24 Hours (Table) 04/23/20 13:50 Blood Culture - Preliminary Blood No Growth after 24 hours 04/18/20 05:10 Blood Culture - Final Blood No Growth after 144 hours Assessment and Plan (1) Peritonitis (acute) generalized Current Visit: Yes Status: Acute Code(s): K65.0 - GENERALIZED (ACUTE) PERITONITIS SNOMED Code(s): 42755250 (2) History of gastric bypass Current Visit: Yes Status: Acute Code(s): Z98.84 - BARIATRIC SURGERY STATUS SNOMED Code(s): 325099874 (3) Medical non-compliance Current Visit: Yes Status: Acute Code(s): Z91.19 - PATIENT'S NONCOMPLIANCE W OTH MEDICAL TREATMENT AND REGIMEN SNOMED Code(s): 273947924 (4) Tobacco abuse Current Visit: Yes Status: Acute Code(s): Z72.0 - TOBACCO USE SNOMED Code(s): 629876666 (5) Tobacco abuse counseling Current Visit: Yes Status: Acute Code(s): Z71.6 - TOBACCO ABUSE COUNSELING SNOMED Code(s): 838452854 (6) Depressive disorder Current Visit: Yes Status: Acute Code(s): F32.9 - MAJOR DEPRESSIVE DISORDER, SINGLE EPISODE, UNSPECIFIED SNOMED Code(s): 07212931 (7) Hypothyroidism Current Visit: Yes Status: Acute Code(s): E03.9 - HYPOTHYROIDISM, UNSPECIFIED SNOMED Code(s): 32035961 (8) Abdominal pain Current Visit: Yes Status: Acute Code(s): R10.9 - UNSPECIFIED ABDOMINAL PAIN SNOMED Code(s): 48702049 (9) Free intraperitoneal air Current Visit: Yes Status: Acute Code(s): K66.8 - OTHER SPECIFIED DISORDERS OF PERITONEUM SNOMED Code(s): 22951174 (10) Dehydration Current Visit: Yes Status: Acute Code(s): E86.0 - DEHYDRATION SNOMED Code(s): 33214857
--- NOTE | 2020-04-22 10:58 | PN ---
PROGRESS NOTE Brittney is a 59-year-old lady who is admitted to hospital with perforated viscus and had takotsubo syndrome. This morning, she is in the process of being weaned and extubated. Blood pressure has improved and starting her on lisinopril 5 mg daily. On exam, heart rate is 77 beats per minute. Blood pressure is 111/60. Respiratory is 18. There is no jugular venous distention. Chest exam reveals good air entry bilaterally. Heart exam reveals first and second heart sounds. No gallop. Abdomen is soft. Exam of extremities did not reveal any edema. Peripheral pulses are felt. Labs show a potassium of 4, creatinine of 0.37. Chest x-ray appears stable. ASSESSMENT: 1. Takotsubo syndrome. 2. Perforated viscus status post surgery. PLAN: Will start her on Zestril today. Continue the Aldactone that she is on. Continue the digoxin. We will start on metoprolol. MMODL / IJN: [id number] /
--- NOTE | 2020-04-22 11:37 | P.PN ---
Subjective Progress Note Date: 04/22/20 On today's evaluation of 04/21/2020, I'm seeing this patient for a follow-up in the intensive care unit. The patient remains intubated on a mechanical ventilator. The patient is currently sedated and the patient is receiving propofol at a dose of 50 mcg/kg per minute. The patient is on IV fluids at 0.45 saline at the rate of 20 mL an hour. The patient is on TPN for nutritional support running at 55 mL an hour and the patient is on norepinephrine infusion at 8.8 micrograms per minutes. In terms of vent support, the patient remains on a mechanical ventilator. She is an assist-control mode with a rate of 20 with a tidal volume of 350 and FiO2 of 50% with a PEEP of 10. Earlier blood gases showed a pH of 7.5 with a pCO2 of 43 and pO2 of 100. Necessity ventilator changes were done. Noted the patient is post perforated sigmoid colon and the patient is postop day #8. She had to be reintubated on 04/18/2020 acute hypoxic respiratory failure and development of bilateral pulmonary infiltrates. The intra-abdominal cultures are showing anaerobic gram-negative bacillus 2 and Clostridium perfringens. Antibiotic coverage remains IV Unasyn and Flagyl for now. The patient on TPN for nutritional support. The chest x-ray from today shows mild stable left lower lobe pulmonary infiltrate. There is also small right sided pleural effusion. There is blunting of the right costophrenic angle. Small right-sided pleural effusion developed. ET tube is in a good location for now. On 04/21/2000 and seeing this patient for a follow-up. The patient is calm and comfortable sedated on a mechanical ventilator. This morning she is on propofol at the rate of 50 g per KG per minute. The patient is also receiving TPN at the rate of 55 mL an hour. She is arousable and the patient is gradually being weaned off the sedation as the patient is being given a sedation holiday this morning. She remains on assist control mode at the rate of 20 with a tidal volume of 350 and FiO2 of 40% with a PEEP of 5. Blood gases from today showed a pH of 7.48 with a pCO2 of 40 and pO2 of 106. Chest x-ray shows significant changes compared to yesterday. There are small better pleural effusion and suspected. No change in the left basilar opacity. The patient has a functional colostomy. There is some stool extubating in the colostomy bag. Surgical wound site is dry clean and intact. The patient is still on pressors and she is requiring norepinephrine infusion rate of 5 mg/m. She is on TPN at the rate of 55 mL an hour. She has adequate urine output. No other significant events overnight. During the course of my evaluation, I stop the sedation, check weaning parameters and following that I give the patient is point is breathing trial with a pressure support of 5 and a PEEP of 5. After being on the setting for around 30 minutes, the patient up with a pH of 7.51 with a pCO2 of 36 and p O2 of 87 and the patient is currently being extubated. Objective - Vital Signs Vital signs: Vital Signs Temp 99.6 F 04/22/20 04:00 Pulse 77 04/22/20 08:00 Resp 20 04/22/20 08:00 BP 103/64 04/22/20 07:00 Pulse Ox 100 04/22/20 08:00 Intake & Output 04/21/20 04/22/20 04/22/20 18:59 06:59 18:59 Intake Total 3540.137 2505.114 156.095 Output Total 1530 830 150 Balance 2010.137 1675.114 6.095 Weight 79.9 kg Intake: IV 1975 1025 75 Mvi, Adult No.4 with Vit 715 605 55 K 10 ml Trace (Conc-1Ml/ Dose) 1 ml Potassium Chloride 60 meq Potassium Phosphate 30 mmol Magnesium Sulfate gm 0.6 gm Calcium Gluconate 1 gm In Amino Acid 5%-D15w 1, 000 ml @ 55 mls/hr IV . [id number] REE Rx#:[id number] Sodium Chloride 0.45% 1, 260 220 20 000 ml @ 20 mls/hr IV . Q24H REE Rx#:[id number] metroNIDAZOLE-NS PMX 500 1000 200 mg Intake, IV Titration 9179.789 2574.114 81.095 Amount Ampicillin-Sulbactam 3 gm 200 In Sodium Chloride 0.9% 100 ml @ 200 mls/hr IVPB Q6HR REE Rx#:[id number] Mvi, Adult No.4 with Vit 1062.2 1062.2 K 10 ml Trace (Conc-1Ml/ Dose) 1 ml Potassium Chloride 60 meq Potassium Phosphate 30 mmol Magnesium Sulfate gm 0.6 gm Calcium Gluconate 1 gm In Amino Acid 5%-D15w 1, 000 ml @ 55 mls/hr IV . [id number] REE Rx#:[id number] Norepinephrine 8 mg In 222.211 30.530 Sodium Chloride 0.9% 250 ml @ 0.05 MCG/KG/MIN 6. 405 mls/hr IV .Q24H REE Rx#:[id number] Propofol 1,000 mg In 280.726 187.384 81.095 Empty Bag 1 bag @ Titrate IV .Q0M REE Rx#: [id number] Output: Drainage 90 Right Lower Abdomen 90 Urine 1440 830 150 Other: Voiding Method Indwelling Catheter Indwelling Catheter ABP, PAP, CO, CI - Last Documented Arterial Blood Pressure 111/60 - Exam GENERAL: Well-developed in no acute distress, intubated on mechanical ventilated and the patient was sedated for now. Orogastric and orotracheal tube are both in place. HEENT: No sclera icterus. Extraocular movements grossly intact. Moist buccal mucosa. Head is atraumatic, normocephalic. No nasal drainage. NECK: Supple without lymphadenopathy. CHEST: Non-labored respirations and equal bilateral excursions CARDIOVASCULAR: Tachycardic. Regular rate with regular rhythm. Palpable 2+ radial pulses. ABDOMEN: Soft. Nondistended. PREVENA wound vac noted. Ostomy to left side of abdomen. No stool or gas noted. Stoma pink. MARIA EUGENIA drain with serous drainage. MUSCULOSKELETAL: No clubbing or cyanosis. NEUROLOGIC: The patient is receiving a sedation holiday and the patient is undergoing a spontaneous breathing trial at this point in time. PSYCH: Unable to assess secondary to altered mental status SKIN: Well perfused. Good skin turgor. - Labs CBC & Chem 7: 04/21/20 03:55 04/22/20 04:20 Labs: Abnormal Lab Results - Last 24 Hours (Table) 04/21/20 04/21/20 04/22/20 Range/Units 11:48 17:50 00:53 ABG pH (7.35-7.45) ABG HCO3 (21-25) mmol/L ABG Total CO2 (19-24) mmol/L ABG O2 Saturation (94-97) % Chloride (98-107) mmol/L BUN (7-17) mg/dL Creatinine (0.52-1.04) mg/dL Glucose (74-99) mg/dL POC Glucose (mg/dL) 131 H 112 H 128 H (75-99) mg/dL Calcium (8.4-10.2) mg/dL Albumin (3.5-5.0) g/dL 04/22/20 04/22/20 04/22/20 Range/Units 04:20 05:17 07:02 ABG pH 7.48 H (7.35-7.45) ABG HCO3 30 H (21-25) mmol/L ABG Total CO2 31 H (19-24) mmol/L ABG O2 Saturation 97.5 H (94-97) % Chloride 110 H (98-107) mmol/L BUN 22 H (7-17) mg/dL Creatinine 0.37 L (0.52-1.04) mg/dL Glucose 129 H (74-99) mg/dL POC Glucose (mg/dL) 124 H (75-99) mg/dL Calcium 8.2 L (8.4-10.2) mg/dL Albumin 2.1 L (3.5-5.0) g/dL 04/22/20 Range/Units 09:04 ABG pH 7.51 H (7.35-7.45) ABG HCO3 28 H (21-25) mmol/L ABG Total CO2 30 H (19-24) mmol/L ABG O2 Saturation (94-97) % Chloride (98-107) mmol/L BUN (7-17) mg/dL Creatinine (0.52-1.04) mg/dL Glucose (74-99) mg/dL POC Glucose (mg/dL) (75-99) mg/dL Calcium (8.4-10.2) mg/dL Albumin (3.5-5.0) g/dL Microbiology - Last 24 Hours (Table) 04/18/20 05:10 Blood Culture - Preliminary Blood No Growth after 96 hours 04/18/20 18:00 Gram Stain - Final Sputum Sputum Culture - Final Assessment and Plan Plan: 1 ruptured sigmoid colon with fecal peritonitis, along with descending and sigmoid colon impaction and appendicolith and appendicitis. The patient underwent expose a laparotomy with sigmoid colectomy and descending colostomy creation and appendectomy. Surgery was done on 04/13/2020. The patient is recovering well from surgery and the patient has some bowel activity and sleep emanating in the colostomy bag 2 acute hypoxic respiratory failure and the patient had to be reintubated on 04/18/2024 hypoxic respiratory failure and development of breath and pulmonary infiltrates. Consider an early acute lung injury/ARDS. Pulmonary infiltrate is improving and the patient's saturations improved with improvement in airway pressures. Chest x-ray and the vent settings were all noted. On today's evaluation, the patient was able to give me good weaning parameters while the patient was off sedation. As such, I'm considering extubating this patient and I gave her a spontaneous breathing trial and a blood gases were adequate. 3 sepsis with secondary hypotension secondary to above. The patient is still requiring pressors in addition to broad-spectrum antibiotics. The intra- abdominal culture are all anaerobes including anaerobic gram-negative bacillus and Clostridium perfringens. The patient continues to require pressors which is running at 5 g per minute 4 Hypothyroidism 5 history of smoking 6 which is moderate impairment of LV function addition to segmental wall motion abnormalities and some apical ballooning syndrome. Moderate tricuspid regurgitation and mild pulmonary hypertension was also noted. There is apical lateral LV wall motion hypokinesis. Plan I checked her weaning parameters. I checked this point is breathing trial. I checked a blood gas. I checked a chest x-ray. The patient can be extubated today. Stop all sedations Wean off pressors and the patient is currently down to 5 g of norepinephrine infusion per minute Continue the TPN for nutritional support Continued IV Unasyn and Flagyl Discontinue the Lasix for now IV fluids of half-normal saline at rate of 20 mL an hour Heparin subcu for DVT prophylaxis We'll continue to follow make further recommendations based on overall progress. Condition is critical at this point in time. This evaluation was done more than 30 minutes. Time with Patient: Greater than 30
[2020-04-22 11:55] LABS: Glucose,Whole Blood 116 mg/dL (75-99)
[2020-04-22] MEDS: ACETAMINOPHEN IV (For NPO) 1,000 MG in EMPTY BAG 1 BAG IVPB PRN (13:32)
[2020-04-22] MEDS: HYDROmorphone 1 MG/ML 1 ML SYRINGE IVP PRN (16:34)
[2020-04-22] MEDS: METOPROLOL SUCCINATE (ER) 25 MG TAB.ER.24H PO SCH (18:04)
[2020-04-22 18:12] LABS: Glucose,Whole Blood 121 mg/dL (75-99)
[2020-04-22] MEDS: SODIUM CHLORIDE 0.45% 1,000 ML IV SCH (18:30)
[2020-04-22 23:30] LABS: Glucose,Whole Blood 147 mg/dL (75-99)
--- NOTE | 2020-04-22 23:32 | PN ---
PROGRESS NOTE DATE OF SERVICE: 04/22/2020 REASON FOR FOLLOWUP: Abdominal abscess from perforated diverticulitis. INTERVAL HISTORY: The patient is currently afebrile. The patient has been extubated. She is breathing comfortably on 2 L nasal cannula oxygen. Mentioned she wants to go home. No chest pain, shortness of breath or cough. Abdominal pain is currently controlled. PHYSICAL EXAMINATION: Blood pressure 118/64 with a pulse of 83, temperature 98.5. She is 96% on 2 L nasal cannula. General description is a middle-aged female lying in bed in no distress. RESPIRATORY SYSTEM: Unlabored breathing, clear to auscultation anteriorly. HEART: S1, S2. Regular rate and rhythm. ABDOMEN: Soft, mildly tender: No guarding or rigidity. LABS: No new labs have been obtained today. DIAGNOSTIC IMPRESSION AND PLAN: Patient with abdominal abscess from perforated sigmoid diverticulitis status post laparotomy and diverting colostomy drainage of the abscess. Culture has been predominantly anaerobes. Patient is covered with Unasyn to continue and will monitor clinical course closely. MMODL / IJN: [id number] /
[2020-04-23] MEDS: MVI, ADULT NO.4 WITH VIT K 10 ML, TRACE (CONC-1ML/DOSE) 1 ML, POTASSIUM CHLORIDE 60 MEQ... IV SCH ×14 (00:37→18:13)
[2020-04-23] MEDS: AMPICILLIN-SULBACTAM 3 GM in SODIUM CHLORIDE 0.9% 100 ML IVPB SCH ×3 (05:25→17:30)
[2020-04-23] MEDS: metroNIDAZOLE-NS PMX 500 MG in SALINE 1 100ML.BAG IVPB SCH ×3 (05:26→17:30)
[2020-04-23 05:31] LABS: Glucose,Whole Blood 113 mg/dL (75-99)
[2020-04-23] MEDS: INSULIN ASPART (NovoLOG) 100 UNIT/ML VIAL SQ SCH ×3 (05:31→17:30)
[2020-04-23 06:24] LABS: Anisocytosis Slight; Basophils % (A) 0 %; Eosinophils # (A) 0.2 k/uL (0-0.7); Eosinophils % (A) 2 %; HCT 34.3 % (34.0-46.0); HGB 11.4 gm/dL (11.4-16.0); Lymphocytes # (A) 1.1 k/uL (1.0-4.8); Lymphocytes % (A) 10 %; MCH 32.5 pg (25.0-35.0); MCHC 33.3 g/dL (31.0-37.0); MCV 97.6 fL (80.0-100.0); Macrocytosis Slight; Mean Platelet Volume 10.1; Monocytes # (A) 0.4 k/uL (0-1.0); Monocytes % (A) 3 %; Neutrophils # (A) 9.5 k/uL (1.3-7.7); Neutrophils % (A) 84 %; Platelet Count 239 k/uL (150-450); RBC 3.51 m/uL (3.80-5.40); RDW 16.8 % (11.5-15.5); WBC 11.3 k/uL (3.8-10.6)
[2020-04-23 06:35] LABS: African American GFR (CKD) >90 (>60 ml/min/1.73 sqM); Anion Gap 4 mmol/L; Blood Urea Nitrogen 17 mg/dL (7-17); Calcium 8.1 mg/dL (8.4-10.2); Carbon Dioxide 24 mmol/L (22-30); Chloride 109 mmol/L (98-107); Glucose 105 mg/dL (74-99); Magnesium 1.9 mg/dL (1.6-2.3); Non-African American GFR(CKD) >90 (>60 ml/min/1.73 sqM); Phosphorus 2.9 mg/dL (2.5-4.5); Potassium 4.3 mmol/L (3.5-5.1); Sodium 137 mmol/L (137-145)
--- NOTE | 2020-04-23 08:16 | XR ---
EXAMINATION TYPE: XR chest 1V portable DATE OF EXAM: 04/23/2020 Comparison: 04/22/2020 Clinical History: 59 year-old female tube placement Findings: Heart normal size. Aorta and pulmonary vasculature within normal limits. Interval extubation and simran douglas of NG tube. Right IJ CVC tip remains at the cavoatrial junction. Improving aeration at the left b ase with residual retrocardiac opacity. Impression: Improving aeration at the left base but with residual retrocardiac airspace disease and/or atelectasi s.
[2020-04-23] MEDS: METOPROLOL SUCCINATE (ER) 25 MG TAB.ER.24H PO SCH (08:45)
[2020-04-23] MEDS: HEPARIN SODIUM,PORCINE 5,000 UNIT/ML 1 ML VIAL SQ SCH ×2 (08:45→21:19)
[2020-04-23] MEDS: LISINOPRIL 5 MG TAB PO SCH (08:45)
[2020-04-23] MEDS: SPIRONOLACTONE 25 MG TAB PO SCH (08:45)
[2020-04-23] MEDS: PANTOPRAZOLE 40 MG/10 ML VIAL IV SCH (08:45)
[2020-04-23] MEDS: THIAMINE 100 MG/ML 2 ML VIAL IVP SCH ×2 (08:46→21:19)
[2020-04-23] MEDS: LEVOTHYROXINE IVP 100 MCG/5 ML VIAL IV SCH (08:46)
[2020-04-23] MEDS: NICOTINE 14MG/24HR PATCH TRANSDERM SCH (09:48)
[2020-04-23 12:00] LABS: Glucose,Whole Blood 90 mg/dL (75-99)
[2020-04-23] MEDS: FAT EMULSION 20% 250 ML IV SCH (12:09)
--- NOTE | 2020-04-23 12:53 | PN ---
PROGRESS NOTE Brittney is a 59-year-old lady that is admitted to hospital for perforated viscus and had Takotsubo syndrome. She is extubated, appears alert and is able to communicate well today. Denies chest pain or difficulty in breathing. Currently on Zestril 5 mg daily, Toprol-XL 12.5 mg daily along with Aldactone. EXAM: Heart rate is 80 beats per minute. Blood pressure is 102/66. Respirations 18. O2 saturation is 97% on 2 L. There is no jugular venous distention. Chest exam reveals good air entry bilaterally. Heart exam reveals first and second heart sounds. No gallop. Exam of extremities did not reveal any edema. Peripheral pulses are felt. LABS: Show a hemoglobin of 11.4, potassium is 4.3, creatinine is 0.34. ASSESSMENT: 1. Takotsubo syndrome. 2. Perforated viscus. PLAN: Patient will continue with current medications. MMODL / IJN: [id number] /
--- NOTE | 2020-04-23 13:40 | P.PN ---
<SupaSusyDaniela A - Last Filed: 04/23/20 13:34> Subjective Progress Note Date: 04/23/20 CHIEF COMPLAINT: Abdominal pain HISTORY OF PRESENT ILLNESS: 59-year-old female who underwent exploratory laparotomy with sigmoid colectomy, descending colostomy creation, and appendectomy with Dr. Ojeda on April 13, 2020. Patient was extubated yesterday. She is awake and alert. Denies abdominal pain. Tolerating liquid diet. Remains on TPN. PHYSICAL EXAM: VITAL SIGNS: Reviewed GENERAL: Well-developed in no acute distress HEENT: No sclera icterus. Extraocular movements grossly intact. Moist buccal mucosa. Head is atraumatic, normocephalic. No nasal drainage. NECK: Supple without lymphadenopathy. CHEST: Non-labored respirations and equal bilateral excursions CARDIOVASCULAR: Regular rate with regular rhythm. Palpable 2+ radial pulses. ABDOMEN: Soft. Nondistended. Dressing clean dry intact. Ostomy to left side of abdomen. Stoma pink. MARIA EUGENIA drain with serous drainage. MUSCULOSKELETAL: No clubbing or cyanosis. NEUROLOGIC: No focal or lateralizing signs. Cranial nerves II through XII grossly intact. PSYCH: Appropriate affect. Alert and oriented to person, place and time. SKIN: Well perfused. Good skin turgor. ASSESSMENT: 1. Abdominal pain secondary to ruptured sigmoid colon, fecal peritonitis, descending and sigmoid colon impaction, appendicolith with appendicitis PLAN: Continue TPN until PO intake improves Advance diet Monitor MARIA EUGENIA drain Continue antibiotics. Monitor labs Further ICU management per pulmonary Nurse practitioner note has been reviewed by physician. Signing provider agrees with the documented findings, assessment, and plan of care. Objective - Vital Signs Vital signs: Vital Signs Temp 98.5 F 04/23/20 00:00 Pulse 84 04/23/20 09:00 Resp 20 04/23/20 09:00 BP 103/66 04/23/20 07:00 Pulse Ox 97 04/23/20 09:00 Intake & Output 04/22/20 04/23/20 04/23/20 18:59 06:59 18:59 Intake Total 7911.311 7021.2 225 Output Total 1170 860 380 Balance 655.836 4288.2 -155 Weight 81.7 kg 81.7 kg Intake: IV 1400 1300 225 Acetaminophen 1000mg 100 Ampicillin-Sulbactam 3 gm 200 200 In Sodium Chloride 0.9% 100 ml @ 200 mls/hr IVPB Q6HR [facility] Rx#:[id number] Mvi, Adult No.4 with Vit 660 660 165 K 10 ml Trace (Conc-1Ml/ Dose) 1 ml Potassium Chloride 60 meq Potassium Phosphate 30 mmol Magnesium Sulfate gm 0.6 gm Calcium Gluconate 1 gm In Amino Acid 5%-D15w 1, 000 ml @ 55 mls/hr IV . [id number] [facility] Rx#:[id number] Sodium Chloride 0.45% 1, 240 240 60 000 ml @ 20 mls/hr IV . Q24H [facility] Rx#:[id number] metroNIDAZOLE-NS PMX 500 200 200 mg Intake, IV Titration 312.612 9397.2 Amount Mvi, Adult No.4 with Vit 1062.2 K 10 ml Trace (Conc-1Ml/ Dose) 1 ml Potassium Chloride 60 meq Potassium Phosphate 30 mmol Magnesium Sulfate gm 0.6 gm Calcium Gluconate 1 gm In Amino Acid 5%-D15w 1, 000 ml @ 55 mls/hr IV . [id number] [facility] Rx#:[id number] Norepinephrine 8 mg In 81.6 Sodium Chloride 0.9% 250 ml @ 0.05 MCG/KG/MIN 6. 405 mls/hr IV .Q24H [facility] Rx#:[id number] Propofol 1,000 mg In 81.095 Empty Bag 1 bag @ Titrate IV .Q0M [facility] Rx#: [id number] Output: Drainage 20 30 Right Lower Abdomen 20 30 Urine 1150 860 350 Other: Voiding Method Indwelling Catheter Indwelling Catheter ABP, PAP, CO, CI - Last Documented Arterial Blood Pressure 117/62 - Labs CBC & Chem 7: 04/23/20 05:35 04/23/20 05:35 Labs: Abnormal Lab Results - Last 24 Hours (Table) 04/22/20 04/22/20 04/23/20 Range/Units 18:10 23:27 05:30 WBC (3.8-10.6) k/uL RBC (3.80-5.40) m/uL RDW (11.5-15.5) % Neutrophils # (1.3-7.7) k/uL Chloride (98-107) mmol/L Creatinine (0.52-1.04) mg/dL Glucose (74-99) mg/dL POC Glucose (mg/dL) 121 H 147 H 113 H (75-99) mg/dL Calcium (8.4-10.2) mg/dL 04/23/20 04/23/20 Range/Units 05:35 05:35 WBC 11.3 H (3.8-10.6) k/uL RBC 3.51 L (3.80-5.40) m/uL RDW 16.8 H (11.5-15.5) % Neutrophils # 9.5 H (1.3-7.7) k/uL Chloride 109 H (98-107) mmol/L Creatinine 0.34 L (0.52-1.04) mg/dL Glucose 105 H (74-99) mg/dL POC Glucose (mg/dL) (75-99) mg/dL Calcium 8.1 L (8.4-10.2) mg/dL Microbiology - Last 24 Hours (Table) 04/18/20 05:10 Blood Culture - Preliminary Blood No Growth after 120 hours <Padmaja Ojeda N - Last Filed: 04/25/20 03:12> Subjective Patient seen and evaluated nurse practitioner. Agree with above. Patient's neurological status moderately improved. Would recommend evaluation for oral feeds from bariatric dietitian consult to manage oral diet. Will need physical therapy occupational therapy. Per patient's family wishes, rehab facility [facility] requested. Objective - Vital Signs Vital signs: Vital Signs Temp 98.1 F 04/25/20 00:00 Pulse 79 04/25/20 02:00 Resp 22 04/25/20 02:00 BP 95/74 04/24/20 20:00 Pulse Ox 96 04/25/20 02:00 Intake & Output 04/24/20 04/24/20 04/25/20 06:59 18:59 06:59 Intake Total 1300 2538.2 876 Output Total 1815 2300 1300 Balance -515 238.2 -424 Weight 79 kg Intake: IV 1300 1226 876 Ampicillin-Sulbactam 3 gm 200 100 100 In Sodium Chloride 0.9% 100 ml @ 200 mls/hr IVPB Q6HR [facility] Rx#:[id number] Fat Emulsion 20% 250 mL@ 126 126 20.833mls/hr Mvi, Adult No.4 with Vit 660 660 K 10 ml Trace (Conc-1Ml/ Dose) 1 ml Potassium Chloride 60 meq Potassium Phosphate 30 mmol Magnesium Sulfate gm 0.6 gm Calcium Gluconate 1 gm In Amino Acid 5%-D15w 1, 000 ml @ 55 mls/hr IV . [id number] [facility] Rx#:[id number] Mvi, Adult No.4 with Vit 385 K 10 ml Trace (Conc-1Ml/ Dose) 1 ml Potassium Chloride 60 meq Potassium Phosphate 30 mmol Magnesium Sulfate gm 0.6 gm Calcium Gluconate 1 gm In Amino Acid 5%-D15w 1, 000 ml @ 55 mls/hr IV . [id number] [facility] Rx#:[id number] Sodium Chloride 0.45% 1, 240 240 160 000 ml @ 20 mls/hr IV . Q24H [facility] Rx#:[id number] Sodium Chloride 0.9% 1,00 5 mL metroNIDAZOLE-NS PMX 500 200 100 100 mg Intake, IV Titration 1062.2 Amount Mvi, Adult No.4 with Vit 1062.2 K 10 ml Trace (Conc-1Ml/ Dose) 1 ml Potassium Chloride 60 meq Potassium Phosphate 30 mmol Magnesium Sulfate gm 0.6 gm Calcium Gluconate 1 gm In Amino Acid 5%-D15w 1, 000 ml @ 55 mls/hr IV . [id number] [facility] Rx#:[id number] Oral 250 Output: Drainage 40 Right Lower Abdomen 40 Urine 1575 1450 1200 Stool 200 850 100 Other: Voiding Method Indwelling Catheter Indwelling Catheter Indwelling Catheter ABP, PAP, CO, CI - Last Documented Arterial Blood Pressure 89/47 - Labs CBC & Chem 7: 04/24/20 05:25 04/24/20 05:25 Labs: Abnormal Lab Results - Last 24 Hours (Table) 04/24/20 04/24/20 04/24/20 Range/Units 05:25 05:25 17:33 WBC 13.7 H (3.8-10.6) k/uL RBC 3.79 L (3.80-5.40) m/uL RDW 17.0 H (11.5-15.5) % Neutrophils # 11.6 H (1.3-7.7) k/uL Sodium 133 L (137-145) mmol/L Creatinine 0.34 L (0.52-1.04) mg/dL Glucose 114 H (74-99) mg/dL POC Glucose (mg/dL) 101 H (75-99) mg/dL Calcium 8.1 L (8.4-10.2) mg/dL Microbiology - Last 24 Hours (Table) 04/23/20 13:50 Blood Culture - Preliminary Blood No Growth after 24 hours 04/18/20 05:10 Blood Culture - Final Blood No Growth after 144 hours Assessment and Plan (1) Peritonitis (acute) generalized Current Visit: Yes Status: Acute Code(s): K65.0 - GENERALIZED (ACUTE) PERITONITIS SNOMED Code(s): 48461582 (2) History of gastric bypass Current Visit: Yes Status: Acute Code(s): Z98.84 - BARIATRIC SURGERY STATUS SNOMED Code(s): 900515440 (3) Medical non-compliance Current Visit: Yes Status: Acute Code(s): Z91.19 - PATIENT'S NONCOMPLIANCE W OTH MEDICAL TREATMENT AND REGIMEN SNOMED Code(s): 011615800 (4) Tobacco abuse Current Visit: Yes Status: Acute Code(s): Z72.0 - TOBACCO USE SNOMED Code(s): 602874765 (5) Tobacco abuse counseling Current Visit: Yes Status: Acute Code(s): Z71.6 - TOBACCO ABUSE COUNSELING SNOMED Code(s): 523681834 (6) Depressive disorder Current Visit: Yes Status: Acute Code(s): F32.9 - MAJOR DEPRESSIVE DISORDER, SINGLE EPISODE, UNSPECIFIED SNOMED Code(s): 94265838 (7) Hypothyroidism Current Visit: Yes Status: Acute Code(s): E03.9 - HYPOTHYROIDISM, UNSPECIFIED SNOMED Code(s): 39413769 (8) Abdominal pain Current Visit: Yes Status: Acute Code(s): R10.9 - UNSPECIFIED ABDOMINAL PAIN SNOMED Code(s): 93064453 (9) Free intraperitoneal air Current Visit: Yes Status: Acute Code(s): K66.8 - OTHER SPECIFIED DISORDERS OF PERITONEUM SNOMED Code(s): 91651424 (10) Dehydration Current Visit: Yes Status: Acute Code(s): E86.0 - DEHYDRATION SNOMED Code(s): 20684565
[2020-04-23] MEDS: ACETAMINOPHEN TAB 325 MG TAB PO PRN ×2 (14:09→21:19)
--- NOTE | 2020-04-23 14:32 | P.PN ---
Subjective Progress Note Date: 04/23/20 On today's evaluation of 04/21/2020, I'm seeing this patient for a follow-up in the intensive care unit. The patient remains intubated on a mechanical ventilator. The patient is currently sedated and the patient is receiving propofol at a dose of 50 mcg/kg per minute. The patient is on IV fluids at 0.45 saline at the rate of 20 mL an hour. The patient is on TPN for nutritional support running at 55 mL an hour and the patient is on norepinephrine infusion at 8.8 micrograms per minutes. In terms of vent support, the patient remains on a mechanical ventilator. She is an assist-control mode with a rate of 20 with a tidal volume of 350 and FiO2 of 50% with a PEEP of 10. Earlier blood gases showed a pH of 7.5 with a pCO2 of 43 and pO2 of 100. Necessity ventilator changes were done. Noted the patient is post perforated sigmoid colon and the patient is postop day #8. She had to be reintubated on 04/18/2020 acute hypoxic respiratory failure and development of bilateral pulmonary infiltrates. The intra-abdominal cultures are showing anaerobic gram-negative bacillus 2 and Clostridium perfringens. Antibiotic coverage remains IV Unasyn and Flagyl for now. The patient on TPN for nutritional support. The chest x-ray from today shows mild stable left lower lobe pulmonary infiltrate. There is also small right sided pleural effusion. There is blunting of the right costophrenic angle. Small right-sided pleural effusion developed. ET tube is in a good location for now. On 04/22/2020 and seeing this patient for a follow-up. The patient is calm and comfortable sedated on a mechanical ventilator. This morning she is on propofol at the rate of 50 g per KG per minute. The patient is also receiving TPN at the rate of 55 mL an hour. She is arousable and the patient is gradually being weaned off the sedation as the patient is being given a sedation holiday this morning. She remains on assist control mode at the rate of 20 with a tidal volume of 350 and FiO2 of 40% with a PEEP of 5. Blood gases from today showed a pH of 7.48 with a pCO2 of 40 and pO2 of 106. Chest x-ray shows significant changes compared to yesterday. There are small better pleural effusion and suspected. No change in the left basilar opacity. The patient has a functional colostomy. There is some stool extubating in the colostomy bag. Surgical wound site is dry clean and intact. The patient is still on pressors and she is requiring norepinephrine infusion rate of 5 mg/m. She is on TPN at the rate of 55 mL an hour. She has adequate urine output. No other significant events overnight. During the course of my evaluation, I stop the sedation, check weaning parameters and following that I give the patient is point is breathing trial with a pressure support of 5 and a PEEP of 5. After being on the setting for around 30 minutes, the patient up with a pH of 7.51 with a pCO2 of 36 and p O2 of 87 and the patient is currently being extubated. On 04/23/2020 and seeing the patient for a follow-up. The patient is currently extubated and she is calm and comfortable. The patient is currently on 2 L of oxygen by nasal cannula with a pulse is 97%. The patient will have a swallow evaluation did I already checked a bedside swallow and I gave her some clear liquid diet. She is on Diprivan which is running at 55 an hour and she is also on half normal saline 23 an hour. Colostomy site is functioning. She is weak and she has global weakness and maybe motor weakness in both upper and lower extremities. Overall surgical wound site is dry clean and intact. She has been producing adequate amount of urine output. No fever or chills. Antibiotic coverage is still the same and the patient remains on a combination of Unasyn and Flagyl.note that the patient off norepinephrine infusion. has been also weaned off the pressors and she is currently Objective - Vital Signs Vital signs: Vital Signs Temp 98.5 F 04/23/20 00:00 Pulse 80 04/23/20 13:00 Resp 20 04/23/20 13:00 BP 103/66 04/23/20 07:00 Pulse Ox 97 04/23/20 13:00 Intake & Output 04/22/20 04/23/20 04/23/20 18:59 06:59 18:59 Intake Total 8879.636 4256.2 650 Output Total 1170 860 730 Balance 900.315 9878.2 -80 Weight 81.7 kg 81.7 kg Intake: IV 1400 1300 650 Acetaminophen 1000mg 100 Ampicillin-Sulbactam 3 gm 200 200 100 In Sodium Chloride 0.9% 100 ml @ 200 mls/hr IVPB Q6HR [facility] Rx#:[id number] Mvi, Adult No.4 with Vit 660 660 330 K 10 ml Trace (Conc-1Ml/ Dose) 1 ml Potassium Chloride 60 meq Potassium Phosphate 30 mmol Magnesium Sulfate gm 0.6 gm Calcium Gluconate 1 gm In Amino Acid 5%-D15w 1, 000 ml @ 55 mls/hr IV . [id number] [facility] Rx#:[id number] Sodium Chloride 0.45% 1, 240 240 120 000 ml @ 20 mls/hr IV . Q24H [facility] Rx#:[id number] metroNIDAZOLE-NS PMX 500 200 200 100 mg Intake, IV Titration 785.817 9727.2 Amount Mvi, Adult No.4 with Vit 1062.2 K 10 ml Trace (Conc-1Ml/ Dose) 1 ml Potassium Chloride 60 meq Potassium Phosphate 30 mmol Magnesium Sulfate gm 0.6 gm Calcium Gluconate 1 gm In Amino Acid 5%-D15w 1, 000 ml @ 55 mls/hr IV . [id number] [facility] Rx#:[id number] Norepinephrine 8 mg In 81.6 Sodium Chloride 0.9% 250 ml @ 0.05 MCG/KG/MIN 6. 405 mls/hr IV .Q24H [facility] Rx#:[id number] Propofol 1,000 mg In 81.095 Empty Bag 1 bag @ Titrate IV .Q0M [facility] Rx#: [id number] Output: Drainage 20 30 Right Lower Abdomen 20 30 Urine 1150 860 700 Other: Voiding Method Indwelling Catheter Indwelling Catheter ABP, PAP, CO, CI - Last Documented Arterial Blood Pressure 117/61 - Exam GENERAL: Well-developed in no acute distress, the patient has been extubated currently on 2 L of oxygen by nasal cannula HEENT: No sclera icterus. Extraocular movements grossly intact. Moist buccal mucosa. Head is atraumatic, normocephalic. No nasal drainage. NECK: Supple without lymphadenopathy. CHEST: Non-labored respirations and equal bilateral excursions CARDIOVASCULAR: Tachycardic. Regular rate with regular rhythm. Palpable 2+ radial pulses. ABDOMEN: Soft. Nondistended. PREVENA wound vac noted. Ostomy to left side of abdomen. No stool or gas noted. Stoma pink. MARIA EUGENIA drain with serous drainage. MUSCULOSKELETAL: No clubbing or cyanosis. NEUROLOGIC: The patient is awake and alert and there is no focal neurological deficits. There is global weakness and the motor functions both in the upper and lower extremities. PSYCH: Unable to assess secondary to altered mental status SKIN: Well perfused. Good skin turgor. - Labs CBC & Chem 7: 04/23/20 05:35 04/23/20 05:35 Labs: Abnormal Lab Results - Last 24 Hours (Table) 04/22/20 04/22/20 04/23/20 Range/Units 18:10 23:27 05:30 WBC (3.8-10.6) k/uL RBC (3.80-5.40) m/uL RDW (11.5-15.5) % Neutrophils # (1.3-7.7) k/uL Chloride (98-107) mmol/L Creatinine (0.52-1.04) mg/dL Glucose (74-99) mg/dL POC Glucose (mg/dL) 121 H 147 H 113 H (75-99) mg/dL Calcium (8.4-10.2) mg/dL 04/23/20 04/23/20 Range/Units 05:35 05:35 WBC 11.3 H (3.8-10.6) k/uL RBC 3.51 L (3.80-5.40) m/uL RDW 16.8 H (11.5-15.5) % Neutrophils # 9.5 H (1.3-7.7) k/uL Chloride 109 H (98-107) mmol/L Creatinine 0.34 L (0.52-1.04) mg/dL Glucose 105 H (74-99) mg/dL POC Glucose (mg/dL) (75-99) mg/dL Calcium 8.1 L (8.4-10.2) mg/dL Microbiology - Last 24 Hours (Table) 04/18/20 05:10 Blood Culture - Preliminary Blood No Growth after 120 hours Assessment and Plan Plan: 1 ruptured sigmoid colon with fecal peritonitis, along with descending and sig moid colon impaction and appendicolith and appendicitis. The patient underwent expose a laparotomy with sigmoid colectomy and descending colostomy creation and appendectomy. Surgery was done on 04/13/2020. The patient is recovering well from surgery and the patient has some bowel activity and the colostomy bag 2 acute hypoxic respiratory failure and the patient had to be reintubated on 04/18/2024 hypoxic respiratory failure and ultimately she was extubated on 04/22/2020 currently she is on 2 L of oxygen by nasal cannula. The follow-up chest x-ray from today shows improvement and improving aeration of the left lung base with some residual retrocardiac airspace disease and atelectasis. 3 sepsis with secondary hypotension secondary to above. The patient is still requiring pressors in addition to broad-spectrum antibiotics. The intra- abdominal culture are all anaerobes including anaerobic gram-negative bacillus and Clostridium perfringens. The patient currently is off pressors and the patient is hemodynamically stable. 4 Hypothyroidism 5 history of smoking 6 which is moderate impairment of LV function addition to segmental wall motion abnormalities and some apical ballooning syndrome. Moderate tricuspid regurgitation and mild pulmonary hypertension was also noted. There is apical lateral LV wall motion hypokinesis. Plan Initiate clear liquid diet Advance diet as tolerated TPN for another 24 hours and possibly we'll discontinue as the patient is advancing her diet Involve physical therapy Continue IV Unasyn and Flagyl IV fluids to KVO Keep same antibiotic coverage Keep the patient ICU for 24 hours Incentive spirometer We'll continue to follow
[2020-04-23 17:31] LABS: Glucose,Whole Blood 88 mg/dL (75-99)
[2020-04-23] MEDS: SODIUM CHLORIDE 0.45% 1,000 ML IV SCH (17:33)
[2020-04-23 19:08] LABS: Selenium 49 mcg/L (63-160)
[2020-04-23] MEDS: NOREPINEPHRINE 8 MG in SODIUM CHLORIDE 0.9% 250 ML IV SCH (20:58)
[2020-04-24 00:09] LABS: Glucose,Whole Blood 100 mg/dL (75-99)
[2020-04-24] MEDS: INSULIN ASPART (NovoLOG) 100 UNIT/ML VIAL SQ SCH ×5 (00:14→20:36)
[2020-04-24] MEDS: metroNIDAZOLE-NS PMX 500 MG in SALINE 1 100ML.BAG IVPB SCH ×5 (01:01→23:05)
[2020-04-24] MEDS: AMPICILLIN-SULBACTAM 3 GM in SODIUM CHLORIDE 0.9% 100 ML IVPB SCH ×5 (01:01→23:05)
--- NOTE | 2020-04-24 03:32 | PN ---
PROGRESS NOTE DATE OF SERVICE: 04/23/2020 REASON FOR FOLLOWUP: Perforated sigmoid diverticulitis with abdominal abscess. INTERVAL HISTORY: The patient is currently afebrile. She has been breathing comfortably. Denies having any chest pain or any cough. No nausea or vomiting. Abdominal pain is currently controlled. No diarrhea. PHYSICAL EXAMINATION: Blood pressure 126/61 with pulse 85, temperature 98.1. She is 95% on room air. General description is an elderly female lying in bed in no distress. RESPIRATORY SYSTEM: Unlabored breathing, clear to auscultation anteriorly. HEART: S1, S2. Regular rate and rhythm. ABDOMEN: Soft, no tenderness. LABS: White count 11.1. DIAGNOSTIC IMPRESSION AND PLAN: Patient with perforated sigmoid diverticulitis with abdominal abscess, status post laparotomy and diverting colostomy. Abdominal culture predominantly gram negative anaerobes. Patient is covered with Unasyn. She will continue with IV antibiotics for about a week or 10 days with recent Midline, to discontinue her central line has been there for more than 10 days. Continue with supportive care. MMODL / IJN: [id number] /
[2020-04-24 05:51] LABS: African American GFR (CKD) >90 (>60 ml/min/1.73 sqM); Anion Gap 4 mmol/L; Blood Urea Nitrogen 15 mg/dL (7-17); Calcium 8.1 mg/dL (8.4-10.2); Carbon Dioxide 22 mmol/L (22-30); Chloride 107 mmol/L (98-107); Glucose 114 mg/dL (74-99); Magnesium 1.9 mg/dL (1.6-2.3); Non-African American GFR(CKD) >90 (>60 ml/min/1.73 sqM); Phosphorus 3.1 mg/dL (2.5-4.5); Potassium 4.4 mmol/L (3.5-5.1); Sodium 133 mmol/L (137-145)
[2020-04-24 06:25] LABS: Glucose,Whole Blood 92 mg/dL (75-99)
[2020-04-24 06:39] LABS: Anisocytosis Slight; Basophils % (A) 0 %; Eosinophils # (A) 0.2 k/uL (0-0.7); Eosinophils % (A) 1 %; HCT 36.5 % (34.0-46.0); HGB 11.5 gm/dL (11.4-16.0); Lymphocytes # (A) 1.4 k/uL (1.0-4.8); Lymphocytes % (A) 10 %; MCH 30.2 pg (25.0-35.0); MCHC 31.4 g/dL (31.0-37.0); MCV 96.4 fL (80.0-100.0); Macrocytosis Slight; Mean Platelet Volume 10.1; Monocytes # (A) 0.4 k/uL (0-1.0); Monocytes % (A) 3 %; Neutrophils # (A) 11.6 k/uL (1.3-7.7); Neutrophils % (A) 84 %; Platelet Count 253 k/uL (150-450); RBC 3.79 m/uL (3.80-5.40); WBC 13.7 k/uL (3.8-10.6)
--- NOTE | 2020-04-24 07:46 | XR ---
"EXAMINATION TYPE: XR chest 1V portable DATE OF EXAM: 04/24/2020 CLINICAL HISTORY: Difficulty breathing progress study. TECHNIQUE: Single AP portable semiupright view of the chest is obtained. COMPARISON: Chest x-ray from one day earlier and older studies. FINDINGS: Stable right internal jugular central venous catheter. Cardiac silhouette size stable and within normal limits with ectatic aortic knob. Persistent left basilar opacity silhouetting left shun diaphragm. Additional patchy right basilar opacity and small right pleural effusion. Cannot exclude n ew right-sided pneumothorax. Advise short-term repeat x-ray. IMPRESSION: Left basilar acute infiltrate and/or atelectasis stable or slightly more prominent. Worse willem right basilar acute infiltrate and/or atelectasis with small right pleural effusion. Possible new small right apical pneumothorax. Short-term x-ray follow-up in less than 24 hours advise d. Image marked in PACS. A Yellow level critical message alert has been initiated for Wyatt Villaseñor DO via the [employer] 36 0 | Critical Results System on 04/24/2020 7:43 AM. This message alert has been sent to Wyatt Villaseñor DO via the preferences provided by the clinician for the receipt of Radiology Critical Findings. [facility] ID [id number]."
[2020-04-24] MEDS ORDERED: FLUCONAZOLE 150 MG TAB PO ONE (08:34)
[2020-04-24] MEDS: ACETAMINOPHEN TAB 325 MG TAB PO PRN ×3 (09:52→20:46)
[2020-04-24] MEDS: HEPARIN SODIUM,PORCINE 5,000 UNIT/ML 1 ML VIAL SQ SCH ×2 (09:54→20:38)
[2020-04-24] MEDS: LEVOTHYROXINE IVP 100 MCG/5 ML VIAL IV SCH (09:54)
[2020-04-24] MEDS: PANTOPRAZOLE 40 MG/10 ML VIAL IV SCH (09:55)
[2020-04-24] MEDS: NICOTINE 14MG/24HR PATCH TRANSDERM SCH (09:55)
[2020-04-24] MEDS: SPIRONOLACTONE 25 MG TAB PO SCH (09:55)
[2020-04-24] MEDS: THIAMINE 100 MG/ML 2 ML VIAL IVP SCH ×2 (09:55→20:38)
[2020-04-24] MEDS: LISINOPRIL 5 MG TAB PO SCH (09:56)
[2020-04-24] MEDS: METOPROLOL SUCCINATE (ER) 25 MG TAB.ER.24H PO SCH (09:56)
[2020-04-24] MEDS ORDERED: LIDOCAINE 1% INJ 10MG/ML (20 ML MDV) ONE (10:47)
[2020-04-24] MEDS ORDERED: LIDOCAINE 1% INJ 10MG/ML (20 ML MDV) SQ ONE (11:11)
--- NOTE | 2020-04-24 11:37 | XR ---
EXAMINATION TYPE: XR chest 1V portable DATE OF EXAM: 04/24/2020 COMPARISON: 04/24/2020 HISTORY: Line placement TECHNIQUE: Single frontal view of the chest is obtained. FINDINGS: There is a left-sided PICC line with the tip overlying the SVC which appears new. A right- sided central line stable. Bibasilar consolidation and small right effusion are stable. No sizable pn eumothorax. No overt failure. Heart size stable. IMPRESSION: 1. PICC line appears in good position. 2. Stable bilateral lower lobe infiltrate and small effusion.
--- NOTE | 2020-04-24 11:47 | P.PN ---
<SupaDaniela Kee - Last Filed: 04/24/20 11:41> Subjective Progress Note Date: 04/24/20 CHIEF COMPLAINT: Abdominal pain HISTORY OF PRESENT ILLNESS: 59-year-old female who underwent exploratory laparotomy with sigmoid colectomy, descending colostomy creation, and appendectomy with Dr. Ojeda on April 13, 2020. Patient sitting up in the chair this morning. Reports abdominal pain is tolerable. Eating small amounts of PO intake. Ostomy functioning. WBC 13.7 today. Afebrile. PHYSICAL EXAM: VITAL SIGNS: Reviewed GENERAL: Well-developed in no acute distress HEENT: No sclera icterus. Extraocular movements grossly intact. Moist buccal mucosa. Head is atraumatic, normocephalic. No nasal drainage. NECK: Supple without lymphadenopathy. CHEST: Non-labored respirations and equal bilateral excursions CARDIOVASCULAR: Regular rate with regular rhythm. Palpable 2+ radial pulses. ABDOMEN: Soft. Nondistended. Dressing clean dry intact. Ostomy to left side of abdomen. Stoma pink. MARIA EUGENIA drain with serous drainage. MUSCULOSKELETAL: No clubbing or cyanosis. NEUROLOGIC: No focal or lateralizing signs. Cranial nerves II through XII grossly intact. PSYCH: Appropriate affect. Alert and oriented to person, place and time. SKIN: Well perfused. Good skin turgor. ASSESSMENT: 1. Abdominal pain secondary to ruptured sigmoid colon, fecal peritonitis, descending and sigmoid colon impaction, appendicolith with appendicitis PLAN: Continue current diet Discontinue TPN today Monitor MARIA EUGENIA drain Continue antibiotics. Monitor labs Further ICU management per pulmonary Nurse practitioner note has been reviewed by physician. Signing provider agrees with the documented findings, assessment, and plan of care. Objective - Vital Signs Vital signs: Vital Signs Temp 98.0 F 04/24/20 08:00 Pulse 84 04/24/20 11:00 Resp 39 H 04/24/20 11:35 BP 94/73 04/24/20 11:00 Pulse Ox 96 04/24/20 10:00 Intake & Output 04/23/20 04/24/20 04/24/20 18:59 06:59 18:59 Intake Total 1100 1300 475 Output Total 0253 5785 1270 Balance -355 -515 -795 Weight 81.7 kg 79 kg Intake: IV 1100 1300 375 Ampicillin-Sulbactam 3 gm 100 200 In Sodium Chloride 0.9% 100 ml @ 200 mls/hr IVPB Q6HR [facility] Rx#:[id number] Mvi, Adult No.4 with Vit 660 660 275 K 10 ml Trace (Conc-1Ml/ Dose) 1 ml Potassium Chloride 60 meq Potassium Phosphate 30 mmol Magnesium Sulfate gm 0.6 gm Calcium Gluconate 1 gm In Amino Acid 5%-D15w 1, 000 ml @ 55 mls/hr IV . [id number] [facility] Rx#:[id number] Sodium Chloride 0.45% 1, 240 240 100 000 ml @ 20 mls/hr IV . Q24H [facility] Rx#:[id number] metroNIDAZOLE-NS PMX 500 100 200 mg Oral 100 Output: Drainage 30 40 Right Lower Abdomen 30 40 Urine 1425 1575 670 Stool 200 600 Other: Voiding Method Indwelling Catheter Indwelling Catheter Indwelling Catheter ABP, PAP, CO, CI - Last Documented Arterial Blood Pressure 99/52 - Labs CBC & Chem 7: 04/24/20 05:25 04/24/20 05:25 Labs: Abnormal Lab Results - Last 24 Hours (Table) 04/17/20 04/24/20 04/24/20 Range/Units 11:39 00:07 05:25 WBC (3.8-10.6) k/uL RBC (3.80-5.40) m/uL RDW (11.5-15.5) % Neutrophils # (1.3-7.7) k/uL Sodium 133 L (137-145) mmol/L Creatinine 0.34 L (0.52-1.04) mg/dL Glucose 114 H (74-99) mg/dL POC Glucose (mg/dL) 100 H (75-99) mg/dL Calcium 8.1 L (8.4-10.2) mg/dL Selenium 49 L (63-160) mcg/L 04/24/20 Range/Units 05:25 WBC 13.7 H (3.8-10.6) k/uL RBC 3.79 L (3.80-5.40) m/uL RDW 17.0 H (11.5-15.5) % Neutrophils # 11.6 H (1.3-7.7) k/uL Sodium (137-145) mmol/L Creatinine (0.52-1.04) mg/dL Glucose (74-99) mg/dL POC Glucose (mg/dL) (75-99) mg/dL Calcium (8.4-10.2) mg/dL Selenium (63-160) mcg/L Microbiology - Last 24 Hours (Table) 04/18/20 05:10 Blood Culture - Final Blood No Growth after 144 hours <RustyPadmaja N - Last Filed: 04/25/20 03:15> Subjective Patient seen and evaluated with nurse practitioner. Moderate stool in ostomy appliance including flatus. Patient is sitting up in chair. Metabolic encephalopathy appears to completely resolve. Patient expressing wishes for rehab at a facility of choice, [place]. Patient has global physical weakness. Will monitor white blood cell count which temporarily elevated secondary to temporary discontinuance of antibiotics due to pharmacy protocol for 24-48 hours. Antibiotics has been adjusted by infectious disease. MARIA EUGENIA otherwise continues to be serous. Overall infection improving. Objective - Vital Signs Vital signs: Vital Signs Temp 98.1 F 04/25/20 00:00 Pulse 79 04/25/20 02:00 Resp 22 04/25/20 02:00 BP 95/74 04/24/20 20:00 Pulse Ox 96 04/25/20 02:00 Intake & Output 04/24/20 04/24/20 04/25/20 06:59 18:59 06:59 Intake Total 1300 2538.2 876 Output Total 1815 2300 1300 Balance -515 238.2 -424 Weight 79 kg Intake: IV 1300 1226 876 Ampicillin-Sulbactam 3 gm 200 100 100 In Sodium Chloride 0.9% 100 ml @ 200 mls/hr IVPB Q6HR [facility] Rx#:[id number] Fat Emulsion 20% 250 mL@ 126 126 20.833mls/hr Mvi, Adult No.4 with Vit 660 660 K 10 ml Trace (Conc-1Ml/ Dose) 1 ml Potassium Chloride 60 meq Potassium Phosphate 30 mmol Magnesium Sulfate gm 0.6 gm Calcium Gluconate 1 gm In Amino Acid 5%-D15w 1, 000 ml @ 55 mls/hr IV . [id number] [facility] Rx#:[id number] Mvi, Adult No.4 with Vit 385 K 10 ml Trace (Conc-1Ml/ Dose) 1 ml Potassium Chloride 60 meq Potassium Phosphate 30 mmol Magnesium Sulfate gm 0.6 gm Calcium Gluconate 1 gm In Amino Acid 5%-D15w 1, 000 ml @ 55 mls/hr IV . [id number] [facility] Rx#:[id number] Sodium Chloride 0.45% 1, 240 240 160 000 ml @ 20 mls/hr IV . Q24H [facility] Rx#:[id number] Sodium Chloride 0.9% 1,00 5 mL metroNIDAZOLE-NS PMX 500 200 100 100 mg Intake, IV Titration 1062.2 Amount Mvi, Adult No.4 with Vit 1062.2 K 10 ml Trace (Conc-1Ml/ Dose) 1 ml Potassium Chloride 60 meq Potassium Phosphate 30 mmol Magnesium Sulfate gm 0.6 gm Calcium Gluconate 1 gm In Amino Acid 5%-D15w 1, 000 ml @ 55 mls/hr IV . [id number] [facility] Rx#:[id number] Oral 250 Output: Drainage 40 Right Lower Abdomen 40 Urine 1575 1450 1200 Stool 200 850 100 Other: Voiding Method Indwelling Catheter Indwelling Catheter Indwelling Catheter ABP, PAP, CO, CI - Last Documented Arterial Blood Pressure 89/47 - Labs CBC & Chem 7: 04/24/20 05:25 04/24/20 05:25 Labs: Abnormal Lab Results - Last 24 Hours (Table) 04/24/20 04/24/20 04/24/20 Range/Units 05:25 05:25 17:33 WBC 13.7 H (3.8-10.6) k/uL RBC 3.79 L (3.80-5.40) m/uL RDW 17.0 H (11.5-15.5) % Neutrophils # 11.6 H (1.3-7.7) k/uL Sodium 133 L (137-145) mmol/L Creatinine 0.34 L (0.52-1.04) mg/dL Glucose 114 H (74-99) mg/dL POC Glucose (mg/dL) 101 H (75-99) mg/dL Calcium 8.1 L (8.4-10.2) mg/dL Microbiology - Last 24 Hours (Table) 04/23/20 13:50 Blood Culture - Preliminary Blood No Growth after 24 hours 04/18/20 05:10 Blood Culture - Final Blood No Growth after 144 hours Assessment and Plan (1) Peritonitis (acute) generalized Current Visit: Yes Status: Acute Code(s): K65.0 - GENERALIZED (ACUTE) PERITONITIS SNOMED Code(s): 42545316 (2) History of gastric bypass Current Visit: Yes Status: Acute Code(s): Z98.84 - BARIATRIC SURGERY STATUS SNOMED Code(s): 300872823 (3) Medical non-compliance Current Visit: Yes Status: Acute Code(s): Z91.19 - PATIENT'S NONCOMPLIANCE W OTH MEDICAL TREATMENT AND REGIMEN SNOMED Code(s): 474347910 (4) Tobacco abuse Current Visit: Yes Status: Acute Code(s): Z72.0 - TOBACCO USE SNOMED Code(s): 720260139 (5) Tobacco abuse counseling Current Visit: Yes Status: Acute Code(s): Z71.6 - TOBACCO ABUSE COUNSELING SNOMED Code(s): 920212214 (6) Depressive disorder Current Visit: Yes Status: Acute Code(s): F32.9 - MAJOR DEPRESSIVE DISORDER, SINGLE EPISODE, UNSPECIFIED SNOMED Code(s): 87904259 (7) Hypothyroidism Current Visit: Yes Status: Acute Code(s): E03.9 - HYPOTHYROIDISM, UNSPECIFIED SNOMED Code(s): 61943177 (8) Abdominal pain Current Visit: Yes Status: Acute Code(s): R10.9 - UNSPECIFIED ABDOMINAL PAIN SNOMED Code(s): 53819795 (9) Free intraperitoneal air Current Visit: Yes Status: Acute Code(s): K66.8 - OTHER SPECIFIED DISORDERS OF PERITONEUM SNOMED Code(s): 55757960 (10) Dehydration Current Visit: Yes Status: Acute Code(s): E86.0 - DEHYDRATION SNOMED Code(s): 91307104
[2020-04-24 12:21] LABS: Glucose,Whole Blood 90 mg/dL (75-99)
[2020-04-24] MEDS: FAT EMULSION 20% 250 ML IV SCH (12:26)
--- NOTE | 2020-04-24 13:10 | IR ---
PICC LINE PLACEMENT: HISTORY: Infection requiring long-term antibiotic therapy PROCEDURE: Ultrasound guidance of PICC line placement. SEED CLEANING MANAGER: COMPLICATIONS: None ANESTHESIA: 1. 1% Lidocaine locally. FINDINGS/TECHNIQUE: The procedure was explained to the patient. The risks, complications, benefits and alternatives were discussed and any questions were answered. Informed consent was obtained. The patient was placed supine on the fluoroscopic table and prepped and draped in the usual sterile fash ion. Utilizing a 21 gauge needle and sonographic guidance, access in the left basilic vein was achi eved and there is placement of a 0.018 guidewire. The vein is patent. A 5-F. sheath was placed over the guidewire. The guidewire and dilator were removed and a 5-F. Double lumen PICC line was placed through the sheath with the chest x-ray confirming the tip at the level of the SVC. The sheath was r emoved, the catheter was flushed and sutured into position. The patient was stable throughout the pr ocedure and remained stable upon discharge from the Department of Radiology. The vein puncture was patent under ultrasound. A moody scale image was obtained to document patency of the vein punctured. All elements of the maximal barrier technique were utilized. IMPRESSION: 1. Successful PICC line placement under ultrasound performed bedside within the ICU.
--- NOTE | 2020-04-24 14:05 | P.PN ---
Subjective Progress Note Date: 04/24/20 On today's evaluation of 04/21/2020, I'm seeing this patient for a follow-up in the intensive care unit. The patient remains intubated on a mechanical ventilator. The patient is currently sedated and the patient is receiving propofol at a dose of 50 mcg/kg per minute. The patient is on IV fluids at 0.45 saline at the rate of 20 mL an hour. The patient is on TPN for nutritional support running at 55 mL an hour and the patient is on norepinephrine infusion at 8.8 micrograms per minutes. In terms of vent support, the patient remains on a mechanical ventilator. She is an assist-control mode with a rate of 20 with a tidal volume of 350 and FiO2 of 50% with a PEEP of 10. Earlier blood gases showed a pH of 7.5 with a pCO2 of 43 and pO2 of 100. Necessity ventilator changes were done. Noted the patient is post perforated sigmoid colon and the patient is postop day #8. She had to be reintubated on 04/18/2020 acute hypoxic respiratory failure and development of bilateral pulmonary infiltrates. The intra-abdominal cultures are showing anaerobic gram-negative bacillus 2 and Clostridium perfringens. Antibiotic coverage remains IV Unasyn and Flagyl for now. The patient on TPN for nutritional support. The chest x-ray from today shows mild stable left lower lobe pulmonary infiltrate. There is also small right sided pleural effusion. There is blunting of the right costophrenic angle. Small right-sided pleural effusion developed. ET tube is in a good location for now. On 04/22/2020 and seeing this patient for a follow-up. The patient is calm and comfortable sedated on a mechanical ventilator. This morning she is on propofol at the rate of 50 g per KG per minute. The patient is also receiving TPN at the rate of 55 mL an hour. She is arousable and the patient is gradually being weaned off the sedation as the patient is being given a sedation holiday this morning. She remains on assist control mode at the rate of 20 with a tidal volume of 350 and FiO2 of 40% with a PEEP of 5. Blood gases from today showed a pH of 7.48 with a pCO2 of 40 and pO2 of 106. Chest x-ray shows significant changes compared to yesterday. There are small better pleural effusion and suspected. No change in the left basilar opacity. The patient has a functional colostomy. There is some stool extubating in the colostomy bag. Surgical wound site is dry clean and intact. The patient is still on pressors and she is requiring norepinephrine infusion rate of 5 mg/m. She is on TPN at the rate of 55 mL an hour. She has adequate urine output. No other significant events overnight. During the course of my evaluation, I stop the sedation, check weaning parameters and following that I give the patient is point is breathing trial with a pressure support of 5 and a PEEP of 5. After being on the setting for around 30 minutes, the patient up with a pH of 7.51 with a pCO2 of 36 and p O2 of 87 and the patient is currently being extubated. On 04/23/2020 and seeing the patient for a follow-up. The patient is currently extubated and she is calm and comfortable. The patient is currently on 2 L of oxygen by nasal cannula with a pulse is 97%. The patient will have a swallow evaluation did I already checked a bedside swallow and I gave her some clear liquid diet. She is on Diprivan which is running at 55 an hour and she is also on half normal saline 23 an hour. Colostomy site is functioning. She is weak and she has global weakness and maybe motor weakness in both upper and lower extremities. Overall surgical wound site is dry clean and intact. She has been producing adequate amount of urine output. No fever or chills. Antibiotic coverage is still the same and the patient remains on a combination of Unasyn and Flagyl.note that the patient off norepinephrine infusion. has been also weaned off the pressors and she is currently On 04/23/2020 the patient is being seen for a follow-up. Doing well. No specific complaints. Still having significant amount of motor weakness all over. She was a being given some liquid diet and the oral intake is minimal and the patient is still being supplemented with TPN for nutritional support. No fever. No chills. She is on IV Unasyn. She is also on Flagyl. She had developed some candidiasis vaginally and she was going to be given Diflucan. No fever. No chills. Surgical wound site is dry clean and intact. The colostomy site is functional. There is positive stool output. No pressors. Cardiac rhythm is sinus. No hypotension. No other significant complications. Abdominal wound cultures are essentially the same. She is using incentive spirometer. She is communicating. She seems to be much better mood and spirits. The chest x-ray from today shows an incidental skin fold versus a pneumothorax in the right lung and this is going to be monitored very closely. The patient is going to have a PICC line inserted. Objective - Vital Signs Vital signs: Vital Signs Temp 97.6 F 04/24/20 12:00 Pulse 73 04/24/20 12:00 Resp 18 04/24/20 12:00 BP 94/73 04/24/20 12:00 Pulse Ox 96 04/24/20 10:00 Intake & Output 04/23/20 04/24/20 04/24/20 18:59 06:59 18:59 Intake Total 1100 1300 550 Output Total 1455 1815 1345 Balance -355 -515 -795 Weight 81.7 kg 79 kg Intake: IV 1100 1300 450 Ampicillin-Sulbactam 3 gm 100 200 In Sodium Chloride 0.9% 100 ml @ 200 mls/hr IVPB Q6HR [facility] Rx#:[id number] Mvi, Adult No.4 with Vit 660 660 330 K 10 ml Trace (Conc-1Ml/ Dose) 1 ml Potassium Chloride 60 meq Potassium Phosphate 30 mmol Magnesium Sulfate gm 0.6 gm Calcium Gluconate 1 gm In Amino Acid 5%-D15w 1, 000 ml @ 55 mls/hr IV . [id number] [facility] Rx#:[id number] Sodium Chloride 0.45% 1, 240 240 120 000 ml @ 20 mls/hr IV . Q24H [facility] Rx#:[id number] metroNIDAZOLE-NS PMX 500 100 200 mg Oral 100 Output: Drainage 30 40 Right Lower Abdomen 30 40 Urine 1425 1575 745 Stool 200 600 Other: Voiding Method Indwelling Catheter Indwelling Catheter Indwelling Catheter ABP, PAP, CO, CI - Last Documented Arterial Blood Pressure 104/51 - Exam GENERAL: Well-developed in no acute distress, the patient has been extubated currently on room air oxygen with a pulse ox being in the 95-96% range HEENT: No sclera icterus. Extraocular movements grossly intact. Moist buccal mucosa. Head is atraumatic, normocephalic. No nasal drainage. NECK: Supple without lymphadenopathy. CHEST: Non-labored respirations and equal bilateral excursions CARDIOVASCULAR: Tachycardic. Regular rate with regular rhythm. Palpable 2+ radial pulses. ABDOMEN: Soft. Nondistended. PREVENA wound vac noted. Ostomy to left side of abdomen. No stool or gas noted. Stoma pink. MARIA EUGENIA drain with serous drainage. MUSCULOSKELETAL: No clubbing or cyanosis. NEUROLOGIC: The patient is awake and alert and there is no focal neurological deficits. There is global weakness and the motor functions both in the upper and lower extremities. PSYCH: Unable to assess secondary to altered mental status SKIN: Well perfused. Good skin turgor. - Labs CBC & Chem 7: 04/24/20 05:25 04/24/20 05:25 Labs: Abnormal Lab Results - Last 24 Hours (Table) 04/17/20 04/24/20 04/24/20 Range/Units 11:39 00:07 05:25 WBC (3.8-10.6) k/uL RBC (3.80-5.40) m/uL RDW (11.5-15.5) % Neutrophils # (1.3-7.7) k/uL Sodium 133 L (137-145) mmol/L Creatinine 0.34 L (0.52-1.04) mg/dL Glucose 114 H (74-99) mg/dL POC Glucose (mg/dL) 100 H (75-99) mg/dL Calcium 8.1 L (8.4-10.2) mg/dL Selenium 49 L (63-160) mcg/L 04/24/20 Range/Units 05:25 WBC 13.7 H (3.8-10.6) k/uL RBC 3.79 L (3.80-5.40) m/uL RDW 17.0 H (11.5-15.5) % Neutrophils # 11.6 H (1.3-7.7) k/uL Sodium (137-145) mmol/L Creatinine (0.52-1.04) mg/dL Glucose (74-99) mg/dL POC Glucose (mg/dL) (75-99) mg/dL Calcium (8.4-10.2) mg/dL Selenium (63-160) mcg/L Microbiology - Last 24 Hours (Table) 04/18/20 05:10 Blood Culture - Final Blood No Growth after 144 hours Assessment and Plan Plan: 1 ruptured sigmoid colon with fecal peritonitis, along with descending and sigmoid colon impaction and appendicolith and appendicitis. The patient underwent expose a laparotomy with sigmoid colectomy and descending colostomy cr eation and appendectomy. Surgery was done on 04/13/2020. The patient is recovering well from surgery and the patient has some bowel activity and the colostomy bag 2 acute hypoxic respiratory failure and the patient had to be reintubated on 04/18/2024 hypoxic respiratory failure and ultimately she was extubated on 04/22/2020 currently she is on room air oxygen and a chest x-ray from today showing small bilateral pleural effusions. 3 sepsis with secondary hypotension secondary to above. The patient is recovered from her sepsis and hypotension currently she is normotensive. 4 Hypothyroidism 5 history of smoking 6 which is moderate impairment of LV function addition to segmental wall motion abnormalities and some apical ballooning syndrome. Moderate tricuspid regurgitation and mild pulmonary hypertension was also noted. There is apical lateral LV wall motion hypokinesis. 7 generalized motor weakness, likely debility secondary to prolonged hospitalization and surgery. 8. Right-sided pneumothorax incidental finding of today's chest x-ray, possibly a skin fold 9 Vaginal candidiasis Plan clear liquid diet Advance diet as tolerated Inserted PICC line Repeat chest x-ray around noontime to reevaluate the right-sided pneumothorax Continue TPN as the patient's oral intake is suboptimal Involve physical therapy Continue IV Unasyn and Flagyl IV fluids to KVO Keep same antibiotic coverage Keep the patient ICU for 24 hours Incentive spirometer We'll continue to follow
[2020-04-24] MEDS: MVI, ADULT NO.4 WITH VIT K 10 ML, TRACE (CONC-1ML/DOSE) 1 ML, POTASSIUM CHLORIDE 60 MEQ... IV SCH ×7 (15:26)
[2020-04-24 17:34] LABS: Glucose,Whole Blood 101 mg/dL (75-99)
[2020-04-24] MEDS: SODIUM CHLORIDE 0.45% 1,000 ML IV SCH (18:54)
[2020-04-24 20:32] LABS: Glucose,Whole Blood 76 mg/dL (75-99)
[2020-04-24] MEDS: NOREPINEPHRINE 8 MG in SODIUM CHLORIDE 0.9% 250 ML IV SCH (20:39)
--- NOTE | 2020-04-24 21:04 | PN ---
PROGRESS NOTE FOLLOW-UP NOTE: The patient appears alert, awake, stable hemodynamically and free of any symptoms. On exam, heart rate is 84 beats per minute. Blood pressure is 94/79, respiratory rate 18. Chest exam reveals diminished air entry bilaterally. Heart exam reveals first and second heart sounds. No gallop. Examination of extremities did not reveal any edema. Labs show a hemoglobin of 11.5. Potassium is 4.4. Creatinine is 0.3. ASSESSMENT: 1. Takotsubo syndrome. 2. Perforated bowel, status post surgery. PLAN: Patient is currently on Toprol, Aldactone and Zestril, which we are going to continue. MMODL / IJN: [id number] /
[2020-04-25 04:43] LABS: Anisocytosis Slight; Basophils # (A) 0.1 k/uL (0-0.2); Basophils % (A) 1 %; Eosinophils # (A) 0.1 k/uL (0-0.7); Eosinophils % (A) 1 %; HCT 35.1 % (34.0-46.0); HGB 11.1 gm/dL (11.4-16.0); Lymphocytes # (A) 1.5 k/uL (1.0-4.8); Lymphocytes % (A) 10 %; MCH 30.2 pg (25.0-35.0); MCHC 31.6 g/dL (31.0-37.0); MCV 95.8 fL (80.0-100.0); Macrocytosis Slight; Mean Platelet Volume 9.9; Monocytes # (A) 0.6 k/uL (0-1.0); Monocytes % (A) 4 %; Neutrophils # (A) 12.4 k/uL (1.3-7.7); Neutrophils % (A) 84 %; Platelet Count 265 k/uL (150-450); RBC 3.67 m/uL (3.80-5.40); RDW 17.1 % (11.5-15.5); WBC 14.8 k/uL (3.8-10.6)
[2020-04-25 05:04] LABS: Ionized Calcium 5.4 mg/dL (4.5-5.3)
[2020-04-25] MEDS: metroNIDAZOLE-NS PMX 500 MG in SALINE 1 100ML.BAG IVPB SCH ×3 (05:18→17:54)
[2020-04-25] MEDS: AMPICILLIN-SULBACTAM 3 GM in SODIUM CHLORIDE 0.9% 100 ML IVPB SCH ×3 (05:18→19:30)
[2020-04-25 06:17] LABS: African American GFR (CKD) >90 (>60 ml/min/1.73 sqM); Albumin 2.2 g/dL (3.5-5.0); Anion Gap 3 mmol/L; Blood Urea Nitrogen 16 mg/dL (7-17); Calcium 8.3 mg/dL (8.4-10.2); Carbon Dioxide 19 mmol/L (22-30); Chloride 110 mmol/L (98-107); Glucose 109 mg/dL (74-99); Non-African American GFR(CKD) >90 (>60 ml/min/1.73 sqM); Phosphorus 3.4 mg/dL (2.5-4.5); Potassium 4.7 mmol/L (3.5-5.1); Sodium 132 mmol/L (137-145)
[2020-04-25 06:43] LABS: Triglycerides 142 mg/dL (<150)
[2020-04-25 06:56] LABS: Glucose,Whole Blood 109 mg/dL (75-99)
[2020-04-25] MEDS: INSULIN ASPART (NovoLOG) 100 UNIT/ML VIAL SQ SCH ×4 (06:57→21:25)
--- NOTE | 2020-04-25 07:54 | XR ---
EXAMINATION TYPE: XR chest 1V DATE OF EXAM: 04/25/2020 COMPARISON: 04/24/2020 HISTORY: Hx CHF, Pneumo. TECHNIQUE: Single frontal view of the chest is obtained. FINDINGS: Basilar infiltrates persist with mild progression suggested at the left lung base. Right I J central venous line has been removed without pneumothorax. Left-sided PICC line is appropriately pl aced. Cardiomediastinal silhouette is stable. IMPRESSION: Basilar infiltrates with mild interval progression suggested at the left lung base.
[2020-04-25] MEDS: NICOTINE 14MG/24HR PATCH TRANSDERM SCH (08:42)
[2020-04-25] MEDS: SODIUM FERRIC GLUCONAT-SUCROSE 125 MG in SODIUM CHLORIDE 0.9% 100 ML IVPB SCH (08:42)
[2020-04-25] MEDS: LISINOPRIL 5 MG TAB PO SCH (08:47)
[2020-04-25] MEDS: MULTIVITAMINS, THERA 1 EACH TAB PO SCH (08:47)
[2020-04-25] MEDS: SPIRONOLACTONE 25 MG TAB PO SCH (08:47)
[2020-04-25] MEDS: ASPIRIN 81 MG PO SCH (08:47)
[2020-04-25] MEDS: HEPARIN SODIUM,PORCINE 5,000 UNIT/ML 1 ML VIAL SQ SCH ×2 (08:47→21:35)
[2020-04-25] MEDS: PANTOPRAZOLE 40 MG/10 ML VIAL IV SCH (08:48)
[2020-04-25] MEDS: METOPROLOL SUCCINATE (ER) 25 MG TAB.ER.24H PO SCH (08:48)
[2020-04-25] MEDS: LEVOTHYROXINE IVP 100 MCG/5 ML VIAL IV SCH (08:48)
[2020-04-25 09:22] LABS: Cholesterol 126 mg/dL (<200); HDL Cholesterol 19 mg/dL (40-60); LDL Cholesterol,Calculated 79 mg/dL (0-99); Triglycerides 142 mg/dL (<150)
[2020-04-25] MEDS: ACETAMINOPHEN TAB 325 MG TAB PO PRN ×2 (10:00→21:34)
[2020-04-25] MEDS: THIAMINE 100 MG/ML 2 ML VIAL IVP SCH ×2 (10:01→21:35)
--- NOTE | 2020-04-25 10:11 | P.PN ---
Subjective Progress Note Date: 04/25/20 CHIEF COMPLAINT: Abdominal pain HISTORY OF PRESENT ILLNESS: 59-year-old female who underwent exploratory laparotomy with sigmoid colectomy, descending colostomy creation, and appendectomy with Dr. Ojeda on April 13, 2020. Patient is awake and alert. Sitting up in bed. She denies abdominal pain. Eating small amounts of PO intake. Ostomy functioning. WBC 14.8 today. Afebrile. PHYSICAL EXAM: VITAL SIGNS: Reviewed GENERAL: Well-developed in no acute distress HEENT: No sclera icterus. Extraocular movements grossly intact. Moist buccal mucosa. Head is atraumatic, normocephalic. No nasal drainage. NECK: Supple without lymphadenopathy. CHEST: Non-labored respirations and equal bilateral excursions CARDIOVASCULAR: Regular rate with regular rhythm. Palpable 2+ radial pulses. ABDOMEN: Soft. Nondistended. Dressing clean dry intact. Ostomy to left side of abdomen. Stoma pink. MARIA EUGENIA drain with serous drainage. MUSCULOSKELETAL: No clubbing or cyanosis. NEUROLOGIC: No focal or lateralizing signs. Cranial nerves II through XII gr ossly intact. PSYCH: Appropriate affect. Alert and oriented to person, place and time. SKIN: Well perfused. Good skin turgor. ASSESSMENT: 1. Abdominal pain secondary to ruptured sigmoid colon, fecal peritonitis, descending and sigmoid colon impaction, appendicolith with appendicitis PLAN: Continue current diet. Encouraged increased PO intake. Add bariatric supplement per Dr. Ojeda Monitor MARIA EUGENIA drain Continue antibiotics per Dr. Silva. Monitor WBC Further ICU management per pulmonary Stable for transfer to general medical floor Nurse practitioner note has been reviewed by physician. Signing provider agrees with the documented findings, assessment, and plan of care. Objective - Vital Signs Vital signs: Vital Signs Temp 97.7 F 04/25/20 08:00 Pulse 81 04/25/20 09:00 Resp 22 04/25/20 09:00 BP 95/74 04/25/20 08:00 Pulse Ox 97 04/25/20 09:00 Intake & Output 04/24/20 04/25/20 04/25/20 18:59 06:59 18:59 Intake Total 2538.2 1376 325 Output Total 2300 1830 585 Balance 238.2 -454 -260 Weight 79.8 kg Intake: IV 1226 1376 325 Ampicillin-Sulbactam 3 gm 100 200 In Sodium Chloride 0.9% 100 ml @ 200 mls/hr IVPB Q6HR REE Rx#:[id number] Fat Emulsion 20% 250 mL@ 126 126 20.833mls/hr Mvi, Adult No.4 with Vit 660 K 10 ml Trace (Conc-1Ml/ Dose) 1 ml Potassium Chloride 60 meq Potassium Phosphate 30 mmol Magnesium Sulfate gm 0.6 gm Calcium Gluconate 1 gm In Amino Acid 5%-D15w 1, 000 ml @ 55 mls/hr IV . [id number] REE Rx#:[id number] Mvi, Adult No.4 with Vit 605 165 K 10 ml Trace (Conc-1Ml/ Dose) 1 ml Potassium Chloride 60 meq Potassium Phosphate 30 mmol Magnesium Sulfate gm 0.6 gm Calcium Gluconate 1 gm In Amino Acid 5%-D15w 1, 000 ml @ 55 mls/hr IV . [id number] REE Rx#:[id number] Sodium Chloride 0.45% 1, 240 240 60 000 ml @ 20 mls/hr IV . Q24H REE Rx#:[id number] Sodium Chloride 0.9% 1,00 5 mL Sodium Ferric Gluconat- 100 Sucrose 125 mg In Sodium Chloride 0.9% 100 ml @ 100 mls/hr IVPB DAILY [facility] Rx#:[id number] metroNIDAZOLE-NS PMX 500 100 200 mg Intake, IV Titration 1062.2 Amount Mvi, Adult No.4 with Vit 1062.2 K 10 ml Trace (Conc-1Ml/ Dose) 1 ml Potassium Chloride 60 meq Potassium Phosphate 30 mmol Magnesium Sulfate gm 0.6 gm Calcium Gluconate 1 gm In Amino Acid 5%-D15w 1, 000 ml @ 55 mls/hr IV . [id number] [facility] Rx#:[id number] Oral 250 Output: Drainage 5 Right Lower Abdomen 5 Urine 1450 1730 480 Stool 850 100 100 Other: Voiding Method Indwelling Catheter Indwelling Catheter ABP, PAP, CO, CI - Last Documented Arterial Blood Pressure 114/48 - Labs CBC & Chem 7: 04/25/20 04:20 04/25/20 04:20 Labs: Abnormal Lab Results - Last 24 Hours (Table) 04/24/20 04/25/20 04/25/20 Range/Units 17:33 04:20 04:20 WBC 14.8 H (3.8-10.6) k/uL RBC 3.67 L (3.80-5.40) m/uL Hgb 11.1 L (11.4-16.0) gm/dL RDW 17.1 H (11.5-15.5) % Neutrophils # 12.4 H (1.3-7.7) k/uL Sodium 132 L (137-145) mmol/L Chloride 110 H (98-107) mmol/L Carbon Dioxide 19 L (22-30) mmol/L Creatinine 0.34 L (0.52-1.04) mg/dL Glucose 109 H (74-99) mg/dL POC Glucose (mg/dL) 101 H (75-99) mg/dL Calcium 8.3 L (8.4-10.2) mg/dL Ionized Calcium Margy 5.4 H (4.5-5.3) mg/dL Albumin 2.2 L (3.5-5.0) g/dL HDL Cholesterol (40-60) mg/dL 04/25/20 04/25/20 Range/Units 04:20 06:54 WBC (3.8-10.6) k/uL RBC (3.80-5.40) m/uL Hgb (11.4-16.0) gm/dL RDW (11.5-15.5) % Neutrophils # (1.3-7.7) k/uL Sodium (137-145) mmol/L Chloride (98-107) mmol/L Carbon Dioxide (22-30) mmol/L Creatinine (0.52-1.04) mg/dL Glucose (74-99) mg/dL POC Glucose (mg/dL) 109 H (75-99) mg/dL Calcium (8.4-10.2) mg/dL Ionized Calcium Margy (4.5-5.3) mg/dL Albumin (3.5-5.0) g/dL HDL Cholesterol 19 L (40-60) mg/dL Microbiology - Last 24 Hours (Table) 04/23/20 13:50 Blood Culture - Preliminary Blood No Growth after 24 hours 04/18/20 05:10 Blood Culture - Final Blood No Growth after 144 hours
[2020-04-25] MEDS: FAT EMULSION 20% 250 ML IV SCH (11:19)
[2020-04-25 11:33] LABS: Glucose,Whole Blood 81 mg/dL (75-99)
[2020-04-25] MEDS: MVI, ADULT NO.4 WITH VIT K 10 ML, TRACE (CONC-1ML/DOSE) 1 ML, POTASSIUM CHLORIDE 60 MEQ... IV SCH ×7 (11:59)
--- NOTE | 2020-04-25 13:45 | P.PN ---
Subjective Progress Note Date: 04/25/20 On today's evaluation of 04/21/2020, I'm seeing this patient for a follow-up in the intensive care unit. The patient remains intubated on a mechanical ventilator. The patient is currently sedated and the patient is receiving propofol at a dose of 50 mcg/kg per minute. The patient is on IV fluids at 0.45 saline at the rate of 20 mL an hour. The patient is on TPN for nutritional support running at 55 mL an hour and the patient is on norepinephrine infusion at 8.8 micrograms per minutes. In terms of vent support, the patient remains on a mechanical ventilator. She is an assist-control mode with a rate of 20 with a tidal volume of 350 and FiO2 of 50% with a PEEP of 10. Earlier blood gases showed a pH of 7.5 with a pCO2 of 43 and pO2 of 100. Necessity ventilator changes were done. Noted the patient is post perforated sigmoid colon and the patient is postop day #8. She had to be reintubated on 04/18/2020 acute hypoxic respiratory failure and development of bilateral pulmonary infiltrates. The intra-abdominal cultures are showing anaerobic gram-negative bacillus 2 and Clostridium perfringens. Antibiotic coverage remains IV Unasyn and Flagyl for now. The patient on TPN for nutritional support. The chest x-ray from today shows mild stable left lower lobe pulmonary infiltrate. There is also small right sided pleural effusion. There is blunting of the right costophrenic angle. Small right-sided pleural effusion developed. ET tube is in a good location for now. On 04/22/2020 and seeing this patient for a follow-up. The patient is calm and comfortable sedated on a mechanical ventilator. This morning she is on propofol at the rate of 50 g per KG per minute. The patient is also receiving TPN at the rate of 55 mL an hour. She is arousable and the patient is gradually being weaned off the sedation as the patient is being given a sedation holiday this morning. She remains on assist control mode at the rate of 20 with a tidal volume of 350 and FiO2 of 40% with a PEEP of 5. Blood gases from today showed a pH of 7.48 with a pCO2 of 40 and pO2 of 106. Chest x-ray shows significant changes compared to yesterday. There are small better pleural effusion and suspected. No change in the left basilar opacity. The patient has a functional colostomy. There is some stool extubating in the colostomy bag. Surgical wound site is dry clean and intact. The patient is still on pressors and she is requiring norepinephrine infusion rate of 5 mg/m. She is on TPN at the rate of 55 mL an hour. She has adequate urine output. No other significant events overnight. During the course of my evaluation, I stop the sedation, check weaning parameters and following that I give the patient is point is breathing trial with a pressure support of 5 and a PEEP of 5. After being on the setting for around 30 minutes, the patient up with a pH of 7.51 with a pCO2 of 36 and p O2 of 87 and the patient is currently being extubated. On 04/23/2020 and seeing the patient for a follow-up. The patient is currently extubated and she is calm and comfortable. The patient is currently on 2 L of oxygen by nasal cannula with a pulse is 97%. The patient will have a swallow evaluation did I already checked a bedside swallow and I gave her some clear liquid diet. She is on Diprivan which is running at 55 an hour and she is also on half normal saline 23 an hour. Colostomy site is functioning. She is weak and she has global weakness and maybe motor weakness in both upper and lower extremities. Overall surgical wound site is dry clean and intact. She has been producing adequate amount of urine output. No fever or chills. Antibiotic coverage is still the same and the patient remains on a combination of Unasyn and Flagyl.note that the patient off norepinephrine infusion. has been also weaned off the pressors and she is currently On 04/23/2020 the patient is being seen for a follow-up. Doing well. No specific complaints. Still having significant amount of motor weakness all over. She was a being given some liquid diet and the oral intake is minimal and the patient is still being supplemented with TPN for nutritional support. No fever. No chills. She is on IV Unasyn. She is also on Flagyl. She had developed some candidiasis vaginally and she was going to be given Diflucan. No fever. No chills. Surgical wound site is dry clean and intact. The colostomy site is functional. There is positive stool output. No pressors. Cardiac rhythm is sinus. No hypotension. No other significant complications. Abdominal wound cultures are essentially the same. She is using incentive spirometer. She is communicating. She seems to be much better mood and spirits. The chest x-ray from today shows an incidental skin fold versus a pneumothorax in the right lung and this is going to be monitored very closely. The patient is going to have a PICC line inserted. On 04/24/2020 and seeing the patient for a follow-up. Doing overall well and she has no specific complaints and there has been no other significant events over the past 24 hours. I have TPN as the patient's oral intake is still low. The patient has a right upper extremity PICC line inserted yesterday and there is no evidence of any pneumothorax in the right lung. TPN is still running. No new complaints. She remains on same antibiotic coverage. The colostomy site is functional. Surgical site is dry clean and intact. MARIA EUGNEIA drains in place. No nausea. No vomiting. No diarrhea. She is on room air oxygen. Diet is being gradually advanced. She is communicating and she has no specific complaints. Objective - Vital Signs Vital signs: Vital Signs Temp 98.4 F 04/25/20 12:00 Pulse 75 04/25/20 12:00 Resp 16 04/25/20 12:00 BP 87/58 04/25/20 12:00 Pulse Ox 98 04/25/20 12:00 Intake & Output 04/24/20 04/25/20 04/25/20 18:59 06:59 18:59 Intake Total 2538.2 1376 1832.2 Output Total 2300 1830 1270 Balance 238.2 -454 562.2 Weight 79.8 kg Intake: IV 1226 1376 770 Ampicillin-Sulbactam 3 gm 100 200 100 In Sodium Chloride 0.9% 100 ml @ 200 mls/hr IVPB Q6HR REE Rx#:[id number] Fat Emulsion 20% 250 mL@ 126 126 20 20.833mls/hr Mvi, Adult No.4 with Vit 660 K 10 ml Trace (Conc-1Ml/ Dose) 1 ml Potassium Chloride 60 meq Potassium Phosphate 30 mmol Magnesium Sulfate gm 0.6 gm Calcium Gluconate 1 gm In Amino Acid 5%-D15w 1, 000 ml @ 55 mls/hr IV . [id number] REE Rx#:[id number] Mvi, Adult No.4 with Vit 605 330 K 10 ml Trace (Conc-1Ml/ Dose) 1 ml Potassium Chloride 60 meq Potassium Phosphate 30 mmol Magnesium Sulfate gm 0.6 gm Calcium Gluconate 1 gm In Amino Acid 5%-D15w 1, 000 ml @ 55 mls/hr IV . [id number] [facility] Rx#:[id number] Sodium Chloride 0.45% 1, 240 240 120 000 ml @ 20 mls/hr IV . Q24H REE Rx#:[id number] Sodium Chloride 0.9% 1,00 5 mL Sodium Ferric Gluconat- 100 Sucrose 125 mg In Sodium Chloride 0.9% 100 ml @ 100 mls/hr IVPB DAILY [facility] Rx#:[id number] metroNIDAZOLE-NS PMX 500 100 200 100 mg Intake, IV Titration 1062.2 1062.2 Amount Mvi, Adult No.4 with Vit 1062.2 1062.2 K 10 ml Trace (Conc-1Ml/ Dose) 1 ml Potassium Chloride 60 meq Potassium Phosphate 30 mmol Magnesium Sulfate gm 0.6 gm Calcium Gluconate 1 gm In Amino Acid 5%-D15w 1, 000 ml @ 55 mls/hr IV . [id number] [facility] Rx#:[id number] Oral 250 Output: Drainage 5 Right Lower Abdomen 5 Urine 1450 1730 1165 Stool 850 100 100 Other: Voiding Method Indwelling Catheter Indwelling Catheter Indwelling Catheter ABP, PAP, CO, CI - Last Documented Arterial Blood Pressure 112/50 - Exam GENERAL: Well-developed in no acute distress, the patient has been extubated currently on room air oxygen with a pulse ox being in the 95-96% range HEENT: No sclera icterus. Extraocular movements grossly intact. Moist buccal mucosa. Head is atraumatic, normocephalic. No nasal drainage. NECK: Supple without lymphadenopathy. CHEST: Non-labored respirations and equal bilateral excursions CARDIOVASCULAR: Tachycardic. Regular rate with regular rhythm. Palpable 2+ radial pulses. ABDOMEN: Soft. Nondistended. PREVENA wound vac noted. Ostomy to left side of abdomen. No stool or gas noted. Stoma pink. MARIA EUGENIA drain with serous drainage. MUSCULOSKELETAL: No clubbing or cyanosis. NEUROLOGIC: The patient is awake and alert and there is no focal neurological deficits. There is global weakness and the motor functions both in the upper and lower extremities. PSYCH: Unable to assess secondary to altered mental status SKIN: Well perfused. Good skin turgor. - Labs CBC & Chem 7: 04/25/20 04:20 04/25/20 04:20 Labs: Abnormal Lab Results - Last 24 Hours (Table) 04/24/20 04/25/20 04/25/20 Range/Units 17:33 04:20 04:20 WBC 14.8 H (3.8-10.6) k/uL RBC 3.67 L (3.80-5.40) m/uL Hgb 11.1 L (11.4-16.0) gm/dL RDW 17.1 H (11.5-15.5) % Neutrophils # 12.4 H (1.3-7.7) k/uL Sodium 132 L (137-145) mmol/L Chloride 110 H (98-107) mmol/L Carbon Dioxide 19 L (22-30) mmol/L Creatinine 0.34 L (0.52-1.04) mg/dL Glucose 109 H (74-99) mg/dL POC Glucose (mg/dL) 101 H (75-99) mg/dL Calcium 8.3 L (8.4-10.2) mg/dL Ionized Calcium Margy 5.4 H (4.5-5.3) mg/dL Albumin 2.2 L (3.5-5.0) g/dL HDL Cholesterol (40-60) mg/dL 04/25/20 04/25/20 Range/Units 04:20 06:54 WBC (3.8-10.6) k/uL RBC (3.80-5.40) m/uL Hgb (11.4-16.0) gm/dL RDW (11.5-15.5) % Neutrophils # (1.3-7.7) k/uL Sodium (137-145) mmol/L Chloride (98-107) mmol/L Carbon Dioxide (22-30) mmol/L Creatinine (0.52-1.04) mg/dL Glucose (74-99) mg/dL POC Glucose (mg/dL) 109 H (75-99) mg/dL Calcium (8.4-10.2) mg/dL Ionized Calcium Margy (4.5-5.3) mg/dL Albumin (3.5-5.0) g/dL HDL Cholesterol 19 L (40-60) mg/dL Microbiology - Last 24 Hours (Table) 04/23/20 13:50 Blood Culture - Preliminary Blood No Growth after 24 hours Assessment and Plan Plan: 1 ruptured sigmoid colon with fecal peritonitis, along with descending and sigmoid colon impaction and appendicolith and appendicitis. The patient underwent expose a laparotomy with sigmoid colectomy and descending colostomy creation and appendectomy. Surgery was done on 04/13/2020. The patient is recovering 2 acute hypoxic respiratory failure and the patient had to be reintubated on 04/18/2024 hypoxic respiratory failure and ultimately she was extubated on 04/22/2020 currently she is on room air oxygen , the chest x-ray continues to show some small bilateral pleural effusion lung bases 3 sepsis with secondary hypotension secondary to above , recovered on no pressors 4 Hypothyroidism 5 history of smoking 6 which is moderate impairment of LV function addition to segmental wall motion abnormalities and some apical ballooning syndrome. Moderate tricuspid regurgitation and mild pulmonary hypertension was also noted. There is apical lateral LV wall motion hypokinesis. 7 generalized motor weakness, likely debility secondary to prolonged hospitalization and surgery, improving 8. TPN for nutritional support and the patient has a right upper extremity PICC line 9 Vaginal candidiasis Plan Supplement her diet with ensure Advance diet as tolerated Continue TPN as the patient's oral intake is suboptimal Involve physical therapy Continue IV Unasyn and Flagyl IV fluids to KVO Keep same antibiotic coverage Keep the patient ICU for 24 hours Incentive spirometer We'll continue to follow Transfer this patient to a medical surgical floor with remote telemetry.
--- NOTE | 2020-04-25 14:53 | PN ---
PROGRESS NOTE Brittney is a 59-year-old lady who is admitted to hospital with a perforated bowel and had nonischemic cardiomyopathy. This morning she is doing well and is free of symptoms, more alert, hemodynamically stable. CURRENT MEDICATIONS: Include aspirin, Toprol-XL, Aldactone, and Zestril. On exam, comfortable at rest. Vital signs are stable. There is no jugular venous distention. Carotid upstroke is diminished. There is no bruit. Chest exam reveals good air entry bilaterally. Heart exam reveals first and second heart sounds. No gallop. Has a systolic murmur at the apex. Abdomen is soft. Exam of extremities did not reveal any edema. Peripheral pulses are felt. LABS: Show a hemoglobin of 11, platelet count is 265. Potassium is 4.7. Creatinine is 0.34. ASSESSMENT: 1. Takotsubo syndrome. 2. Status post perforated bowel disease. PLAN: Patient will continue current medications. I will check a lipid profile and start the patient on statin. MMODL / IJN: [id number] /
[2020-04-25 15:03] VITALS: BMI 27.5
[2020-04-25] MEDS ORDERED: ANIDULAFUNGIN 200 MG in SODIUM CHLORIDE 0.9% 200 ML IVPB ONE (15:48)
[2020-04-25 16:46] LABS: Glucose,Whole Blood 79 mg/dL (75-99)
[2020-04-25] MEDS: SODIUM CHLORIDE 0.45% 1,000 ML IV SCH (17:02)
[2020-04-25 20:05] LABS: Glucose,Whole Blood 61 mg/dL (75-99)
[2020-04-25 20:36] LABS: Glucose,Whole Blood 47 mg/dL (75-99)
[2020-04-25 20:36] LABS: Glucose,Whole Blood 56 mg/dL (75-99)
[2020-04-25 20:52] LABS: Glucose,Whole Blood 107 mg/dL (75-99)
[2020-04-25] MEDS: NOREPINEPHRINE 8 MG in SODIUM CHLORIDE 0.9% 250 ML IV SCH (21:25)
--- NOTE | 2020-04-25 23:31 | PN ---
PROGRESS NOTE DATE OF SERVICE: 04/25/2020 REASON FOR FOLLOWUP: 1. Secondary peritonitis, abdominal abscess from perforated sigmoid diverticulitis. 2. Elevated white count. INTERVAL HISTORY: The patient is currently afebrile. She is breathing comfortably. She has been transferred out of the ICU. No chest pain, shortness of breath or cough. Abdominal pain is currently controlled. No nausea or vomiting. PHYSICAL EXAMINATION: Blood pressure 187/58 with a pulse of 75, temperature 98.4. She is 98% on room air. General description is a middle-aged female up in the bed in no distress. RESPIRATORY SYSTEM: Unlabored breathing. Clear to auscultation anteriorly. HEART: S1, S2. Regular rate and rhythm. ABDOMEN: Soft. No tenderness. LABS: Hemoglobin 11.9, white count 14.8. DIAGNOSTIC IMPRESSION AND PLAN: Patient with abdominal abscess from perforated sigmoid diverticulitis, status post diverting colostomy. Abdominal culture has been predominately anaerobes and Clostridium, for which the patient is currently with Unasyn. However, the patient did have worsening of her white count, possibly related to underlying colon infection, as the patient is currently . We will add Eraxis, as Diflucan cannot be added because of the other medication the patient is on and interacting with it. Will repeat a CBC tomorrow. If any further worsening of the white count or if she spikes any fever, may benefit from a CT of abdomen and pelvis. MMODL / IJN: [id number] /
[2020-04-26] MEDS: AMPICILLIN-SULBACTAM 3 GM in SODIUM CHLORIDE 0.9% 100 ML IVPB SCH ×4 (00:21→17:52)
[2020-04-26] MEDS: metroNIDAZOLE-NS PMX 500 MG in SALINE 1 100ML.BAG IVPB SCH ×4 (01:13→18:10)
[2020-04-26 01:55] LABS: Glucose,Whole Blood 110 mg/dL (75-99)
[2020-04-26] MEDS: MVI, ADULT NO.4 WITH VIT K 10 ML, TRACE (CONC-1ML/DOSE) 1 ML, POTASSIUM CHLORIDE 60 MEQ... IV SCH ×7 (05:29)
[2020-04-26] MEDS: ACETAMINOPHEN TAB 325 MG TAB PO PRN ×4 (05:48→20:22)
[2020-04-26 07:25] LABS: Glucose,Whole Blood 95 mg/dL (75-99)
[2020-04-26 07:50] LABS: Anisocytosis Slight; Basophils # (A) 0.1 k/uL (0-0.2); Basophils % (A) 0 %; Eosinophils # (A) 0.2 k/uL (0-0.7); Eosinophils % (A) 2 %; HCT 34.3 % (34.0-46.0); HGB 10.4 gm/dL (11.4-16.0); Hypochromasia Marked; Lymphocytes # (A) 1.2 k/uL (1.0-4.8); Lymphocytes % (A) 10 %; MCH 31.7 pg (25.0-35.0); MCHC 30.4 g/dL (31.0-37.0); Macrocytosis Moderate; Mean Platelet Volume 10.8; Monocytes # (A) 0.4 k/uL (0-1.0); Monocytes % (A) 3 %; Neutrophils # (A) 9.8 k/uL (1.3-7.7); Neutrophils % (A) 83 %; Platelet Count 292 k/uL (150-450); RBC 3.29 m/uL (3.80-5.40); RDW 17.5 % (11.5-15.5); WBC 11.8 k/uL (3.8-10.6)
[2020-04-26 07:57] LABS: MCV 104.1 fL (80.0-100.0)
[2020-04-26] MEDS: INSULIN ASPART (NovoLOG) 100 UNIT/ML VIAL SQ SCH ×4 (09:17→20:23)
[2020-04-26] MEDS: SODIUM FERRIC GLUCONAT-SUCROSE 125 MG in SODIUM CHLORIDE 0.9% 100 ML IVPB SCH (09:17)
[2020-04-26] MEDS: NICOTINE 14MG/24HR PATCH TRANSDERM SCH (09:17)
[2020-04-26] MEDS: ASPIRIN 81 MG PO SCH (09:18)
[2020-04-26] MEDS: SPIRONOLACTONE 25 MG TAB PO SCH (09:18)
[2020-04-26] MEDS: MULTIVITAMINS, THERA 1 EACH TAB PO SCH (09:18)
[2020-04-26] MEDS: LISINOPRIL 5 MG TAB PO SCH (09:18)
[2020-04-26] MEDS: METOPROLOL SUCCINATE (ER) 25 MG TAB.ER.24H PO SCH (09:18)
[2020-04-26] MEDS: PANTOPRAZOLE 40 MG/10 ML VIAL IV SCH (09:18)
[2020-04-26] MEDS: HEPARIN SODIUM,PORCINE 5,000 UNIT/ML 1 ML VIAL SQ SCH ×2 (09:18→20:22)
[2020-04-26] MEDS: LEVOTHYROXINE IVP 100 MCG/5 ML VIAL IV SCH (09:19)
[2020-04-26] MEDS: THIAMINE 100 MG/ML 2 ML VIAL IVP SCH ×2 (09:19→20:22)
[2020-04-26 09:38] LABS: Ionized Calcium 5.5 mg/dL (4.5-5.3)
[2020-04-26 09:48] LABS: ALT 24 U/L (4-34); AST 40 U/L (14-36); African American GFR (CKD) >90 (>60 ml/min/1.73 sqM); Albumin 2.5 g/dL (3.5-5.0); Alkaline Phosphatase 79 U/L (38-126); Anion Gap 6 mmol/L; Blood Urea Nitrogen 14 mg/dL (7-17); C Reactive Protein 51.1 mg/L (<10.0); Calcium 8.9 mg/dL (8.4-10.2); Carbon Dioxide 21 mmol/L (22-30); Chloride 109 mmol/L (98-107); Glucose 99 mg/dL (74-99); Non-African American GFR(CKD) >90 (>60 ml/min/1.73 sqM); Phosphorus 3.6 mg/dL (2.5-4.5); Potassium 4.9 mmol/L (3.5-5.1); Sodium 136 mmol/L (137-145); Total Bilirubin 0.3 mg/dL (0.2-1.3); Total Protein 5.3 g/dL (6.3-8.2)
[2020-04-26] MEDS: ANIDULAFUNGIN 100 MG in SODIUM CHLORIDE 0.9% 100 ML IVPB SCH (10:28)
--- NOTE | 2020-04-26 11:50 | P.PN ---
Progress Note - Text Progress Note Date: 04/26/20 Patient resting comfortably red. She is of limited oral intake. On exam vessels are stable. Abdomen soft. Colostomy has some output in the bag. Status post sigmoid colectomy with colostomy. Patient to continue receive supportive care.
--- NOTE | 2020-04-26 12:05 | PN ---
PROGRESS NOTE Brittney is a 59-year-old lady that is admitted to hospital with perforated bowel and had takotsubo syndrome. She is feeling much better. Denies chest pain or difficulty in breathing. She needs to go to rehab. Blood pressures are in the 90s to 100s systolic. EXAM: Comfortable at rest. Vital signs are stable. Chest is clear to auscultation and percussion. Heart exam reveals first and second heart sounds. No gallop. Exam of extremities did not reveal any edema. Peripheral pulses are felt. LABS: Show a hemoglobin of 10.4, potassium is 4.9, creatinine is 0.4. ASSESSMENT: 1. Perforated bowel. 2. Takotsubo syndrome. PLAN: I will continue the aspirin, Toprol-XL, Zestril, and the metoprolol that he is currently on. MMEDMONDL / RAFATN: [id number] /
[2020-04-26] MEDS: FAT EMULSION 20% 250 ML IV SCH (12:18)
[2020-04-26 12:21] LABS: Glucose,Whole Blood 110 mg/dL (75-99)
--- NOTE | 2020-04-26 12:21 | P.PN ---
Subjective Progress Note Date: 04/26/20 Principal diagnosis: Ruptured sigmoid colon with fecal peritonitis, status post sigmoid colectomy and descending colostomy creation and appendectomy The patient is seen today 04/26/2020 in follow-up on the regular medical floor. She is currently resting quite comfortably in bed. Awake and alert oriented. Maintaining O2 saturations in the 90s on room air. Tolerating a high-protein consistent carb diet. Ostomy functioning. Abdominal dressing is dry and intact. MARIA EUGENIA drain remains in place. Blood cultures reveal no growth. Sputum culture revealed no growth. Initial wound cultures were positive for Clostridium perfringens. She remains on Unasyn, anidulafungin, metronidazole, supplemental PPN. White count 11.8. Hemoglobin 10.4. Sodium 136. Potassium 4.9. Creatinine 0.41. Objective - Vital Signs Vital signs: Vital Signs Temp 98.1 F 04/26/20 05:00 Pulse 79 04/26/20 05:00 Resp 18 04/26/20 05:00 BP 96/62 04/26/20 05:00 Pulse Ox 97 04/26/20 05:00 Intake & Output 04/25/20 04/26/20 04/26/20 18:59 06:59 18:59 Intake Total 2432.2 962.5 Output Total 1745 Balance 687.2 962.5 Weight 79.8 kg Intake: IV 770 Ampicillin-Sulbactam 3 gm 100 In Sodium Chloride 0.9% 100 ml @ 200 mls/hr IVPB Q6HR [facility] Rx#:[id number] Fat Emulsion 20% 250 mL@ 20 20.833mls/hr Mvi, Adult No.4 with Vit 330 K 10 ml Trace (Conc-1Ml/ Dose) 1 ml Potassium Chloride 60 meq Potassium Phosphate 30 mmol Magnesium Sulfate gm 0.6 gm Calcium Gluconate 1 gm In Amino Acid 5%-D15w 1, 000 ml @ 55 mls/hr IV . [id number] [facility] Rx#:[id number] Sodium Chloride 0.45% 1, 120 000 ml @ 20 mls/hr IV . Q24H [facility] Rx#:[id number] Sodium Ferric Gluconat- 100 Sucrose 125 mg In Sodium Chloride 0.9% 100 ml @ 100 mls/hr IVPB DAILY [facility] Rx#:[id number] metroNIDAZOLE-NS PMX 500 100 mg Intake, IV Titration 1062.2 962.5 Amount Mvi, Adult No.4 with Vit 1062.2 962.5 K 10 ml Trace (Conc-1Ml/ Dose) 1 ml Potassium Chloride 60 meq Potassium Phosphate 30 mmol Magnesium Sulfate gm 0.6 gm Calcium Gluconate 1 gm In Amino Acid 5%-D15w 1, 000 ml @ 55 mls/hr IV . [id number] [facility] Rx#:[id number] Oral 600 Output: Drainage 5 Right Lower Abdomen 5 Urine 1640 Stool 100 Other: Voiding Method Indwelling Catheter Bedpan ABP, PAP, CO, CI - Last Documented Arterial Blood Pressure 112/50 - Exam GENERAL: Pleasant 59-year-old female patient, alert and oriented. Well-d eveloped in no acute distress, on room air. HEENT: No sclera icterus. Extraocular movements grossly intact. Moist buccal mucosa. Head is atraumatic, normocephalic. No nasal drainage. NECK: Supple without lymphadenopathy. CHEST: Non-labored respirations with faint crackles in the bases left greater than right CARDIOVASCULAR: Regular rate with regular rhythm. Palpable 2+ radial pulses. ABDOMEN: Soft. Nondistended. Ostomy to left side of abdomen. Stool noted. Stoma pink. MARIA EUGENIA drain with serous drainage. MUSCULOSKELETAL: No clubbing or cyanosis. NEUROLOGIC: The patient is awake and alert and there is no focal neurological deficits. There is global weakness and the motor functions both in the upper and lower extremities. PSYCH: Denies anxiety/depression SKIN: Well perfused. Good skin turgor. - Labs CBC & Chem 7: 04/26/20 06:38 04/26/20 08:38 Labs: Abnormal Lab Results - Last 24 Hours (Table) 04/25/20 04/25/20 04/25/20 Range/Units 19:59 20:24 20:26 WBC (3.8-10.6) k/uL RBC (3.80-5.40) m/uL Hgb (11.4-16.0) gm/dL MCV (80.0-100.0) fL MCHC (31.0-37.0) g/dL RDW (11.5-15.5) % Neutrophils # (1.3-7.7) k/uL Sodium (137-145) mmol/L Chloride (98-107) mmol/L Carbon Dioxide (22-30) mmol/L Creatinine (0.52-1.04) mg/dL POC Glucose (mg/dL) 61 L 47 L 56 L (75-99) mg/dL Ionized Calcium Margy (4.5-5.3) mg/dL AST (14-36) U/L C-Reactive Protein (<10.0) mg/L Total Protein (6.3-8.2) g/dL Albumin (3.5-5.0) g/dL 04/25/20 04/26/20 04/26/20 Range/Units 20:47 01:47 06:38 WBC 11.8 H (3.8-10.6) k/uL RBC 3.29 L (3.80-5.40) m/uL Hgb 10.4 L (11.4-16.0) gm/dL MCV 104.1 H D (80.0-100.0) fL MCHC 30.4 L (31.0-37.0) g/dL RDW 17.5 H (11.5-15.5) % Neutrophils # 9.8 H (1.3-7.7) k/uL Sodium (137-145) mmol/L Chloride (98-107) mmol/L Carbon Dioxide (22-30) mmol/L Creatinine (0.52-1.04) mg/dL POC Glucose (mg/dL) 107 H 110 H (75-99) mg/dL Ionized Calcium Margy (4.5-5.3) mg/dL AST (14-36) U/L C-Reactive Protein (<10.0) mg/L Total Protein (6.3-8.2) g/dL Albumin (3.5-5.0) g/dL 04/26/20 Range/Units 08:38 WBC (3.8-10.6) k/uL RBC (3.80-5.40) m/uL Hgb (11.4-16.0) gm/dL MCV (80.0-100.0) fL MCHC (31.0-37.0) g/dL RDW (11.5-15.5) % Neutrophils # (1.3-7.7) k/uL Sodium 136 L (137-145) mmol/L Chloride 109 H (98-107) mmol/L Carbon Dioxide 21 L (22-30) mmol/L Creatinine 0.41 L (0.52-1.04) mg/dL POC Glucose (mg/dL) (75-99) mg/dL Ionized Calcium Margy 5.5 H (4.5-5.3) mg/dL AST 40 H (14-36) U/L C-Reactive Protein 51.1 H (<10.0) mg/L Total Protein 5.3 L (6.3-8.2) g/dL Albumin 2.5 L (3.5-5.0) g/dL Microbiology - Last 24 Hours (Table) 04/23/20 13:50 Blood Culture - Preliminary Blood No Growth after 48 hours Assessment and Plan Assessment: 1 ruptured sigmoid colon with fecal peritonitis, along with descending and sigmoid colon impaction and appendicolith and appendicitis. The patient underwent expose a laparotomy with sigmoid colectomy and descending colostomy creation and appendectomy. Surgery was done on 04/13/2020. The patient is recovering, ostomy functioning. Tolerating a diet. 2 acute hypoxic respiratory failure and the patient had to be reintubated on 04/18/2024 hypoxic respiratory failure and ultimately she was extubated on 04/22/2020 currently she is on room air oxygen 3 sepsis with secondary hypotension secondary to above , recovered on no pressors 4 Hypothyroidism 5 history of smoking 6 which is moderate impairment of LV function addition to segmental wall motion abnormalities and some apical ballooning syndrome. Moderate tricuspid regurgitation and mild pulmonary hypertension was also noted. There is apical lateral LV wall motion hypokinesis. 7 generalized motor weakness, likely debility secondary to prolonged hospitalization and surgery, improving 8. TPN for nutritional support and the patient has a right upper extremity PICC line 9 Vaginal candidiasis Plan The patient was seen and evaluated by Dr. Garcia She is stable from the pulmonary and critical care standpoint Tolerating diet Remains on Unasyn, yl Continues to work with the incentive spirometer We will see the patient on as-needed basis I, the cosigning physician, performed a history & physical examination of the patient. Lungs sounds faint crackles in the bases left greater than right. Maintaining good O2 saturations in the 90s on room air. I discussed the assessment and plan of care with my nurse practitioner, Cheyenne Queen. I attest to the above note as dictated by her.
[2020-04-26] MEDS: SODIUM CHLORIDE 0.45% 1,000 ML IV SCH (16:51)
[2020-04-26 17:07] LABS: Glucose,Whole Blood 98 mg/dL (75-99)
[2020-04-26 20:22] LABS: Glucose,Whole Blood 91 mg/dL (75-99)
[2020-04-26] MEDS: HYDROcodone/APAP 5-325MG 1 EACH TAB PO PRN (21:52)
[2020-04-26] MEDS: NOREPINEPHRINE 8 MG in SODIUM CHLORIDE 0.9% 250 ML IV SCH (21:53)
--- NOTE | 2020-04-27 00:02 | PN ---
PROGRESS NOTE DATE OF SERVICE: 04/26/2020 REASON FOR FOLLOWUP: 1. Abdominal abscess. 2. Leukocytosis. INTERVAL HISTORY: Patient is currently afebrile. The patient is breathing comfortably. Denies having any chest pain. No shortness of breath or cough. Abdominal pain is currently controlled. No nausea, vomiting or diarrhea. PHYSICAL EXAMINATION: Blood pressure 100/65 with a pulse of 67, temperature 97.6. She is 100% on room air. General description is a middle-aged female lying in bed in no distress. Respiratory system: Unlabored breathing. Clear to auscultation anteriorly. Heart S1, S2. Regular rate and rhythm. Abdomen soft, no tenderness. LABS: White count 11.8. Creatinine is normal. DIAGNOSTIC IMPRESSION AND PLAN: Patient with abdominal abscess from a perforated sigmoid diverticulitis status post and diverting colostomy. Abdominal culture predominant anaerobes. The patient covered with Unasyn with worsening white count. Concern for possible yeast infection and white count shows a downward trend. Repeat CBC tomorrow. Continue supportive care. MMODL / IJN: [id number] /
[2020-04-27] MEDS: AMPICILLIN-SULBACTAM 3 GM in SODIUM CHLORIDE 0.9% 100 ML IVPB SCH ×5 (00:21→23:46)
[2020-04-27] MEDS: MVI, ADULT NO.4 WITH VIT K 10 ML, TRACE (CONC-1ML/DOSE) 1 ML, POTASSIUM CHLORIDE 60 MEQ... IV SCH ×12 (01:02→20:33)
[2020-04-27] MEDS: metroNIDAZOLE-NS PMX 500 MG in SALINE 1 100ML.BAG IVPB SCH ×5 (01:59→23:45)
[2020-04-27] MEDS: ACETAMINOPHEN TAB 325 MG TAB PO PRN ×3 (05:00→20:29)
[2020-04-27 07:06] LABS: Glucose,Whole Blood 117 mg/dL (75-99)
[2020-04-27 07:22] LABS: African American GFR (CKD) >90 (>60 ml/min/1.73 sqM); Anion Gap 5 mmol/L; Blood Urea Nitrogen 14 mg/dL (7-17); Calcium 8.7 mg/dL (8.4-10.2); Carbon Dioxide 22 mmol/L (22-30); Chloride 109 mmol/L (98-107); Glucose 100 mg/dL (74-99); Non-African American GFR(CKD) >90 (>60 ml/min/1.73 sqM); Potassium 5.4 mmol/L (3.5-5.1); Sodium 136 mmol/L (137-145)
[2020-04-27] MEDS: INSULIN ASPART (NovoLOG) 100 UNIT/ML VIAL SQ SCH ×4 (07:28→20:36)
[2020-04-27 07:57] LABS: Anisocytosis Slight; Basophils # (A) 0.1 k/uL (0-0.2); Basophils % (A) 1 %; Eosinophils # (A) 0.2 k/uL (0-0.7); Eosinophils % (A) 2 %; HCT 34.4 % (34.0-46.0); HGB 11.1 gm/dL (11.4-16.0); Hypochromasia Slight; Lymphocytes # (A) 1.4 k/uL (1.0-4.8); Lymphocytes % (A) 12 %; MCH 31.8 pg (25.0-35.0); MCHC 32.4 g/dL (31.0-37.0); Macrocytosis Slight; Mean Platelet Volume 10.1; Monocytes # (A) 0.6 k/uL (0-1.0); Monocytes % (A) 5 %; Neutrophils # (A) 9.8 k/uL (1.3-7.7); Neutrophils % (A) 80 %; Platelet Count 407 k/uL (150-450); RDW 17.1 % (11.5-15.5); WBC 12.2 k/uL (3.8-10.6)
[2020-04-27 08:19] LABS: MCV 98.1 fL (80.0-100.0)
--- NOTE | 2020-04-27 09:24 | P.PN ---
Progress Note - Text Progress Note Date: 04/27/20 The patient's resting comfortably in her bed. She's had limited oral intake. On exam vital signs are stable. Abdomen soft. There is some stooling in the colostomy bag. Patient encouraged to increase her diet. We'll continue TPN for now.
[2020-04-27] MEDS: ANIDULAFUNGIN 100 MG in SODIUM CHLORIDE 0.9% 100 ML IVPB SCH (09:44)
[2020-04-27] MEDS: NICOTINE 14MG/24HR PATCH TRANSDERM SCH (09:45)
[2020-04-27] MEDS: SPIRONOLACTONE 25 MG TAB PO SCH (09:45)
[2020-04-27] MEDS: METOPROLOL SUCCINATE (ER) 25 MG TAB.ER.24H PO SCH (09:45)
[2020-04-27] MEDS: HEPARIN SODIUM,PORCINE 5,000 UNIT/ML 1 ML VIAL SQ SCH ×2 (09:45→20:30)
[2020-04-27] MEDS: LISINOPRIL 5 MG TAB PO SCH (09:45)
[2020-04-27] MEDS: PANTOPRAZOLE 40 MG/10 ML VIAL IV SCH (09:45)
[2020-04-27] MEDS: ASPIRIN 81 MG PO SCH (09:45)
[2020-04-27] MEDS: MULTIVITAMINS, THERA 1 EACH TAB PO SCH (09:45)
[2020-04-27] MEDS: THIAMINE 100 MG/ML 2 ML VIAL IVP SCH ×2 (09:46→20:30)
[2020-04-27] MEDS: LEVOTHYROXINE IVP 100 MCG/5 ML VIAL IV SCH (09:49)
[2020-04-27 11:22] LABS: Glucose,Whole Blood 109 mg/dL (75-99)
[2020-04-27] MEDS: SODIUM FERRIC GLUCONAT-SUCROSE 125 MG in SODIUM CHLORIDE 0.9% 100 ML IVPB SCH (11:44)
[2020-04-27] MEDS: FAT EMULSION 20% 250 ML IV SCH (11:48)
--- NOTE | 2020-04-27 16:03 | PN ---
PROGRESS NOTE Brittney is a 59-year-old lady who is admitted to hospital with perforated viscus and underwent surgery. Had takotsubo syndrome. This morning she is feeling well and is ready to be discharged. She will probably go to rehab. EXAM: Comfortable at rest. Vital signs are stable. Chest is clear to auscultation. Heart exam reveals first and second heart sounds. No gallop. Exam of extremities did not reveal any edema. Labs show a hemoglobin of 11.1. Potassium is 5.4, creatinine is 0.35. The patient is currently on aspirin, lisinopril, Toprol-XL, and spironolactone. ASSESSMENT: 1. Takotsubo syndrome with cardiomyopathy. 2. Perforated viscus, status post surgery. 3. Hyperkalemia. PLAN: I am going to stop the Aldactone given the elevated potassium. Please recheck the electrolytes tomorrow. We will see the patient on an as-needed basis. Follow up with Dr. Waldrop after discharge. MMEDMONDL / IJN: [id number] /
[2020-04-27 16:51] LABS: Glucose,Whole Blood 90 mg/dL (75-99)
[2020-04-27] MEDS: SODIUM CHLORIDE 0.45% 1,000 ML IV SCH (16:52)
[2020-04-27 19:23] LABS: Glucose,Whole Blood 113 mg/dL (75-99)
[2020-04-27] MEDS: [UNRECOGNIZED DRUG - REMARK] IV SCH ×4 (20:32)
[2020-04-27] MEDS: NOREPINEPHRINE 8 MG in SODIUM CHLORIDE 0.9% 250 ML IV SCH (20:36)
[2020-04-28] MEDS: ACETAMINOPHEN TAB 325 MG TAB PO PRN (01:51)
[2020-04-28] MEDS: AMPICILLIN-SULBACTAM 3 GM in SODIUM CHLORIDE 0.9% 100 ML IVPB SCH ×4 (06:00→23:45)
[2020-04-28 06:44] LABS: Anisocytosis Slight; Basophils % (A) 0 %; Eosinophils # (A) 0.2 k/uL (0-0.7); Eosinophils % (A) 2 %; HCT 36.1 % (34.0-46.0); HGB 11.5 gm/dL (11.4-16.0); Hypochromasia Slight; Lymphocytes # (A) 1.4 k/uL (1.0-4.8); Lymphocytes % (A) 14 %; MCH 31.8 pg (25.0-35.0); MCHC 31.8 g/dL (31.0-37.0); MCV 99.9 fL (80.0-100.0); Macrocytosis Slight; Mean Platelet Volume 8.9; Monocytes # (A) 0.5 k/uL (0-1.0); Monocytes % (A) 5 %; Neutrophils # (A) 7.6 k/uL (1.3-7.7); Neutrophils % (A) 77 %; Platelet Count 452 k/uL (150-450); RBC 3.61 m/uL (3.80-5.40); RDW 17.2 % (11.5-15.5); WBC 9.8 k/uL (3.8-10.6)
--- NOTE | 2020-04-28 06:53 | PN ---
PROGRESS NOTE DATE OF SERVICE: 04/27/2020 REASON FOR FOLLOWUP: Abdominal abscess. INTERVAL HISTORY: The patient is currently afebrile. The patient mentioning she may have ate more this evening and is feeling full, but denies any nausea, vomiting. No chest pain, shortness of breath or cough. PHYSICAL EXAMINATION: Blood pressure is 95/60 with a pulse of 78, temperature 98.4. She is 96% on room air. General description is a middle-aged female lying in bed in no distress. RESPIRATORY SYSTEM: Unlabored breathing, clear to auscultation anteriorly. HEART: S1, S2. Regular rate and rhythm. ABDOMEN: Soft, No guarding or rigidity. LABS: Hemoglobin is 11.1, white count 12.2 with a BUN of 14 and creatinine 0.35. DIAGNOSTIC IMPRESSION AND PLAN: Patient with abdominal abscess in this patient who did have a perforated sigmoid diverticulitis status post laparotomy and diverting colostomy. Abdominal culture predominantly with anaerobes. The patient on Unasyn with worsening of the white count responded to the Eraxis. May continue with Eraxis in the outpatient setting and we are not able to use Diflucan along with Unasyn for about a week and close outpatient followup. MMODL / IJN: [id number] /
[2020-04-28 07:06] LABS: Glucose,Whole Blood 108 mg/dL (75-99)
[2020-04-28] MEDS: INSULIN ASPART (NovoLOG) 100 UNIT/ML VIAL SQ SCH ×4 (07:29→20:14)
[2020-04-28 08:18] LABS: African American GFR (CKD) >90 (>60 ml/min/1.73 sqM); Anion Gap 7 mmol/L; Blood Urea Nitrogen 16 mg/dL (7-17); Calcium 9.1 mg/dL (8.4-10.2); Carbon Dioxide 24 mmol/L (22-30); Chloride 106 mmol/L (98-107); Glucose 97 mg/dL (74-99); Magnesium 2.1 mg/dL (1.6-2.3); Non-African American GFR(CKD) >90 (>60 ml/min/1.73 sqM); Phosphorus 3.5 mg/dL (2.5-4.5); Potassium 4.6 mmol/L (3.5-5.1); Sodium 137 mmol/L (137-145)
[2020-04-28] MEDS: MULTIVITAMINS, THERA 1 EACH TAB PO SCH (09:42)
[2020-04-28] MEDS: LISINOPRIL 5 MG TAB PO SCH (09:42)
[2020-04-28] MEDS: METOPROLOL SUCCINATE (ER) 25 MG TAB.ER.24H PO SCH (09:42)
[2020-04-28] MEDS: NICOTINE 14MG/24HR PATCH TRANSDERM SCH (09:43)
[2020-04-28] MEDS: ASPIRIN 81 MG PO SCH (09:43)
[2020-04-28] MEDS: LEVOTHYROXINE IVP 100 MCG/5 ML VIAL IV SCH (09:43)
[2020-04-28] MEDS: THIAMINE 100 MG/ML 2 ML VIAL IVP SCH ×2 (09:44→20:00)
[2020-04-28] MEDS: ANIDULAFUNGIN 100 MG in SODIUM CHLORIDE 0.9% 100 ML IVPB SCH (09:44)
[2020-04-28] MEDS: PANTOPRAZOLE 40 MG/10 ML VIAL IV SCH (09:45)
[2020-04-28] MEDS: HEPARIN SODIUM,PORCINE 5,000 UNIT/ML 1 ML VIAL SQ SCH ×2 (09:45→20:00)
--- NOTE | 2020-04-28 11:18 | P.DS ---
Providers Date of admission: 04/13/20 11:56 Expected date of discharge: 04/28/20 Attending physician: Padmaja Ojeda Consults: 04/13/20 23:32 Consult Physician Routine Consulting Provider: Halie Johnson Consult Reason/Comments: ICU management Do you want consulting provider notified?: Already Contacted 04/14/20 10:03 Consult Physician Routine Consulting Provider: Rivera Fuentes Consult Reason/Comments: Hypotension Do you want consulting provider notified?: Yes 04/14/20 10:04 Consult Physician Routine Consulting Provider: Waldemar Nascimento Consult Reason/Comments: Oliguria; Rule out JOSEPHINE Do you want consulting provider notified?: Yes 04/15/20 23:22 Consult Physician Routine Consulting Provider: Ro Silva Consult Reason/Comments: Antibiotic management sepsis Do you want consulting provider notified?: Yes, Notify in am 04/16/20 14:02 Consult Physician Routine Consulting Provider: Yovana Brantley Consult Reason/Comments: mental status Do you want consulting provider notified?: Yes 04/19/20 14:54 Consult Physician Routine Consulting Provider: Nghia Waldrop Consult Reason/Comments: elevated troponin, ekg changes Do you want consulting provider notified?: Already Contacted Primary care physician: [place] Hospital Course: 59-year-old female who presented to the hospital with a chief complaint of abdominal pain. The patient does have a history of gastric bypass surgery approximately 15 years ago. Patient had a CAT scan performed revealing intraperitoneal air. She underwent exploratory laparotomy with sigmoid colectom y, descending colostomy creation, and appendectomy with Dr. Ojeda on April 13, 2020. Patient was extubated a couple days after surgery. However, she required re-intubation on 04/18/2020. She was again extubated on 04/22/20. Her respiratory status has been stable since that time. Patient was also followed by cardiology during hospitalization. She was diagnosed with Takotsubo syndrome and cardiomyopathy. She was started on aspirin and metoprolol. Patient was also prescribed Aldactone but this was discontinued per cardiology due to hyperkalemia. She was also evaluated by infectious disease during her hospitalization. She received a PICC line. She is prescribed Unasyn and Eraxis at discharge per infectious disease recommendations. She is tolerating diet. Ostomy has been functioning well. She is stable for discharge today to [facility]. Please see EMR for further hospital course details. Discharge Diagnosis 1. Abdominal pain secondary to ruptured sigmoid colon, fecal peritonitis, descending and sigmoid colon impaction, appendicolith with appendicitis 2. Acute hypoxic respiratory failure requiring intubation 3. Hypothyroidism 4. Tobacco abuse 5. Takotsubo syndrome with cardiomyopathy Nurse practitioner note has been reviewed by physician. Signing provider agrees with the documented findings, assessment, and plan of care. Patient Condition at Discharge: Stable Plan - Discharge Summary New Discharge Prescriptions: New Ampicillin-Sulbactam [Unasyn] 3 gm IVPB Q8HR #21 vial Non Formulary Drug 100 mg IVPB DAILY #7 vial Aspirin 81 mg PO DAILY chew Metoprolol Succinate (ER) [Toprol XL] 25 mg PO DAILY #0 tab.er.24h Acetaminophen Tab [Tylenol] 650 mg PO Q4HR PRN tab PRN Reason: Fever And/ Or Pain Lisinopril [Zestril] 5 mg PO DAILY tab Continue Levothyroxine Sodium [Synthroid] 125 mcg PO DAILY FLUoxetine HCL [PROzac] 20 mg PO DAILY Multivitamins, Thera [Multivitamin (formulary)] 1 tab PO DAILY Cholecalciferol [Vitamin D3 (25 Mcg = 1000 Iu)] 1,000 unit PO DAILY Discontinued Propranolol HCl [Inderal LA] 80 mg PO HS Baclofen [Lioresal] 20 mg PO HS Rizatriptan Benzoate [Maxalt TELEGRAPH INSTALLER] 10 mg PO DAILY PRN PRN Reason: Migraine Headache Butalb/APAP/Caff 50-325-40Mg [Fioricet 50-325-40] 1 tab PO Q4H PRN PRN Reason: Migraine Headache Chlorthalidone 50 mg PO DAILY Discharge Medication List FLUoxetine HCL [PROzac] 20 mg PO DAILY 03/30/18 [History] Levothyroxine Sodium [Synthroid] 125 mcg PO DAILY 03/30/18 [History] Cholecalciferol [Vitamin D3 (25 Mcg = 1000 Iu)] 1,000 unit PO DAILY 04/13/20 [History] Multivitamins, Thera [Multivitamin (formulary)] 1 tab PO DAILY 04/13/20 [History] Acetaminophen Tab [Tylenol] 650 mg PO Q4HR PRN tab 04/28/20 [Rx] Ampicillin-Sulbactam [Unasyn] 3 gm IVPB Q8HR #21 vial 04/28/20 [Rx] Aspirin 81 mg PO DAILY chew 04/28/20 [Rx] Lisinopril [Zestril] 5 mg PO DAILY tab 04/28/20 [Rx] Metoprolol Succinate (ER) [Toprol XL] 25 mg PO DAILY #0 tab.er.24h 04/28/20 [Rx] Non Formulary Drug 100 mg IVPB DAILY #7 vial 04/28/20 [Rx] Follow up Appointment(s)/Referral(s): Padmaja Ojeda MD [STAFF PHYSICIAN] - 05/13/20 Wyatt Lemus DO [Primary Care Provider] - 1-2 days Nghia Waldrop MD [STAFF PHYSICIAN] - 1 Week Patient Instructions/Handouts: Colostomy Care (GEN) Activity/Diet/Wound Care/Special Instructions: Leave abdominal dressings in place until patient is seen at her follow up appointment with Dr. Ojeda No lifting over 10 pounds You may shower. No soaking or tub baths Very light activity until you are reevaluated at your follow up appointment with your surgeon Care Plan Goals (MU): Colostomy Care Recommendations fro Hospital to Rehab facility: LAst date of pouching system change: 04.27.2020 Mrs Fernandez will have the following osotmy care supplies sent with her to Rehab: [facility] pouching system #[id number] one piece cut to fit with filter (3) Ostomy powder (1) No sting prep pads (12) Rehab facility please set Mrs Phillips up for disposable pouching system in 2 weeks and preferably a precut appliance system Mrs Phillips is to empty the pouching system when it is 1/2 to 1/3 full while sittign on the toilet or facing the toilet.
[2020-04-28 11:30] LABS: Glucose,Whole Blood 75 mg/dL (75-99)
[2020-04-28] MEDS: SODIUM FERRIC GLUCONAT-SUCROSE 125 MG in SODIUM CHLORIDE 0.9% 100 ML IVPB SCH ×2 (11:36→12:38)
[2020-04-28] MEDS: FAT EMULSION 20% 250 ML IV SCH (12:43)
[2020-04-28] MEDS: [UNRECOGNIZED DRUG - REMARK] IV SCH ×4 (12:44)
--- NOTE | 2020-04-28 13:26 | PN ---
PROGRESS NOTE DATE OF SERVICE: 04/28/2020 REASON FOR FOLLOWUP: Abdominal abscess. INTERVAL HISTORY: Patient is currently afebrile. The patient is breathing comfortably. Denies having any chest pain. No shortness of breath or cough. No nausea, no vomiting. Abdominal pain is currently controlled. No diarrhea. EXAMINATION: Blood pressure 107/67with a pulse of 70. Temperature 97.8. She is 97% on room air. General description: The patient is a middle-aged female lying in bed in no distress. Respiratory system: Unlabored breathing. Clear to auscultation anteriorly. Heart S1, S2. Regular rate and rhythm. ABDOMEN: Soft, no tenderness. LABS: White count normal at 9.8, creatinine 0.41. DIAGNOSTIC IMPRESSION AND PLAN: Patient with abdominal abscess from perforated diverticulitis in this patient with overall improvement on Unasyn and Eraxis to continue for about a week to finish a course of therapy and close outpatient followup. MMODL / IJN: [id number] /
[2020-04-28 17:10] LABS: Glucose,Whole Blood 91 mg/dL (75-99)
[2020-04-28] MEDS: SODIUM CHLORIDE 0.45% 1,000 ML IV SCH (17:52)
[2020-04-28] MEDS: NOREPINEPHRINE 8 MG in SODIUM CHLORIDE 0.9% 250 ML IV SCH (19:18)
[2020-04-28 19:23] VITALS: RESP 18
[2020-04-28] MEDS: HYDROcodone/APAP 5-325MG 1 EACH TAB PO PRN (20:00)
[2020-04-28 20:06] LABS: Glucose,Whole Blood 82 mg/dL (75-99)
[2020-04-29] MEDS: HYDROcodone/APAP 5-325MG 1 EACH TAB PO PRN (03:02)
[2020-04-29] MEDS: SODIUM CHLORIDE 0.45% 1,000 ML IV SCH (03:02)
[2020-04-29] MEDS: AMPICILLIN-SULBACTAM 3 GM in SODIUM CHLORIDE 0.9% 100 ML IVPB SCH ×2 (05:37→12:49)
[2020-04-29 05:50] VITALS: BP 90/60; PULSE 76; TEMP 98.3
[2020-04-29 07:15] LABS: Glucose,Whole Blood 92 mg/dL (75-99)
[2020-04-29] MEDS: INSULIN ASPART (NovoLOG) 100 UNIT/ML VIAL SQ SCH ×2 (08:16→11:39)
[2020-04-29 08:45] LABS: African American GFR (CKD) >90 (>60 ml/min/1.73 sqM); Anion Gap 5 mmol/L; Blood Urea Nitrogen 13 mg/dL (7-17); Calcium 9.2 mg/dL (8.4-10.2); Carbon Dioxide 25 mmol/L (22-30); Chloride 106 mmol/L (98-107); Glucose 84 mg/dL (74-99); Magnesium 1.9 mg/dL (1.6-2.3); Non-African American GFR(CKD) >90 (>60 ml/min/1.73 sqM); Potassium 4.9 mmol/L (3.5-5.1); Sodium 136 mmol/L (137-145)
[2020-04-29] MEDS: [UNRECOGNIZED DRUG - REMARK] IV SCH ×4 (08:48)
[2020-04-29] MEDS: NICOTINE 14MG/24HR PATCH TRANSDERM SCH (08:53)
[2020-04-29] MEDS: ANIDULAFUNGIN 100 MG in SODIUM CHLORIDE 0.9% 100 ML IVPB SCH (08:53)
[2020-04-29] MEDS: LISINOPRIL 5 MG TAB PO SCH ×2 (08:54→09:00)
[2020-04-29] MEDS: HEPARIN SODIUM,PORCINE 5,000 UNIT/ML 1 ML VIAL SQ SCH (08:54)
[2020-04-29] MEDS: MULTIVITAMINS, THERA 1 EACH TAB PO SCH (08:54)
[2020-04-29] MEDS: ASPIRIN 81 MG PO SCH (08:54)
[2020-04-29] MEDS: METOPROLOL SUCCINATE (ER) 25 MG TAB.ER.24H PO SCH ×2 (08:54→09:00)
[2020-04-29] MEDS: PANTOPRAZOLE 40 MG/10 ML VIAL IV SCH (08:54)
[2020-04-29] MEDS: THIAMINE 100 MG/ML 2 ML VIAL IVP SCH (08:56)
[2020-04-29] MEDS: LEVOTHYROXINE IVP 100 MCG/5 ML VIAL IV SCH (08:56)
--- NOTE | 2020-04-29 11:00 | P.PN ---
Subjective Progress Note Date: 04/29/20 CHIEF COMPLAINT: Abdominal pain HISTORY OF PRESENT ILLNESS: 59-year-old female who underwent exploratory laparotomy with sigmoid colectomy, descending colostomy creation, and appendectomy with Dr. Ojeda on April 13, 2020. Patient was cleared for discharge yesterday to [facility]. Discharge delayed due to insurance authorization. Patient states she was able to speak with the bariatric dietitian yesterday. She remains stable for discharge today. PHYSICAL EXAM: VITAL SIGNS: Reviewed GENERAL: Well-developed in no acute distress HEENT: No sclera icterus. Extraocular movements grossly intact. Moist buccal mucosa. Head is atraumatic, normocephalic. No nasal drainage. NECK: Supple without lymphadenopathy. CHEST: Non-labored respirations and equal bilateral excursions CARDIOVASCULAR: Regular rate with regular rhythm. Palpable 2+ radial pulses. ABDOMEN: Soft. Nondistended. Dressing clean dry intact. Ostomy to left side of abdomen. Stoma pink. MUSCULOSKELETAL: No clubbing or cyanosis. NEUROLOGIC: No focal or lateralizing signs. Cranial nerves II through XII grossly intact. PSYCH: Appropriate affect. Alert and oriented to person, place and time. SKIN: Well perfused. Good skin turgor. ASSESSMENT: 1. Abdominal pain secondary to ruptured sigmoid colon, fecal peritonitis, descending and sigmoid colon impaction, appendicolith with appendicitis PLAN: Patient requesting to speak with ostomy nurse again before discharge. Notified Razia Hernandez Patient remains stable for discharge to ECF today pending insurance authorization. Please refer to discharge summary dictated 04/28/2020 Nurse practitioner note has been reviewed by physician. Signing provider agrees with the documented findings, assessment, and plan of care. Objective - Vital Signs Vital signs: Vital Signs Temp 98.3 F 04/29/20 05:05 Pulse 76 04/29/20 05:05 Resp 18 04/29/20 05:05 BP 90/60 04/29/20 05:05 Pulse Ox 96 04/29/20 05:05 Intake & Output 04/28/20 04/29/20 04/29/20 18:59 06:59 18:59 Intake Total 140 440 Output Total 1105 220 Balance -965 220 Weight 79.8 kg Intake: IV 140 200 Ampicillin-Sulbactam 3 gm 100 In Sodium Chloride 0.9% 100 ml @ 200 mls/hr IVPB Q6HR [facility] Rx#:[id number] Sodium Chloride 0.45% 1, 140 100 000 ml @ 20 mls/hr IV . Q24H [facility] Rx#:[id number] Oral 240 Output: Drainage 5 Right Lower Abdomen 5 Urine 1100 200 Stool 20 Other: Voiding Method Bedpan Bedpan # Voids 200 ABP, PAP, CO, CI - Last Documented Arterial Blood Pressure 112/50 - Labs CBC & Chem 7: 04/28/20 05:58 04/29/20 07:51 Labs: Abnormal Lab Results - Last 24 Hours (Table) 04/29/20 Range/Units 07:51 Sodium 136 L (137-145) mmol/L Creatinine 0.41 L (0.52-1.04) mg/dL Microbiology - Last 24 Hours (Table) 04/23/20 13:50 Blood Culture - Preliminary Blood No Growth after 120 hours
--- NOTE | 2020-04-29 11:08 | P.PN ---
Subjective Progress Note Date: 04/29/20 04/29/2020: Patient now on a regular medical floor. Patient is fully alert awake oriented. Wants to know when she can be transferred to rehab facility. Generalized weakness is gradually improving. Mentation is clear. Offers no complaints. 04/18/2020: Patient continues to be encephalopathic, moaning, groaning. However she is following commands as per examination. Patient has received 4 mg of Hald ol last night, as she became agitated, was pulling of lines, restless tachypneic. She has received 0.5 mg of Dilaudid at 8:30 AM today. Patient's oxygen saturation has been dropping, and on ABG, her saturation was 52%, pH 7.51 and pCO2 32. Patient also started on BiPAP. 04/17/2020: Patient was seen for a follow-up. Patient apparently was showing clinical improvement this morning, with some response in talking few words. Patient however was in pain. She was given 0.5 mg Dilaudid at 8:30 PM last night, then there are 0.5 mg Dilaudid at 3:30 AM and then 11 AM this morning also. She also received 4 mg of Haldol for restlessness and/any agitation at 9:45 AM. Patient subsequently became more groggy, less responsive. At present patient is just moaning, speaks "OK", or "all right". Patient continues to be encephalopathic. Objective - Vital Signs Vital signs: Vital Signs Temp 98.3 F 04/29/20 05:05 Pulse 76 04/29/20 05:05 Resp 18 04/29/20 05:05 BP 90/60 04/29/20 05:05 Pulse Ox 96 04/29/20 05:05 Intake & Output 04/28/20 04/29/20 04/29/20 18:59 06:59 18:59 Intake Total 140 440 Output Total 1105 220 Balance -965 220 Weight 79.8 kg Intake: IV 140 200 Ampicillin-Sulbactam 3 gm 100 In Sodium Chloride 0.9% 100 ml @ 200 mls/hr IVPB Q6HR [facility] Rx#:[id number] Sodium Chloride 0.45% 1, 140 100 000 ml @ 20 mls/hr IV . Q24H [facility] Rx#:[id number] Oral 240 Output: Drainage 5 Right Lower Abdomen 5 Urine 1100 200 Stool 20 Other: Voiding Method Bedpan Bedpan Bedpan # Voids 200 ABP, PAP, CO, CI - Last Documented Arterial Blood Pressure 112/50 - Exam Patient's mental status is completely normal. Patient is fully oriented 4. Speech and language functions, cranial nerves are normal. Muscle strength is normal in the biceps, deltoid is 5-, triceps 5-, central communications specialist is normal. Ankles and toes are normal. Hip flexion is weak about 3+ to 4-bilaterally. Patient has 1+ reflex at the ankle. - Labs CBC & Chem 7: 04/28/20 05:58 04/29/20 07:51 Labs: Abnormal Lab Results - Last 24 Hours (Table) 04/29/20 Range/Units 07:51 Sodium 136 L (137-145) mmol/L Creatinine 0.41 L (0.52-1.04) mg/dL Microbiology - Last 24 Hours (Table) 04/23/20 13:50 Blood Culture - Preliminary Blood No Growth after 120 hours Assessment and Plan Assessment: * Altered mental status, likely related to toxic metabolic encephalopathy, now resolved. * Status post acute kidney injury, secondary to hypotension, improving. * Acute abdomen with perforated bowel, status post exploratory laparotomy, sigmoid colectomy and colostomy. * Status post hypoxic acute respiratory failure, status post extubation. Patient still hypoxic at times, with O2 saturation 52% on ABG. * Sepsis related to intra-abdominal source and bowel perforation with fecal peritonitis. Plan: * Patient's mentation is completely normal. * Muscle strength also much improved. Appears generalized weak, which hopefully will get better with time and with rehabilitation. * Neurologically clear for transfer to rehab facility. * Neurology will sign off. * B12 is normal 1457, folate 9.0, TSH is elevated 6.86, with low free T4 0.57. Patient started on Synthroid.
[2020-04-29 11:12] LABS: Glucose,Whole Blood 91 mg/dL (75-99)
--- NOTE | 2020-04-29 14:28 | PN ---
PROGRESS NOTE DATE OF SERVICE: 04/29/2020 REASON FOR FOLLOWUP: Abdominal abscess and leukocytosis. INTERVAL HISTORY: The patient is currently afebrile. The patient is breathing comfortably. Denies having any chest pain or shortness of breath or cough. No nausea, vomiting or diarrhea. Currently waiting for . On examination, blood pressure 90/60 with a pulse of 73, temperature 98.3. She is 96% on room air. General description: The patient is a middle-aged female lying in bed in no distress. Respiratory system: Unlabored breathing. Clear to auscultation anteriorly. Heart S1, S2. Regular rate and rhythm. Abdomen soft, no tenderness. LABS: Creatinine normal. White count normal as of yesterday. DIAGNOSTIC IMPRESSION AND PLAN: Patient with an abdominal abscess from a perforated diverticulitis status post laparotomy and diverting colostomy and culture most anaerobes, possibly elevated white count. The patient is currently on Unasyn and Eraxis to continue 1 week to finish course of therapy and close outpatient followup. MMODL / IJN: [id number] /
[2020-04-30] MEDS ORDERED: PANTOPRAZOLE 40 MG TABLET PO SCH (09:00)
== END 2020-04-29 15:39 | DRG 329 ==
LOC: EC 10:45 → 4SSUR 11:56 → 2SICU 23:38 → 5NMEDONC 04-25 14:54
PROVIDERS: ADMIT Surgery Plastic and Reconstructive Surgery; ATTEND Surgery Plastic and Reconstructive Surgery
PROC: 0DCN0ZZ Extirpation of Matter from Sigmoid Colon, Open Approach (ICD-10-PCS; principal; 2020-04-13 18:00)
PROC: 0DCM0ZZ Extirpation of Matter from Descending Colon, Open Approach (ICD-10-PCS; principal; 2020-04-13 18:00)
PROC: 0DTJ0ZZ Resection of Appendix, Open Approach (ICD-10-PCS; principal; 2020-04-13 18:00)
PROC: 0D1M0Z4 Bypass Descending Colon to Cutaneous, Open Approach (ICD-10-PCS; principal; 2020-04-13 18:00)
PROC: 0DTN0ZZ Resection of Sigmoid Colon, Open Approach (ICD-10-PCS; principal; 2020-04-13 18:00)
PROC: 3E0336Z Introduction of Nutritional Substance into Peripheral Vein, Percutaneous Approach (ICD-10-PCS; 2020-04-17)
PROC: 0BH17EZ Insertion of Endotracheal Airway into Trachea, Via Natural or Artificial Opening (ICD-10-PCS; 2020-04-18)
PROC: 5A1945Z Respiratory Ventilation, 24-96 Consecutive Hours (ICD-10-PCS; 2020-04-18)
PROC: 02HV33Z Insertion of Infusion Device into Superior Vena Cava, Percutaneous Approach (ICD-10-PCS; 2020-04-24)
DX: K63.1 Perforation of intestine (nontraumatic) (principal); A41.9 Sepsis, unspecified organism; G92 Toxic encephalopathy; I50.21 Acute systolic (congestive) heart failure; J80 Acute respiratory distress syndrome; J96.01 Acute respiratory failure with hypoxia; N17.0 Acute kidney failure with tubular necrosis; J18.9 Pneumonia, unspecified organism; R65.21 Severe sepsis with septic shock; E43 Unspecified severe protein-calorie malnutrition; E51.9 Thiamine deficiency, unspecified; E87.0 Hyperosmolality and hypernatremia; E87.4 Mixed disorder of acid-base balance; I42.8 Other cardiomyopathies; Q43.8 Other specified congenital malformations of intestine; K56.49 Other impaction of intestine; K35.20 Acute appendicitis with generalized peritonitis, without abscess; Z11.59 Encounter for screening for other viral diseases; I27.20 Pulmonary hypertension, unspecified; E83.39 Other disorders of phosphorus metabolism; R13.10 Dysphagia, unspecified; I11.0 Hypertensive heart disease with heart failure; K56.41 Fecal impaction; B37.3 Candidiasis of vulva and vagina; E03.9 Hypothyroidism, unspecified; D50.9 Iron deficiency anemia, unspecified; E86.0 Dehydration; E87.5 Hyperkalemia; E87.6 Hypokalemia; F17.200 Nicotine dependence, unspecified, uncomplicated; F32.9 Major depressive disorder, single episode, unspecified; I25.2 Old myocardial infarction; K38.1 Appendicular concretions; T50.2X5A Adverse effect of carbonic-anhydrase inhibitors, benzothiadiazides and other diuretics, initial encounter; E55.9 Vitamin D deficiency, unspecified; R00.0 Tachycardia, unspecified; I34.0 Nonrheumatic mitral (valve) insufficiency; K21.9 Gastro-esophageal reflux disease without esophagitis; G43.909 Migraine, unspecified, not intractable, without status migrainosus; Z78.1 Physical restraint status; Z68.27 Body mass index [BMI] 27.0-27.9, adult; Z79.890 Hormone replacement therapy; Z79.899 Other long term (current) drug therapy; Z98.84 Bariatric surgery status; Z91.19 Patient's noncompliance with other medical treatment and regimen; Z90.710 Acquired absence of both cervix and uterus; Z88.2 Allergy status to sulfonamides; Z91.040 Latex allergy status; Z90.49 Acquired absence of other specified parts of digestive tract; Z71.6 Tobacco abuse counseling
CPT/HCPCS: 36415; 36573; 36600; 70450; 71045; 74018; 74177; 76770; 80048; 80053; 80061; 81001; 82040; 82150; 82306; 82330; 82525; 82533; 82550; 82553; 82607; 82728; 82746; 82805; 83036; 83540; 83550; 83605; 83690; 83735; 83970; 84100; 84132; 84255; 84425; 84439; 84443; 84478; 84484; 84590; 84630; 85025; 85610; 85730; 86140; 86850; 86870; 86880; 86900; 86901; 86902; 87040; 87070; 87075; 87086; 87205; 88307; 93005; 93306; 94002; 94003; 94640; 94660; 95819; 96361; 96365; 96366; 96375; 96376; 99291

== ENCOUNTER → 2023-08-16 | Outpatient (CLI) | payer OTHER ==
--- NOTE | 2023-08-16 13:03 | BD ---
EXAMINATION TYPE: Axial Bone Density DATE OF EXAM: 08/16/2023 CLINICAL HISTORY: 62 years old Female. ICD-10 CODE: N95.1 MENOPAUSAL Height: 66" Weight: 118.4lbs FRAX RISK QUESTIONS: Alcohol (3 or more units per day): No Family History (Parent hip fracture): No Glucocorticoids (More than 3mos): No (Ex: prednisone, prednisolone, methylprednisolone, dexamethasone, and hydrocortisone). History of Fracture in Adulthood: No Secondary Osteoporosis: 1. Type 1 Diabetes: No 2. Hyperthyroidism: No 3. Menopause before 45: No 4. Malnutrition: No 5. Chronic liver disease: No Rheumatoid Arthritis: No Current Tobacco Use: Yes RISK FACTORS HISTORY OF: Hip Fracture (Right/Left): No Spine Fracture: No History of Wrist Fracture: No Surgery to Spine/Hip(right/left)/Wrist (right/left): No Family History of Osteoporosis: No Active: Yes Diet low in dairy products/other sources of calcium: No Postmenopausal woman: Yes Lost more than 2 inches in height since high school: No Frequent falls: No Poor Health: No Hyperparathyroidism: No Adrenal Insufficiency: No MEDICATIONS: Prednisone or other steroids: No Thyroid Medications: Yes Which medication: Levothyroxine How Lon+ years Osteoporosis Medications: No Additional Medications: Levothyroxine, heart medication, anxiety meds, Vitamin D, multivitamin, migra ine meds Additional History: None EXAM MEASUREMENTS: Bone mineral densitometry was performed using the [employer] System. Bone mineral density as measured about the Lumbar spine is: ----- L1-L4(G/cm2): 0.949 T Score Values are as follows: ----- L1: -4.4 ----- L2: -3.8 ----- L3: -2.2 ----- L4: 1.5 ----- L1-L4: -1.9 Z Score Values are as follows: ----- L1: -2.4 ----- L2: -1.9 ----- L3: -0.2 ----- L4: 3.4 ----- L1-L4: 0.0 Baseline @MPH Bone mineral density about the R hip (g/cm2): 0.638 Bone mineral density about the L hip (g/cm2): 0.679 T Score values are as follows: -----R Neck: -2.5 -----L Neck: -2.1 -----R Total: -2.9 -----L Total: -2.6 Z Score values are as follows: -----R Neck: -0.8 -----L Neck: -0.4 -----R Total: -1.5 -----L Total: -1.2 Baseline @MPH FRAX%s: The graph provided illustrates a 12.2% chance for a major osteoporotic fx and a 4.3% chance f or the hips probability for fx in 10 years time. IMPRESSION: Osteopenia (T Score between -2.5 and -1). There is slightly increased risk of fracture and the patient may be considered for treatment. Re-Screen 2-5 years. NOTE: T-SCORE=SD OF THE YOUNG ADULT MEAN.
--- NOTE | 2023-08-17 19:12 | MM ---
Reason for Exam: Screening (asymptomatic). Baseline mammogram. Patient History: Menarche at age 11. First Full-Term at age 37. Late child-bearing (after 28). Left ovary removed at age 32. Risk Values: Nessa 5 year model risk: 2.2%. NCI Lifetime model risk: 8.9%. Prior Study Comparison: Patient's first Mammogram. Tissue Density: The breast tissue is heterogeneously dense. This may lower the sensitivity of mammography. Findings: Analyzed By CAD. No significant mass, suspicious microcalcification, or other discrete abnormality is seen. Overall Assessment: Negative, BI-RAD 1 Management: Screening Mammogram of both breasts in 1 year. . Patient should continue monthly self-breast exams. A clinical breast exam by your physician is recommended on an annual basis. This exam should not preclude additional follow-up of suspicious palpable abnormalities. Note on Nessa scores and lifetime risk: 1. A Nessa score greater than 3% is considered moderate risk. If this is the case, consider specialist referral to assess eligibility for a risk reducing agent. 2. If overall lifetime risk for the development of breast cancer is 20% or higher, the patient may qualify for future screening with alternating mammogram and breast MRI. Electronically signed and approved by: Jason Wylie M.D. Radiologist
== END | disposition home or self-care (01) ==
LOC: RADMAMWWP 09:21
PROVIDERS: ATTEND Family Medicine
DX: Z12.31 Encounter for screening mammogram for malignant neoplasm of breast (principal); N95.1 Menopausal and female climacteric states; M81.0 Age-related osteoporosis without current pathological fracture; M85.89 Other specified disorders of bone density and structure, multiple sites
CPT/HCPCS: 77067; 77080